=== PATIENT | male | born 1955 | race American Indian/Alaskan Native ===

== ENCOUNTER 2017-06-12 15:17 | Inpatient (IN) | payer MEDICAID ==
[2017-06-12 15:53] LABS: Basophils % (Auto) 0.3 % (0.0-1.8); Hematocrit 36.3 % (35.5-45.6); Hemoglobin 12.1 gm/dl (11.8-15.2); Lymphocytes # (Auto) 0.8 K/mm3 (1.2-5.4); Lymphocytes % (Auto) 6.1 % (13.4-35.0); Mean Corpuscular HGB Conc 33 % (32-34); Mean Corpuscular Hemoglobin 31 pg (28-32); Mean Corpuscular Volume 92 fl (84-94); Monocytes # (Auto) 0.6 K/mm3 (0.0-0.8); Monocytes % (Auto) 5.1 % (0.0-7.3); Platelet Count 311 K/mm3 (140-440); Red Blood Count 3.96 M/mm3 (3.65-5.03); Red Cell Distribution Width 13.1 % (13.2-15.2)
[2017-06-12 16:11] LABS: Calcium 8.8 mg/dL (8.4-10.2)
[2017-06-12 16:12] LABS: Bacteria,Urine 1+ /HPF (Negative); Bilirubin,Urine NEG (Negative); Blood,Urine SM (Negative); Color,Urine Yellow (Yellow); Protein,Urine >500 mg/dL (Negative); Urobilinogen,Urine < 2.0 mg/dL (<2.0)
[2017-06-12 16:20] LABS: Amphetamine Screen,Urine PRESUMPTIVE NEGATIVE; Benzodiazepines Screen,Urine PRESUMPTIVE NEGATIVE; Cannabinoid Screen,Urine PRESUMPTIVE NEGATIVE; Cocaine Screen,Urine PRESUMPTIVE NEGATIVE; Methadone Screen,Urine PRESUMPTIVE NEGATIVE; Opiate Screen,Urine PRESUMPTIVE NEGATIVE
[2017-06-12 16:26] LABS: INR 1.02 (0.87-1.13); Partial Thromboplastin Time 27.2 Sec. (24.2-36.6)
[2017-06-12 16:45] LABS: Alanine Aminotransferase 19 units/L (7-56); Albumin 3.1 g/dL (3.9-5)
[2017-06-12 16:48] LABS: Bilirubin,Direct < 0.2 mg/dL (0-0.2)
--- NOTE | 2017-06-12 17:20 | Cat Scan Report ---
FINAL REPORT EXAM: CT HEAD/BRAIN WO CON HISTORY: AMS TECHNIQUE: CT head without contrast PRIORS: Correlation with prior MRI June 02, [address] of March 15, 2016 FINDINGS: There is focal hypodensity within the right occipital lobe consistent with subacute evolving hemorrhage.. No acute components are observed There is patchy decreased density throughout the supratentorial white matter consistent with chronic small vessel ischemic change. No acute parenchymal abnormalities are identified. Ventricles and sulci are within normal limits. The remote lacunar infarcts noted within the basal ganglia. IMPRESSION: Subacute right occipital hematoma no acute components identified Chronic small vessel white matter ischemic changes Otherwise no acute findings
--- NOTE | 2017-06-12 17:26 | Emergency Department Report ---
ED General Adult HPI - General Chief complaint: Hypoglycemia Stated complaint: HYPOGLYCEMIA Time Seen by Provider: 06/12/17 15:31 Source: EMS Mode of arrival: Stretcher Limitations: Altered Mental Status - History of Present Illness Initial comments: This is a 61 yr old male with past medical history of Hypertension, Diabetes mellitus and chronic Kidney disease who was recently admitted and discharged with dizziness. 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 He was treated for accelerated hypertension with a blood pressure 192/[address] head without contrast here revealed right occipital intraparechymal hemorrhage, subacute. The patient was seen by neurology for the CVA and cardiology for elevated troponin. He was found to have a creatinine of 3.4. Today the patient was found poorly responsive by his family. I believe he had taken his insulin. His blood sugar was found to be 22 by paramedics. They gave the patient 1 amp of D50. He arrived with persistent altered mental status but his glucose was repeated and it was over 100. Further diagnostic evaluation proceeded. -: unknown - Related Data Home Medications Medication Instructions Recorded Confirmed Last Taken Glimepiride [Amaryl] 4 mg PO QAM 06/01/17 06/01/17 Unknown Losartan [Cozaar] 100 mg PO QDAY 06/01/17 06/01/17 Unknown NIFEdipine [Nifedipine ER] 90 mg PO DAILY 06/01/17 06/01/17 Unknown cloNIDine [Catapres] 0.2 mg PO QHS 06/01/17 06/01/17 Unknown metFORMIN [Glucophage] 500 mg PO BID 06/01/17 06/01/17 Unknown Previous Rx's Medication Instructions Recorded Last Taken Type AtorvaSTATin [Lipitor] 40 mg PO QHS #30 tablet 06/06/17 Unknown Rx Insulin NPH/Regular [NovoLIN 70/30] 25 unit SUB-Q BIDDIAB #30 units 06/06/17 Unknown Rx Losartan [Cozaar] 100 mg PO QDAY #30 tablet 06/06/17 Unknown Rx Metoprolol Tartrate 100 mg PO BID #60 tablet 06/06/17 Unknown Rx NIFEdipine XL [Procardia Xl] 90 mg PO QDAY #30 tablet 06/06/17 Unknown Rx Spironolactone [Aldactone] 25 mg PO BID #60 tablet 06/06/17 Unknown Rx amLODIPine [Norvasc] 10 mg PO QDAY #30 tablet 06/06/17 Unknown Rx hydrALAZINE [Apresoline TAB] 50 mg PO Q8HR #30 tablet 06/06/17 Unknown Rx Allergies Allergy/AdvReac Type Severity Reaction Status Date / Time No Known Allergies Allergy Verified 06/12/17 15:18 ED Review of Systems ROS: Stated complaint: HYPOGLYCEMIA Other details as noted in HPI Comment: Unobtainable due to pts medical conditions ED Past Medical Hx - Past Medical History Hx Hypertension: Yes Hx Congestive Heart Failure: No Hx Diabetes: Yes Hx Asthma: No Hx COPD: No Hx HIV: No Additional medical history: Stage IV chronic kidney disease. Recent hypertensive cerebral hemorrhage - Surgical History Past Surgical History?: Yes Additional Surgical History: hernia repair - Social History Smoking Status: Unknown if ever smoked - Medications Home Medications: Home Medications Medication Instructions Recorded Confirmed Last Taken Type Glimepiride [Amaryl] 4 mg PO QAM 06/01/17 06/01/17 Unknown History Losartan [Cozaar] 100 mg PO QDAY 06/01/17 06/01/17 Unknown History NIFEdipine [Nifedipine ER] 90 mg PO DAILY 06/01/17 06/01/17 Unknown History cloNIDine [Catapres] 0.2 mg PO QHS 06/01/17 06/01/17 Unknown History metFORMIN [Glucophage] 500 mg PO BID 06/01/17 06/01/17 Unknown History AtorvaSTATin [Lipitor] 40 mg PO QHS #30 tablet 06/06/17 Unknown Rx Insulin NPH/Regular [NovoLIN 70/30] 25 unit SUB-Q BIDDIAB #30 units 06/06/17 Unknown Rx Losartan [Cozaar] 100 mg PO QDAY #30 tablet 06/06/17 Unknown Rx Metoprolol Tartrate 100 mg PO BID #60 tablet 06/06/17 Unknown Rx NIFEdipine XL [Procardia Xl] 90 mg PO QDAY #30 tablet 06/06/17 Unknown Rx Spironolactone [Aldactone] 25 mg PO BID #60 tablet 06/06/17 Unknown Rx amLODIPine [Norvasc] 10 mg PO QDAY #30 tablet 06/06/17 Unknown Rx hydrALAZINE [Apresoline TAB] 50 mg PO Q8HR #30 tablet 06/06/17 Unknown Rx ED Physical Exam - General Limitations: Altered Mental Status General appearance: in no apparent distress, lethargic - Head Head exam: Present: atraumatic, normocephalic - Eye Eye exam: Present: normal appearance, PERRL, EOMI. Absent: scleral icterus - ENT ENT exam: Present: mucous membranes moist - Neck Neck exam: Present: normal inspection. Absent: tenderness, meningismus - Respiratory Respiratory exam: Present: normal lung sounds bilaterally. Absent: respiratory distress - Cardiovascular Cardiovascular Exam: Present: regular rate, normal rhythm. Absent: systolic murmur, diastolic murmur, rubs, gallop - GI/Abdominal GI/Abdominal exam: Present: soft, normal bowel sounds. Absent: distended, tenderness, guarding, rebound, rigid - Rectal Rectal exam: Present: deferred - Extremities Exam Extremities exam: Present: normal inspection - Back Exam Back exam: Present: other (could not visualize) - Neurological Exam Neurological exam: Present: altered, CN II-XII intact (past test by observation) . Absent: motor sensory deficit (patient unable to follow commands. No gross hemiparesis. No gross sensory deficit.) - Psychiatric Psychiatric exam: Present: normal mood, flat affect - Skin Skin exam: Present: warm, dry, intact, normal color. Absent: rash ED Course Vital Signs 06/12/17 06/12/17 15:20 18:01 Pulse Rate 74 Respiratory 16 Rate Blood Pressure 165/95 O2 Sat by Pulse 97 94 Oximetry - Reevaluation(s) Reevaluation #1: On reexamination the patient appears to perhaps have mild right facial paresis. He will not squeeze my fingers. He does not tell me his name or the date. He simply states, "yes sir". I don't see any gross motor deficit. He does appear to have a receptive aphasia. I do not know if this is secondary to his hypoglycemia or if he had a seizure. It is certainly possible that he has had another stroke. The patient is not a candidate for tPA for multiple reasons. He has had a recent cerebral hemorrhage and stroke. He is excluded on that basis. A baby aspirin I believe is appropriate and that has been ordered. I'm also going to empirically treat him with Keppra as I believe he is very high risk for seizures and indeed might have actually have one. 06/12/17 17:51 Reevaluation #2: Patient will be admitted to the hospitalist service for care and evaluation. 06/12/17 17:54 ED Medical Decision Making - Lab Data Result diagrams: 06/12/17 Unknown 06/12/17 Unknown Laboratory Results - last 24 hr 06/12/17 06/12/17 06/12/17 15:24 15:40 15:46 WBC RBC Hgb Hct MCV MCH MCHC RDW Plt Count Lymph % (Auto) [place] % (Auto) Eos % (Auto) Baso % (Auto) Lymph # [place] # Eos # Baso # Seg Neutrophils % Seg Neutrophils # PT 13.9 INR 1.02 APTT 27.2 POC ABG pH POC ABG pCO2 POC ABG pO2 POC ABG HCO3 POC ABG Total CO2 POC ABG O2 Sat POC ABG Base Excess FiO2 Sodium Potassium Chloride Carbon Dioxide Anion Gap BUN Creatinine Estimated GFR BUN/Creatinine Ratio Glucose POC Glucose 130 H Calcium Magnesium Total Bilirubin Direct Bilirubin Indirect Bilirubin AST ALT Alkaline Phosphatase Ammonia 39.0 Troponin T NT-Pro-B Natriuret Pep Total Protein Albumin Albumin/Globulin Ratio TSH Urine Color Urine Turbidity Urine pH Ur Specific [place] Urine Protein Urine Glucose (UA) Urine Ketones Urine Blood Urine Nitrite Urine Bilirubin Urine Urobilinogen Ur Leukocyte Esterase Urine WBC (Auto) Urine RBC (Auto) Urine Bacteria (Auto) Urine Yeast (Budding) Urine Opiates Screen Urine Methadone Screen Ur Barbiturates Screen Ur Phencyclidine Scrn Ur Amphetamines Screen U Benzodiazepines Scrn Urine Cocaine Screen U Marijuana (THC) Screen Drugs of Abuse Note Plasma/Serum Alcohol 06/12/17 06/12/17 06/12/17 15:50 15:50 16:23 WBC RBC Hgb Hct MCV MCH MCHC RDW Plt Count Lymph % (Auto) [place] % (Auto) Eos % (Auto) Baso % (Auto) Lymph # [place] # Eos # Baso # Seg Neutrophils % Seg Neutrophils # PT INR APTT POC ABG pH 7.424 POC ABG pCO2 27.7 L POC ABG pO2 54 L POC ABG HCO3 18.1 POC ABG Total CO2 19 POC ABG O2 Sat 89 POC ABG Base Excess -6 FiO2 21 Sodium Potassium Chloride Carbon Dioxide Anion Gap BUN Creatinine Estimated GFR BUN/Creatinine Ratio Glucose POC Glucose Calcium Magnesium Total Bilirubin Direct Bilirubin Indirect Bilirubin AST ALT Alkaline Phosphatase Ammonia Troponin T NT-Pro-B Natriuret Pep Total Protein Albumin Albumin/Globulin Ratio TSH Urine Color Yellow Urine Turbidity Clear Urine pH 5.0 Ur Specific [place] 1.013 Urine Protein >500 Urine Glucose (UA) Neg Urine Ketones Neg Urine Blood Sm Urine Nitrite Neg Urine Bilirubin Neg Urine Urobilinogen < 2.0 Ur Leukocyte Esterase Neg Urine WBC (Auto) 1.0 Urine RBC (Auto) 1.0 Urine Bacteria (Auto) 1+ Urine Yeast (Budding) Few Urine Opiates Screen Presumptive negative Urine Methadone Screen Presumptive negative Ur Barbiturates Screen Presumptive negative Ur Phencyclidine Scrn Presumptive negative Ur Amphetamines Screen Presumptive negative U Benzodiazepines Scrn Presumptive negative Urine Cocaine Screen Presumptive negative U Marijuana (THC) Screen Presumptive negative Drugs of Abuse Note Disclamer Plasma/Serum Alcohol 06/12/17 06/12/17 06/12/17 Unknown Unknown Unknown WBC 12.6 H RBC 3.96 Hgb 12.1 Hct 36.3 MCV 92 MCH 31 MCHC 33 RDW 13.1 L Plt Count 311 Lymph % (Auto) 6.1 L [place] % (Auto) 5.1 Eos % (Auto) 0.0 Baso % (Auto) 0.3 Lymph # 0.8 L [place] # 0.6 Eos # 0.0 Baso # 0.0 Seg Neutrophils % 88.5 H Seg Neutrophils # 11.2 H PT INR APTT POC ABG pH POC ABG pCO2 POC ABG pO2 POC ABG HCO3 POC ABG Total CO2 POC ABG O2 Sat POC ABG Base Excess FiO2 Sodium 141 Potassium 3.4 L Chloride 105.1 Carbon Dioxide 18 L Anion Gap 21 BUN 30 H Creatinine 2.7 H Estimated GFR 29 BUN/Creatinine Ratio 11 Glucose 115 H POC Glucose Calcium 8.8 Magnesium Total Bilirubin Direct Bilirubin Indirect Bilirubin AST ALT Alkaline Phosphatase Ammonia Troponin T NT-Pro-B Natriuret Pep Total Protein Albumin Albumin/Globulin Ratio TSH 1.120 Urine Color Urine Turbidity Urine pH Ur Specific [place] Urine Protein Urine Glucose (UA) Urine Ketones Urine Blood Urine Nitrite Urine Bilirubin Urine Urobilinogen Ur Leukocyte Esterase Urine WBC (Auto) Urine RBC (Auto) Urine Bacteria (Auto) Urine Yeast (Budding) Urine Opiates Screen Urine Methadone Screen Ur Barbiturates Screen Ur Phencyclidine Scrn Ur Amphetamines Screen U Benzodiazepines Scrn Urine Cocaine Screen U Marijuana (THC) Screen Drugs of Abuse Note Plasma/Serum Alcohol 06/12/17 06/12/17 Unknown Unknown WBC RBC Hgb Hct MCV MCH MCHC RDW Plt Count Lymph % (Auto) [place] % (Auto) Eos % (Auto) Baso % (Auto) Lymph # [place] # Eos # Baso # Seg Neutrophils % Seg Neutrophils # PT INR APTT POC ABG pH POC ABG pCO2 POC ABG pO2 POC ABG HCO3 POC ABG Total CO2 POC ABG O2 Sat POC ABG Base Excess FiO2 Sodium Potassium Chloride Carbon Dioxide Anion Gap BUN Creatinine Estimated GFR BUN/Creatinine Ratio Glucose POC Glucose Calcium Magnesium 1.60 L Total Bilirubin 0.70 Direct Bilirubin < 0.2 Indirect Bilirubin 0.5 AST 24 ALT 19 Alkaline Phosphatase 85 Ammonia Troponin T 0.013 NT-Pro-B Natriuret Pep 678.0 Total Protein 6.5 Albumin 3.1 L Albumin/Globulin Ratio 0.9 TSH Urine Color Urine Turbidity Urine pH Ur Specific [place] Urine Protein Urine Glucose (UA) Urine Ketones Urine Blood Urine Nitrite Urine Bilirubin Urine Urobilinogen Ur Leukocyte Esterase Urine WBC (Auto) Urine RBC (Auto) Urine Bacteria (Auto) Urine Yeast (Budding) Urine Opiates Screen Urine Methadone Screen Ur Barbiturates Screen Ur Phencyclidine Scrn Ur Amphetamines Screen U Benzodiazepines Scrn Urine Cocaine Screen U Marijuana (THC) Screen Drugs of Abuse Note Plasma/Serum Alcohol < 0.01 - EKG Data -: EKG Interpreted by Me EKG shows normal: sinus rhythm, axis (normal axis) Rate: normal - EKG Data Interpretation: LVH (repolarization consistent with inferolateral T-wave inversion is often related to LVH consider ischemia) - Radiology Data Radiology results: report reviewed interpreted by me: CT shows subacute acute right occipital hematoma with no acute components identified. No acute finding per radiologist. Chest x-ray to me suggests a right lower lobe infiltrate. I suspect the patient may have aspirated. Critical Care Time: Yes Critical care time in (mins) excluding proc time.: 60 Critical care attestation.: If time is entered above; I have spent that time in minutes in the direct care of this critically ill patient, excluding procedure time. ED Disposition Clinical Impression: CKD (chronic kidney disease) stage 4, GFR 15-29 ml/min, Hypoglycemia, Cerebral hemorrhage, Hypoxia, Essential hypertension, Pulmonary infiltrate in right lung on CXR Altered mental status Qualifiers: Altered mental status type: disorientation Qualified Code(s): R41.0 - Disorientation, unspecified Disposition: 09 OP ADMIT IP TO THIS HOSP Is pt being admited?: Yes Does the pt Need Aspirin: Yes Condition: Stable Instructions: Hypertension (ED) Referrals: PRIMARY CARE, [Primary Care Provider] - 3-5 Days Time of Disposition: 18:36
[2017-06-12] MEDS ORDERED: KEPPRA 1,000 MG/NS 0.75% 100ML 1,000 MG/100 ML BAG IV ONE (17:50)
[2017-06-12] MEDS ORDERED: BABY ASPIRIN PO ONE (17:51)
--- NOTE | 2017-06-12 18:14 | XRay Report ---
FINAL REPORT EXAM: XR CHEST 1V AP HISTORY: hypoxia TECHNIQUE: upright single view chest PRIORS: Comparison is March 15, 2016 FINDINGS: Cardiac and mediastinal contours are unremarkable. No focal pulmonary infiltrate is identified. No pleural fluid collection seen. Pulmonary vasculature is unremarkable. IMPRESSION: Negative single-view chest
[2017-06-12] MEDS ORDERED: ROCEPHIN/NS 1 GM/50 ML 1 GM/50 ML BAG IV ONE (18:35)
[2017-06-12] MEDS ORDERED: cefTRIAXone 1 GM in NACL 0.9% 20 ML IV ONE (19:30)
[2017-06-12] MEDS ORDERED: APRESOLINE IV ONE (20:36)
[2017-06-12] MEDS: D50W (25GM) Syringe IV PRN ×2 (20:40→22:30)
[2017-06-12] MEDS ORDERED: TYLENOL PO PRN (23:59)
[2017-06-12] MEDS ORDERED: ZOFRAN IV PRN (23:59)
[2017-06-12] MEDS ORDERED: SODIUM CHLORIDE FLUSH SYRINGE 10 ML IV PRN (23:59)
--- NOTE | 2017-06-12 23:59 | History and Physical Report ---
History of Present Illness Date of examination: 06/12/17 Date of admission: 06/12/2017 Chief complaint: Chief complaint: Altered sensorium History of present illness: History of Present Illness 61-year-old -[place] male with history of insulin-dependent diabetes was found with altered sensorium. 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 Patient has some left-sided residual weakness. His creatinine is about 3.4. Patient was found with low glucose of 22 by paramedics. They gave a 1 amp of D50. With which he improved. Patient continues to be confused in the emergency room has admission. Patient had right facial paralysis for a few minutes which is resolved spontaneously as per emergency room physician. Past Medical History Hx Hypertension: Yes Hx Diabetes: Yes Additional medical history: Stage IV chronic kidney disease. Recent hypertensive cerebral hemorrhage Surgical History Past Surgical History?: Yes Additional Surgical History: hernia repair Social History Smoking Status: Unknown if ever smoked Family history Hypertension -Medications Home Medications: Home Medications Medication Instructions Recorded Confirmed Last Taken Type Glimepiride [Amaryl] 4 mg PO QAM 06/01/17 06/01/17 Unknown History Losartan [Cozaar] 100 mg PO QDAY 06/01/17 06/01/17 Unknown History NIFEdipine [Nifedipine ER] 90 mg PO DAILY 06/01/17 06/01/17 Unknown History cloNIDine [Catapres] 0.2 mg PO QHS 06/01/17 06/01/17 Unknown History metFORMIN [Glucophage] 500 mg PO BID 06/01/17 06/01/17 Unknown History AtorvaSTATin [Lipitor] 40 mg PO QHS #30 tablet 06/06/17 Unknown Rx Insulin NPH/Regular [NovoLIN 70/30] 25 unit SUB-Q BIDDIAB #30 units 06/06/17 Unknown Rx Losartan [Cozaar] 100 mg PO QDAY #30 tablet 06/06/17 Unknown Rx Metoprolol Tartrate 100 mg PO BID #60 tablet 06/06/17 Unknown Rx NIFEdipine XL [Procardia Xl] 90 mg PO QDAY #30 tablet 06/06/17 Unknown Rx Spironolactone [Aldactone] 25 mg PO BID #60 tablet 06/06/17 Unknown Rx amLODIPine [Norvasc] 10 mg PO QDAY #30 tablet 06/06/17 Unknown Rx hydrALAZINE [Apresoline TAB] 50 mg PO Q8HR #30 tablet 06/06/17 Unknown Rx Medications and Allergies Allergies Allergy/AdvReac Type Severity Reaction Status Date / Time No Known Allergies Allergy Verified 06/12/17 15:18 Home Medications Medication Instructions Recorded Confirmed Last Taken Type Glimepiride [Amaryl] 4 mg PO QAM 06/01/17 06/12/17 Unknown History Losartan [Cozaar] 100 mg PO QDAY 06/01/17 06/01/17 Unknown History NIFEdipine [Nifedipine ER] 90 mg PO DAILY 06/01/17 06/12/17 Unknown History cloNIDine [Catapres] 0.2 mg PO QHS 06/01/17 06/01/17 Unknown History metFORMIN [Glucophage] 500 mg PO BID 06/01/17 06/12/17 Unknown History AtorvaSTATin [Lipitor] 40 mg PO QHS #30 tablet 06/06/17 Unknown Rx Insulin NPH/Regular [NovoLIN 70/30] 25 unit SUB-Q BIDDIAB #30 units 06/06/17 Unknown Rx Losartan [Cozaar] 100 mg PO QDAY #30 tablet 06/06/17 06/12/17 Unknown Rx Metoprolol Tartrate 100 mg PO BID #60 tablet 06/06/17 06/12/17 Unknown Rx NIFEdipine XL [Procardia Xl] 90 mg PO QDAY #30 tablet 06/06/17 Unknown Rx Spironolactone [Aldactone] 25 mg PO BID #60 tablet 06/06/17 Unknown Rx amLODIPine [Norvasc] 10 mg PO QDAY #30 tablet 06/06/17 06/12/17 Unknown Rx hydrALAZINE [Apresoline TAB] 50 mg PO Q8HR #30 tablet 06/06/17 06/12/17 Unknown Rx Active Meds: Active Medications Dextrose (D50w (25gm) Syringe) 50 ml IV PRN PRN PRN Reason: Hypoglycemia Last Admin: 06/12/17 20:40 Dose: 50 ml Review of Systems All systems: negative Constitutional: no weight loss, no weight gain, no fever, no chills, no sweats Ears, nose, mouth and throat: no sore throat, no swelling in mouth, no swelling in throat Cardiovascular: no chest pain, no orthopnea, no palpitations, no rapid/ irregular heart beat, no edema, no syncope, no lightheadedness, no shortness of breath Respiratory: no cough, no cough with sputum, no excessive sputum, no hemoptysis , no shortness of breath, no dyspnea on exertion Gastrointestinal: no abdominal pain, no nausea, no vomiting, no diarrhea, no constipation Genitourinary Male: no dysuria, no hematuria, no flank pain, no discharge, no urinary frequency, no urinary hesitancy, no nocturia, no incontinence, no erectile dysfunction, no genital pain Musculoskeletal: no neck stiffness, no neck pain, no shooting arm pain, no arm numbness/tingling, no low back pain, no shooting leg pain, no leg numbness/ tingling, no redness of joints Integumentary: no rash, no pruritis, no redness, no sores, no wounds Neurological: no head injury, no seizures, no syncope Psychiatric: no anxiety, no memory loss, no change in sleep habits, no sleep disturbances, no insomnia Endocrine: no cold intolerance, no heat intolerance, no polyphagia, no excessive thirst Hematologic/Lymphatic: no easy bruising, no easy bleeding Allergic/Immunologic: no urticaria, no allergic rhinitis, no wheezing Exam - Constitutional Vitals: Temp Pulse Resp BP Pulse Ox 82 20 168/89 98 06/12/17 23:24 06/12/17 23:24 06/12/17 23:24 06/12/17 23:24 General appearance: Present: no acute distress, well-nourished - EENT Eyes: Present: PERRL ENT: hearing intact, clear oral mucosa - Neck Neck: Present: supple, normal ROM - Respiratory Respiratory effort: normal Respiratory: bilateral: CTA - Cardiovascular Heart rate: 80 Rhythm: regular Heart Sounds: Present: S1 & S2. Absent: rub, click - Extremities Extremities: pulses symmetrical, No edema Peripheral Pulses: within normal limits - Abdominal General gastrointestinal: Present: soft, non-tender, non-distended, normal bowel sounds Male genitourinary: Present: normal - Integumentary Integumentary: Present: clear, warm, dry - Musculoskeletal Musculoskeletal: strength equal bilaterally, left sided weakness, generalized weakness - Psychiatric Psychiatric: depressed - Neurologic Neurologic: CNII-XII intact, other (left-sided weakness present) - Allied Health Allied health notes reviewed: nursing, case management Results - Labs CBC & Chem 7: 06/12/17 Unknown 06/12/17 Unknown Labs: Laboratory Last Values WBC 12.6 K/mm3 (4.5-11.0) H 06/12/17 Unknown RBC 3.96 M/mm3 (3.65-5.03) 06/12/17 Unknown Hgb 12.1 gm/dl (11.8-15.2) 06/12/17 Unknown Hct 36.3 % (35.5-45.6) 06/12/17 Unknown MCV 92 fl (84-94) 06/12/17 Unknown MCH 31 pg (28-32) 06/12/17 Unknown MCHC 33 % (32-34) 06/12/17 Unknown RDW 13.1 % (13.2-15.2) L 06/12/17 Unknown Plt Count 311 K/mm3 (140-440) 06/12/17 Unknown Lymph % (Auto) 6.1 % (13.4-35.0) L 06/12/17 Unknown [place] % (Auto) 5.1 % (0.0-7.3) 06/12/17 Unknown Eos % (Auto) 0.0 % (0.0-4.3) 06/12/17 Unknown Baso % (Auto) 0.3 % (0.0-1.8) 06/12/17 Unknown Lymph # 0.8 K/mm3 (1.2-5.4) L 06/12/17 Unknown Carolina # 0.6 K/mm3 (0.0-0.8) 06/12/17 Unknown Eos # 0.0 K/mm3 (0.0-0.4) 06/12/17 Unknown Baso # 0.0 K/mm3 (0.0-0.1) 06/12/17 Unknown Seg Neutrophils % 88.5 % (40.0-70.0) H 06/12/17 Unknown Seg Neutrophils # 11.2 K/mm3 (1.8-7.7) H 06/12/17 Unknown PT 13.9 Sec. (12.2-14.9) 06/12/17 15:40 INR 1.02 (0.87-1.13) 06/12/17 15:40 APTT 27.2 Sec. (24.2-36.6) 06/12/17 15:40 POC ABG pH 7.424 (7.35-7.45) 06/12/17 16:23 POC ABG pCO2 27.7 (35-45) L 06/12/17 16:23 POC ABG pO2 54 (80-105) L 06/12/17 16:23 POC ABG HCO3 18.1 06/12/17 16:23 POC ABG Total CO2 19 06/12/17 16:23 POC ABG O2 Sat 89 06/12/17 16:23 POC ABG Base Excess -6 06/12/17 16:23 FiO2 21 % 06/12/17 16:23 Sodium 141 mmol/L (137-145) 06/12/17 Unknown Potassium 3.4 mmol/L (3.6-5.0) L 06/12/17 Unknown Chloride 105.1 mmol/L (98-107) 06/12/17 Unknown Carbon Dioxide 18 mmol/L (22-30) L 06/12/17 Unknown Anion Gap 21 mmol/L 06/12/17 Unknown BUN 30 mg/dL (9-20) H 06/12/17 Unknown Creatinine 2.7 mg/dL (0.8-1.5) H 06/12/17 Unknown Estimated GFR 29 ml/min 06/12/17 Unknown BUN/Creatinine Ratio 11 % 06/12/17 Unknown Glucose 115 mg/dL (75-100) H 06/12/17 Unknown POC Glucose 151 (70-105) H 06/12/17 23:51 Lactic Acid 1.20 mmol/L (0.7-2.0) 06/12/17 18:39 Calcium 8.8 mg/dL (8.4-10.2) 06/12/17 Unknown Magnesium 1.60 mg/dL (1.7-2.3) L 06/12/17 Unknown Total Bilirubin 0.70 mg/dL (0.1-1.2) 06/12/17 Unknown Direct Bilirubin < 0.2 mg/dL (0-0.2) 06/12/17 Unknown Indirect Bilirubin 0.5 mg/dL 06/12/17 Unknown AST 24 units/L (5-40) 06/12/17 Unknown ALT 19 units/L (7-56) 06/12/17 Unknown Alkaline Phosphatase 85 units/L (35-129) 06/12/17 Unknown Ammonia 39.0 umol/L (25-60) 06/12/17 15:46 Troponin T 0.013 ng/mL (0.00-0.029) 06/12/17 Unknown NT-Pro-B Natriuret Pep 678.0 pg/mL (0-900) 06/12/17 Unknown Total Protein 6.5 g/dL (6.3-8.2) 06/12/17 Unknown Albumin 3.1 g/dL (3.9-5) L 06/12/17 Unknown Albumin/Globulin Ratio 0.9 % 06/12/17 Unknown TSH 1.120 mlU/mL (0.270-4.200) 06/12/17 Unknown Urine Color Yellow (Yellow) 06/12/17 15:50 Urine Turbidity Clear (Clear) 06/12/17 15:50 Urine pH 5.0 (5.0-7.0) 06/12/17 15:50 Ur Specific [place] 1.013 (1.003-1.030) 06/12/17 15:50 Urine Protein >500 mg/dL (Negative) 06/12/17 15:50 Urine Glucose (UA) Neg mg/dL (Negative) 06/12/17 15:50 Urine Ketones Neg mg/dL (Negative) 06/12/17 15:50 Urine Blood Sm (Negative) 06/12/17 15:50 Urine Nitrite Neg (Negative) 06/12/17 15:50 Urine Bilirubin Neg (Negative) 06/12/17 15:50 Urine Urobilinogen < 2.0 mg/dL (<2.0) 06/12/17 15:50 Ur Leukocyte Esterase Neg (Negative) 06/12/17 15:50 Urine WBC (Auto) 1.0 /HPF (0.0-6.0) 06/12/17 15:50 Urine RBC (Auto) 1.0 /HPF (0.0-6.0) 06/12/17 15:50 Urine Bacteria (Auto) 1+ /HPF (Negative) 06/12/17 15:50 Urine Yeast (Budding) Few /HPF 06/12/17 15:50 Urine Opiates Screen Presumptive negative 06/12/17 15:50 Urine Methadone Screen Presumptive negative 06/12/17 15:50 Ur Barbiturates Screen Presumptive negative 06/12/17 15:50 Ur Phencyclidine Scrn Presumptive negative 06/12/17 15:50 Ur Amphetamines Screen Presumptive negative 06/12/17 15:50 U Benzodiazepines Scrn Presumptive negative 06/12/17 15:50 Urine Cocaine Screen Presumptive negative 06/12/17 15:50 U Marijuana (THC) Screen Presumptive negative 06/12/17 15:50 Drugs of Abuse Note Disclamer 06/12/17 15:50 Plasma/Serum Alcohol < 0.01 % (0-0.07) 06/12/17 Unknown - Imaging and Cardiology EKG: report reviewed (sinus rhythm heart rate of 78/m abnormal T waves nonspecific ST-T wave changes and LVH by voltage criteria) Imaging and Cardiology: CT of the head : Subacute right occipital hematoma which is old Chronic small vessel white matter ischemic changes Otherwise no acute findings Assessment and Plan Advance Directives: Yes (full code) VTE prophylaxis?: Chemical Plan of care discussed with patient/family: Yes - Patient Problems (1) TIA (transient ischemic attack) Current Visit: Yes Status: Acute Qualifiers: Transient cerebral ischemia type: unspecified Qualified Code(s): G45.9 - Transient cerebral ischemic attack, unspecified Plan to address problem: Resolved in the ER. Not convinced that it is a TIA. Probably secondary to severe hypoglycemia. Patient is normal after the first blood glucose is corrected. Will get an MRI. No MRA carotid duplex scan or echocardiogram (2) Encephalopathy acute Current Visit: Yes Status: Acute Plan to address problem: Secondary to hypoglycemia--- now resolved (3) Hypoglycemia Current Visit: Yes Status: Acute Plan to address problem: Hypoglycemia resolved. Patient on insulin. We will discontinue the oral hypoglycemics. Chronic kidney disease may be precipitating the hypoglycemia. Insulin doses also to be decreased. Patient to be compliant and take medications and and meals on regular times. Check A1c (4) Insulin dependent diabetes mellitus Current Visit: Yes Status: Acute Plan to address problem: Continue insulin and coverage (5) Hypertension Current Visit: Yes Status: Chronic Qualifiers: Hypertension type: essential hypertension Qualified Code(s): I10 - Essential (primary) hypertension Plan to address problem: Continue antihypertensives (6) Hemorrhagic cerebrovascular accident (CVA) Current Visit: Yes Status: Acute Plan to address problem: About 10 days ago and recovering (7) DVT prophylaxis Current Visit: Yes Status: Acute Plan to address problem: Only SCDs
[2017-06-13] MEDS ORDERED: SODIUM CHLORIDE FLUSH SYRINGE 10 ML IV PRN ×2 (07:11→14:00)
[2017-06-13] MEDS ORDERED: MORPHINE IV PRN ×2 (07:11→07:34)
[2017-06-13] MEDS ORDERED: TYLENOL PO PRN (07:11)
[2017-06-13] MEDS ORDERED: ZOFRAN IV PRN (07:11)
[2017-06-13] MEDS ORDERED: PERCOCET 5/325 PO PRN (07:11)
[2017-06-13] MEDS: HumaLOG SUB-Q SCH ×4 (08:03→22:16)
[2017-06-13] MEDS: LOPRESSOR PO SCH ×2 (09:48→22:16)
[2017-06-13] MEDS: NORVASC PO SCH (09:48)
[2017-06-13] MEDS: COZAAR PO SCH (09:48)
[2017-06-13] MEDS: APRESOLINE PO SCH ×3 (09:48→22:15)
[2017-06-13] MEDS: SODIUM CHLORIDE FLUSH SYRINGE 10 ML IV SCH ×2 (09:49→22:20)
[2017-06-13] MEDS: NACL 0.9% 1000 ML 1,000 ML IV SCH ×2 (09:49→22:15)
[2017-06-13] MEDS ORDERED: NON-FORMULARY (Losartan [Cozaar] 100 MG) PO SCH (10:00)
[2017-06-13] MEDS ORDERED: SODIUM CHLORIDE FLUSH SYRINGE 10 ML IV SCH (10:00)
--- NOTE | 2017-06-13 13:55 | Consultation ---
History of Present Illness - Reason for Consult Consult date: 06/13/17 chronic renal failure Requesting physician: ESTEBAN LOPEZ - History of Present Illness Mr. Marlow is a 61-year-old -[place] male with past medical history significant for hypertension, diabetes chronic kidney disease and CVA is admitted with altered mental status. Patient noted to have elevated serum creatinine. He was recently seen by our group during his prior admission. Patient is a poor historian at this time. Difficult to get much information from him. Information obtained from patient's current chart Past History Past Medical History: diabetes, hypertension, renal failure, stroke Past Surgical History: Other (not known) Social history: other (unknown ) Medications and Allergies Allergies Allergy/AdvReac Type Severity Reaction Status Date / Time No Known Allergies Allergy Verified 06/12/17 15:18 Home Medications Medication Instructions Recorded Confirmed Last Taken Type Glimepiride [Amaryl] 4 mg PO QAM 06/01/17 06/12/17 Unknown History Losartan [Cozaar] 100 mg PO QDAY 06/01/17 06/01/17 Unknown History NIFEdipine [Nifedipine ER] 90 mg PO DAILY 06/01/17 06/12/17 Unknown History cloNIDine [Catapres] 0.2 mg PO QHS 06/01/17 06/01/17 Unknown History metFORMIN [Glucophage] 500 mg PO BID 06/01/17 06/12/17 Unknown History AtorvaSTATin [Lipitor] 40 mg PO QHS #30 tablet 06/06/17 Unknown Rx Insulin NPH/Regular [NovoLIN 70/30] 25 unit SUB-Q BIDDIAB #30 units 06/06/17 Unknown Rx Losartan [Cozaar] 100 mg PO QDAY #30 tablet 06/06/17 06/12/17 Unknown Rx Metoprolol Tartrate 100 mg PO BID #60 tablet 06/06/17 06/12/17 Unknown Rx NIFEdipine XL [Procardia Xl] 90 mg PO QDAY #30 tablet 06/06/17 Unknown Rx Spironolactone [Aldactone] 25 mg PO BID #60 tablet 06/06/17 Unknown Rx amLODIPine [Norvasc] 10 mg PO QDAY #30 tablet 06/06/17 06/12/17 Unknown Rx hydrALAZINE [Apresoline TAB] 50 mg PO Q8HR #30 tablet 06/06/17 06/12/17 Unknown Rx Active Meds: Active Medications Acetaminophen (Tylenol) 650 mg PO Q4H PRN PRN Reason: Pain MILD(1-3)/Fever >100.5/GOMEZ Amlodipine Besylate (Norvasc) 10 mg PO QDAY [facility] Last Admin: 06/13/17 09:48 Dose: 10 mg Atorvastatin Calcium (Lipitor) 40 mg PO QHS [facility] Clonidine HCl (Catapres) 0.2 mg PO QHS [facility] Dextrose (D50w (25gm) Syringe) 50 ml IV PRN PRN PRN Reason: Hypoglycemia Last Admin: 06/12/17 22:30 Dose: 50 ml Hydralazine HCl (Apresoline) 50 mg PO Q8HR [facility] Last Admin: 06/13/17 09:48 Dose: 50 mg Sodium Chloride (Nacl 0.9% 1000 Ml) 1,000 mls @ 75 mls/hr IV DIRECT [facility] Last Admin: 06/13/17 09:49 Dose: 75 mls/hr Insulin Human Isoph/Insulin Regular (Humulin 70/30) 20 unit SUB-Q BIDDIAB [facility] Last Admin: 06/13/17 08:03 Dose: Not Given Insulin Human Lispro (Humalog) 0 unit SUB-Q ACHS [facility]; Protocol Last Admin: 06/13/17 12:38 Dose: Not Given Losartan Potassium (Cozaar) 100 mg PO QDAY [facility] Last Admin: 06/13/17 09:48 Dose: 100 mg Metoprolol Tartrate (Lopressor) 100 mg PO BID [facility] Last Admin: 06/13/17 09:48 Dose: 100 mg Morphine Sulfate (Morphine) 2 mg IV Q4H PRN PRN Reason: Pain, Moderate (4-6) Ondansetron HCl (Zofran) 4 mg IV Q8H PRN PRN Reason: Nausea And Vomiting Oxycodone/Acetaminophen (Percocet 5/325) 1 tab PO Q6H PRN PRN Reason: Pain, Moderate (4-6) Sodium Chloride (Sodium Chloride Flush Syringe 10 Ml) 10 ml IV BID [facility] Last Admin: 06/13/17 09:49 Dose: 10 ml Sodium Chloride (Sodium Chloride Flush Syringe 10 Ml) 10 ml IV PRN PRN PRN Reason: LINE FLUSH Review of Systems ROS unobtainable: due to mental status Exam - Vital Signs Vital signs: Vital Signs Pulse Resp BP Pulse Ox 74 16 165/95 97 06/12/17 15:20 06/12/17 15:20 06/12/17 15:20 06/12/17 15:20 - General Appearance General appearance: well-developed, well-nourished, appears stated age EENT: PERRL, mucous membranes moist Neck: Present: neck supple, trachea midline. Absent: JVD/HJR, Masses Respiratory: Clear to Ascultation Heart: regular, normal heart rate Gastrointestinal: Present: normal, normoactive bowel sounds Integumentary: no rash, warm and dry Results - Lab Results 06/12/17 Unknown 06/12/17 Unknown Most recent lab results Calcium 8.8 mg/dL (8.4-10.2) 06/12/17 Unknown Magnesium 1.60 mg/dL (1.7-2.3) L 06/12/17 Unknown Assessment and Plan Impression: * CKD stage 4 * Altered mental status * HTN * CVA * Hypokalemia * DM type 2 * Metabolic acidosis Plan: * History of function seems to be stable. Probably at baseline. * Patient noted to be hypokalemic. He may have underlying hyperaldosteronism. Check renin aldosterone ratio * advise on HTN and DM control * daily lytes * strict i/os * avoid nephrotoxins * Mortality risk very high due to noncompliance patient counseled and educated at lengths * no indications for [employer] at this time * Discontinue metformin
--- NOTE | 2017-06-13 13:57 | Progress Note ---
Assessment and Plan Assessment and plan: 61-year-old -[place] male with history of insulin-dependent diabetes was found with altered sensorium. Patient recently had a hemorrhagic CVA involving the right parietal lobe and were discharged from [facility]. Patient has some left-sided residual weakness. His creatinine is about 3.4. Patient was found with low glucose of 22 by paramedics. They gave a 1 amp of D50. With which he improved. Patient continues to be confused in the emergency room has admission. Patient had right facial paralysis for a few minutes which is resolved spontaneously as per emergency room physician. (1) TIA (transient ischemic attack) Current Visit: Yes Status: Acute Qualifiers: Transient cerebral ischemia type: unspecified Qualified Code(s): G45.9 - Transient cerebral ischemic attack, unspecified Plan to address problem: Resolved in the ER. Not convinced that it is a TIA. Probably secondary to severe hypoglycemia. Patient is normal after the first blood glucose is corrected. Will get an MRI. No MRA carotid duplex scan or echocardiogram CKD stage 4 renal input appreciated, avoid nephrotoxins, bicarb pills added, control BP and glc (2) Encephalopathy acute Current Visit: Yes Status: Acute Plan to address problem: Secondary to hypoglycemia--- now resolved (3) Hypoglycemia Current Visit: Yes Status: Acute Plan to address problem: Hypoglycemia resolved. Patient on insulin. We will discontinue the oral hypoglycemics. Chronic kidney disease may be precipitating the hypoglycemia. Insulin doses also to be decreased. Patient to be compliant and take medications and and meals on regular times. Check A1c (4) Insulin dependent diabetes mellitus Current Visit: Yes Status: Acute Plan to address problem: Continue insulin and coverage (5) Hypertension Current Visit: Yes Status: Chronic Qualifiers: Hypertension type: essential hypertension Qualified Code(s): I10 - Essential (primary) hypertension Plan to address problem: Continue antihypertensives (6) Hemorrhagic cerebrovascular accident (CVA) Current Visit: Yes Status: Acute Plan to address problem: About 10 days ago and recovering (7) DVT prophylaxis Current Visit: Yes Status: Acute Plan to address problem: Only SCDs History Interval history: no complaints overnight no cp, no sob, no vomiting, denies focal weakness is appropriate but slow with his answers, and has poor memory Hospitalist Physical - Constitutional Vitals: Temp Pulse Resp BP Pulse Ox 98.9 F 87 18 138/73 97 06/13/17 11:30 06/13/17 11:30 06/13/17 11:30 06/13/17 11:30 06/13/17 11:30 General appearance: Present: no acute distress, well-nourished - EENT Eyes: Present: PERRL ENT: hearing intact - Neck Neck: Present: supple - Respiratory Respiratory effort: normal Respiratory: bilateral: CTA - Cardiovascular Rhythm: regular Heart Sounds: Present: S1 & S2 - Extremities Extremities: no ischemia Peripheral Pulses: within normal limits - Abdominal General gastrointestinal: soft, non-distended, distended, normal bowel sounds - Integumentary Integumentary: Present: clear, warm, dry - Psychiatric Psychiatric: appropriate mood/affect, intact judgment & insight, cooperative - Neurologic Neurologic: CNII-XII intact, no focal deficits, other (slow answers and poor memory) Results - Labs CBC & Chem 7: 06/12/17 Unknown 06/14/17 07:00 Labs: Laboratory Last Values WBC 12.6 K/mm3 (4.5-11.0) H 06/12/17 Unknown RBC 3.96 M/mm3 (3.65-5.03) 06/12/17 Unknown Hgb 12.1 gm/dl (11.8-15.2) 06/12/17 Unknown Hct 36.3 % (35.5-45.6) 06/12/17 Unknown MCV 92 fl (84-94) 06/12/17 Unknown MCH 31 pg (28-32) 06/12/17 Unknown MCHC 33 % (32-34) 06/12/17 Unknown RDW 13.1 % (13.2-15.2) L 06/12/17 Unknown Plt Count 311 K/mm3 (140-440) 06/12/17 Unknown Lymph % (Auto) 6.1 % (13.4-35.0) L 06/12/17 Unknown [place] % (Auto) 5.1 % (0.0-7.3) 06/12/17 Unknown Eos % (Auto) 0.0 % (0.0-4.3) 06/12/17 Unknown Baso % (Auto) 0.3 % (0.0-1.8) 06/12/17 Unknown Lymph # 0.8 K/mm3 (1.2-5.4) L 06/12/17 Unknown [place] # 0.6 K/mm3 (0.0-0.8) 06/12/17 Unknown Eos # 0.0 K/mm3 (0.0-0.4) 06/12/17 Unknown Baso # 0.0 K/mm3 (0.0-0.1) 06/12/17 Unknown Seg Neutrophils % 88.5 % (40.0-70.0) H 06/12/17 Unknown Seg Neutrophils # 11.2 K/mm3 (1.8-7.7) H 06/12/17 Unknown PT 13.9 Sec. (12.2-14.9) 06/12/17 15:40 INR 1.02 (0.87-1.13) 06/12/17 15:40 APTT 27.2 Sec. (24.2-36.6) 06/12/17 15:40 POC ABG pH 7.424 (7.35-7.45) 06/12/17 16:23 POC ABG pCO2 27.7 (35-45) L 06/12/17 16:23 POC ABG pO2 54 (80-105) L 06/12/17 16:23 POC ABG HCO3 18.1 06/12/17 16:23 POC ABG Total CO2 19 06/12/17 16:23 POC ABG O2 Sat 89 06/12/17 16:23 POC ABG Base Excess -6 06/12/17 16:23 FiO2 21 % 06/12/17 16:23 Sodium 141 mmol/L (137-145) 06/12/17 Unknown Potassium 3.4 mmol/L (3.6-5.0) L 06/12/17 Unknown Chloride 105.1 mmol/L (98-107) 06/12/17 Unknown Carbon Dioxide 18 mmol/L (22-30) L 06/12/17 Unknown Anion Gap 21 mmol/L 06/12/17 Unknown BUN 30 mg/dL (9-20) H 06/12/17 Unknown Creatinine 2.7 mg/dL (0.8-1.5) H 06/12/17 Unknown Estimated GFR 29 ml/min 06/12/17 Unknown BUN/Creatinine Ratio 11 % 06/12/17 Unknown Glucose 115 mg/dL (75-100) H 06/12/17 Unknown POC Glucose 100 (70-105) 06/13/17 05:30 Hemoglobin A1c 8.4 % (4-6) H 06/13/17 07:29 Lactic Acid 1.20 mmol/L (0.7-2.0) 06/12/17 18:39 Calcium 8.8 mg/dL (8.4-10.2) 06/12/17 Unknown Magnesium 1.60 mg/dL (1.7-2.3) L 06/12/17 Unknown Total Bilirubin 0.70 mg/dL (0.1-1.2) 06/12/17 Unknown Direct Bilirubin < 0.2 mg/dL (0-0.2) 06/12/17 Unknown Indirect Bilirubin 0.5 mg/dL 06/12/17 Unknown AST 24 units/L (5-40) 06/12/17 Unknown ALT 19 units/L (7-56) 06/12/17 Unknown Alkaline Phosphatase 85 units/L (35-129) 06/12/17 Unknown Ammonia 39.0 umol/L (25-60) 06/12/17 15:46 Troponin T 0.013 ng/mL (0.00-0.029) 06/12/17 Unknown NT-Pro-B Natriuret Pep 678.0 pg/mL (0-900) 06/12/17 Unknown Total Protein 6.5 g/dL (6.3-8.2) 06/12/17 Unknown Albumin 3.1 g/dL (3.9-5) L 06/12/17 Unknown Albumin/Globulin Ratio 0.9 % 06/12/17 Unknown TSH 1.120 mlU/mL (0.270-4.200) 06/12/17 Unknown Urine Color Yellow (Yellow) 06/12/17 15:50 Urine Turbidity Clear (Clear) 06/12/17 15:50 Urine pH 5.0 (5.0-7.0) 06/12/17 15:50 Ur Specific [place] 1.013 (1.003-1.030) 06/12/17 15:50 Urine Protein >500 mg/dL (Negative) 06/12/17 15:50 Urine Glucose (UA) Neg mg/dL (Negative) 06/12/17 15:50 Urine Ketones Neg mg/dL (Negative) 06/12/17 15:50 Urine Blood Sm (Negative) 06/12/17 15:50 Urine Nitrite Neg (Negative) 06/12/17 15:50 Urine Bilirubin Neg (Negative) 06/12/17 15:50 Urine Urobilinogen < 2.0 mg/dL (<2.0) 06/12/17 15:50 Ur Leukocyte Esterase Neg (Negative) 06/12/17 15:50 Urine WBC (Auto) 1.0 /HPF (0.0-6.0) 06/12/17 15:50 Urine RBC (Auto) 1.0 /HPF (0.0-6.0) 06/12/17 15:50 Urine Bacteria (Auto) 1+ /HPF (Negative) 06/12/17 15:50 Urine Yeast (Budding) Few /HPF 06/12/17 15:50 Urine Opiates Screen Presumptive negative 06/12/17 15:50 Urine Methadone Screen Presumptive negative 06/12/17 15:50 Ur Barbiturates Screen Presumptive negative 06/12/17 15:50 Ur Phencyclidine Scrn Presumptive negative 06/12/17 15:50 Ur Amphetamines Screen Presumptive negative 06/12/17 15:50 U Benzodiazepines Scrn Presumptive negative 06/12/17 15:50 Urine Cocaine Screen Presumptive negative 06/12/17 15:50 U Marijuana (THC) Screen Presumptive negative 06/12/17 15:50 Drugs of Abuse Note Disclamer 06/12/17 15:50 Plasma/Serum Alcohol < 0.01 % (0-0.07) 06/12/17 Unknown
[2017-06-13] MEDS: ASPIRIN PO SCH (14:31)
[2017-06-13] MEDS: SODIUM BICARBONATE PO SCH (22:16)
[2017-06-13] MEDS: CATAPRES PO SCH (22:16)
[2017-06-14] MEDS: APRESOLINE PO SCH ×3 (06:12→21:15)
[2017-06-14 07:46] LABS: Calcium 7.7 mg/dL (8.4-10.2)
[2017-06-14 09:24] LABS: Chol/HDL Ratio 3.15 %
[2017-06-14] MEDS: COZAAR PO SCH (10:52)
[2017-06-14] MEDS: LOPRESSOR PO SCH ×2 (10:52→21:15)
[2017-06-14] MEDS: ASPIRIN PO SCH (10:52)
[2017-06-14] MEDS: NORVASC PO SCH (10:52)
[2017-06-14] MEDS: SODIUM BICARBONATE PO SCH ×2 (10:52→21:14)
[2017-06-14] MEDS: HumaLOG SUB-Q SCH ×4 (10:53→21:34)
[2017-06-14] MEDS: SODIUM CHLORIDE FLUSH SYRINGE 10 ML IV SCH ×2 (11:19→21:18)
--- NOTE | 2017-06-14 14:02 | Progress Note ---
Assessment and Plan Impression: * CKD stage 4 * Altered mental status * HTN * CVA * Hypokalemia * DM type 2 * Metabolic acidosis Plan: * His renal function seems to be stable. Probably at baseline. * Patient noted to be hypokalemic. He may have underlying hyperaldosteronism. Check renin aldosterone ratio * Monitor renal function, fluid status and electrolytes closely * avoid nephrotoxins * Mortality risk very high due to noncompliance patient counseled and educated at lengths * no indications for DEFENSE ANALYST at this time * Avoid metformin Subjective Date of service: 06/14/17 Interval history: Patient is comfortable today. Denies any shortness of breath. No nausea or vomiting Objective - Vital Signs Vital signs: Vital Signs - 12hr 06/14/17 06/14/17 06/14/17 03:54 05:06 08:15 Temperature 98.2 F 98.8 F Pulse Rate 81 81 76 Respiratory 18 18 Rate Blood Pressure 156/92 149/80 Blood Pressure 156/92 [Right] O2 Sat by Pulse 97 97 99 Oximetry 06/14/17 06/14/17 06/14/17 08:16 10:00 11:40 Temperature Pulse Rate 75 75 75 Respiratory Rate Blood Pressure 150/76 Blood Pressure [Right] O2 Sat by Pulse 99 97 Oximetry - General Appearance General appearance: well-developed, well-nourished, appears stated age EENT: PERRL, mucous membranes moist Neck: no JVD, no thyromegaly, no carotid bruit, supple Respiratory: Present: Clear to Ascultation Cardiology: regular, normal heart rate, S1S2, no murmurs Gastrointestinal: normal, normoactive bowel sounds Integumentary: no rash, other (no edema ) - Lab 06/12/17 Unknown 06/14/17 07:00 Most recent lab results Calcium 7.7 mg/dL (8.4-10.2) L 06/14/17 07:00 Magnesium 1.60 mg/dL (1.7-2.3) L 06/12/17 Unknown
[2017-06-14] MEDS: NACL 0.9% 1000 ML 1,000 ML IV SCH (15:14)
[2017-06-14] MEDS: CATAPRES PO SCH (21:15)
--- NOTE | 2017-06-15 00:37 | Progress Note ---
Assessment and Plan Assessment and plan: 61-year-old -Citizen Of [place] male with history of insulin-dependent diabetes was found with altered sensorium. Patient recently had a hemorrhagic CVA involving the right parietal lobe and were discharged from [facility]. Patient has some left-sided residual weakness. His creatinine is about 3.4. Patient was found with low glucose of 22 by paramedics. They gave a 1 amp of D50. With which he improved. Patient continues to be confused in the emergency room has admission. Patient had right facial paralysis for a few minutes which is resolved spontaneously as per emergency room physician. (1) TIA (transient ischemic attack) Current Visit: Yes Status: Acute Qualifiers: Transient cerebral ischemia type: unspecified Qualified Code(s): G45.9 - Transient cerebral ischemic attack, unspecified Plan to address problem: Resolved in the ER. Not convinced that it is a TIA. Probably secondary to severe hypoglycemia. Patient is normal after the first blood glucose is corrected. Will get an MRI. MRA carotid duplex scan and echocardiogram CKD stage 4 renal input appreciated, avoid nephrotoxins, bicarb pills added, control BP and glc (2) Encephalopathy acute Current Visit: Yes Status: Acute Plan to address problem: Secondary to hypoglycemia--- now resolved (3) Hypoglycemia Current Visit: Yes Status: Acute Plan to address problem: Hypoglycemia resolved. Patient on insulin. We will discontinue the oral hypoglycemics. Chronic kidney disease may be precipitating the hypoglycemia. Insulin doses also to be decreased. Patient to be compliant and take medications and and meals on regular times. a1c 8.3 (4) Insulin dependent diabetes mellitus Current Visit: Yes Status: Acute Plan to address problem: Continue insulin and coverage (5) Hypertension Current Visit: Yes Status: Chronic Qualifiers: Hypertension type: essential hypertension Qualified Code(s): I10 - Essential (primary) hypertension Plan to address problem: Continue antihypertensives (6) Hemorrhagic cerebrovascular accident (CVA) Current Visit: Yes Status: Acute Plan to address problem: About 10 days prior to this hospital visit and recovering (7) DVT prophylaxis Current Visit: Yes Status: Acute Plan to address problem: Only SCDs History Interval history: no complaints overnight no cp, no sob, no vomiting, denies focal weakness is appropriate but slow with his answers, and has poor memory Hospitalist Physical - Physical exam Narrative exam: General appearance: Present: no acute distress, well-nourished - EENT Eyes: Present: PERRL ENT: hearing intact - Neck Neck: Present: supple - Respiratory Respiratory effort: normal Respiratory: bilateral: CTA - Cardiovascular Rhythm: regular Heart Sounds: Present: S1 & S2 - Extremities Extremities: no ischemia Peripheral Pulses: within normal limits - Abdominal General gastrointestinal: soft, non-distended, distended, normal bowel sounds - Integumentary Integumentary: Present: clear, warm, dry - Psychiatric Psychiatric: appropriate mood/affect, intact judgment & insight, cooperative - Neurologic Neurologic: CNII-XII intact, no focal deficits, other (slow answers and poor memory) - Constitutional Vitals: Temp Pulse Resp BP Pulse Ox 98.5 F 73 18 192/101 99 06/14/17 20:11 06/14/17 16:49 06/14/17 20:11 06/14/17 20:12 06/14/17 18:58 General appearance: Present: no acute distress, well-nourished Results - Labs CBC & Chem 7: 06/12/17 Unknown 06/14/17 07:00 Labs: Laboratory Last Values WBC 12.6 K/mm3 (4.5-11.0) H 06/12/17 Unknown RBC 3.96 M/mm3 (3.65-5.03) 06/12/17 Unknown Hgb 12.1 gm/dl (11.8-15.2) 06/12/17 Unknown Hct 36.3 % (35.5-45.6) 06/12/17 Unknown MCV 92 fl (84-94) 06/12/17 Unknown MCH 31 pg (28-32) 06/12/17 Unknown MCHC 33 % (32-34) 06/12/17 Unknown RDW 13.1 % (13.2-15.2) L 06/12/17 Unknown Plt Count 311 K/mm3 (140-440) 06/12/17 Unknown Lymph % (Auto) 6.1 % (13.4-35.0) L 06/12/17 Unknown [place] % (Auto) 5.1 % (0.0-7.3) 06/12/17 Unknown Eos % (Auto) 0.0 % (0.0-4.3) 06/12/17 Unknown Baso % (Auto) 0.3 % (0.0-1.8) 06/12/17 Unknown Lymph # 0.8 K/mm3 (1.2-5.4) L 06/12/17 Unknown [place] # 0.6 K/mm3 (0.0-0.8) 06/12/17 Unknown Eos # 0.0 K/mm3 (0.0-0.4) 06/12/17 Unknown Baso # 0.0 K/mm3 (0.0-0.1) 06/12/17 Unknown Seg Neutrophils % 88.5 % (40.0-70.0) H 06/12/17 Unknown Seg Neutrophils # 11.2 K/mm3 (1.8-7.7) H 06/12/17 Unknown PT 13.9 Sec. (12.2-14.9) 06/12/17 15:40 INR 1.02 (0.87-1.13) 06/12/17 15:40 APTT 27.2 Sec. (24.2-36.6) 06/12/17 15:40 POC ABG pH 7.424 (7.35-7.45) 06/12/17 16:23 POC ABG pCO2 27.7 (35-45) L 06/12/17 16:23 POC ABG pO2 54 (80-105) L 06/12/17 16:23 POC ABG HCO3 18.1 06/12/17 16:23 POC ABG Total CO2 19 06/12/17 16:23 POC ABG O2 Sat 89 06/12/17 16:23 POC ABG Base Excess -6 06/12/17 16:23 FiO2 21 % 06/12/17 16:23 Sodium 139 mmol/L (137-145) 06/14/17 07:00 Potassium 3.5 mmol/L (3.6-5.0) L 06/14/17 07:00 Chloride 106.8 mmol/L (98-107) 06/14/17 07:00 Carbon Dioxide 22 mmol/L (22-30) 06/14/17 07:00 Anion Gap 14 mmol/L 06/14/17 07:00 BUN 32 mg/dL (9-20) H 06/14/17 07:00 Creatinine 3.1 mg/dL (0.8-1.5) H 06/14/17 07:00 Estimated GFR 25 ml/min 06/14/17 07:00 BUN/Creatinine Ratio 10 % 06/14/17 07:00 Glucose 153 mg/dL (75-100) H 06/14/17 07:00 POC Glucose 136 (70-105) H 06/14/17 21:36 Hemoglobin A1c 8.4 % (4-6) H 06/13/17 07:29 Lactic Acid 1.20 mmol/L (0.7-2.0) 06/12/17 18:39 Calcium 7.7 mg/dL (8.4-10.2) L 06/14/17 07:00 Magnesium 1.60 mg/dL (1.7-2.3) L 06/12/17 Unknown Total Bilirubin 0.70 mg/dL (0.1-1.2) 06/12/17 Unknown Direct Bilirubin < 0.2 mg/dL (0-0.2) 06/12/17 Unknown Indirect Bilirubin 0.5 mg/dL 06/12/17 Unknown AST 24 units/L (5-40) 06/12/17 Unknown ALT 19 units/L (7-56) 06/12/17 Unknown Alkaline Phosphatase 85 units/L (35-129) 06/12/17 Unknown Ammonia 39.0 umol/L (25-60) 06/12/17 15:46 Troponin T 0.013 ng/mL (0.00-0.029) 06/12/17 Unknown NT-Pro-B Natriuret Pep 678.0 pg/mL (0-900) 06/12/17 Unknown Total Protein 6.5 g/dL (6.3-8.2) 06/12/17 Unknown Albumin 3.1 g/dL (3.9-5) L 06/12/17 Unknown Albumin/Globulin Ratio 0.9 % 06/12/17 Unknown Triglycerides 120 mg/dL (2-149) 06/14/17 07:00 Cholesterol 142 mg/dL (50-199) 06/14/17 07:00 LDL Cholesterol Direct 82 mg/dL (50-130) 06/14/17 07:00 HDL Cholesterol 45 mg/dL (40-59) 06/14/17 07:00 Cholesterol/HDL Ratio 3.15 % 06/14/17 07:00 TSH 1.120 mlU/mL (0.270-4.200) 06/12/17 Unknown Urine Color Yellow (Yellow) 06/12/17 15:50 Urine Turbidity Clear (Clear) 06/12/17 15:50 Urine pH 5.0 (5.0-7.0) 06/12/17 15:50 Ur Specific [place] 1.013 (1.003-1.030) 06/12/17 15:50 Urine Protein >500 mg/dL (Negative) 06/12/17 15:50 Urine Glucose (UA) Neg mg/dL (Negative) 06/12/17 15:50 Urine Ketones Neg mg/dL (Negative) 06/12/17 15:50 Urine Blood Sm (Negative) 06/12/17 15:50 Urine Nitrite Neg (Negative) 06/12/17 15:50 Urine Bilirubin Neg (Negative) 06/12/17 15:50 Urine Urobilinogen < 2.0 mg/dL (<2.0) 06/12/17 15:50 Ur Leukocyte Esterase Neg (Negative) 06/12/17 15:50 Urine WBC (Auto) 1.0 /HPF (0.0-6.0) 06/12/17 15:50 Urine RBC (Auto) 1.0 /HPF (0.0-6.0) 06/12/17 15:50 Urine Bacteria (Auto) 1+ /HPF (Negative) 06/12/17 15:50 Urine Yeast (Budding) Few /HPF 06/12/17 15:50 Urine Opiates Screen Presumptive negative 06/12/17 15:50 Urine Methadone Screen Presumptive negative 06/12/17 15:50 Ur Barbiturates Screen Presumptive negative 06/12/17 15:50 Ur Phencyclidine Scrn Presumptive negative 06/12/17 15:50 Ur Amphetamines Screen Presumptive negative 06/12/17 15:50 U Benzodiazepines Scrn Presumptive negative 06/12/17 15:50 Urine Cocaine Screen Presumptive negative 06/12/17 15:50 U Marijuana (THC) Screen Presumptive negative 06/12/17 15:50 Drugs of Abuse Note Disclamer 06/12/17 15:50 Plasma/Serum Alcohol < 0.01 % (0-0.07) 06/12/17 Unknown
[2017-06-15] MEDS: APRESOLINE PO SCH ×3 (05:05→22:39)
[2017-06-15] MEDS: HumaLOG SUB-Q SCH ×4 (07:54→22:43)
[2017-06-15] MEDS: COZAAR PO SCH (10:34)
[2017-06-15] MEDS: NORVASC PO SCH (10:34)
[2017-06-15] MEDS: SODIUM BICARBONATE PO SCH ×2 (10:35→22:39)
[2017-06-15] MEDS: LOPRESSOR PO SCH ×2 (10:35→22:40)
[2017-06-15] MEDS: ASPIRIN PO SCH (10:35)
--- NOTE | 2017-06-15 11:39 | Progress Note ---
Assessment and Plan Impression: * CKD stage 4 * Altered mental status * HTN * CVA * Hypokalemia * DM type 2 * Metabolic acidosis Plan: * His renal function seems to be stable. Probably at baseline. * Patient noted to be hypokalemic. He may have underlying hyperaldosteronism. Check renin aldosterone ratio * Monitor renal function, fluid status and electrolytes closely * avoid nephrotoxins * hold arb today * Mortality risk very high due to noncompliance patient counseled and educated at lengths * no indications for CUSTOMER ADVISOR SPECIALIST at this time * Avoid metformin Subjective Date of service: 06/15/17 Principal diagnosis: ckd 4 Interval history: resting in bed today Objective - Exam Narrative Exam: General appearance: well-developed, well-nourished, appears stated age EENT: PERRL, mucous membranes moist Neck: no JVD, no thyromegaly, no carotid bruit, supple Respiratory: Present: Clear to Ascultation Cardiology: regular, normal heart rate, S1S2, no murmurs Gastrointestinal: normal, normoactive bowel sounds Integumentary: no rash, other (no edema ) - Vital Signs Vital signs: Vital Signs - 12hr 06/15/17 06/15/17 06/15/17 00:25 00:26 03:58 Temperature 98.6 F 98.1 F Pulse Rate 72 75 Pulse Rate [ Right Radial] Respiratory 18 18 Rate Blood Pressure 153/84 175/91 O2 Sat by Pulse 96 97 Oximetry 06/15/17 06/15/17 04:00 10:00 Temperature 98.1 F Pulse Rate 77 78 Pulse Rate [ 78 Right Radial] Respiratory 18 18 Rate Blood Pressure 152/88 O2 Sat by Pulse 97 99 Oximetry - Lab 06/12/17 Unknown 06/14/17 07:00 Most recent lab results Calcium 7.7 mg/dL (8.4-10.2) L 06/14/17 07:00 Magnesium 1.60 mg/dL (1.7-2.3) L 06/12/17 Unknown
--- NOTE | 2017-06-15 12:53 | History and Physical Report ---
History of Present Illness Date of examination: 06/15/17 Date of admission: 06/12/17 23:59 Chief complaint: FOCUSED NEUROLOGY CONSULT NOTE cc: I am asked to see this 61 AA M for AMS HPI: Hx reviewed in chart in detail. Pt has an has an hxj of IDDM 2, CKD stage IV current Creat 3.4 and had a recent admission to [facility] for a right parietal hemorrhage with intraventircular extension. His BP on admission there was 192/118. He experienced some left sided weakness. In this setting, on 05/15 his family found him to be less responsive than usual, EMS was summoned, his blood glucose was 22, he was given amp of D50W with amish of much function but his MS was still not normal on arrival to our ED here. A head CT (images reviewed) showed a moderate sized right parietal hematoma, one to two weeks old (conent with similar intensity to carmona matter at this time), some volume loss, and SVID. An echocardiogram result is pending as is an MRI head. He has improved significantly since admission. ROS: an 11 point ROS is negative. no headache, double vision, vertigo or dizziness, difficulty with speech or swallowing, or new focal neuro sx. FM/SH not re-reviewed MEDS/ALLERGIES: see chart PE: HEEBNT: nl NECK supple no bruits COR: no m rubs LUNGS: clear to A EXTREM: no edema, no evidence of trauma NEURO: MS: alert, coop, speech fluent and clear without errors, oriented x 3, follows commands fairly well except for some R L confusion on crossed body commands and finger agnosia. Much repetition is needed in giving commands. CN II - 12 nl MOT: nl strength 5/5 in all extremities. SENS: feels touch all four extrem DTRs: uniformly absent, great toes unresponsive to plantar stim GAIT not tested due to fall risk DX IMP: 1. Very mild residual encephalopathy likely secondary to his episode of hypoglycemia, not new stroke. 2. Remote (but fairly recent 2- 3 weeks ago) right parietal lobe primiary intracerebral hemorrhage with intraventricular extension, with hematoma undergoing expected involutionary changes as seen on head CT, and secondary to uncontrolled HTN at that time. 3. CKD stage IV, likely with its impact on mental status as well. 4. HTN RECC: 1. Pursue your mgt as planned, control BP and blood glucose 2. Will get EEG 3. Call as needed. Georges Quiles MD Past History Past Medical History: diabetes, hypertension, renal failure, stroke Past Surgical History: Other (not known) Social history: other (unknown ) Medications and Allergies Allergies Allergy/AdvReac Type Severity Reaction Status Date / Time No Known Allergies Allergy Verified 06/12/17 15:18 Home Medications Medication Instructions Recorded Confirmed Last Taken Type Glimepiride [Amaryl] 4 mg PO QAM 06/01/17 06/12/17 Unknown History Losartan [Cozaar] 100 mg PO QDAY 06/01/17 06/15/17 3 Days Ago History ~06/12/17 NIFEdipine [Nifedipine ER] 90 mg PO DAILY 06/01/17 06/12/17 Unknown History cloNIDine [Catapres] 0.2 mg PO QHS 06/01/17 06/15/17 Unknown History metFORMIN [Glucophage] 500 mg PO BID 06/01/17 06/12/17 Unknown History AtorvaSTATin [Lipitor] 40 mg PO QHS #30 tablet 06/06/17 06/15/17 3 Days Ago Rx ~06/12/17 Insulin NPH/Regular [NovoLIN 70/30] 25 unit SUB-Q BIDDIAB #30 units 06/06/17 3 Days Ago Rx ~06/12/17 Losartan [Cozaar] 100 mg PO QDAY #30 tablet 06/06/17 06/12/17 Unknown Rx Metoprolol Tartrate 100 mg PO BID #60 tablet 06/06/17 06/12/17 Unknown Rx NIFEdipine XL [Procardia Xl] 90 mg PO QDAY #30 tablet 06/06/17 06/15/17 3 Days Ago Rx ~06/12/17 Spironolactone [Aldactone] 25 mg PO BID #60 tablet 06/06/17 06/15/17 3 Days Ago Rx ~06/12/17 amLODIPine [Norvasc] 10 mg PO QDAY #30 tablet 06/06/17 06/12/17 Unknown Rx hydrALAZINE [Apresoline TAB] 50 mg PO Q8HR #30 tablet 06/06/17 06/12/17 Unknown Rx Active Meds: Active Medications Acetaminophen (Tylenol) 650 mg PO Q4H PRN PRN Reason: Pain MILD(1-3)/Fever >100.5/GOMEZ Last Admin: 06/15/17 05:05 Dose: 650 mg Amlodipine Besylate (Norvasc) 10 mg PO QDAY [facility] Last Admin: 06/15/17 10:34 Dose: 10 mg Aspirin (Aspirin) 325 mg PO QDAY [facility] Last Admin: 06/15/17 10:35 Dose: 325 mg Atorvastatin Calcium (Lipitor) 40 mg PO QHS [facility] Last Admin: 06/14/17 21:15 Dose: 40 mg Clonidine HCl (Catapres) 0.2 mg PO QHS [facility] Last Admin: 06/14/17 21:15 Dose: 0.2 mg Dextrose (D50w (25gm) Syringe) 50 ml IV PRN PRN PRN Reason: Hypoglycemia Last Admin: 06/12/17 22:30 Dose: 50 ml Hydralazine HCl (Apresoline) 50 mg PO Q8HR [facility] Last Admin: 06/15/17 05:05 Dose: 50 mg Sodium Chloride (Nacl 0.9% 1000 Ml) 1,000 mls @ 75 mls/hr IV DIRECT [facility] Last Admin: 06/14/17 15:14 Dose: 75 mls/hr Insulin Human Isoph/Insulin Regular (Humulin 70/30) 15 unit SUB-Q BIDDIAB [facility] Last Admin: 06/15/17 10:42 Dose: 15 unit Insulin Human Lispro (Humalog) 0 unit SUB-Q ACHS [facility]; Protocol Last Admin: 06/15/17 11:41 Dose: 4 unit Metoprolol Tartrate (Lopressor) 100 mg PO BID [facility] Last Admin: 06/15/17 10:35 Dose: 100 mg Ondansetron HCl (Zofran) 4 mg IV Q8H PRN PRN Reason: Nausea And Vomiting Sodium Bicarbonate (Sodium Bicarbonate) 650 mg PO BID [facility] Last Admin: 06/15/17 10:35 Dose: 650 mg Sodium Chloride (Sodium Chloride Flush Syringe 10 Ml) 10 ml IV BID [facility] Last Admin: 06/14/17 21:18 Dose: 10 ml Sodium Chloride (Sodium Chloride Flush Syringe 10 Ml) 10 ml IV PRN PRN PRN Reason: LINE FLUSH Sodium Chloride (Sodium Chloride Flush Syringe 10 Ml) 10 ml IV PRN PRN PRN Reason: LINE FLUSH Physical Examination - Vital Signs Vital Signs: Vital Signs Pulse Resp BP Pulse Ox 74 16 165/95 97 06/12/17 15:20 06/12/17 15:20 06/12/17 15:20 06/12/17 15:20 Results - Laboratory Findings CBC and BMP: 06/12/17 Unknown 06/14/17 07:00 Abnormal Lab Findings: Abnormal Labs 06/12/17 06/12/17 06/12/17 15:24 16:23 20:38 WBC RDW Lymph % (Auto) Lymph # Seg Neutrophils % Seg Neutrophils # POC ABG pCO2 27.7 L POC ABG pO2 54 L Potassium Carbon Dioxide BUN Creatinine Glucose POC Glucose 130 H < 40 L Hemoglobin A1c Calcium Magnesium Albumin 06/12/17 06/12/17 06/12/17 23:51 Unknown Unknown WBC 12.6 H RDW 13.1 L Lymph % (Auto) 6.1 L Lymph # 0.8 L Seg Neutrophils % 88.5 H Seg Neutrophils # 11.2 H POC ABG pCO2 POC ABG pO2 Potassium 3.4 L Carbon Dioxide 18 L BUN 30 H Creatinine 2.7 H Glucose 115 H POC Glucose 151 H Hemoglobin A1c Calcium Magnesium Albumin 06/12/17 06/13/17 06/13/17 Unknown 03:41 07:29 WBC RDW Lymph % (Auto) Lymph # Seg Neutrophils % Seg Neutrophils # POC ABG pCO2 POC ABG pO2 Potassium Carbon Dioxide BUN Creatinine Glucose POC Glucose 106 H Hemoglobin A1c 8.4 H Calcium Magnesium 1.60 L Albumin 3.1 L 06/13/17 06/14/17 06/14/17 21:03 04:01 07:00 WBC RDW Lymph % (Auto) Lymph # Seg Neutrophils % Seg Neutrophils # POC ABG pCO2 POC ABG pO2 Potassium 3.5 L Carbon Dioxide BUN 32 H Creatinine 3.1 H Glucose 153 H POC Glucose 65 L 178 H Hemoglobin A1c Calcium 7.7 L Magnesium Albumin 06/14/17 06/14/17 06/14/17 12:01 16:58 21:36 WBC RDW Lymph % (Auto) Lymph # Seg Neutrophils % Seg Neutrophils # POC ABG pCO2 POC ABG pO2 Potassium Carbon Dioxide BUN Creatinine Glucose POC Glucose 185 H 187 H 136 H Hemoglobin A1c Calcium Magnesium Albumin 06/15/17 06:27 WBC RDW Lymph % (Auto) Lymph # Seg Neutrophils % Seg Neutrophils # POC ABG pCO2 POC ABG pO2 Potassium Carbon Dioxide BUN Creatinine Glucose POC Glucose 180 H Hemoglobin A1c Calcium Magnesium Albumin
[2017-06-15] MEDS: SODIUM CHLORIDE FLUSH SYRINGE 10 ML IV SCH ×2 (15:17→22:43)
[2017-06-15] MEDS: NACL 0.9% 1000 ML 1,000 ML IV SCH (15:55)
--- NOTE | 2017-06-15 17:40 | Progress Note ---
Assessment and Plan Assessment and plan: 61-year-old -[place] male with history of insulin-dependent diabetes was found with altered sensorium. Patient recently had a hemorrhagic CVA involving the right parietal lobe and were discharged from [facility]. Patient has some left-sided residual weakness. His creatinine is about 3.4. Patient was found with low glucose of 22 by paramedics. They gave a 1 amp of D50. With which he improved. Patient continues to be confused in the emergency room has admission. Patient had right facial paralysis for a few minutes which is resolved spontaneously as per emergency room physician. (1) TIA (transient ischemic attack) Current Visit: Yes Status: Acute Qualifiers: Transient cerebral ischemia type: unspecified Qualified Code(s): G45.9 - Transient cerebral ischemic attack, unspecified Plan to address problem: Resolved in the ER. Not convinced that it is a TIA. Probably secondary to severe hypoglycemia. Patient is normal after the first blood glucose is corrected. Will get an MRI. MRA carotid duplex scan and echocardiogram EEG per neurology CKD stage 4 renal input appreciated, avoid nephrotoxins, bicarb pills added, control BP and glc (2) Encephalopathy acute Current Visit: Yes Status: Acute Plan to address problem: Secondary to hypoglycemia--- now resolved (3) Hypoglycemia Current Visit: Yes Status: Acute Plan to address problem: Hypoglycemia resolved. Patient on insulin. We will discontinue the oral hypoglycemics. Chronic kidney disease may be precipitating the hypoglycemia. Insulin doses also to be decreased. Patient to be compliant and take medications and and meals on regular times. Check A1c (4) Insulin dependent diabetes mellitus Current Visit: Yes Status: Acute Plan to address problem: Continue insulin and coverage (5) Hypertension Current Visit: Yes Status: Chronic Qualifiers: Hypertension type: essential hypertension Qualified Code(s): I10 - Essential (primary) hypertension Plan to address problem: Continue antihypertensives (6) Hemorrhagic cerebrovascular accident (CVA) Current Visit: Yes Status: Acute Plan to address problem: About 10 days ago and recovering (7) DVT prophylaxis Current Visit: Yes Status: Acute Plan to address problem: Only SCDs History Interval history: no complaints overnight no cp, no sob, no vomiting, denies focal weakness is appropriate but slow with his answers, and has poor memory Hospitalist Physical - Physical exam Narrative exam: General appearance: Present: no acute distress, well-nourished - EENT Eyes: Present: PERRL ENT: hearing intact - Neck Neck: Present: supple - Respiratory Respiratory effort: normal Respiratory: bilateral: CTA - Cardiovascular Rhythm: regular Heart Sounds: Present: S1 & S2 - Extremities Extremities: no ischemia Peripheral Pulses: within normal limits - Abdominal General gastrointestinal: soft, non-distended, distended, normal bowel sounds - Integumentary Integumentary: Present: clear, warm, dry - Psychiatric Psychiatric: appropriate mood/affect, intact judgment & insight, cooperative - Neurologic Neurologic: CNII-XII intact, no focal deficits, other (slow answers and poor memory) - Constitutional Vitals: Temp Pulse Resp BP Pulse Ox 97.9 F 77 16 159/89 96 06/15/17 11:31 06/15/17 11:31 06/15/17 11:31 06/15/17 11:31 06/15/17 11:31 General appearance: Present: no acute distress, well-nourished Results - Labs CBC & Chem 7: 06/12/17 Unknown 06/14/17 07:00 Labs: Laboratory Last Values WBC 12.6 K/mm3 (4.5-11.0) H 06/12/17 Unknown RBC 3.96 M/mm3 (3.65-5.03) 06/12/17 Unknown Hgb 12.1 gm/dl (11.8-15.2) 06/12/17 Unknown Hct 36.3 % (35.5-45.6) 06/12/17 Unknown MCV 92 fl (84-94) 06/12/17 Unknown MCH 31 pg (28-32) 06/12/17 Unknown MCHC 33 % (32-34) 06/12/17 Unknown RDW 13.1 % (13.2-15.2) L 06/12/17 Unknown Plt Count 311 K/mm3 (140-440) 06/12/17 Unknown Lymph % (Auto) 6.1 % (13.4-35.0) L 06/12/17 Unknown [place] % (Auto) 5.1 % (0.0-7.3) 06/12/17 Unknown Eos % (Auto) 0.0 % (0.0-4.3) 06/12/17 Unknown Baso % (Auto) 0.3 % (0.0-1.8) 06/12/17 Unknown Lymph # 0.8 K/mm3 (1.2-5.4) L 06/12/17 Unknown [place] # 0.6 K/mm3 (0.0-0.8) 06/12/17 Unknown Eos # 0.0 K/mm3 (0.0-0.4) 06/12/17 Unknown Baso # 0.0 K/mm3 (0.0-0.1) 06/12/17 Unknown Seg Neutrophils % 88.5 % (40.0-70.0) H 06/12/17 Unknown Seg Neutrophils # 11.2 K/mm3 (1.8-7.7) H 06/12/17 Unknown PT 13.9 Sec. (12.2-14.9) 06/12/17 15:40 INR 1.02 (0.87-1.13) 06/12/17 15:40 APTT 27.2 Sec. (24.2-36.6) 06/12/17 15:40 POC ABG pH 7.424 (7.35-7.45) 06/12/17 16:23 POC ABG pCO2 27.7 (35-45) L 06/12/17 16:23 POC ABG pO2 54 (80-105) L 06/12/17 16:23 POC ABG HCO3 18.1 06/12/17 16:23 POC ABG Total CO2 19 06/12/17 16:23 POC ABG O2 Sat 89 06/12/17 16:23 POC ABG Base Excess -6 06/12/17 16:23 FiO2 21 % 06/12/17 16:23 Sodium 139 mmol/L (137-145) 06/14/17 07:00 Potassium 3.5 mmol/L (3.6-5.0) L 06/14/17 07:00 Chloride 106.8 mmol/L (98-107) 06/14/17 07:00 Carbon Dioxide 22 mmol/L (22-30) 06/14/17 07:00 Anion Gap 14 mmol/L 06/14/17 07:00 BUN 32 mg/dL (9-20) H 06/14/17 07:00 Creatinine 3.1 mg/dL (0.8-1.5) H 06/14/17 07:00 Estimated GFR 25 ml/min 06/14/17 07:00 BUN/Creatinine Ratio 10 % 06/14/17 07:00 Glucose 153 mg/dL (75-100) H 06/14/17 07:00 POC Glucose 224 (70-105) H 06/15/17 16:01 Hemoglobin A1c 8.4 % (4-6) H 06/13/17 07:29 Lactic Acid 1.20 mmol/L (0.7-2.0) 06/12/17 18:39 Calcium 7.7 mg/dL (8.4-10.2) L 06/14/17 07:00 Magnesium 1.60 mg/dL (1.7-2.3) L 06/12/17 Unknown Total Bilirubin 0.70 mg/dL (0.1-1.2) 06/12/17 Unknown Direct Bilirubin < 0.2 mg/dL (0-0.2) 06/12/17 Unknown Indirect Bilirubin 0.5 mg/dL 06/12/17 Unknown AST 24 units/L (5-40) 06/12/17 Unknown ALT 19 units/L (7-56) 06/12/17 Unknown Alkaline Phosphatase 85 units/L (35-129) 06/12/17 Unknown Ammonia 39.0 umol/L (25-60) 06/12/17 15:46 Troponin T 0.013 ng/mL (0.00-0.029) 06/12/17 Unknown NT-Pro-B Natriuret Pep 678.0 pg/mL (0-900) 06/12/17 Unknown Total Protein 6.5 g/dL (6.3-8.2) 06/12/17 Unknown Albumin 3.1 g/dL (3.9-5) L 06/12/17 Unknown Albumin/Globulin Ratio 0.9 % 06/12/17 Unknown Triglycerides 120 mg/dL (2-149) 06/14/17 07:00 Cholesterol 142 mg/dL (50-199) 06/14/17 07:00 LDL Cholesterol Direct 82 mg/dL (50-130) 06/14/17 07:00 HDL Cholesterol 45 mg/dL (40-59) 06/14/17 07:00 Cholesterol/HDL Ratio 3.15 % 06/14/17 07:00 TSH 1.120 mlU/mL (0.270-4.200) 06/12/17 Unknown Urine Color Yellow (Yellow) 06/12/17 15:50 Urine Turbidity Clear (Clear) 06/12/17 15:50 Urine pH 5.0 (5.0-7.0) 06/12/17 15:50 Ur Specific [place] 1.013 (1.003-1.030) 06/12/17 15:50 Urine Protein >500 mg/dL (Negative) 06/12/17 15:50 Urine Glucose (UA) Neg mg/dL (Negative) 06/12/17 15:50 Urine Ketones Neg mg/dL (Negative) 06/12/17 15:50 Urine Blood Sm (Negative) 06/12/17 15:50 Urine Nitrite Neg (Negative) 06/12/17 15:50 Urine Bilirubin Neg (Negative) 06/12/17 15:50 Urine Urobilinogen < 2.0 mg/dL (<2.0) 06/12/17 15:50 Ur Leukocyte Esterase Neg (Negative) 06/12/17 15:50 Urine WBC (Auto) 1.0 /HPF (0.0-6.0) 06/12/17 15:50 Urine RBC (Auto) 1.0 /HPF (0.0-6.0) 06/12/17 15:50 Urine Bacteria (Auto) 1+ /HPF (Negative) 06/12/17 15:50 Urine Yeast (Budding) Few /HPF 06/12/17 15:50 Urine Opiates Screen Presumptive negative 06/12/17 15:50 Urine Methadone Screen Presumptive negative 06/12/17 15:50 Ur Barbiturates Screen Presumptive negative 06/12/17 15:50 Ur Phencyclidine Scrn Presumptive negative 06/12/17 15:50 Ur Amphetamines Screen Presumptive negative 06/12/17 15:50 U Benzodiazepines Scrn Presumptive negative 06/12/17 15:50 Urine Cocaine Screen Presumptive negative 06/12/17 15:50 U Marijuana (THC) Screen Presumptive negative 06/12/17 15:50 Drugs of Abuse Note Disclamer 06/12/17 15:50 Plasma/Serum Alcohol < 0.01 % (0-0.07) 06/12/17 Unknown
[2017-06-15] MEDS ORDERED: APRESOLINE IV PRN (17:42)
--- NOTE | 2017-06-15 17:46 | Magnetic Resonance Report ---
FINAL REPORT EXAM: MR MRA/MRV HEAD WO CON HISTORY: stroke TECHNIQUE: MRA of the Head without IV contrast. PRIORS: None currently available. FINDINGS: HEAD: Series 3:27 demonstrates a focal loss of signal noted within the right internal carotid artery which may represent a hemodynamically significant stenosis or related to imaging artifact. The rest of the vessel demonstrates flow signal. 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 Series 3:61 demonstrates a small filling defect noted within the left proximal M1 segment which may be causing moderate narrowing. The remainder of the left M1 segment demonstrates flow signal. Left M2 segment demonstrates flow signal. Both vertebral arteries appear dominant. Otherwise anterior and posterior circulations are intact. No aneurysm. No dissection. IMPRESSION: Suspect moderate to severe stenosis at the genu of the right ICA. Moderate narrowing also suspected at the left M1 segment. Correlation with CTA of the head may be helpful if clinically indicated.
--- NOTE | 2017-06-15 17:57 | Magnetic Resonance Report ---
FINAL REPORT EXAM: MR BRAIN WO CON HISTORY: stroke TECHNIQUE: MRI of the brain without IV contrast. PRIORS: CT head June 12, 2017 and MRI brain June 02, 2017. FINDINGS: 3.4 x 2.2 cm intermediate to high T1 and high T2 hematoma in the medial right occipital/parietal lobe which demonstrates is decreased in size and signal characteristics compared to prior suggesting evolving and resolving subacute right occipital hematoma. New focal areas of restricted diffusion in the left periventricular white matter on series 4:21 and series 4:26 may represent a tiny focal lacunar type infarct and were not present on the prior. T2/FLAIR hyperintensities in the periventricular and subcortical white matter are nonspecific. Differential diagnosis includes migraines, microvascular ischemic disease, demyelinating process, encephalitis/encephalopathy, and trauma. Chronic lacunar type infarcts in the left basal ganglia with calcification or hemosiderin deposits. Focal T2 hyperintensity in the left cerebellar hemisphere is probably related to gliosis and prior ischemia and is relatively unchanged compared to the prior. Midline structures are unremarkable. There is no tonsillar ectopy. Age appropriate stallings-white matter differentiation is noted. There is no hydrocephalus. There is no mass. There is no midline shift. The CP angles are grossly noted. Major flow voids are present. Paranasal sinuses are unremarkable. Globes are intact. Calvarial signal characteristics are grossly unremarkable. Extracranial soft tissues are intact. IMPRESSION: Suspect two tiny acute lacunar infarcts in the left frontal lobe and left periventricular white matter. Smaller evolving and resolving right occipital/parietal intraparenchymal hematoma. June 15, 2017 at 1451 PDT: I discussed the findings over phone with Jamie Mayen RN.
[2017-06-15] MEDS: CATAPRES PO SCH (22:40)
[2017-06-16] MEDS: APRESOLINE PO SCH ×3 (05:38→21:33)
[2017-06-16] MEDS: HumaLOG SUB-Q SCH ×4 (07:30→22:09)
[2017-06-16] MEDS ORDERED: NON-FORMULARY (Nifedipine [Nifedipine Er] 90 MG) PO SCH (10:00)
--- NOTE | 2017-06-16 10:21 | Progress Note ---
Assessment and Plan Impression: * CKD stage 4 * Altered mental status * HTN * CVA * Hypokalemia * DM type 2 * Metabolic acidosis Plan: * His renal function seems to be stable. Probably at baseline. * Patient noted to be hypokalemic. He may have underlying hyperaldosteronism. Check renin aldosterone ratio * Monitor renal function, fluid status and electrolytes closely * avoid nephrotoxins * hold arb today and follow up daily lytes * Mortality risk very high due to noncompliance patient counseled and educated at lengths * no indications for CERTIFIED MEDICINE AIDE at this time * Avoid metformin Subjective Date of service: 06/16/17 Principal diagnosis: ckd 4 Interval history: resting in bed today Objective - Exam Narrative Exam: General appearance: well-developed, well-nourished, appears stated age EENT: PERRL, mucous membranes moist Neck: no JVD, no thyromegaly, no carotid bruit, supple Respiratory: Present: Clear to Ascultation Cardiology: regular, normal heart rate, S1S2, no murmurs Gastrointestinal: normal, normoactive bowel sounds Integumentary: no rash, other (no edema ) - Vital Signs Vital signs: Vital Signs - 12hr 06/16/17 06/16/17 06/16/17 00:15 00:16 00:36 Temperature 98.8 F Pulse Rate 71 75 Respiratory 18 Rate Blood Pressure 130/110 O2 Sat by Pulse 97 99 99 Oximetry 06/16/17 04:04 Temperature 98.5 F Pulse Rate 69 Respiratory 18 Rate Blood Pressure 135/80 O2 Sat by Pulse 97 Oximetry - Lab 06/12/17 Unknown 06/14/17 07:00 Most recent lab results Calcium 7.7 mg/dL (8.4-10.2) L 06/14/17 07:00 Magnesium 1.60 mg/dL (1.7-2.3) L 06/12/17 Unknown
[2017-06-16] MEDS: LOPRESSOR PO SCH ×2 (11:38→21:33)
[2017-06-16] MEDS: ASPIRIN PO SCH (11:39)
[2017-06-16] MEDS: PROCARDIA XL PO SCH (11:39)
[2017-06-16] MEDS: DIOVAN PO SCH (11:40)
[2017-06-16] MEDS: SODIUM BICARBONATE PO SCH ×2 (11:41→21:33)
--- NOTE | 2017-06-16 20:58 | Progress Note ---
Assessment and Plan Assessment and plan: 61-year-old -[place] male with history of insulin-dependent diabetes was found with altered sensorium. Patient recently had a hemorrhagic CVA involving the right parietal lobe and were discharged from [facility]. Patient has some left-sided residual weakness. His creatinine is about 3.4. Patient was found with low glucose of 22 by paramedics. They gave a 1 amp of D50. With which he improved. Patient continues to be confused in the emergency room has admission. Patient had right facial paralysis for a few minutes which is resolved spontaneously as per emergency room physician. MR brain: lacunar infarcts and resolving hematomas (1) CVA acute Resolved in the ER. Not convinced that it is a TIA. Probably worsened due to severe hypoglycemia. Patient is normal after the first blood glucose is corrected. Will get an MRI. MRA carotid duplex scan and echocardiogram EEG per neurology CKD stage 4 renal input appreciated, avoid nephrotoxins, bicarb pills added, control BP and glc (2) Encephalopathy acute, metabolic Current Visit: Yes Status: Acute Plan to address problem: Secondary to hypoglycemia--- now resolved (3) Hypoglycemia Current Visit: Yes Status: Acute Plan to address problem: Hypoglycemia resolved. Patient on insulin. We will discontinue the oral hypoglycemics. Chronic kidney disease may be precipitating the hypoglycemia. Insulin doses also to be decreased. Patient to be compliant and take medications and and meals on regular times. a1c is 8 (4) Insulin dependent diabetes mellitus Current Visit: Yes Status: Acute Plan to address problem: Continue insulin and coverage (5) Hypertension Current Visit: Yes Status: Chronic Qualifiers: Hypertension type: essential hypertension Qualified Code(s): I10 - Essential (primary) hypertension Plan to address problem: Continue antihypertensives (6) Hemorrhagic cerebrovascular accident (CVA) Current Visit: Yes Status: Acute Plan to address problem: About 10 days ago prior to this hospital stay and improving (7) DVT prophylaxis Current Visit: Yes Status: Acute Plan to address problem: Only SCDs Of note patient has two young children at home, he is the only parent available and he can barely care for himself at this point. CM has contacted CPS. will need to contact family about his dc plans and he now needs assistance with his ADLs and appears to be having problems with memory and cognitition History Interval history: no complaints overnight no cp, no sob, no vomiting, denies focal weakness is appropriate but slow with his answers, and has poor memory Hospitalist Physical - Physical exam Narrative exam: General appearance: Present: no acute distress, well-nourished - EENT Eyes: Present: PERRL ENT: hearing intact - Neck Neck: Present: supple - Respiratory Respiratory effort: normal Respiratory: bilateral: CTA - Cardiovascular Rhythm: regular Heart Sounds: Present: S1 & S2 - Extremities Extremities: no ischemia Peripheral Pulses: within normal limits - Abdominal General gastrointestinal: soft, non-distended, distended, normal bowel sounds - Integumentary Integumentary: Present: clear, warm, dry - Psychiatric Psychiatric: appropriate mood/affect, intact judgment & insight, cooperative - Neurologic Neurologic: CNII-XII intact, no focal deficits, other (slow answers and poor memory) - Constitutional Vitals: Temp Pulse Resp BP Pulse Ox 98.2 F 79 20 174/87 96 06/16/17 19:53 06/16/17 19:53 06/16/17 19:53 06/16/17 19:53 06/16/17 19:53 General appearance: Present: no acute distress, well-nourished Results - Labs CBC & Chem 7: 06/12/17 Unknown 06/14/17 07:00 Labs: Laboratory Last Values WBC 12.6 K/mm3 (4.5-11.0) H 06/12/17 Unknown RBC 3.96 M/mm3 (3.65-5.03) 06/12/17 Unknown Hgb 12.1 gm/dl (11.8-15.2) 06/12/17 Unknown Hct 36.3 % (35.5-45.6) 06/12/17 Unknown MCV 92 fl (84-94) 06/12/17 Unknown MCH 31 pg (28-32) 06/12/17 Unknown MCHC 33 % (32-34) 06/12/17 Unknown RDW 13.1 % (13.2-15.2) L 06/12/17 Unknown Plt Count 311 K/mm3 (140-440) 06/12/17 Unknown Lymph % (Auto) 6.1 % (13.4-35.0) L 06/12/17 Unknown [place] % (Auto) 5.1 % (0.0-7.3) 06/12/17 Unknown Eos % (Auto) 0.0 % (0.0-4.3) 06/12/17 Unknown Baso % (Auto) 0.3 % (0.0-1.8) 06/12/17 Unknown Lymph # 0.8 K/mm3 (1.2-5.4) L 06/12/17 Unknown [place] # 0.6 K/mm3 (0.0-0.8) 06/12/17 Unknown Eos # 0.0 K/mm3 (0.0-0.4) 06/12/17 Unknown Baso # 0.0 K/mm3 (0.0-0.1) 06/12/17 Unknown Seg Neutrophils % 88.5 % (40.0-70.0) H 06/12/17 Unknown Seg Neutrophils # 11.2 K/mm3 (1.8-7.7) H 06/12/17 Unknown PT 13.9 Sec. (12.2-14.9) 06/12/17 15:40 INR 1.02 (0.87-1.13) 06/12/17 15:40 APTT 27.2 Sec. (24.2-36.6) 06/12/17 15:40 POC ABG pH 7.424 (7.35-7.45) 06/12/17 16:23 POC ABG pCO2 27.7 (35-45) L 06/12/17 16:23 POC ABG pO2 54 (80-105) L 06/12/17 16:23 POC ABG HCO3 18.1 06/12/17 16:23 POC ABG Total CO2 19 06/12/17 16:23 POC ABG O2 Sat 89 06/12/17 16:23 POC ABG Base Excess -6 06/12/17 16:23 FiO2 21 % 06/12/17 16:23 Sodium 139 mmol/L (137-145) 06/14/17 07:00 Potassium 3.5 mmol/L (3.6-5.0) L 06/14/17 07:00 Chloride 106.8 mmol/L (98-107) 06/14/17 07:00 Carbon Dioxide 22 mmol/L (22-30) 06/14/17 07:00 Anion Gap 14 mmol/L 06/14/17 07:00 BUN 32 mg/dL (9-20) H 06/14/17 07:00 Creatinine 3.1 mg/dL (0.8-1.5) H 06/14/17 07:00 Estimated GFR 25 ml/min 06/14/17 07:00 BUN/Creatinine Ratio 10 % 06/14/17 07:00 Glucose 153 mg/dL (75-100) H 06/14/17 07:00 POC Glucose 365 (70-105) H 06/16/17 18:34 Hemoglobin A1c 8.4 % (4-6) H 06/13/17 07:29 Lactic Acid 1.20 mmol/L (0.7-2.0) 06/12/17 18:39 Calcium 7.7 mg/dL (8.4-10.2) L 06/14/17 07:00 Magnesium 1.60 mg/dL (1.7-2.3) L 06/12/17 Unknown Total Bilirubin 0.70 mg/dL (0.1-1.2) 06/12/17 Unknown Direct Bilirubin < 0.2 mg/dL (0-0.2) 06/12/17 Unknown Indirect Bilirubin 0.5 mg/dL 06/12/17 Unknown AST 24 units/L (5-40) 06/12/17 Unknown ALT 19 units/L (7-56) 06/12/17 Unknown Alkaline Phosphatase 85 units/L (35-129) 06/12/17 Unknown Ammonia 39.0 umol/L (25-60) 06/12/17 15:46 Troponin T 0.013 ng/mL (0.00-0.029) 06/12/17 Unknown NT-Pro-B Natriuret Pep 678.0 pg/mL (0-900) 06/12/17 Unknown Total Protein 6.5 g/dL (6.3-8.2) 06/12/17 Unknown Albumin 3.1 g/dL (3.9-5) L 06/12/17 Unknown Albumin/Globulin Ratio 0.9 % 06/12/17 Unknown Triglycerides 120 mg/dL (2-149) 06/14/17 07:00 Cholesterol 142 mg/dL (50-199) 06/14/17 07:00 LDL Cholesterol Direct 82 mg/dL (50-130) 06/14/17 07:00 HDL Cholesterol 45 mg/dL (40-59) 06/14/17 07:00 Cholesterol/HDL Ratio 3.15 % 06/14/17 07:00 Renin See scanned report 06/13/17 15:17 Aldosterone See scanned report 06/13/17 15:17 Aldosterone/Renin Dir See scanned report 06/13/17 15:17 TSH 1.120 mlU/mL (0.270-4.200) 06/12/17 Unknown Urine Color Yellow (Yellow) 06/12/17 15:50 Urine Turbidity Clear (Clear) 06/12/17 15:50 Urine pH 5.0 (5.0-7.0) 06/12/17 15:50 Ur Specific [place] 1.013 (1.003-1.030) 06/12/17 15:50 Urine Protein >500 mg/dL (Negative) 06/12/17 15:50 Urine Glucose (UA) Neg mg/dL (Negative) 06/12/17 15:50 Urine Ketones Neg mg/dL (Negative) 06/12/17 15:50 Urine Blood Sm (Negative) 06/12/17 15:50 Urine Nitrite Neg (Negative) 06/12/17 15:50 Urine Bilirubin Neg (Negative) 06/12/17 15:50 Urine Urobilinogen < 2.0 mg/dL (<2.0) 06/12/17 15:50 Ur Leukocyte Esterase Neg (Negative) 06/12/17 15:50 Urine WBC (Auto) 1.0 /HPF (0.0-6.0) 06/12/17 15:50 Urine RBC (Auto) 1.0 /HPF (0.0-6.0) 06/12/17 15:50 Urine Bacteria (Auto) 1+ /HPF (Negative) 06/12/17 15:50 Urine Yeast (Budding) Few /HPF 06/12/17 15:50 Urine Opiates Screen Presumptive negative 06/12/17 15:50 Urine Methadone Screen Presumptive negative 06/12/17 15:50 Ur Barbiturates Screen Presumptive negative 06/12/17 15:50 Ur Phencyclidine Scrn Presumptive negative 06/12/17 15:50 Ur Amphetamines Screen Presumptive negative 06/12/17 15:50 U Benzodiazepines Scrn Presumptive negative 06/12/17 15:50 Urine Cocaine Screen Presumptive negative 06/12/17 15:50 U Marijuana (THC) Screen Presumptive negative 06/12/17 15:50 Drugs of Abuse Note Disclamer 06/12/17 15:50 Plasma/Serum Alcohol < 0.01 % (0-0.07) 06/12/17 Unknown
[2017-06-16] MEDS: SODIUM CHLORIDE FLUSH SYRINGE 10 ML IV SCH (21:32)
[2017-06-16] MEDS: CATAPRES PO SCH (21:33)
[2017-06-17 04:55] VITALS: BP 155/73
[2017-06-17] MEDS: APRESOLINE PO SCH (05:09)
[2017-06-17] MEDS: HumaLOG SUB-Q SCH ×3 (08:01→16:30)
--- NOTE | 2017-06-17 09:56 | Progress Note ---
Subjective Date of service: 06/17/17 Principal diagnosis: ckd 4 Interval history: NEUROLOGY PROGRESS NOTE: INterim notes reviewed. MRI (images reviewed) head show resolving hematoma in right parieto-occipital region. On DWI images, I do not believe he has had new infarcts. MRA (images reviewed) head shows stenosis at right ICA genu, not rxable surgically. EEG - shows mixed frequencies predominantly 8 Hz but with 4-6 Hz theat intermixed and some delta slowing bifrontally. During drowsiness voltages attenuate adn frequencies slow. Stage II sleep is not attained. IMP: Abn EEG c/w a mild-mod encephalopathy. There is no focal, lateralized, or epileptiform abnormality. Will sign off. Call as needed. Georges Quiles MD Objective - Vital Sign Vital Signs - 12hr 06/16/17 06/17/17 23:39 04:32 Temperature 98.8 F 99.2 F Pulse Rate 73 76 Respiratory 20 20 Rate Blood Pressure 143/64 155/73 [Right] O2 Sat by Pulse 96 98 Oximetry - Laboratory Findings CBC and BMP: 06/12/17 Unknown 06/17/17 05:47 Abnormal Lab Findings: Abnormal Labs 06/12/17 06/12/17 06/12/17 15:24 16:23 20:38 WBC RDW Lymph % (Auto) Lymph # Seg Neutrophils % Seg Neutrophils # POC ABG pCO2 27.7 L POC ABG pO2 54 L Potassium Carbon Dioxide BUN Creatinine Glucose POC Glucose 130 H < 40 L Hemoglobin A1c Calcium Magnesium Albumin 06/12/17 06/12/17 06/12/17 23:51 Unknown Unknown WBC 12.6 H RDW 13.1 L Lymph % (Auto) 6.1 L Lymph # 0.8 L Seg Neutrophils % 88.5 H Seg Neutrophils # 11.2 H POC ABG pCO2 POC ABG pO2 Potassium 3.4 L Carbon Dioxide 18 L BUN 30 H Creatinine 2.7 H Glucose 115 H POC Glucose 151 H Hemoglobin A1c Calcium Magnesium Albumin 06/12/17 06/13/17 06/13/17 Unknown 03:41 07:29 WBC RDW Lymph % (Auto) Lymph # Seg Neutrophils % Seg Neutrophils # POC ABG pCO2 POC ABG pO2 Potassium Carbon Dioxide BUN Creatinine Glucose POC Glucose 106 H Hemoglobin A1c 8.4 H Calcium Magnesium 1.60 L Albumin 3.1 L 06/13/17 06/14/17 06/14/17 21:03 04:01 07:00 WBC RDW Lymph % (Auto) Lymph # Seg Neutrophils % Seg Neutrophils # POC ABG pCO2 POC ABG pO2 Potassium 3.5 L Carbon Dioxide BUN 32 H Creatinine 3.1 H Glucose 153 H POC Glucose 65 L 178 H Hemoglobin A1c Calcium 7.7 L Magnesium Albumin 06/14/17 06/14/17 06/14/17 12:01 16:58 21:36 WBC RDW Lymph % (Auto) Lymph # Seg Neutrophils % Seg Neutrophils # POC ABG pCO2 POC ABG pO2 Potassium Carbon Dioxide BUN Creatinine Glucose POC Glucose 185 H 187 H 136 H Hemoglobin A1c Calcium Magnesium Albumin 06/15/17 06/15/17 06/15/17 06:27 11:41 16:01 WBC RDW Lymph % (Auto) Lymph # Seg Neutrophils % Seg Neutrophils # POC ABG pCO2 POC ABG pO2 Potassium Carbon Dioxide BUN Creatinine Glucose POC Glucose 180 H 410 H 224 H Hemoglobin A1c Calcium Magnesium Albumin 06/15/17 06/16/17 06/16/17 21:33 06:08 12:46 WBC RDW Lymph % (Auto) Lymph # Seg Neutrophils % Seg Neutrophils # POC ABG pCO2 POC ABG pO2 Potassium Carbon Dioxide BUN Creatinine Glucose POC Glucose 150 H 130 H 258 H Hemoglobin A1c Calcium Magnesium Albumin 06/16/17 06/16/17 06/17/17 18:34 21:54 05:47 WBC RDW Lymph % (Auto) Lymph # Seg Neutrophils % Seg Neutrophils # POC ABG pCO2 POC ABG pO2 Potassium Carbon Dioxide 21 L BUN 25 H Creatinine 2.9 H Glucose 208 H POC Glucose 365 H 164 H Hemoglobin A1c Calcium 8.0 L Magnesium Albumin 06/17/17 06:15 WBC RDW Lymph % (Auto) Lymph # Seg Neutrophils % Seg Neutrophils # POC ABG pCO2 POC ABG pO2 Potassium Carbon Dioxide BUN Creatinine Glucose POC Glucose 216 H Hemoglobin A1c Calcium Magnesium Albumin
[2017-06-17] MEDS: SODIUM BICARBONATE PO SCH (10:00)
[2017-06-17] MEDS: LOPRESSOR PO SCH (10:00)
[2017-06-17] MEDS: SODIUM CHLORIDE FLUSH SYRINGE 10 ML IV SCH (10:02)
--- NOTE | 2017-06-17 10:32 | Progress Note ---
Assessment and Plan - Patient Problems (1) CKD (chronic kidney disease) stage 4, GFR 15-29 ml/min Current Visit: Yes Status: Acute Plan to address problem: Scr 2.9 today. BP under control, continue present meds. Needs outpt follow up on CKD. Check renal ultrasound if not done (2) Essential hypertension Current Visit: Yes Status: Chronic (3) Insulin dependent diabetes mellitus Current Visit: Yes Status: Chronic (4) CVA (cerebral vascular accident) Current Visit: Yes Status: Acute Subjective Date of service: 06/17/17 Principal diagnosis: ckd 4 Interval history: alert, oriented, denies CP or SOB. Objective - Vital Signs Vital signs: Vital Signs - 12hr 06/16/17 06/17/17 23:39 04:32 Temperature 98.8 F 99.2 F Pulse Rate 73 76 Respiratory 20 20 Rate Blood Pressure 143/64 155/73 [Right] O2 Sat by Pulse 96 98 Oximetry - General Appearance General appearance: well-developed EENT: mucous membranes moist Neck: no JVD Respiratory: Present: Clear to Ascultation Cardiology: regular Gastrointestinal: normoactive bowel sounds Neurologic: alert and oriented x3 Psychiatric: mood/affect appropriate, cooperative - Lab 06/12/17 Unknown 06/17/17 05:47 Most recent lab results Calcium 8.0 mg/dL (8.4-10.2) L 06/17/17 05:47 Magnesium 1.60 mg/dL (1.7-2.3) L 06/12/17 Unknown
[2017-06-17] MEDS: DIOVAN PO SCH (10:59)
[2017-06-17] MEDS: ASPIRIN PO SCH (10:59)
[2017-06-17] MEDS: PROCARDIA XL PO SCH (10:59)
--- NOTE | 2017-06-17 13:01 | Discharge Summary ---
Providers - Providers Date of Admission: 06/12/17 23:59 Date of discharge: 06/17/17 Attending physician: JONO BUTLER MD 06/13/17 Consult to Physician [CONS] Routine Comment: Consulting Provider: KOFI FREITAS Physician Instructions: Reason For Exam: cva 06/13/17 07:11 Consult to Physician [CONS] Routine Comment: Consulting Provider: MINDY ORTEZ Physician Instructions: Reason For Exam: Ge/ckd 06/13/17 14:00 Occupational Therapy Evaluate and Treat [CONS] Routine Comment: Reason For Exam: Neuro deficits Physical Therapy Evaluation and Treat [CONS] Routine Comment: Reason For Exam: Neuro deficits Speech Therapy Evaluation and Treat [CONS] Routine Reason For Exam: swallow eval Primary care physician: SHEYLA FREEMAN Hospitalization Reason for admission: Hypoglycemia, history of hemorrhagic CVA, acute on chronic kidney disease Condition: Stable Pertinent studies: MRI -Small resolving rightoccipital/parietal intraparenchymal hematoma. Echo -EF 55-60% Hospital course: History of Present Illness 61-year-old -[place] male with history of insulin-dependent diabetes was found with altered sensorium. 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 Patient has some left-sided residual weakness. His creatinine is about 3.4. Patient was found with low glucose of 22 by paramedics. They gave a 1 amp of D50. With which he improved. Patient continues to be confused in the emergency room has admission. Patient had right facial paralysis for a few minutes which is resolved spontaneously as per emergency room physician. Patient was admitted to the floor and was treated for hypoglycemia. Patient was taking metformin, sulfonylurea and insulin which cause hypoglycemia in combination with CKD. CT/MRI head was done and no acute findings identified. Patient was evaluated by neurology and belives that the altered sensorium is due to hypoglycemia. By the time I evaluated him patient is alert and oriented , no neurologic deficit, and patient discharged home and is advised to stop sulfonylurea and frequent monitoring of blood glucose. Nephrology consult appreciated. Patient is hemodynamically stable at the time of discharge. Patient's questions and concerns were addressed at the bedside. Disposition: [id number] HOME [facility] Time spent for discharge: 31 minutes - Discharge Diagnoses (1) Altered mental status Status: Acute Qualifiers: Altered mental status type: disorientation Qualified Code(s): R41.0 - Disorientation, unspecified (2) CKD (chronic kidney disease) stage 4, GFR 15-29 ml/min Status: Acute (3) Cerebral hemorrhage Status: Acute (4) Encephalopathy acute Status: Acute (5) Hypoglycemia Status: Acute Core Measure Documentation - Palliative Care Palliative Care/ Comfort Measures: Not Applicable - Core Measures Any of the following diagnoses?: history only (hemorrhagic stroke) Exam - Physical Exam Narrative exam: Not in cardiopulmonary distress. The patient appeared well nourished and normally developed. Vital signs as documented. Head exam is unremarkable. No scleral icterus . Neck is without jugular venous distension, thyromegaly, or carotid bruits. Lungs are clear to auscultation. Cardiac exam reveals regular rate and Rhythm. First and second heart sounds normal. No murmurs, rubs or gallops. Abdominal exam reveals normal bowel sounds, no masses, no organomegaly and no aortic enlargement. Extremities are nonedematous and both femoral and pedal pulses are normal. ENGAGEMENT ENGINEER: Alert and oriented 3. No focal weakness. - Constitutional Vitals: Temp Pulse Resp BP Pulse Ox 99.2 F 76 20 155/73 98 06/17/17 04:32 06/17/17 04:32 06/17/17 04:32 06/17/17 04:32 06/17/17 04:32 Plan Activity: advance as tolerated Weight Bearing Status: Full Weight Bearing Diet: low salt, diabetic Follow up with: PRIMARY CAREMD [Referring] - 7 Days Prescriptions: Sodium Bicarbonate 650 mg PO BID #60 tablet
== END 2017-06-17 18:18 | disposition home health service (06) | DRG 682 ==
LOC: ED 15:17 → 4A 23:59
PROVIDERS: ADMIT Internal Medicine; ATTEND Internal Medicine
PROC: 4A033R1 Measurement of Arterial Saturation, Peripheral, Percutaneous Approach (ICD-10-PCS; principal; 2017-06-12)
DX: N17.9 Acute kidney failure, unspecified (principal); G93.40 Encephalopathy, unspecified; N18.4 Chronic kidney disease, stage 4 (severe); E87.2 Acidosis; I69.254 Hemiplegia and hemiparesis following other nontraumatic intracranial hemorrhage affecting left non-dominant side; E11.649 Type 2 diabetes mellitus with hypoglycemia without coma; I12.9 Hypertensive chronic kidney disease with stage 1 through stage 4 chronic kidney disease, or unspecified chronic kidney disease; Z79.899 Other long term (current) drug therapy; E87.6 Hypokalemia; E11.22 Type 2 diabetes mellitus with diabetic chronic kidney disease
CPT/HCPCS: 36415; 70450; 70544; 70551; 71045; 80048; 80061; 80074; 80307; 80320; 81001; 82088; 82140; 82803; 82962; 83036; 83735; 83880; 84443; 84484; 85025; 85610; 85730; 87040; 93005; 93010; 93306; 93880; 94760; 95819; 96365; 96375; 99291; A9270-GY; G0480; J0360; J0696; J1815; J1953; J7030

== ENCOUNTER 2017-09-07 22:11 | Inpatient (IN) | payer MEDICAID ==
--- NOTE | 2017-09-08 00:09 | Cat Scan Report ---
FINAL REPORT PROCEDURE: CT HEAD/BRAIN WO CON TECHNIQUE: Computerized tomography of the head was performed without contrast material. HISTORY: AMS, hx recent parietal hemorrhage COMPARISON: 06/12/2017 FINDINGS: Skull and scalp: Normal. Paranasal sinuses: Normal. Ventricles and subarachnoid spaces: Normal. Cerebrum: There is moderate atrophy and periventricular deep white matter change. No evidence of acute intracranial hemorrhage, hematoma, infarction, midline displacement or mass. Cerebellum and brainstem: No evidence of hemorrhage, acute infarction or mass. Vasculature: Normal. Comments: None. IMPRESSION: There is no evidence of an acute intracranial process. Moderate atrophy and periventricular deep white matter change
[2017-09-08 00:12] LABS: Basophils % (Auto) 0.3 % (0.0-1.8); Hematocrit 36.6 % (35.5-45.6); Hemoglobin 12.9 gm/dl (11.8-15.2); Lymphocytes # (Auto) 0.8 K/mm3 (1.2-5.4); Lymphocytes % (Auto) 8.2 % (13.4-35.0); Mean Corpuscular HGB Conc 35 % (32-34); Mean Corpuscular Hemoglobin 31 pg (28-32); Mean Corpuscular Volume 88 fl (84-94); Monocytes # (Auto) 0.4 K/mm3 (0.0-0.8); Monocytes % (Auto) 4.3 % (0.0-7.3); Platelet Count 234 K/mm3 (140-440); Red Blood Count 4.15 M/mm3 (3.65-5.03); Red Cell Distribution Width 11.9 % (13.2-15.2)
[2017-09-08 00:45] LABS: Albumin 3.5 g/dL (3.9-5); Calcium 9.1 mg/dL (8.4-10.2)
[2017-09-08 01:00] LABS: Partial Thromboplastin Time 25.8 Sec. (24.2-36.6)
[2017-09-08] MEDS ORDERED: TYLENOL PR ONE (01:03)
[2017-09-08] MEDS ORDERED: NORMODYNE IV ONE ×3 (01:05→08:46)
--- NOTE | 2017-09-08 01:05 | Emergency Department Report ---
HPI - General Chief Complaint: Altered Mental Status Time Seen by Provider: 09/07/17 23:32 - HPI HPI: The patient is a 62-year-old male with a sig history of CVA and diabetes, who presents for evaluation of altered mental status. Per EMS, the patient's family members reported that the patient has exhibited change from normal baseline activity, lethargy, and decreased appetite. The patient admis to a nonproductive cough and mild achy bilateral chest pain for the past one to 2 days, exacerbated with cough. The patient denies fever, head injury, headache, neck pain, neck stiffness, dyspnea, back pain, vomiting, diarrhea. ED Past Medical Hx - Past Medical History Previous Medical History?: Yes Hx Hypertension: Yes Hx Congestive Heart Failure: No Hx Diabetes: Yes Hx Asthma: No Hx COPD: No Hx HIV: No Additional medical history: Stage IV chronic kidney disease. Recent hypertensive cerebral hemorrhage - Surgical History Additional Surgical History: hernia repair - Social History Smoking Status: Never Smoker - Medications Home Medications: Home Medications Medication Instructions Recorded Confirmed Last Taken Type Losartan [Cozaar] 100 mg PO QDAY 06/01/17 06/15/17 3 Days Ago History ~06/12/17 NIFEdipine [Nifedipine ER] 90 mg PO DAILY 06/01/17 06/12/17 Unknown History cloNIDine [Catapres] 0.2 mg PO QHS 06/01/17 06/15/17 Unknown History metFORMIN [Glucophage] 500 mg PO BID 06/01/17 06/12/17 Unknown History AtorvaSTATin [Lipitor] 40 mg PO QHS #30 tablet 06/06/17 06/15/17 3 Days Ago Rx ~06/12/17 Losartan [Cozaar] 100 mg PO QDAY #30 tablet 06/06/17 06/12/17 Unknown Rx Metoprolol Tartrate 100 mg PO BID #60 tablet 06/06/17 06/12/17 Unknown Rx NIFEdipine XL [Procardia Xl] 90 mg PO QDAY #30 tablet 06/06/17 06/15/17 3 Days Ago Rx ~06/12/17 Spironolactone [Aldactone] 25 mg PO BID #60 tablet 06/06/17 06/15/17 3 Days Ago Rx ~06/12/17 amLODIPine [Norvasc] 10 mg PO QDAY #30 tablet 06/06/17 06/12/17 Unknown Rx hydrALAZINE [Apresoline TAB] 50 mg PO Q8HR #30 tablet 06/06/17 06/12/17 Unknown Rx Sodium Bicarbonate 650 mg PO BID #60 tablet 06/17/17 Unknown Rx ED Review of Systems ROS: Stated complaint: VOMITING, LETHARGIC Other details as noted in HPI Constitutional: denies: fever ENT: denies: throat or neck pain Respiratory: reports: cough, shortness of breath Cardiovascular: reports: chest pain Endocrine: denies unexplained weight loss or gain Gastrointestinal: denies: abdominal pain, nausea Genitourinary: denies: dysuria Musculoskeletal: denies: leg swelling Skin: denies: rash Neurological: denies: headache Hematological/Lymphatic: denies: easy bleeding or easy bruising Psych: denies sadness or hopelessness Physical Exam - Physical Exam Vital Signs: Vital Signs 09/07/17 09/07/17 22:28 23:30 Temperature 101.2 F H 101.2 F H Pulse Rate 82 82 Respiratory 22 20 Rate Blood Pressure 213/103 Blood Pressure 213/103 [Right] O2 Sat by Pulse 96 96 Oximetry Physical Exam: General: well-nourished, well-developed, no acute distress Head: Normocephalic, atraumatic Eyes: normal sclera ENT: Mucous membranes are pale and dry Neck: No neck stiffness, no cervical adenopathy Respiratory: Breath sounds equal bilaterally, no wheezing, rales, or rhonchi Cardio: S1 and S2 present, no murmurs, rubs, gallops, capillary refill is delayed Abdomen: Normoactive bowel sounds, soft abdomen, suprapubic tenderness to palpation present, no rigidity, no guarding or rebound tenderness Chest WALL/Back: No tenderness to palpation of the chest wall, no CVA tenderness with percussion Musc: No pitting edema Skin: No rash Neuro: Patient alert and oriented to self, disoriented to situation, time, and location, unable to follow instructions, mildly combative, no facial drooping, weak speech, no obvious gross sensation and motor deficit in the arms or legs, reflexes 2+ symmetric on DTR testing, Babinski downgoing Psych: Normal affect ED Course Vital Signs 09/07/17 09/07/17 22:28 23:30 Temperature 101.2 F H 101.2 F H Pulse Rate 82 82 Respiratory 22 20 Rate Blood Pressure 213/103 Blood Pressure 213/103 [Right] O2 Sat by Pulse 96 96 Oximetry ED Medical Decision Making - Lab Data Result diagrams: 09/07/17 23:26 09/08/17 03:12 - Medical Decision Making The patient was seen and examined by myself. The patient is placed on a cardiac surgeon and continuous pulse ox. On initial evaluation, the patient was found to be in no distress, although with altered mental status and combative, not competent to refuse care, and febrile, temperature 101 Fahrenheit. Evaluation orders are placed and the patient is placed in restraints due to combativeness and he is given Tylenol for his elevated temperature. As sepsis is suspected, IV access is established and the patient is given IV Zosyn, and IV analgesic for pain. Multiple bedside assessments were performed to assess patient responsiveness to antihypertensives. Lab results revealed elevated BNP of 3000, elevated creatinine of 3.1, and otherwise labs were unrevealing including WBC, hemoglobin, hematocrit, LFTs, lipase. CT scan the head is negative for acute intracranial disease process. The on-call hospitalist Dr. Mittal was contacted and she agreed to authorize admission of the patient on behalf of the hospitalist service. She agreed to allow bridging orders to be placed, and the patient is bridged to the ICU. Critical Care Time: Yes Critical care time in (mins) excluding proc time.: 35 Critical care attestation.: Due to the critical nature of this patients presentation, which necessitated multiple bedside assessments, manipulation and supportive measures to prevent further life threatening deterioration, I would like to bill for a total of 35 minutes of critical care time. This was exclusive of any separately billable procedures. Critical Care Time: 35 minutes ED Disposition Clinical Impression: Acute lower UTI (urinary tract infection), Hypokalemia, Hypertensive emergency Altered mental status Qualifiers: Altered mental status type: disorientation Qualified Code(s): R41.0 - Disorientation, unspecified CKD (chronic kidney disease) Qualifiers: Chronic kidney disease stage: unspecified stage Qualified Code(s): N18.9 - Chronic kidney disease, unspecified DKA (diabetic ketoacidoses) Qualifiers: Diabetes mellitus type: other specified (including MARIANELA) Diabetes mellitus complication detail: without coma Qualified Code(s): E13.10 - Other specified diabetes mellitus with ketoacidosis without coma Disposition: 09 OP ADMIT IP TO THIS HOSP Is pt being admited?: Yes Does the pt Need Aspirin: Yes Condition: Critical Time of Disposition: 01:02
[2017-09-08] MEDS ORDERED: ATIVAN ONE (01:13)
[2017-09-08] MEDS ORDERED: ATIVAN IV ONE ×2 (01:14→15:51)
[2017-09-08] MEDS ORDERED: ZOSYN/NS 3.375GM/50ML 3.375 GM/50 ML BAG IV SCH (02:00)
[2017-09-08] MEDS ORDERED: NS/KCL 40MEQ 40 MEQ/1,000 ML BAG IV SCH (02:00)
[2017-09-08] MEDS: ZOSYN/NS 2.25 GM/50ML 2.25 GM/50 ML BAG IV SCH ×4 (02:27→20:14)
--- NOTE | 2017-09-08 02:36 | XRay Report ---
FINAL REPORT PROCEDURE: XR CHEST 1V AP TECHNIQUE: Chest radiograph anteroposterior view. CPT 69792 HISTORY: chest pain COMPARISON: 06/12/2017 FINDINGS: Heart: Normal. Mediastinum/Vessels: Normal. Lungs/Pleural space: Normal. Bony thorax: No acute osseous abnormality. Life support devices: None. IMPRESSION: No acute cardiopulmonary abnormality.
[2017-09-08] MEDS ORDERED: ASPIRIN PR ONE ×2 (02:53→05:00)
[2017-09-08 03:14] LABS: Amorphous Crystals,Urine 2+; Bilirubin,Urine NEG (Negative); Blood,Urine MOD (Negative); Color,Urine Yellow (Yellow); Hyaline Casts,Urine 5 /LPF; Mucus,Urine FEW /HPF; Urobilinogen,Urine < 2.0 mg/dL (<2.0)
[2017-09-08 03:15] LABS: Protein,Urine >500 mg/dL (Negative)
[2017-09-08] MEDS: KCL 20MEQ/100ML 20 MEQ/100 ML BAG IV SCH ×2 (03:30→04:35)
[2017-09-08 03:54] LABS: Amphetamine Screen,Urine PRESUMPTIVE NEGATIVE; Benzodiazepines Screen,Urine PRESUMPTIVE NEGATIVE; Cannabinoid Screen,Urine PRESUMPTIVE NEGATIVE; Cocaine Screen,Urine PRESUMPTIVE NEGATIVE; Methadone Screen,Urine PRESUMPTIVE NEGATIVE; Opiate Screen,Urine PRESUMPTIVE NEGATIVE
[2017-09-08 04:11] LABS: Calcium 8.6 mg/dL (8.4-10.2)
[2017-09-08] MEDS ORDERED: VANCOMYCIN 1,500 MG in NACL 0.9% 500 ML 500 ML IV ONE (04:34)
[2017-09-08] MEDS ORDERED: NACL 0.9% 1000 ML IV ONE (04:34)
[2017-09-08] MEDS ORDERED: SODIUM CHLORIDE FLUSH SYRINGE 10 ML IV PRN (04:34)
--- NOTE | 2017-09-08 04:39 | History and Physical Report ---
History of Present Illness Date of examination: 09/08/17 Date of admission: 09/08/17 02:57 Chief complaint: AMS History of present illness: Patient is a 62 year old male with hx of CVA, HTN, CKD, SAH and DM who presents to the ED with AMS, and noted to have DKA with acute cystitis. Information obtained my me is via the ED note who notes references EMS family conversation documentation as noted below. "Per EMS, the patient's family members reported that the patient has exhibited change from normal baseline activity, lethargy, and decreased appetite. The patient admis to a nonproductive cough and mild achy bilateral chest pain for the past one to 2 days, exacerbated with cough. The patient denies fever, head injury, headache, neck pain, neck stiffness, dyspnea, back pain, vomiting, diarrhea." Past History Past Medical History: diabetes, hypertension, other (CKD STAGE 4) Past Surgical History: hernia repair Social history: lives with family, full code Family history: no significant family history Medications and Allergies Allergies Allergy/AdvReac Type Severity Reaction Status Date / Time No Known Allergies Allergy Verified 06/12/17 15:18 Home Medications Medication Instructions Recorded Confirmed Last Taken Type Losartan [Cozaar] 100 mg PO QDAY 06/01/17 06/15/17 3 Days Ago History ~06/12/17 NIFEdipine [Nifedipine ER] 90 mg PO DAILY 06/01/17 06/12/17 Unknown History cloNIDine [Catapres] 0.2 mg PO QHS 06/01/17 06/15/17 Unknown History metFORMIN [Glucophage] 500 mg PO BID 06/01/17 06/12/17 Unknown History AtorvaSTATin [Lipitor] 40 mg PO QHS #30 tablet 06/06/17 06/15/17 3 Days Ago Rx ~06/12/17 Losartan [Cozaar] 100 mg PO QDAY #30 tablet 06/06/17 06/12/17 Unknown Rx Metoprolol Tartrate 100 mg PO BID #60 tablet 06/06/17 06/12/17 Unknown Rx NIFEdipine XL [Procardia Xl] 90 mg PO QDAY #30 tablet 06/06/17 06/15/17 3 Days Ago Rx ~06/12/17 Spironolactone [Aldactone] 25 mg PO BID #60 tablet 06/06/17 06/15/17 3 Days Ago Rx ~06/12/17 amLODIPine [Norvasc] 10 mg PO QDAY #30 tablet 06/06/17 06/12/17 Unknown Rx hydrALAZINE [Apresoline TAB] 50 mg PO Q8HR #30 tablet 06/06/17 06/12/17 Unknown Rx Sodium Bicarbonate 650 mg PO BID #60 tablet 06/17/17 Unknown Rx Active Meds: Active Medications Dextrose (D50w (25gm) Syringe) 0 ml IV PRN PRN PRN Reason: Hypoglycemia Potassium Chloride/Sodium Chloride (Ns/Kcl 40meq) 40 meq in 1,000 mls @ 125 mls /hr IV DIRECT NARINDER Last Admin: 09/08/17 02:27 Dose: 125 mls/hr Piperacillin Sod/Tazobactam Sod (Zosyn/Ns 2.25 Gm/50ml) 2.25 gm in 50 mls @ 100 mls/hr IV Q6H NARINDER Last Admin: 09/08/17 02:27 Dose: 100 mls/hr Potassium Chloride (Kcl 20meq/100ml) 20 meq in 100 mls @ 100 mls/hr IV Q1H NARINDER Stop: 09/08/17 04:59 Insulin Human Regular 100 (units/ Sodium Chloride) 100 mls @ 1 mls/hr IV TITR NARINDER; Protocol Review of Systems ROS unobtainable: due to mental status Exam - Physical Exam Narrative exam: VITAL SIGNS: Reviewed. GENERAL: The patient appeared well nourished and normally developed. Vital signs as documented. HEAD: No signs of head trauma. EYES: Pupils are equal. Extraocular motions intact. EARS: unable to examine MOUTH: Oropharynx is normal. NECK: No adenopathy, no JVD. CHEST: Chest with clear breath sounds bilaterally. No wheezes, rales, or rhonchi. CARDIAC: Regular rate and rhythm. S1 and S2, without murmurs, gallops, or rubs. VASCULAR: No Edema. Peripheral pulses normal and equal in all extremities. ABDOMEN: Soft, without detectable tenderness. No sign of distention. No rebound or guarding, and no masses palpated. Bowel Sounds normal. MUSCULOSKELETAL: Good range of motion of all major joints. Extremities without clubbing, cyanosis or edema. NEUROLOGIC EXAM: confused. No focal sensory or strength deficits. PSYCHIATRIC: unable to examine SKIN: No rash or lesions. - Constitutional Vitals: Temp Pulse Resp BP Pulse Ox 101.2 F H 82 20 150/88 97 09/07/17 23:30 09/08/17 02:10 09/08/17 02:11 09/08/17 02:10 09/08/17 02:10 Results - Labs CBC & Chem 7: 09/07/17 23:26 09/08/17 15:43 Labs: Laboratory Last Values WBC 9.7 K/mm3 (4.5-11.0) 09/07/17 23: RBC 4.15 M/mm3 (3.65-5.03) 09/07/17 23:26 Hgb 12.9 gm/dl (11.8-15.2) 09/07/17 23: Hct 36.6 % (35.5-45.6) 09/07/17 23: MCV 88 fl (84-94) 09/07/17 23: MCH 31 pg (28-32) 09/07/17 23: MCHC 35 % (32-34) H 09/07/17 23:26 RDW 11.9 % (13.2-15.2) L 09/07/17 23:26 Plt Count 234 K/mm3 (140-440) 09/07/17 23:26 Lymph % (Auto) 8.2 % (13.4-35.0) L 09/07/17 23: [place] % (Auto) 4.3 % (0.0-7.3) 09/07/17 23: Eos % (Auto) 0.0 % (0.0-4.3) 09/07/17 23: Baso % (Auto) 0.3 % (0.0-1.8) 09/07/17 23: Lymph # 0.8 K/mm3 (1.2-5.4) L 09/07/17 23: Garvin # 0.4 K/mm3 (0.0-0.8) 09/07/17 23: Eos # 0.0 K/mm3 (0.0-0.4) 09/07/17 23: Baso # 0.0 K/mm3 (0.0-0.1) 09/07/17 23: Seg Neutrophils % 87.2 % (40.0-70.0) H 09/07/17 23:26 Seg Neutrophils # 8.5 K/mm3 (1.8-7.7) H 09/07/17 23:26 PT 13.7 Sec. (12.2-14.9) 09/07/17 23:26 INR 1.00 (0.87-1.13) 09/07/17 23:26 APTT 25.8 Sec. (24.2-36.6) 09/07/17 23:26 Sodium 135 mmol/L (137-145) L 09/08/17 03:12 Potassium 4.2 mmol/L (3.6-5.0) D 09/08/17 03:12 Chloride 95.1 mmol/L (98-107) L 09/08/17 03:12 Carbon Dioxide 19 mmol/L (22-30) L 09/08/17 03:12 Anion Gap 25 mmol/L 09/08/17 03:12 BUN 26 mg/dL (9-20) H 09/08/17 03:12 Creatinine 3.2 mg/dL (0.8-1.5) H 09/08/17 03:12 Estimated GFR 24 ml/min 09/08/17 03:12 BUN/Creatinine Ratio 8 % 09/08/17 03:12 Glucose 402 mg/dL (75-100) H 09/08/17 03:12 Calcium 8.6 mg/dL (8.4-10.2) 09/08/17 03:12 Total Bilirubin 0.60 mg/dL (0.1-1.2) 09/07/17 23:26 AST 29 units/L (5-40) 09/07/17 23:26 ALT 18 units/L (7-56) 09/07/17 23:26 Alkaline Phosphatase 100 units/L (35-129) 09/07/17 23:26 NT-Pro-B Natriuret Pep 3163 pg/mL (0-900) H 09/08/17 00:17 Total Protein 6.7 g/dL (6.3-8.2) 09/07/17 23:26 Albumin 3.5 g/dL (3.9-5) L 09/07/17 23:26 Albumin/Globulin Ratio 1.1 % 09/07/17 23:26 Lipase 21 units/L (13-60) 09/08/17 00:17 TSH 0.633 mlU/mL (0.270-4.200) 09/07/17 23:26 Free T4 1.19 ng/dL (0.76-1.46) 09/08/17 00:17 Urine Color Yellow (Yellow) 09/08/17 02:09 Urine Turbidity Hazy (Clear) 09/08/17 02:09 Urine pH 5.0 (5.0-7.0) 09/08/17 02:09 Ur Specific [place] 1.021 (1.003-1.030) 09/08/17 02:09 Urine Protein >500 mg/dL (Negative) 09/08/17 02:09 Urine Glucose (UA) >=500 mg/dL (Negative) 09/08/17 02:09 Urine Ketones 20 mg/dL (Negative) 09/08/17 02:09 Urine Blood Mod (Negative) 09/08/17 02:09 Urine Nitrite Neg (Negative) 09/08/17 02:09 Urine Bilirubin Neg (Negative) 09/08/17 02:09 Urine Urobilinogen < 2.0 mg/dL (<2.0) 09/08/17 02:09 Ur Leukocyte Esterase Neg (Negative) 09/08/17 02:09 Urine WBC (Auto) 7.0 /HPF (0.0-6.0) H 09/08/17 02:09 Urine RBC (Auto) 3.0 /HPF (0.0-6.0) 09/08/17 02:09 Amorphous Crystals 2+ 09/08/17 02:09 Hyaline Casts 5 /LPF 09/08/17 02:09 Urine Mucus Few /HPF 09/08/17 02:09 Urine Opiates Screen Presumptive negative 09/08/17 02:09 Urine Methadone Screen Presumptive negative 09/08/17 02:09 Ur Barbiturates Screen Presumptive negative 09/08/17 02:09 Ur Phencyclidine Scrn Presumptive negative 09/08/17 02:09 Ur Amphetamines Screen Presumptive negative 09/08/17 02:09 U Benzodiazepines Scrn Presumptive negative 09/08/17 02:09 Urine Cocaine Screen Presumptive negative 09/08/17 02:09 U Marijuana (THC) Screen Presumptive negative 09/08/17 02:09 Drugs of Abuse Note Disclamer 09/08/17 02:09 Plasma/Serum Alcohol < 0.01 % (0-0.07) 09/07/17 23:26 - Imaging and Cardiology Chest x-ray: image reviewed CT Scan - head: image reviewed (no acute pathology) Assessment and Plan Assessment and plan: Patient is a 62 year old male with hx of CVA, HTN, CKD, SAH and DM who presents to the ED with AMS, and noted to have DKA with acute cystitis. Information obtained my me is via the ED note who notes references EMS family conversation documentation as noted below. "Per EMS, the patient's family members reported that the patient has exhibited change from normal baseline activity, lethargy, and decreased appetite. The patient admis to a nonproductive cough and mild achy bilateral chest pain for the past one to 2 days, exacerbated with cough. The patient denies fever, head injury, headache, neck pain, neck stiffness, dyspnea, back pain, vomiting, diarrhea." DKA Sepsis Acute Cystitis Metabolic Acidosis secondary to DKA Diabetes mellitus Type 2- Poorly controlled Hypokalemia Hypertensive urgency CKD IV Acute Metabolic Encephalopathy Plan * Admit to ICU * Sepsis Protocol * Vanc and zosyn till aspiration pneumonitis ruled out then de-escalate * Culture * Insulin drip and transition once gap is closed * Keep NPO at this time * IV fluids bolus. monitor Pulmonary function * IV BB with careful monitoring of BP * Intial CT scan javier is negative, if no improvement in mental status will need Neurology consult * Nephrology AND Production Crew Supervisor consult * DVT/GI prophy * No family at bedside The high probability of a clinically significant, sudden or life threatening deterioration of the [neuro, endocrine] system(s) required my full and direct attention, intervention and personal management. The aggregate critical care time was [75] minutes. This time is in addition to time spent performing reported procedures but includes the following: [x] Data Review and interpretation [x] Patient assessment and monitoring of vital signs [x] Documentation [x] Medication orders and management Advance Directives: Yes Plan of care discussed with patient/family: Yes
[2017-09-08] MEDS ORDERED: VANCOMYCIN 1,750 MG in NACL 0.9% 500 ML 500 ML IV ONE (05:00)
[2017-09-08] MEDS: HumuLIN R 100 UNITS in NACL 0.9% 99 ML IV SCH (05:50)
[2017-09-08] MEDS ORDERED: ZOSYN/NS 4.5GM/100ML 4.5 GM/100 ML VIAL IV SCH (06:00)
[2017-09-08] MEDS: LOPRESSOR IV SCH ×3 (06:18→18:08)
[2017-09-08] MEDS: APRESOLINE PO SCH ×2 (06:19→15:46)
[2017-09-08] MEDS: ALDACTONE PO SCH (09:40)
[2017-09-08] MEDS: NORVASC PO SCH (09:40)
[2017-09-08] MEDS: COZAAR PO SCH (09:40)
[2017-09-08] MEDS ORDERED: PROCARDIA XL PO SCH (10:00)
[2017-09-08] MEDS ORDERED: COZAAR PO SCH (10:00)
[2017-09-08] MEDS ORDERED: LOPRESSOR PO SCH (10:00)
[2017-09-08 10:20] LABS: Calcium 8.8 mg/dL (8.4-10.2)
[2017-09-08] MEDS: D5W/0.45% NACL/KCL 20 MEQ 20 MEQ/1,000 ML BAG IV SCH ×2 (11:52→19:45)
--- NOTE | 2017-09-08 13:44 | Consultation ---
History of Present Illness - Reason for Consult Consult date: 09/08/17 DKA. metabolic acidosis Requesting physician: YUSEF EARL - History of Present Illness 62 y/o male admitted with altered mental state. Unable to obtain any history from patient, all from chart review. Initially billed as DKA, now found to have worsening lactic acidosis. Exact etiology unknown. Per nursing, extremely combative and aggressive with attempting to place dobb-miguel ángel for nutritional purposes. Currently calm, in restraints. No family at bedside. Remainder is negative. Past History Past Medical History: other (unable to obtain) Past Surgical History: Other (unable to obtain) Social history: other (unable to obtain) Family history: other (unable to obtain) Medications and Allergies Allergies Allergy/AdvReac Type Severity Reaction Status Date / Time No Known Allergies Allergy Verified 06/12/17 15:18 Home Medications Medication Instructions Recorded Confirmed Last Taken Type Losartan [Cozaar] 100 mg PO QDAY 06/01/17 06/15/17 3 Days Ago History ~06/12/17 NIFEdipine [Nifedipine ER] 90 mg PO DAILY 06/01/17 06/12/17 Unknown History cloNIDine [Catapres] 0.2 mg PO QHS 06/01/17 06/15/17 Unknown History metFORMIN [Glucophage] 500 mg PO BID 06/01/17 06/12/17 Unknown History AtorvaSTATin [Lipitor] 40 mg PO QHS #30 tablet 06/06/17 06/15/17 3 Days Ago Rx ~06/12/17 Losartan [Cozaar] 100 mg PO QDAY #30 tablet 06/06/17 06/12/17 Unknown Rx Metoprolol Tartrate 100 mg PO BID #60 tablet 06/06/17 06/12/17 Unknown Rx NIFEdipine XL [Procardia Xl] 90 mg PO QDAY #30 tablet 06/06/17 06/15/17 3 Days Ago Rx ~06/12/17 Spironolactone [Aldactone] 25 mg PO BID #60 tablet 06/06/17 06/15/17 3 Days Ago Rx ~06/12/17 amLODIPine [Norvasc] 10 mg PO QDAY #30 tablet 06/06/17 06/12/17 Unknown Rx hydrALAZINE [Apresoline TAB] 50 mg PO Q8HR #30 tablet 06/06/17 06/12/17 Unknown Rx Sodium Bicarbonate 650 mg PO BID #60 tablet 06/17/17 Unknown Rx Active Meds: Active Medications Amlodipine Besylate (Norvasc) 10 mg PO QDAY [facility] Last Admin: 09/08/17 09:40 Dose: Not Given Atorvastatin Calcium (Lipitor) 40 mg PO QHS NARINDER Clonidine HCl (Catapres) 0.2 mg PO QHS [facility] Dextrose (D50w (25gm) Syringe) 0 ml IV PRN PRN PRN Reason: Hypoglycemia Hydralazine HCl (Apresoline) 50 mg PO Q8HR [facility] Last Admin: 09/08/17 06:19 Dose: Not Given Piperacillin Sod/Tazobactam Sod (Zosyn/Ns 2.25 Gm/50ml) 2.25 gm in 50 mls @ 100 mls/hr IV Q6H [facility] Last Admin: 09/08/17 09:40 Dose: Not Given Insulin Human Regular 100 (units/ Sodium Chloride) 100 mls @ 1 mls/hr IV TITR [facility]; Protocol Last Titration: 09/08/17 10:49 Dose: 0 units/hr, 0 mls/hr Potassium Chloride/Dextrose/Sod Cl (D5w/0.45% Nacl/Kcl 20 Meq) 20 meq in 1,000 mls @ 125 mls/hr IV DIRECT [facility] Last Admin: 09/08/17 11:52 Dose: 125 mls/hr Losartan Potassium (Cozaar) 100 mg PO QDAY [facility] Last Admin: 09/08/17 09:40 Dose: Not Given Metoprolol Tartrate (Lopressor) 5 mg IV Q6HR [facility] Last Admin: 09/08/17 11:39 Dose: 5 mg Nifedipine (Procardia Xl) 90 mg PO QDAY [facility] Last Admin: 09/08/17 09:40 Dose: Not Given Sodium Chloride (Sodium Chloride Flush Syringe 10 Ml) 10 ml IV PRN PRN PRN Reason: LINE FLUSH Spironolactone (Aldactone) 25 mg PO BID [facility] Last Admin: 09/08/17 09:40 Dose: Not Given Review of Systems ROS unobtainable: due to mental status Exam - Constitutional Vitals: Temp Pulse Resp BP Pulse Ox 98.2 F 79 13 181/91 97 09/08/17 12:00 09/08/17 13:01 09/08/17 13:01 09/08/17 13:01 09/08/17 13:01 General appearance: Present: no acute distress, well-nourished, disheveled - EENT ENT: hearing intact - Neck Neck: Present: supple - Respiratory Respiratory effort: normal Respiratory: bilateral: CTA - Cardiovascular Heart Sounds: Present: S1 & S2 - Extremities Extremities: no ischemia - Abdominal General gastrointestinal: Present: soft, non-tender, normal bowel sounds Male genitourinary: Present: deferred - Rectal Rectal Exam: deferred Results - Labs CBC & Chem 7: 09/07/17 23:26 09/08/17 09:18 Labs: Abnormal lab results 09/07/17 09/07/17 09/08/17 Range/Units 23:26 23:26 00:17 MCHC 35 H (32-34) % RDW 11.9 L (13.2-15.2) % Lymph % (Auto) 8.2 L (13.4-35.0) % Lymph # 0.8 L (1.2-5.4) K/mm3 Seg Neutrophils % 87.2 H (40.0-70.0) % Seg Neutrophils # 8.5 H (1.8-7.7) K/mm3 Sodium 135 L (137-145) mmol/L Potassium 3.1 L (3.6-5.0) mmol/L Chloride 94.3 L (98-107) mmol/L Carbon Dioxide 19 L (22-30) mmol/L BUN 25 H (9-20) mg/dL Creatinine 3.1 H (0.8-1.5) mg/dL Glucose 371 H (75-100) mg/dL POC Glucose (70-105) Lactic Acid 3.30 H* (0.7-2.0) mmol/L Phosphorus (2.5-4.5) mg/dL NT-Pro-B Natriuret Pep (0-900) pg/mL Albumin 3.5 L (3.9-5) g/dL Urine WBC (Auto) (0.0-6.0) /HPF 09/08/17 09/08/17 09/08/17 Range/Units 00:17 02:09 03:12 MCHC (32-34) % RDW (13.2-15.2) % Lymph % (Auto) (13.4-35.0) % Lymph # (1.2-5.4) K/mm3 Seg Neutrophils % (40.0-70.0) % Seg Neutrophils # (1.8-7.7) K/mm3 Sodium 135 L (137-145) mmol/L Potassium (3.6-5.0) mmol/L Chloride 95.1 L (98-107) mmol/L Carbon Dioxide 19 L (22-30) mmol/L BUN 26 H (9-20) mg/dL Creatinine 3.2 H (0.8-1.5) mg/dL Glucose 402 H (75-100) mg/dL POC Glucose (70-105) Lactic Acid (0.7-2.0) mmol/L Phosphorus (2.5-4.5) mg/dL NT-Pro-B Natriuret Pep 3163 H (0-900) pg/mL Albumin (3.9-5) g/dL Urine WBC (Auto) 7.0 H (0.0-6.0) /HPF 09/08/17 09/08/17 09/08/17 Range/Units 05:48 07:49 08:44 MCHC (32-34) % RDW (13.2-15.2) % Lymph % (Auto) (13.4-35.0) % Lymph # (1.2-5.4) K/mm3 Seg Neutrophils % (40.0-70.0) % Seg Neutrophils # (1.8-7.7) K/mm3 Sodium (137-145) mmol/L Potassium (3.6-5.0) mmol/L Chloride (98-107) mmol/L Carbon Dioxide (22-30) mmol/L BUN (9-20) mg/dL Creatinine (0.8-1.5) mg/dL Glucose (75-100) mg/dL POC Glucose 419 H 251 H 165 H (70-105) Lactic Acid (0.7-2.0) mmol/L Phosphorus (2.5-4.5) mg/dL NT-Pro-B Natriuret Pep (0-900) pg/mL Albumin (3.9-5) g/dL Urine WBC (Auto) (0.0-6.0) /HPF 09/08/17 09/08/17 09/08/17 Range/Units 09:18 09:18 09:18 MCHC (32-34) % RDW (13.2-15.2) % Lymph % (Auto) (13.4-35.0) % Lymph # (1.2-5.4) K/mm3 Seg Neutrophils % (40.0-70.0) % Seg Neutrophils # (1.8-7.7) K/mm3 Sodium (137-145) mmol/L Potassium 3.4 L (3.6-5.0) mmol/L Chloride (98-107) mmol/L Carbon Dioxide 20 L (22-30) mmol/L BUN 26 H (9-20) mg/dL Creatinine 3.2 H (0.8-1.5) mg/dL Glucose 170 H (75-100) mg/dL POC Glucose (70-105) Lactic Acid 5.70 H* (0.7-2.0) mmol/L Phosphorus 2.20 L D (2.5-4.5) mg/dL NT-Pro-B Natriuret Pep (0-900) pg/mL Albumin (3.9-5) g/dL Urine WBC (Auto) (0.0-6.0) /HPF 09/08/17 Range/Units 09:42 MCHC (32-34) % RDW (13.2-15.2) % Lymph % (Auto) (13.4-35.0) % Lymph # (1.2-5.4) K/mm3 Seg Neutrophils % (40.0-70.0) % Seg Neutrophils # (1.8-7.7) K/mm3 Sodium (137-145) mmol/L Potassium (3.6-5.0) mmol/L Chloride (98-107) mmol/L Carbon Dioxide (22-30) mmol/L BUN (9-20) mg/dL Creatinine (0.8-1.5) mg/dL Glucose (75-100) mg/dL POC Glucose 137 H (70-105) Lactic Acid (0.7-2.0) mmol/L Phosphorus (2.5-4.5) mg/dL NT-Pro-B Natriuret Pep (0-900) pg/mL Albumin (3.9-5) g/dL Urine WBC (Auto) (0.0-6.0) /HPF - Imaging and Cardiology Chest x-ray: image reviewed (clear, no acute evidence of lung disease) Assessment and Plan 62 y/o male with altered mental state, metabolic acidosis, renal failure ( unsure if acute or chronic or acute on chronic), lactic acidosis and Hypertension. 1. Recommend continuing of insulin drip as patient does have diabetes based on home meds but unable to feed so unable to give long acting insulin at this time. 2. Will add PRN IV blood pressure control medication. Added Nicardipine drip 3. Need to check urine studies and obtain renal ultrasound. Patient has had hydration with no real improvement in Cr, likely a chronic state. Could consider renal consult tomorrow if Cr does not improve. Also could be the reason for worsening lactic acid. 4. Will check serial lactic acids given increase from 3-6. No evidence of acute abdominal pain or ischemia. Will check LFT's as well. 5. Unsure of exact cause of altered mental state at this time. UDS negative. Head CT negative. Does not appear to be in withdrawal from any medications. Did have fever on admit but has resolved. Ok with current abx therapy but will likely taper in the next 24-48 hours. 6. Replace electrolytes 7. need to find family to see if any further history can be obtained. Overall prognosis is guarded. CCT 31 minutes.
[2017-09-08 14:09] LABS: Calcium 8.6 mg/dL (8.4-10.2)
[2017-09-08] MEDS: CARDENE 50 MG in NACL 0.9% 250ML 230 ML IV SCH (14:47)
[2017-09-08] MEDS ORDERED: SUBLIMAZE IV ONE (15:51)
[2017-09-08] MEDS ORDERED: HALDOL IM ONE (15:51)
[2017-09-08] MEDS: SUBLIMAZE ONE ×2 (16:31→16:33)
--- NOTE | 2017-09-08 16:33 | Procedure Note ---
Date of procedure: 09/08/17 Pre-op diagnosis: Emergency Venous Access Post-op diagnosis: same Procedure: left IJ placement Unable to obtain informed consent given patient's altered mental state and no family present. Patient prepped and given Ativan, Fentanyl and Haldol for sedation. Once adequate sedation achieved, using ultrasound guidance and seldinger technique, patient had left IJ visualized and triple lumen catheter placed. catheter visualized in vein using ultrasound guidance. Sutured in and biopatch placed. Stat CXR ordered to confirm placement and rule out PTX. Patient tolerated procedure with no problems. No immediate complications seen. Await CXR Anesthesia: local Surgeon: MIRA STAPLES Estimated blood loss: none Pathology: none Condition: critical Disposition: ICU
--- NOTE | 2017-09-08 16:41 | Event Note ---
Date: 09/08/17 Reviewed CXR at bedside. It appears that the line is a vein but it has made a curve and now gone into the subclavian. I know that the line is in a vein as I visualized under ultrasound guidance. Given that this line is not being placed for pressors but secondary to incompatability of insulin, antihypertensives and abx therapy, we will continue it its use for now and will ask for a PICC in the am.
--- NOTE | 2017-09-08 17:55 | XRay Report ---
FINAL REPORT EXAM: XR CHEST 1V AP HISTORY: Central line placement TECHNIQUE: Single, portable chest x-ray. PRIORS: One day previous. FINDINGS: Left IJ central venous catheter crosses midline, with tip projected over right proximal clavicle and should be repositioned. Cardiac silhouette stable. Lungs show no focal consolidation or apparent pneumothorax. IMPRESSION: 1. Left IJ central venous catheter position as reported.
[2017-09-08 19:55] LABS: Calcium 8.7 mg/dL (8.4-10.2)
[2017-09-08 19:59] LABS: Alanine Aminotransferase 17 units/L (7-56)
[2017-09-08 20:01] LABS: Bilirubin,Direct < 0.2 mg/dL (0-0.2)
[2017-09-09 00:30] LABS: Calcium 8.8 mg/dL (8.4-10.2)
[2017-09-09] MEDS: CARDENE 50 MG in NACL 0.9% 250ML 230 ML IV SCH (00:37)
[2017-09-09] MEDS: ZOSYN/NS 2.25 GM/50ML 2.25 GM/50 ML BAG IV SCH ×2 (01:13→16:11)
[2017-09-09] MEDS: KCL 10MEQ/100ML 10 MEQ/100 ML BAG IV SCH ×7 (01:13→23:16)
[2017-09-09] MEDS: D5W/0.45% NACL/KCL 20 MEQ 20 MEQ/1,000 ML BAG IV SCH ×2 (03:34→21:14)
[2017-09-09] MEDS: LOPRESSOR IV SCH ×4 (06:56→19:09)
[2017-09-09] MEDS: ALDACTONE PO SCH ×3 (06:58→22:23)
[2017-09-09] MEDS: APRESOLINE PO SCH ×4 (06:59→22:24)
[2017-09-09] MEDS: CATAPRES PO SCH ×2 (06:59→22:24)
[2017-09-09] MEDS: HumuLIN R 100 UNITS in NACL 0.9% 99 ML IV SCH ×2 (07:03→22:16)
[2017-09-09 07:29] LABS: Calcium 8.9 mg/dL (8.4-10.2)
--- NOTE | 2017-09-09 11:13 | Progress Note ---
Assessment and Plan 62 y/o male with altered mental state, metabolic acidosis, renal failure ( unsure if acute or chronic or acute on chronic), lactic acidosis and Hypertension. 1. q1 hour fingersticks. Agree with holding insulin drip. Follow up repeat stick after D50 administration. 2. Continue IV cardene until patient ready to take PO 3. Patient has chronic renal disease and Cr is close to baseline based on last admit. 4. Lactic acid has normalized 5. Stopping abx therapy at this time. Spoke with [facility] who knew him from last admit. Mental status has not changed much based on their description. However they ([facility]) will order CT of head. 6. Replace electrolytes 7. need to find family to see if any further history can be obtained. Overall prognosis is guarded. CCT 31 minutes. Subjective Date of service: 09/09/17 Interval history: Picc line successfully placed this am by Picc team. I have reviewed the film and placed a communication order stating safe to use. Also ask that IJ be removed. Patient's blood sugar was low, insulin drip stopped and treated with 1 amp of D50. Awaiting repeat blood sugar now. Objective - Constitutional Vitals: Vital Signs - 12hr 09/08/17 09/08/17 09/08/17 23:07 23:15 23:30 Temperature Pulse Rate 82 99 H 85 Pulse Rate [ From Monitor] Respiratory 12 18 11 L Rate Blood Pressure 145/77 145/77 166/83 O2 Sat by Pulse 98 97 95 Oximetry 09/08/17 09/09/17 09/09/17 23:45 00:00 00:01 Temperature 98.9 F Pulse Rate 88 83 Pulse Rate [ 92 H From Monitor] Respiratory 13 13 14 Rate Blood Pressure 166/83 148/78 O2 Sat by Pulse 97 98 96 Oximetry 09/09/17 09/09/17 09/09/17 00:15 00:31 00:45 Temperature Pulse Rate 90 93 H 88 Pulse Rate [ From Monitor] Respiratory 13 13 12 Rate Blood Pressure 157/81 151/79 162/72 O2 Sat by Pulse 96 96 96 Oximetry 09/09/17 09/09/17 09/09/17 01:01 01:15 01:30 Temperature Pulse Rate 90 93 H 95 H Pulse Rate [ From Monitor] Respiratory 13 13 13 Rate Blood Pressure 153/72 161/74 152/82 O2 Sat by Pulse 96 96 96 Oximetry 09/09/18 20/18 18 01:45 02:00 02:01 Temperature Pulse Rate 99 H 92 H Pulse Rate [ 98 H From Monitor] Respiratory 12 11 L 16 Rate Blood Pressure 146/76 145/78 O2 Sat by Pulse 98 98 95 Oximetry 09/09/18 /20/18 09/09/17 02:15 02:31 02:45 Temperature Pulse Rate 94 H 100 H 105 H Pulse Rate [ From Monitor] Respiratory 11 L 12 16 Rate Blood Pressure 152/77 150/84 150/84 O2 Sat by Pulse 96 93 96 Oximetry 09/09/18 20/18 /18 03:01 03:15 03:30 Temperature Pulse Rate 120 H 106 H 102 H Pulse Rate [ From Monitor] Respiratory 17 14 15 Rate Blood Pressure 124/79 124/79 136/85 O2 Sat by Pulse 98 97 97 Oximetry 09/09/18 //18 09/09/17 03:45 04:00 04:01 Temperature 98.8 F Pulse Rate 93 H 86 Pulse Rate [ 93 H From Monitor] Respiratory 10 L 13 12 Rate Blood Pressure 141/81 124/76 O2 Sat by Pulse 96 98 96 Oximetry 09/09/18 /20/18 18 04:15 04:31 04:45 Temperature Pulse Rate 89 92 H 95 H Pulse Rate [ From Monitor] Respiratory 14 11 L 12 Rate Blood Pressure 124/76 121/76 113/77 O2 Sat by Pulse 97 95 94 Oximetry 18 //18 18 05:01 05:15 05:31 Temperature Pulse Rate 89 88 85 Pulse Rate [ From Monitor] Respiratory 11 L 12 12 Rate Blood Pressure 155/82 155/85 162/79 O2 Sat by Pulse 97 97 97 Oximetry 20/18 /20/18 /20/18 05:45 06:00 06:01 Temperature Pulse Rate 88 80 Pulse Rate [ 79 From Monitor] Respiratory 10 L 12 13 Rate Blood Pressure 162/79 135/74 O2 Sat by Pulse 98 97 Oximetry 20/18 /20/18 /20/18 06:15 06:31 06:45 Temperature Pulse Rate 86 92 H 109 H Pulse Rate [ From Monitor] Respiratory 12 13 16 Rate Blood Pressure 135/74 162/89 153/79 O2 Sat by Pulse 97 98 Oximetry 09/09/17 09/09/17 06:56 07:00 Temperature Pulse Rate 80 85 Pulse Rate [ From Monitor] Respiratory 13 Rate Blood Pressure 149/88 159/78 O2 Sat by Pulse 96 Oximetry General appearance: Present: no acute distress, well-nourished, disheveled - EENT Eyes: PERRL, EOM intact ENT: hearing intact, poor dentition - Neck Neck: supple, normal ROM - Respiratory Respiratory effort: normal Respiratory: bilateral: CTA - Cardiovascular Rhythm: regular Heart Sounds: Present: S1 & S2 Extremities: no ischemia, pulses intact - Gastrointestinal General gastrointestinal: Present: soft, non-tender, normal bowel sounds Rectal Exam: deferred - Genitourinary Male genitourinary: deferred - Labs CBC & Chem 7: 09/07/17 23:26 09/09/17 06:45 Labs: Abnormal lab results 09/08/17 09/08/17 09/08/17 Range/Units 09:42 12:57 12:57 Potassium (3.6-5.0) mmol/L Chloride 108.0 H (98-107) mmol/L Carbon Dioxide 19 L (22-30) mmol/L BUN 27 H (9-20) mg/dL Creatinine 3.2 H (0.8-1.5) mg/dL Glucose 162 H (75-100) mg/dL POC Glucose 137 H (70-105) Lactic Acid (0.7-2.0) mmol/L Phosphorus 2.10 L (2.5-4.5) mg/dL Total Protein (6.3-8.2) g/dL Albumin (3.9-5) g/dL 09/08/17 09/08/17 09/08/17 Range/Units 12:58 13:47 13:59 Potassium 3.3 L (3.6-5.0) mmol/L Chloride (98-107) mmol/L Carbon Dioxide 20 L (22-30) mmol/L BUN 26 H (9-20) mg/dL Creatinine 3.4 H (0.8-1.5) mg/dL Glucose 169 H (75-100) mg/dL POC Glucose 154 H 175 H (70-105) Lactic Acid (0.7-2.0) mmol/L Phosphorus (2.5-4.5) mg/dL Total Protein (6.3-8.2) g/dL Albumin (3.9-5) g/dL 09/08/17 09/08/17 09/08/17 Range/Units 13:59 15:06 15:43 Potassium (3.6-5.0) mmol/L Chloride 107.3 H (98-107) mmol/L Carbon Dioxide (22-30) mmol/L BUN 27 H (9-20) mg/dL Creatinine 3.2 H (0.8-1.5) mg/dL Glucose 183 H (75-100) mg/dL POC Glucose 212 H (70-105) Lactic Acid 3.10 H* (0.7-2.0) mmol/L Phosphorus (2.5-4.5) mg/dL Total Protein (6.3-8.2) g/dL Albumin (3.9-5) g/dL 09/08/17 09/08/17 09/08/17 Range/Units 15:43 17:09 19:06 Potassium 3.1 L (3.6-5.0) mmol/L Chloride 108.2 H (98-107) mmol/L Carbon Dioxide 20 L (22-30) mmol/L BUN 26 H (9-20) mg/dL Creatinine 3.1 H (0.8-1.5) mg/dL Glucose 109 H (75-100) mg/dL POC Glucose 144 H (70-105) Lactic Acid 3.10 H* (0.7-2.0) mmol/L Phosphorus (2.5-4.5) mg/dL Total Protein (6.3-8.2) g/dL Albumin (3.9-5) g/dL 09/08/17 09/08/17 09/08/17 Range/Units 19:06 19:52 20:28 Potassium (3.6-5.0) mmol/L Chloride (98-107) mmol/L Carbon Dioxide (22-30) mmol/L BUN (9-20) mg/dL Creatinine (0.8-1.5) mg/dL Glucose (75-100) mg/dL POC Glucose 121 H 131 H (70-105) Lactic Acid (0.7-2.0) mmol/L Phosphorus (2.5-4.5) mg/dL Total Protein 5.8 L (6.3-8.2) g/dL Albumin 3.0 L (3.9-5) g/dL 09/08/17 09/08/17 09/09/17 Range/Units 21:40 23:43 00:44 Potassium 2.8 L* (3.6-5.0) mmol/L Chloride 108.6 H (98-107) mmol/L Carbon Dioxide 21 L (22-30) mmol/L BUN 25 H (9-20) mg/dL Creatinine 3.0 H (0.8-1.5) mg/dL Glucose (75-100) mg/dL POC Glucose 124 H 138 H (70-105) Lactic Acid (0.7-2.0) mmol/L Phosphorus (2.5-4.5) mg/dL Total Protein (6.3-8.2) g/dL Albumin (3.9-5) g/dL 09/09/17 09/09/17 09/09/17 Range/Units 01:38 02:33 05:48 Potassium (3.6-5.0) mmol/L Chloride (98-107) mmol/L Carbon Dioxide (22-30) mmol/L BUN (9-20) mg/dL Creatinine (0.8-1.5) mg/dL Glucose (75-100) mg/dL POC Glucose 146 H 136 H 131 H (70-105) Lactic Acid (0.7-2.0) mmol/L Phosphorus (2.5-4.5) mg/dL Total Protein (6.3-8.2) g/dL Albumin (3.9-5) g/dL 09/09/17 09/09/17 Range/Units 06:37 06:45 Potassium 3.2 L (3.6-5.0) mmol/L Chloride 107.9 H (98-107) mmol/L Carbon Dioxide 20 L (22-30) mmol/L BUN 26 H (9-20) mg/dL Creatinine 3.4 H (0.8-1.5) mg/dL Glucose 120 H (75-100) mg/dL POC Glucose 138 H (70-105) Lactic Acid (0.7-2.0) mmol/L Phosphorus (2.5-4.5) mg/dL Total Protein (6.3-8.2) g/dL Albumin (3.9-5) g/dL
--- NOTE | 2017-09-09 11:24 | XRay Report ---
Single view chest: Compared to 09/08/17. History: Right arm PICC line placement. Findings: Cardiomegaly. Trachea is midline. Tip of right PICC line in the right atrium. No consolidation, pneumothorax or pleural effusion. Impression: Tip of right PICC line in right atrium. No acute changes.
--- NOTE | 2017-09-09 13:00 | XRay Report ---
Single view chest: Compared to 09/09/17. History: PICC line placement. Findings: Tip of right PICC line is in upper superior vena cava. Impression: Tip of right PICC line is in upper superior vena cava. No interval lung changes.
[2017-09-09 13:59] LABS: Calcium 8.2 mg/dL (8.4-10.2)
[2017-09-09] MEDS: NORVASC PO SCH (16:12)
[2017-09-09] MEDS: COZAAR PO SCH (16:12)
--- NOTE | 2017-09-09 18:46 | Progress Note ---
Assessment and Plan Assessment and plan: Patient is a 62 year old male with hx of CVA, HTN, CKD, SAH and DM who presents to the ED with AMS, and noted to have DKA with acute cystitis. Information obtained my me is via the ED note who notes references EMS family conversation documentation as noted below. "Per EMS, the patient's family members reported that the patient has exhibited change from normal baseline activity, lethargy, and decreased appetite. The patient admis to a nonproductive cough and mild achy bilateral chest pain for the past one to 2 days, exacerbated with cough. The patient denies fever, head injury, headache, neck pain, neck stiffness, dyspnea, back pain, vomiting, diarrhea." DKA SIRS Acute systitis Metabolic Acidosis secondary to DKA Diabetes mellitus Type 2- Poorly controlled Hypokalemia HX OF CVA-chronic lacunar infarts most recent as of May 2017 Hypertensive urgency CKD IV Acute Metabolic Encephalopathy Plan * Admit to ICU * ABX Stopped * Culture-No growth * Currently on cardene drip, will switch when able to take PO * Hold insulin drip, continue d5. Monitor for gap closure * Recheck CT. I believe his fluctuating mental health is a factor of multiple strokes. will obtain neurology consult * Keep NPO at this time * IV fluids bolus. monitor Pulmonary function * IV BB with careful monitoring of BP * Intial CT scan javier is negative, if no improvement in mental status will need Neurology consult * Nephrology AND [employer] consult * DVT/GI prophy * No family at bedside The high probability of a clinically significant, sudden or life threatening deterioration of the [neuro, endocrine] system(s) required my full and direct attention, intervention and personal management. The aggregate critical care time was [75] minutes. This time is in addition to time spent performing reported procedures but includes the following: [x] Data Review and interpretation [x] Patient assessment and monitoring of vital signs [x] Documentation [x] Medication orders and management History Interval history: Patient seen and examined, continued with some altered sensorium although some improvement noted, selectively speaking at times Hospitalist Physical - Physical exam Narrative exam: VITAL SIGNS: Reviewed. GENERAL: The patient appeared well nourished and normally developed. Vital signs as documented. HEAD: No signs of head trauma. EYES: Pupils are equal. Extraocular motions intact. EARS: unable to examine MOUTH: Oropharynx is normal. NECK: No adenopathy, no JVD. CHEST: Chest with clear breath sounds bilaterally. No wheezes, rales, or rhonchi. CARDIAC: Regular rate and rhythm. S1 and S2, without murmurs, gallops, or rubs. VASCULAR: No Edema. Peripheral pulses normal and equal in all extremities. ABDOMEN: Soft, without detectable tenderness. No sign of distention. No rebound or guarding, and no masses palpated. Bowel Sounds normal. MUSCULOSKELETAL: Good range of motion of all major joints. Extremities without clubbing, cyanosis or edema. NEUROLOGIC EXAM: awake, oriented to person and place. some intermittent agitation No focal sensory or strength deficits. PSYCHIATRIC: unable to examine SKIN: No rash or lesions. - Constitutional Vitals: Temp Pulse Resp BP Pulse Ox 98.6 F 114 H 21 153/79 98 09/09/17 12:00 09/09/17 16:45 09/09/17 16:45 09/09/17 16:45 09/09/17 16:45 General appearance: Present: no acute distress, well-nourished, disheveled Results - Labs CBC & Chem 7: 09/07/17 23:26 09/09/17 13:10 Labs: Laboratory Last Values WBC 9.7 K/mm3 (4.5-11.0) 09/07/17 23:26 RBC 4.15 M/mm3 (3.65-5.03) 09/07/17 23:26 Hgb 12.9 gm/dl (11.8-15.2) 09/07/17 23:26 Hct 36.6 % (35.5-45.6) 09/07/17 23:26 MCV 88 fl (84-94) 09/07/17 23:26 MCH 31 pg (28-32) 09/07/17 23:26 MCHC 35 % (32-34) H 09/07/17 23:26 RDW 11.9 % (13.2-15.2) L 09/07/17 23:26 Plt Count 234 K/mm3 (140-440) 09/07/17 23:26 Lymph % (Auto) 8.2 % (13.4-35.0) L 09/07/17 23:26 [place] % (Auto) 4.3 % (0.0-7.3) 09/07/17 23:26 Eos % (Auto) 0.0 % (0.0-4.3) 09/07/17 23: Baso % (Auto) 0.3 % (0.0-1.8) 09/07/17 23: Lymph # 0.8 K/mm3 (1.2-5.4) L 09/07/17 23:26 Mccone # 0.4 K/mm3 (0.0-0.8) 09/07/17 23: Eos # 0.0 K/mm3 (0.0-0.4) 09/07/17 23: Baso # 0.0 K/mm3 (0.0-0.1) 09/07/17 23: Seg Neutrophils % 87.2 % (40.0-70.0) H 09/07/17 23: Seg Neutrophils # 8.5 K/mm3 (1.8-7.7) H 09/07/17 23:26 PT 13.7 Sec. (12.2-14.9) 09/07/17 23: INR 1.00 (0.87-1.13) 09/07/17 23: APTT 25.8 Sec. (24.2-36.6) 09/07/17 23:26 Sodium 142 mmol/L (137-145) 09/09/17 13:10 Potassium 3.2 mmol/L (3.6-5.0) L 09/09/17 13:10 Chloride 109.5 mmol/L (98-107) H 09/09/17 13:10 Carbon Dioxide 18 mmol/L (22-30) L 09/09/17 13:10 Anion Gap 18 mmol/L 09/09/17 13:10 BUN 23 mg/dL (9-20) H 09/09/17 13:10 Creatinine 3.1 mg/dL (0.8-1.5) H 09/09/17 13:10 Estimated GFR 25 ml/min 09/09/17 13:10 BUN/Creatinine Ratio 7 % 09/09/17 13:10 Glucose 140 mg/dL (75-100) H 09/09/17 13:10 POC Glucose 118 (70-105) H 09/09/17 12:17 Lactic Acid 1.10 mmol/L (0.7-2.0) 09/08/17 23:43 Calcium 8.2 mg/dL (8.4-10.2) L 09/09/17 13:10 Phosphorus 2.10 mg/dL (2.5-4.5) L 09/08/17 12:57 Magnesium 1.90 mg/dL (1.7-2.3) 09/08/17 12:57 Total Bilirubin 1.00 mg/dL (0.1-1.2) 09/08/17 19:06 Direct Bilirubin < 0.2 mg/dL (0-0.2) 09/08/17 19:06 Indirect Bilirubin 0.8 mg/dL 09/08/17 19:06 AST 30 units/L (5-40) 09/08/17 19:06 ALT 17 units/L (7-56) 09/08/17 19:06 Alkaline Phosphatase 81 units/L (35-129) 09/08/17 19:06 Troponin T 0.025 ng/mL (0.00-0.029) 09/08/17 03:24 NT-Pro-B Natriuret Pep 3163 pg/mL (0-900) H 09/08/17 00:17 Total Protein 5.8 g/dL (6.3-8.2) L 09/08/17 19:06 Albumin 3.0 g/dL (3.9-5) L 09/08/17 19:06 Albumin/Globulin Ratio 1.1 % 09/08/17 19:06 Lipase 21 units/L (13-60) 09/08/17 00:17 TSH 0.633 mlU/mL (0.270-4.200) 09/07/17 23:26 Free T4 1.19 ng/dL (0.76-1.46) 09/08/17 00:17 Urine Color Yellow (Yellow) 09/08/17 02:09 Urine Turbidity Hazy (Clear) 09/08/17 02:09 Urine pH 5.0 (5.0-7.0) 09/08/17 02:09 Ur Specific [place] 1.021 (1.003-1.030) 09/08/17 02:09 Urine Protein >500 mg/dL (Negative) 09/08/17 02:09 Urine Glucose (UA) >=500 mg/dL (Negative) 09/08/17 02:09 Urine Ketones 20 mg/dL (Negative) 09/08/17 02:09 Urine Blood Mod (Negative) 09/08/17 02:09 Urine Nitrite Neg (Negative) 09/08/17 02:09 Urine Bilirubin Neg (Negative) 09/08/17 02:09 Urine Urobilinogen < 2.0 mg/dL (<2.0) 09/08/17 02:09 Ur Leukocyte Esterase Neg (Negative) 09/08/17 02:09 Urine WBC (Auto) 7.0 /HPF (0.0-6.0) H 09/08/17 02:09 Urine RBC (Auto) 3.0 /HPF (0.0-6.0) 09/08/17 02:09 Amorphous Crystals 2+ 09/08/17 02:09 Hyaline Casts 5 /LPF 09/08/17 02:09 Urine Mucus Few /HPF 09/08/17 02:09 Urine Opiates Screen Presumptive negative 09/08/17 02:09 Urine Methadone Screen Presumptive negative 09/08/17 02:09 Ur Barbiturates Screen Presumptive negative 09/08/17 02:09 Ur Phencyclidine Scrn Presumptive negative 09/08/17 02:09 Ur Amphetamines Screen Presumptive negative 09/08/17 02:09 U Benzodiazepines Scrn Presumptive negative 09/08/17 02:09 Urine Cocaine Screen Presumptive negative 09/08/17 02:09 U Marijuana (THC) Screen Presumptive negative 09/08/17 02:09 Drugs of Abuse Note Disclamer 09/08/17 02:09 Plasma/Serum Alcohol < 0.01 % (0-0.07) 09/07/17 23:26 Blood Type O POSITIVE 09/08/17 09:18 Antibody Screen Negative 09/08/17 09:18
--- NOTE | 2017-09-09 22:10 | Cat Scan Report ---
FINAL REPORT PROCEDURE: CT HEAD/BRAIN WO CON TECHNIQUE: Computerized tomography of the head was performed without contrast material. HISTORY: AMS COMPARISON: No prior studies are available for comparison. FINDINGS: Skull and scalp: Normal. Paranasal sinuses: Normal. Ventricles and subarachnoid spaces: Ventricles and sulci are prominent. Ventricular prominence is out of proportion to the sulcal prominence. . Cerebrum: Mild to moderate degree bilateral nonspecific cerebral white matter hypodensity is noted most likely representing chronic microangiopathy. Old lacunar infarcts are noted involving bilateral basal ganglia and bilateral periventricular white matter. An acute intra-axial or extra-axial hemorrhage is not identified. There is no mass effect.. Cerebellum and brainstem: Old lacunar infarcts are noted involving chyna and left cerebellar hemisphere.. Vasculature: Atherosclerotic calcification is noted involving bilateral internal carotid and vertebral arteries. IMPRESSION: Ventricular prominence is out of proportion to the sulcal prominence. Normal pressure hydrocephalus cannot be excluded. Multiple old lacunar infarcts involving bilateral basal ganglia, cerebellum and brainstem. No acute intracranial hemorrhage.
[2017-09-10] MEDS: D50W (25GM) Syringe IV PRN ×2 (01:20→09:28)
[2017-09-10] MEDS: CARDENE 50 MG in NACL 0.9% 250ML 230 ML IV SCH (04:18)
[2017-09-10] MEDS: D5W/0.45% NACL/KCL 20 MEQ 20 MEQ/1,000 ML BAG IV SCH ×3 (05:19→22:42)
[2017-09-10] MEDS: APRESOLINE PO SCH ×3 (05:42→22:39)
[2017-09-10] MEDS: LOPRESSOR IV SCH ×4 (05:43→18:58)
[2017-09-10] MEDS: HumuLIN R 100 UNITS in NACL 0.9% 99 ML IV SCH (07:37)
[2017-09-10 07:49] LABS: Calcium 8.6 mg/dL (8.4-10.2)
--- NOTE | 2017-09-10 08:49 | Progress Note ---
Assessment and Plan 62 y/o male with altered mental state, metabolic acidosis, renal failure ( unsure if acute or chronic or acute on chronic), lactic acidosis and Hypertension. 1. Attempt to feed patient 2. Stop insulin drip and start long acting meds but only if patient will tolerate/eat 3. Neurology consult to evaluate CT and physical to see if consistent with NPH 4. Stop Cardene drip 5. Will continue to follow. CCT 31 minutes. Subjective Date of service: 09/10/17 Interval history: Patient had head CT yesterday that was concerning for NPH. Patient is more calm this am, took some oral BP meds but still on cardene drip. Also still on insulin drip. No family at bedside. IJ removed and now with right arm PICC. Stopped abx on yesterday. Objective - Constitutional Vitals: Vital Signs - 12hr 09/09/17 09/09/17 09/09/17 20:46 21:00 21:15 Temperature Pulse Rate 100 H 105 H 113 H Pulse Rate [ From Monitor] Respiratory 14 18 16 Rate Blood Pressure 166/97 145/92 168/99 O2 Sat by Pulse 96 Oximetry 09/09/17 09/09/17 09/09/17 21:42 21:46 22:00 Temperature Pulse Rate 105 H 104 H 100 H Pulse Rate [ 92 H From Monitor] Respiratory 17 12 16 Rate Blood Pressure 168/99 149/67 149/67 O2 Sat by Pulse 96 96 96 Oximetry 09/09/17 09/09/17 09/09/17 22:16 22:23 22:24 Temperature Pulse Rate 101 H 102 H 102 H Pulse Rate [ From Monitor] Respiratory 12 Rate Blood Pressure 155/72 152/78 152/78 O2 Sat by Pulse 95 Oximetry 09/09/17 09/09/17 09/09/17 22:30 22:46 23:00 Temperature Pulse Rate 91 H 91 H 89 Pulse Rate [ From Monitor] Respiratory 16 17 15 Rate Blood Pressure 168/99 153/75 153/75 O2 Sat by Pulse 96 95 Oximetry 09/09/17 09/09/17 09/09/17 23:16 23:30 23:32 Temperature Pulse Rate 86 99 H 101 H Pulse Rate [ From Monitor] Respiratory 15 14 16 Rate Blood Pressure 131/66 131/66 155/84 O2 Sat by Pulse Oximetry 09/09/17 09/09/17 09/10/17 23:45 23:55 00:00 Temperature 98.3 F Pulse Rate 86 90 Pulse Rate [ 78 From Monitor] Respiratory 14 12 Rate Blood Pressure 132/76 132/76 O2 Sat by Pulse 62 L Oximetry 09/10/17 09/10/17 09/10/17 00:16 00:30 00:45 Temperature Pulse Rate 83 85 86 Pulse Rate [ From Monitor] Respiratory 13 14 13 Rate Blood Pressure 122/63 122/63 120/63 O2 Sat by Pulse Oximetry 09/10/17 09/10/17 09/10/17 01:00 01:16 01:30 Temperature Pulse Rate 86 88 86 Pulse Rate [ From Monitor] Respiratory 15 15 14 Rate Blood Pressure 120/63 129/72 129/72 O2 Sat by Pulse Oximetry 09/10/17 09/10/17 09/10/17 01:46 02:00 02:16 Temperature Pulse Rate 81 82 87 Pulse Rate [ 82 From Monitor] Respiratory 13 14 14 Rate Blood Pressure 131/69 131/69 127/69 O2 Sat by Pulse 98 Oximetry 09/10/17 09/10/17 09/10/17 02:30 02:46 03:00 Temperature Pulse Rate 84 93 H 85 Pulse Rate [ From Monitor] Respiratory 14 17 13 Rate Blood Pressure 127/69 124/68 124/60 O2 Sat by Pulse Oximetry 09/10/17 09/10/17 09/10/17 03:16 03:30 03:46 Temperature Pulse Rate 89 87 106 H Pulse Rate [ From Monitor] Respiratory 13 16 22 Rate Blood Pressure 135/71 135/71 139/72 O2 Sat by Pulse Oximetry 09/10/17 09/10/17 09/10/17 04:00 04:16 04:30 Temperature 98.8 F Pulse Rate 87 86 102 H Pulse Rate [ From Monitor] Respiratory 14 13 17 Rate Blood Pressure 139/72 139/72 155/45 O2 Sat by Pulse Oximetry 09/10/17 09/10/17 09/10/17 04:46 05:00 05:16 Temperature Pulse Rate 98 H 93 H 105 H Pulse Rate [ From Monitor] Respiratory 14 18 19 Rate Blood Pressure 150/78 150/78 144/91 O2 Sat by Pulse Oximetry 09/10/17 09/10/17 09/10/17 05:30 05:42 05:43 Temperature Pulse Rate 102 H 84 78 Pulse Rate [ From Monitor] Respiratory 10 L Rate Blood Pressure 144/91 164/124 134/76 O2 Sat by Pulse 72 L Oximetry 09/10/17 09/10/17 09/10/17 05:44 05:46 06:00 Temperature Pulse Rate 83 94 H 93 H Pulse Rate [ From Monitor] Respiratory 15 19 Rate Blood Pressure 164/124 144/91 144/91 O2 Sat by Pulse Oximetry 09/10/17 09/10/17 09/10/17 06:16 06:30 06:46 Temperature Pulse Rate 100 H 82 80 Pulse Rate [ From Monitor] Respiratory 19 13 25 H Rate Blood Pressure 144/91 150/84 145/77 O2 Sat by Pulse 99 Oximetry 09/10/17 09/10/17 09/10/17 07:00 07:16 07:30 Temperature Pulse Rate 87 81 82 Pulse Rate [ From Monitor] Respiratory 17 13 13 Rate Blood Pressure 145/77 139/72 139/72 O2 Sat by Pulse 97 98 98 Oximetry 09/10/17 09/10/17 09/10/17 07:46 08:00 08:07 Temperature 97.8 F Pulse Rate 80 81 Pulse Rate [ From Monitor] Respiratory 12 13 Rate Blood Pressure 155/39 124/67 O2 Sat by Pulse 98 98 98 Oximetry General appearance: Present: no acute distress, well-nourished, disheveled - EENT ENT: hearing intact - Neck Neck: supple, normal ROM - Respiratory Respiratory effort: normal Respiratory: bilateral: CTA - Breasts Breasts: deferred - Cardiovascular Rhythm: regular Heart Sounds: Present: S1 & S2 Extremities: no ischemia - Gastrointestinal General gastrointestinal: Present: soft, non-tender, normal bowel sounds Rectal Exam: deferred - Genitourinary Male genitourinary: deferred - Labs CBC & Chem 7: 09/07/17 23:26 09/10/17 Unknown Labs: Abnormal lab results 09/09/17 09/09/17 09/09/17 Range/Units 01:03 08:49 10:18 Potassium (3.6-5.0) mmol/L Chloride (98-107) mmol/L Carbon Dioxide (22-30) mmol/L BUN (9-20) mg/dL Creatinine (0.8-1.5) mg/dL Glucose (75-100) mg/dL POC Glucose 48 L < 40 L (70-105) Lactic Acid 2.40 H* (0.7-2.0) mmol/L Calcium (8.4-10.2) mg/dL 09/09/17 09/09/17 09/09/17 Range/Units 12:17 13:09 13:10 Potassium 3.2 L (3.6-5.0) mmol/L Chloride 109.5 H (98-107) mmol/L Carbon Dioxide 18 L (22-30) mmol/L BUN 23 H (9-20) mg/dL Creatinine 3.1 H (0.8-1.5) mg/dL Glucose 140 H (75-100) mg/dL POC Glucose 118 H 145 H (70-105) Lactic Acid (0.7-2.0) mmol/L Calcium 8.2 L (8.4-10.2) mg/dL 09/09/17 09/09/17 09/09/17 Range/Units 14:38 14:42 16:16 Potassium (3.6-5.0) mmol/L Chloride (98-107) mmol/L Carbon Dioxide (22-30) mmol/L BUN (9-20) mg/dL Creatinine (0.8-1.5) mg/dL Glucose (75-100) mg/dL POC Glucose 193 H 196 H 238 H (70-105) Lactic Acid (0.7-2.0) mmol/L Calcium (8.4-10.2) mg/dL 09/09/17 09/09/17 09/09/17 Range/Units 18:33 20:06 21:09 Potassium (3.6-5.0) mmol/L Chloride (98-107) mmol/L Carbon Dioxide (22-30) mmol/L BUN (9-20) mg/dL Creatinine (0.8-1.5) mg/dL Glucose (75-100) mg/dL POC Glucose 252 H 286 H 273 H (70-105) Lactic Acid (0.7-2.0) mmol/L Calcium (8.4-10.2) mg/dL 09/09/17 09/09/17 09/10/17 Range/Units 22:19 23:15 00:05 Potassium (3.6-5.0) mmol/L Chloride (98-107) mmol/L Carbon Dioxide (22-30) mmol/L BUN (9-20) mg/dL Creatinine (0.8-1.5) mg/dL Glucose (75-100) mg/dL POC Glucose 274 H 200 H 108 H (70-105) Lactic Acid (0.7-2.0) mmol/L Calcium (8.4-10.2) mg/dL 09/10/17 09/10/17 09/10/17 Range/Units 01:03 01:13 01:29 Potassium (3.6-5.0) mmol/L Chloride (98-107) mmol/L Carbon Dioxide (22-30) mmol/L BUN (9-20) mg/dL Creatinine (0.8-1.5) mg/dL Glucose 38 L* (75-100) mg/dL POC Glucose < 40 L 122 H (70-105) Lactic Acid (0.7-2.0) mmol/L Calcium (8.4-10.2) mg/dL 09/10/17 09/10/17 09/10/17 Range/Units 02:18 03:10 04:19 Potassium (3.6-5.0) mmol/L Chloride (98-107) mmol/L Carbon Dioxide (22-30) mmol/L BUN (9-20) mg/dL Creatinine (0.8-1.5) mg/dL Glucose (75-100) mg/dL POC Glucose 65 L 129 H 177 H (70-105) Lactic Acid (0.7-2.0) mmol/L Calcium (8.4-10.2) mg/dL 09/10/17 09/10/17 09/10/17 Range/Units 05:27 06:06 07:09 Potassium (3.6-5.0) mmol/L Chloride (98-107) mmol/L Carbon Dioxide (22-30) mmol/L BUN (9-20) mg/dL Creatinine (0.8-1.5) mg/dL Glucose (75-100) mg/dL POC Glucose 170 H 123 H 111 H (70-105) Lactic Acid (0.7-2.0) mmol/L Calcium (8.4-10.2) mg/dL 09/10/17 Range/Units Unknown Potassium 3.3 L (3.6-5.0) mmol/L Chloride 109.2 H (98-107) mmol/L Carbon Dioxide 19 L (22-30) mmol/L BUN 23 H (9-20) mg/dL Creatinine 3.3 H (0.8-1.5) mg/dL Glucose 112 H (75-100) mg/dL POC Glucose (70-105) Lactic Acid (0.7-2.0) mmol/L Calcium (8.4-10.2) mg/dL
[2017-09-10] MEDS: ALDACTONE PO SCH ×2 (09:20→22:39)
[2017-09-10] MEDS: COZAAR PO SCH (09:32)
[2017-09-10] MEDS: NORVASC PO SCH (09:32)
--- NOTE | 2017-09-10 10:41 | Consultation ---
History of Present Illness Consult date: 09/10/17 Requesting physician: MIRA STAPLES Reason for Consult: NPH. Chief complaint: DKA. History of present illness: 62 year old right handed male with a past medical history of CVA, HTN, CKD, SAH and DM who presents to the ED with AMS, and noted to have DKA with acute cystitis. He has a repeat head CT, which reported as possible NPH. He is not fully oriented. His baseline is unclear. He stated that he has bladder symptoms. However, he has cystitis. Past History Past Medical History: diabetes, hypertension, other (CKD STAGE 4) Past Surgical History: hernia repair Social history: no significant social history, lives with family, full code Family history: CAD, diabetes, hypertension Medications and Allergies Allergies Allergy/AdvReac Type Severity Reaction Status Date / Time No Known Allergies Allergy Verified 06/12/17 15:18 Home Medications Medication Instructions Recorded Confirmed Last Taken Type Losartan [Cozaar] 100 mg PO QDAY 06/01/17 09/08/17 3 Days Ago History ~06/12/17 NIFEdipine [Nifedipine ER] 90 mg PO DAILY 06/01/17 09/08/17 Unknown History cloNIDine [Catapres] 0.2 mg PO QHS 06/01/17 09/08/17 Unknown History metFORMIN [Glucophage] 500 mg PO BID 06/01/17 09/08/17 Unknown History AtorvaSTATin [Lipitor] 40 mg PO QHS #30 tablet 06/06/17 09/08/17 3 Days Ago Rx ~06/12/17 Losartan [Cozaar] 100 mg PO QDAY #30 tablet 06/06/17 09/08/17 Unknown Rx Metoprolol Tartrate 100 mg PO BID #60 tablet 06/06/17 09/08/17 Unknown Rx NIFEdipine XL [Procardia Xl] 90 mg PO QDAY #30 tablet 06/06/17 09/08/17 3 Days Ago Rx ~06/12/17 Spironolactone [Aldactone] 25 mg PO BID #60 tablet 06/06/17 09/08/17 3 Days Ago Rx ~06/12/17 amLODIPine [Norvasc] 10 mg PO QDAY #30 tablet 06/06/17 09/08/17 Unknown Rx hydrALAZINE [Apresoline TAB] 50 mg PO Q8HR #30 tablet 06/06/17 09/08/17 Unknown Rx Sodium Bicarbonate 650 mg PO BID #60 tablet 06/17/17 09/08/17 Unknown Rx Active Meds: Active Medications Amlodipine Besylate (Norvasc) 10 mg PO QDAY [facility] Last Admin: 09/10/17 09:32 Dose: 10 mg Atorvastatin Calcium (Lipitor) 40 mg PO QHS NARINDER Last Admin: 09/09/17 22:24 Dose: 40 mg Clonidine HCl (Catapres) 0.2 mg PO QHS NARINDER Last Admin: 09/09/17 22:24 Dose: 0.2 mg Dextrose (D50w (25gm) Syringe) 0 ml IV PRN PRN PRN Reason: Hypoglycemia Last Admin: 09/10/17 09:28 Dose: 15 ml Hydralazine HCl (Apresoline) 50 mg PO Q8HR [facility] Last Admin: 09/10/17 05:42 Dose: 50 mg Insulin Human Regular 100 (units/ Sodium Chloride) 100 mls @ 1 mls/hr IV TITR NARINDER; Protocol Last Titration: 09/10/17 10:07 Dose: 0 units/hr, 0 mls/hr Potassium Chloride/Dextrose/Sod Cl (D5w/0.45% Nacl/Kcl 20 Meq) 20 meq in 1,000 mls @ 125 mls/hr IV DIRECT NARINDER Last Admin: 09/10/17 05:19 Dose: 125 mls/hr Nicardipine HCl 50 mg/ Sodium (Chloride) 250 mls @ 25 mls/hr IV TITR NARINDER; Protocol Last Titration: 09/10/17 08:30 Dose: 0 mg/hr, 0 mls/hr Losartan Potassium (Cozaar) 100 mg PO QDAY [facility] Last Admin: 09/10/17 09:32 Dose: 100 mg Metoprolol Tartrate (Lopressor) 5 mg IV Q6HR [facility] Last Admin: 09/10/17 05:44 Dose: 5 mg Sodium Chloride (Sodium Chloride Flush Syringe 10 Ml) 10 ml IV PRN PRN PRN Reason: LINE FLUSH Spironolactone (Aldactone) 25 mg PO BID [facility] Last Admin: 09/10/17 09:20 Dose: 25 mg Review of Systems Constitutional: other (Cognitive function deficits, shuffling gait, not fully oriented. All other 10 points of systems are reviewed and negative.) Physical Examination - Vital Signs Vital Signs: Vital Signs Temp Pulse Resp BP Pulse Ox 101.2 F H 82 22 213/103 96 09/07/17 22:28 09/07/17 22:28 09/07/17 22:28 09/07/17 22:28 09/07/17 22:28 - Constitutional General appearance: comfortable - EENT EENT: Present: PERRL, mucous membranes moist - Respiratory Respiratory: Present: lungs clear, normal breath sounds - Cardiovascular Cardiovascular: Present: regular rate, no murmurs Extremities: Present: no peripheral edema bilatateraly, no clubbing, cyanosis - Integumentary Integumentary: Present: normal - Neurologic Cranial nerve examination: PERRL, EOMI, V1/V2/V3 grossly intact, intact Speech examination: intact Sensorimotor examination: intact Detailed sensory examination: intact Reflex and gait examination: intact Reflexes: 0: ankle, bicep, knee, tricep Cerebellar examination: other (shuffling gait.) Results - Laboratory Findings CBC and BMP: 09/07/17 23:26 09/10/17 Unknown Abnormal Lab Findings: Abnormal Labs 09/07/17 09/07/17 09/08/17 23:26 23:26 00:17 MCHC 35 H RDW 11.9 L Lymph % (Auto) 8.2 L Lymph # 0.8 L Seg Neutrophils % 87.2 H Seg Neutrophils # 8.5 H Sodium 135 L Potassium 3.1 L Chloride 94.3 L Carbon Dioxide 19 L BUN 25 H Creatinine 3.1 H Glucose 371 H POC Glucose Lactic Acid 3.30 H* Calcium Phosphorus NT-Pro-B Natriuret Pep Total Protein Albumin 3.5 L Urine WBC (Auto) 09/08/17 09/08/17 09/08/17 00:17 02:09 03:12 MCHC RDW Lymph % (Auto) Lymph # Seg Neutrophils % Seg Neutrophils # Sodium 135 L Potassium Chloride 95.1 L Carbon Dioxide 19 L BUN 26 H Creatinine 3.2 H Glucose 402 H POC Glucose Lactic Acid Calcium Phosphorus NT-Pro-B Natriuret Pep 3163 H Total Protein Albumin Urine WBC (Auto) 7.0 H 09/08/17 09/08/17 09/08/17 05:48 07:49 08:44 MCHC RDW Lymph % (Auto) Lymph # Seg Neutrophils % Seg Neutrophils # Sodium Potassium Chloride Carbon Dioxide BUN Creatinine Glucose POC Glucose 419 H 251 H 165 H Lactic Acid Calcium Phosphorus NT-Pro-B Natriuret Pep Total Protein Albumin Urine WBC (Auto) 09/08/17 09/08/17 09/08/17 09:18 09:18 09:18 MCHC RDW Lymph % (Auto) Lymph # Seg Neutrophils % Seg Neutrophils # Sodium Potassium 3.4 L Chloride Carbon Dioxide 20 L BUN 26 H Creatinine 3.2 H Glucose 170 H POC Glucose Lactic Acid 5.70 H* Calcium Phosphorus 2.20 L D NT-Pro-B Natriuret Pep Total Protein Albumin Urine WBC (Auto) 09/08/17 09/08/17 09/08/17 09:42 12:57 12:57 MCHC RDW Lymph % (Auto) Lymph # Seg Neutrophils % Seg Neutrophils # Sodium Potassium Chloride 108.0 H Carbon Dioxide 19 L BUN 27 H Creatinine 3.2 H Glucose 162 H POC Glucose 137 H Lactic Acid Calcium Phosphorus 2.10 L NT-Pro-B Natriuret Pep Total Protein Albumin Urine WBC (Auto) 09/08/17 09/08/17 09/08/17 12:58 13:47 13:59 MCHC RDW Lymph % (Auto) Lymph # Seg Neutrophils % Seg Neutrophils # Sodium Potassium 3.3 L Chloride Carbon Dioxide 20 L BUN 26 H Creatinine 3.4 H Glucose 169 H POC Glucose 154 H 175 H Lactic Acid Calcium Phosphorus NT-Pro-B Natriuret Pep Total Protein Albumin Urine WBC (Auto) 09/08/17 09/08/17 09/08/17 13:59 15:06 15:43 MCHC RDW Lymph % (Auto) Lymph # Seg Neutrophils % Seg Neutrophils # Sodium Potassium Chloride 107.3 H Carbon Dioxide BUN 27 H Creatinine 3.2 H Glucose 183 H POC Glucose 212 H Lactic Acid 3.10 H* Calcium Phosphorus NT-Pro-B Natriuret Pep Total Protein Albumin Urine WBC (Auto) 09/08/17 09/08/17 09/08/17 15:43 17:09 19:06 MCHC RDW Lymph % (Auto) Lymph # Seg Neutrophils % Seg Neutrophils # Sodium Potassium 3.1 L Chloride 108.2 H Carbon Dioxide 20 L BUN 26 H Creatinine 3.1 H Glucose 109 H POC Glucose 144 H Lactic Acid 3.10 H* Calcium Phosphorus NT-Pro-B Natriuret Pep Total Protein Albumin Urine WBC (Auto) 09/08/17 09/08/17 09/08/17 19:06 19:52 20:28 MCHC RDW Lymph % (Auto) Lymph # Seg Neutrophils % Seg Neutrophils # Sodium Potassium Chloride Carbon Dioxide BUN Creatinine Glucose POC Glucose 121 H 131 H Lactic Acid Calcium Phosphorus NT-Pro-B Natriuret Pep Total Protein 5.8 L Albumin 3.0 L Urine WBC (Auto) 09/08/17 09/08/17 09/09/17 21:40 23:43 00:44 MCHC RDW Lymph % (Auto) Lymph # Seg Neutrophils % Seg Neutrophils # Sodium Potassium 2.8 L* Chloride 108.6 H Carbon Dioxide 21 L BUN 25 H Creatinine 3.0 H Glucose POC Glucose 124 H 138 H Lactic Acid Calcium Phosphorus NT-Pro-B Natriuret Pep Total Protein Albumin Urine WBC (Auto) 09/09/17 09/09/17 09/09/17 01:03 01:38 02:33 MCHC RDW Lymph % (Auto) Lymph # Seg Neutrophils % Seg Neutrophils # Sodium Potassium Chloride Carbon Dioxide BUN Creatinine Glucose POC Glucose 146 H 136 H Lactic Acid 2.40 H* Calcium Phosphorus NT-Pro-B Natriuret Pep Total Protein Albumin Urine WBC (Auto) 09/09/17 09/09/17 09/09/17 05:48 06:37 06:45 MCHC RDW Lymph % (Auto) Lymph # Seg Neutrophils % Seg Neutrophils # Sodium Potassium 3.2 L Chloride 107.9 H Carbon Dioxide 20 L BUN 26 H Creatinine 3.4 H Glucose 120 H POC Glucose 131 H 138 H Lactic Acid Calcium Phosphorus NT-Pro-B Natriuret Pep Total Protein Albumin Urine WBC (Auto) 09/09/17 09/09/17 09/09/17 08:49 10:18 12:17 MCHC RDW Lymph % (Auto) Lymph # Seg Neutrophils % Seg Neutrophils # Sodium Potassium Chloride Carbon Dioxide BUN Creatinine Glucose POC Glucose 48 L < 40 L 118 H Lactic Acid Calcium Phosphorus NT-Pro-B Natriuret Pep Total Protein Albumin Urine WBC (Auto) 09/09/17 09/09/17 09/09/17 13:09 13:10 14:38 MCHC RDW Lymph % (Auto) Lymph # Seg Neutrophils % Seg Neutrophils # Sodium Potassium 3.2 L Chloride 109.5 H Carbon Dioxide 18 L BUN 23 H Creatinine 3.1 H Glucose 140 H POC Glucose 145 H 193 H Lactic Acid Calcium 8.2 L Phosphorus NT-Pro-B Natriuret Pep Total Protein Albumin Urine WBC (Auto) 09/09/17 09/09/17 09/09/17 14:42 16:16 18:33 MCHC RDW Lymph % (Auto) Lymph # Seg Neutrophils % Seg Neutrophils # Sodium Potassium Chloride Carbon Dioxide BUN Creatinine Glucose POC Glucose 196 H 238 H 252 H Lactic Acid Calcium Phosphorus NT-Pro-B Natriuret Pep Total Protein Albumin Urine WBC (Auto) 09/09/17 09/09/17 09/09/17 20:06 21:09 22:19 MCHC RDW Lymph % (Auto) Lymph # Seg Neutrophils % Seg Neutrophils # Sodium Potassium Chloride Carbon Dioxide BUN Creatinine Glucose POC Glucose 286 H 273 H 274 H Lactic Acid Calcium Phosphorus NT-Pro-B Natriuret Pep Total Protein Albumin Urine WBC (Auto) 09/09/17 09/10/17 09/10/17 23:15 00:05 01:03 MCHC RDW Lymph % (Auto) Lymph # Seg Neutrophils % Seg Neutrophils # Sodium Potassium Chloride Carbon Dioxide BUN Creatinine Glucose 38 L* POC Glucose 200 H 108 H Lactic Acid Calcium Phosphorus NT-Pro-B Natriuret Pep Total Protein Albumin Urine WBC (Auto) 09/10/17 09/10/17 09/10/17 01:13 01:29 02:18 MCHC RDW Lymph % (Auto) Lymph # Seg Neutrophils % Seg Neutrophils # Sodium Potassium Chloride Carbon Dioxide BUN Creatinine Glucose POC Glucose < 40 L 122 H 65 L Lactic Acid Calcium Phosphorus NT-Pro-B Natriuret Pep Total Protein Albumin Urine WBC (Auto) 09/10/17 09/10/17 09/10/17 03:10 04:19 05:27 MCHC RDW Lymph % (Auto) Lymph # Seg Neutrophils % Seg Neutrophils # Sodium Potassium Chloride Carbon Dioxide BUN Creatinine Glucose POC Glucose 129 H 177 H 170 H Lactic Acid Calcium Phosphorus NT-Pro-B Natriuret Pep Total Protein Albumin Urine WBC (Auto) 09/10/17 09/10/17 09/10/17 06:06 07:09 09:15 MCHC RDW Lymph % (Auto) Lymph # Seg Neutrophils % Seg Neutrophils # Sodium Potassium Chloride Carbon Dioxide BUN Creatinine Glucose POC Glucose 123 H 111 H 64 L Lactic Acid Calcium Phosphorus NT-Pro-B Natriuret Pep Total Protein Albumin Urine WBC (Auto) 09/10/17 Unknown MCHC RDW Lymph % (Auto) Lymph # Seg Neutrophils % Seg Neutrophils # Sodium Potassium 3.3 L Chloride 109.2 H Carbon Dioxide 19 L BUN 23 H Creatinine 3.3 H Glucose 112 H POC Glucose Lactic Acid Calcium Phosphorus NT-Pro-B Natriuret Pep Total Protein Albumin Urine WBC (Auto) Assessment and Plan 1. Shuffling gait, incontinency, probably cognitive deficits. CT head without contrast, possible NPH. Need to talk with family to find out his baseline. 2. Suggest LP, open and close pressure. CSF cells, protein and glucose, keep extra CSF for possible further labs studies. Suggest neurosurgery consult. 3. DKA. Internal medicine. 4. HTN. Controlled. Medicine. 5. DM. Medicine. 6. Dyslipidemia. Statin. 7. CKD/ASIA. Nephrology. 8. Treat risk factors of CVA. If no contraindications, baby Aspirin daily. 9. Plan discussed with him and Dr. Staples. 10. Will follow up with you. 11. If D/C, F/U with neurology in 4-6 weeks.
--- NOTE | 2017-09-10 13:20 | Progress Note ---
Assessment and Plan Total Time Spent with Patient (Minutes): 43 - Patient Problems (1) Sepsis Current Visit: Yes Status: Acute Plan to address problem: We'll continue Zosyn and vancomycin for aspiration precautions. Now. Patient' s afebrile no leukocytosis. Chest x-ray negative. We'll wean antibiotics after lumbar puncture complete. (2) DKA (diabetic ketoacidoses) Current Visit: Yes Status: Acute Qualifiers: Diabetes mellitus type: other specified (including MARIANELA) Diabetes mellitus complication detail: without coma Qualified Code(s): E13.10 - Other specified diabetes mellitus with ketoacidosis without coma Plan to address problem: Patient DKA has resolved. After lumbar puncture will discontinue insulin drip and place patient on long-acting insulin. Had episode of hypoglycemia 2. We' ll continue to avoid metformin for on chronic kidney injury. Place on long- acting insulin Lantus and sliding scale limits lumbar puncture complete. (3) Encephalopathy acute Current Visit: No Status: Acute Plan to address problem: Encephalopathy at present it appears to be most likely secondary to white matter disease and vascular dementia. Patient has had strokes and subarachnoid hemorrhage as well. He is alert able to voice commands and continual conversation. The majority his problems seem to be cognitive. I suspect underlying vascular dementia. Versus minimal cognitive deficiency. Agree with lumbar puncture. Patient appeared to have gait disturbance. Agree with ruling out normal pressure hydrocephalus. Cognition can also be exacerbated by DKA. Most likely with DKA resolving cognition is improving. (4) Hypertensive emergency Current Visit: Yes Status: Acute Plan to address problem: We'll wean Cardene drip and placed on oral antihypertensives. (5) Acute renal failure Current Visit: Yes Status: Acute Plan to address problem: At this time unable to appreciate whether this is chronic or acute. Most likely acute on chronic renal disease. We'll continue to follow after volume replacement. History Interval history: Patient at present seems much more alert today. Original response was slow however improved throughout the history. Patient was able to tell me that he felt okay. Patient able to tell me the country he is from and the soccer team that plays in his country. He is able to describe his family members and his home in detail. Patient also answer several about current events Hospitalist Physical - Constitutional Vitals: Temp Pulse Resp BP Pulse Ox 97.8 F 82 12 121/72 98 09/10/17 08:00 09/10/17 09:32 09/10/17 10:00 09/10/17 09:32 09/10/17 10:00 General appearance: Present: no acute distress, well-nourished, disheveled - EENT Eyes: Present: PERRL, EOM intact ENT: hearing intact, clear oral mucosa, dentition normal - Neck Neck: Present: supple, normal ROM - Respiratory Respiratory effort: normal Respiratory: bilateral: CTA - Cardiovascular Rhythm: regular Heart Sounds: Present: S1 & S2 - Extremities Extremities: no ischemia, pulses intact, pulses symmetrical, No edema, normal temperature Peripheral Pulses: within normal limits - Abdominal General gastrointestinal: soft, non-tender, non-distended - Integumentary Integumentary: Present: clear, warm, dry - Psychiatric Psychiatric: appropriate mood/affect, intact judgment & insight, cooperative, no agitated, other (slow response) - Neurologic Neurologic: CNII-XII intact, focal deficits, moves all extremities Results - Labs CBC & Chem 7: 09/07/17 23:26 09/10/17 Unknown Labs: Laboratory Last Values WBC 9.7 K/mm3 (4.5-11.0) 09/07/17 23:26 RBC 4.15 M/mm3 (3.65-5.03) 09/07/17 23:26 Hgb 12.9 gm/dl (11.8-15.2) 09/07/17 23:26 Hct 36.6 % (35.5-45.6) 09/07/17 23:26 MCV 88 fl (84-94) 09/07/17 23:26 MCH 31 pg (28-32) 09/07/17 23:26 MCHC 35 % (32-34) H 09/07/17 23:26 RDW 11.9 % (13.2-15.2) L 09/07/17 23:26 Plt Count 234 K/mm3 (140-440) 09/07/17 23:26 Lymph % (Auto) 8.2 % (13.4-35.0) L 09/07/17 23:26 [place] % (Auto) 4.3 % (0.0-7.3) 09/07/17 23:26 Eos % (Auto) 0.0 % (0.0-4.3) 09/07/17 23:26 Baso % (Auto) 0.3 % (0.0-1.8) 09/07/17 23:26 Lymph # 0.8 K/mm3 (1.2-5.4) L 09/07/17 23:26 [place] # 0.4 K/mm3 (0.0-0.8) 09/07/17 23:26 Eos # 0.0 K/mm3 (0.0-0.4) 09/07/17 23: Baso # 0.0 K/mm3 (0.0-0.1) 09/07/17 23:26 Seg Neutrophils % 87.2 % (40.0-70.0) H 09/07/17 23: Seg Neutrophils # 8.5 K/mm3 (1.8-7.7) H 09/07/17 23:26 PT 13.7 Sec. (12.2-14.9) 09/07/17 23: INR 1.00 (0.87-1.13) 09/07/17 23: APTT 25.8 Sec. (24.2-36.6) 09/07/17 23:26 Sodium 141 mmol/L (137-145) 09/10/17 Unknown Potassium 3.3 mmol/L (3.6-5.0) L 09/10/17 Unknown Chloride 109.2 mmol/L (98-107) H 09/10/17 Unknown Carbon Dioxide 19 mmol/L (22-30) L 09/10/17 Unknown Anion Gap 16 mmol/L 09/10/17 Unknown BUN 23 mg/dL (9-20) H 09/10/17 Unknown Creatinine 3.3 mg/dL (0.8-1.5) H 09/10/17 Unknown Estimated GFR 23 ml/min 09/10/17 Unknown BUN/Creatinine Ratio 7 % 09/10/17 Unknown Glucose 112 mg/dL (75-100) H 09/10/17 Unknown POC Glucose 128 (70-105) H 09/10/17 12:16 Lactic Acid 1.70 mmol/L (0.7-2.0) 09/10/17 05:25 Calcium 8.6 mg/dL (8.4-10.2) 09/10/17 Unknown Phosphorus 2.10 mg/dL (2.5-4.5) L 09/08/17 12:57 Magnesium 1.90 mg/dL (1.7-2.3) 09/08/17 12:57 Total Bilirubin 1.00 mg/dL (0.1-1.2) 09/08/17 19:06 Direct Bilirubin < 0.2 mg/dL (0-0.2) 09/08/17 19:06 Indirect Bilirubin 0.8 mg/dL 09/08/17 19:06 AST 30 units/L (5-40) 09/08/17 19:06 ALT 17 units/L (7-56) 09/08/17 19:06 Alkaline Phosphatase 81 units/L (35-129) 09/08/17 19:06 Troponin T 0.025 ng/mL (0.00-0.029) 09/08/17 03:24 NT-Pro-B Natriuret Pep 3163 pg/mL (0-900) H 09/08/17 00:17 Total Protein 5.8 g/dL (6.3-8.2) L 09/08/17 19:06 Albumin 3.0 g/dL (3.9-5) L 09/08/17 19:06 Albumin/Globulin Ratio 1.1 % 09/08/17 19:06 Lipase 21 units/L (13-60) 09/08/17 00:17 TSH 0.633 mlU/mL (0.270-4.200) 09/07/17 23:26 Free T4 1.19 ng/dL (0.76-1.46) 09/08/17 00:17 Urine Color Yellow (Yellow) 09/08/17 02:09 Urine Turbidity Hazy (Clear) 09/08/17 02:09 Urine pH 5.0 (5.0-7.0) 09/08/17 02:09 Ur Specific [place] 1.021 (1.003-1.030) 09/08/17 02:09 Urine Protein >500 mg/dL (Negative) 09/08/17 02:09 Urine Glucose (UA) >=500 mg/dL (Negative) 09/08/17 02:09 Urine Ketones 20 mg/dL (Negative) 09/08/17 02:09 Urine Blood Mod (Negative) 09/08/17 02:09 Urine Nitrite Neg (Negative) 09/08/17 02:09 Urine Bilirubin Neg (Negative) 09/08/17 02:09 Urine Urobilinogen < 2.0 mg/dL (<2.0) 09/08/17 02:09 Ur Leukocyte Esterase Neg (Negative) 09/08/17 02:09 Urine WBC (Auto) 7.0 /HPF (0.0-6.0) H 09/08/17 02:09 Urine RBC (Auto) 3.0 /HPF (0.0-6.0) 09/08/17 02:09 Amorphous Crystals 2+ 09/08/17 02:09 Hyaline Casts 5 /LPF 09/08/17 02:09 Urine Mucus Few /HPF 09/08/17 02:09 Urine Opiates Screen Presumptive negative 09/08/17 02:09 Urine Methadone Screen Presumptive negative 09/08/17 02:09 Ur Barbiturates Screen Presumptive negative 09/08/17 02:09 Ur Phencyclidine Scrn Presumptive negative 09/08/17 02:09 Ur Amphetamines Screen Presumptive negative 09/08/17 02:09 U Benzodiazepines Scrn Presumptive negative 09/08/17 02:09 Urine Cocaine Screen Presumptive negative 09/08/17 02:09 U Marijuana (THC) Screen Presumptive negative 09/08/17 02:09 Drugs of Abuse Note Disclamer 09/08/17 02:09 Plasma/Serum Alcohol < 0.01 % (0-0.07) 09/07/17 23:26 Blood Type O POSITIVE 09/08/17 09:18 Antibody Screen Negative 09/08/17 09:18 - Imaging and Cardiology Chest x-ray: report reviewed, image reviewed CT Scan - head: report reviewed, image reviewed
[2017-09-10] MEDS ORDERED: K-DUR PO ONE (13:32)
[2017-09-10 14:39] LABS: INR 1.06 (0.87-1.13)
[2017-09-10 14:40] LABS: Partial Thromboplastin Time 25.8 Sec. (24.2-36.6)
[2017-09-10] MEDS: CATAPRES PO SCH (22:38)
[2017-09-11] MEDS: LOPRESSOR IV SCH ×3 (00:08→17:59)
[2017-09-11] MEDS ORDERED: K-DUR PO ONE (03:28)
[2017-09-11] MEDS: D5W/0.45% NACL/KCL 20 MEQ 20 MEQ/1,000 ML BAG IV SCH ×2 (05:35→18:18)
[2017-09-11] MEDS: APRESOLINE PO SCH ×3 (05:37→22:25)
[2017-09-11] MEDS ORDERED: XYLOCAINE 1% 20 mL ONE (09:16)
[2017-09-11] MEDS: ALDACTONE PO SCH ×2 (10:38→22:25)
--- NOTE | 2017-09-11 10:39 | Progress Note ---
Assessment and Plan 1. Shuffling gait, incontinency, probably cognitive deficits. CT head without contrast, possible NPH. Need to talk with family to find out his baseline. Suggest LP, open and close pressure. CSF cells, protein and glucose, keep extra CSF for possible further labs studies. Suggest neurosurgery consult. 2. Encephalopathy. Multiple factors, supportive. 3. DKA. Internal medicine. 4. HTN. Controlled. Medicine. 5. DM. Medicine. 6. Dyslipidemia. Statin. 7. CKD/ASIA. Nephrology. 8. Treat risk factors of CVA. If no contraindications, baby Aspirin daily. 9. Possible infections. Antibiotics. 10. Plan discussed with him. OT/PT, rehab. 11. If D/C, F/U with neurology in 4-6 weeks. 12. Please call [facility] to follow up or further suggestions. Subjective Date of service: 09/11/17 Principal diagnosis: Encephalopathy, DKA, NPH. Interval history: Stable and improved. Objective - Vital Sign Vital Signs - 12hr 09/10/17 09/10/17 09/10/17 22:38 22:39 22:40 Temperature Pulse Rate 94 H 95 H Respiratory Rate Blood Pressure 171/11 171/111 O2 Sat by Pulse 98 Oximetry 09/10/17 09/10/17 09/10/17 22:46 23:00 23:16 Temperature Pulse Rate 91 H 85 Respiratory 19 13 Rate Blood Pressure 171/111 171/101 171/111 O2 Sat by Pulse 97 98 100 Oximetry 09/10/17 09/10/17 09/11/17 23:30 23:46 00:00 Temperature 98.1 F Pulse Rate 86 87 88 Respiratory 18 14 15 Rate Blood Pressure 171/111 109/65 109/65 O2 Sat by Pulse 99 99 98 Oximetry 09/11/17 09/11/17 09/11/17 00:08 00:16 00:30 Temperature Pulse Rate 85 76 77 Respiratory 13 13 Rate Blood Pressure 128/82 128/82 128/72 O2 Sat by Pulse 97 97 Oximetry 09/11/17 09/11/17 09/11/17 00:46 01:00 01:16 Temperature Pulse Rate 73 76 76 Respiratory 13 17 16 Rate Blood Pressure 128/82 128/72 128/72 O2 Sat by Pulse 98 99 99 Oximetry 09/11/17 09/11/17 09/11/17 01:30 01:46 02:00 Temperature Pulse Rate 72 79 88 Respiratory 20 17 17 Rate Blood Pressure 128/72 130/75 130/75 O2 Sat by Pulse 98 98 99 Oximetry 09/11/17 09/11/17 09/11/17 02:16 02:30 02:46 Temperature Pulse Rate 77 78 76 Respiratory 14 14 13 Rate Blood Pressure 153/88 149/81 149/81 O2 Sat by Pulse 99 99 99 Oximetry 09/11/17 09/11/17 09/11/17 02:53 03:00 03:16 Temperature 98.4 F Pulse Rate 77 80 Respiratory 13 13 Rate Blood Pressure 149/81 145/79 O2 Sat by Pulse 98 98 Oximetry 09/11/17 09/11/17 09/11/17 03:30 03:46 04:00 Temperature Pulse Rate 78 89 99 H Respiratory 15 15 20 Rate Blood Pressure 145/79 129/88 129/88 O2 Sat by Pulse 96 98 97 Oximetry 09/11/17 09/11/17 09/11/17 04:16 04:30 04:50 Temperature Pulse Rate 99 H 87 Respiratory 22 20 Rate Blood Pressure 129/88 132/93 132/93 O2 Sat by Pulse 94 96 93 Oximetry 09/11/17 09/11/17 09/11/17 05:00 05:16 05:30 Temperature Pulse Rate 86 96 H 85 Respiratory 17 20 15 Rate Blood Pressure 132/93 132/93 150/79 O2 Sat by Pulse 97 99 99 Oximetry 09/11/17 09/11/17 09/11/17 05:37 05:46 06:00 Temperature Pulse Rate 89 81 87 Respiratory 13 11 L Rate Blood Pressure 150/79 150/79 145/80 O2 Sat by Pulse 98 98 Oximetry 09/11/17 09/11/17 09/11/17 06:16 06:30 07:00 Temperature Pulse Rate 89 91 H 98 H Respiratory 15 14 14 Rate Blood Pressure 145/80 145/80 155/75 O2 Sat by Pulse 99 99 98 Oximetry 09/11/17 09/11/17 09/11/17 07:30 08:00 08:01 Temperature 98.2 F Pulse Rate 104 H 89 Respiratory 16 14 Rate Blood Pressure 160/93 149/86 O2 Sat by Pulse 98 98 Oximetry 09/11/17 09/11/17 09/11/17 08:15 08:31 08:42 Temperature Pulse Rate 94 H 98 H Respiratory 15 18 Rate Blood Pressure 149/86 149/86 O2 Sat by Pulse 98 98 100 Oximetry - General Apperance Constitutional: comfortable - EENT EENT: PERRL, mucous membranes moist - Respiratory Respiratory: chest non-tender, lungs clear - Cardiovascular Cardiovascular: regular rate, no murmurs Extremities: no peripheral edema bilat, no clubbing, cyanosis - Gastrointestinal Gastrointestinal: soft, non-tender - Integumentary Integumentary: normal - Neurologic Cranial nerve examination: PERRL, EOMI, V1/V2/V3 grossly intact, intact Speech examination: intact Detailed motor examination: grossly full strength in Detailed sensory examination: other (decreased in legs.) Reflexes: 0: ankle, bicep, knee, tricep Cerebellar examination: other (shuffling gaits.) - Laboratory Findings CBC and BMP: 09/07/17 23:26 09/10/17 Unknown Abnormal Lab Findings: Abnormal Labs 09/07/17 09/07/17 09/08/17 23:26 23:26 00:17 MCHC 35 H RDW 11.9 L Lymph % (Auto) 8.2 L Lymph # 0.8 L Seg Neutrophils % 87.2 H Seg Neutrophils # 8.5 H Sodium 135 L Potassium 3.1 L Chloride 94.3 L Carbon Dioxide 19 L BUN 25 H Creatinine 3.1 H Glucose 371 H POC Glucose Lactic Acid 3.30 H* Calcium Phosphorus NT-Pro-B Natriuret Pep Total Protein Albumin 3.5 L Urine WBC (Auto) 09/08/17 09/08/17 09/08/17 00:17 02:09 03:12 MCHC RDW Lymph % (Auto) Lymph # Seg Neutrophils % Seg Neutrophils # Sodium 135 L Potassium Chloride 95.1 L Carbon Dioxide 19 L BUN 26 H Creatinine 3.2 H Glucose 402 H POC Glucose Lactic Acid Calcium Phosphorus NT-Pro-B Natriuret Pep 3163 H Total Protein Albumin Urine WBC (Auto) 7.0 H 09/08/17 09/08/17 09/08/17 05:48 07:49 08:44 MCHC RDW Lymph % (Auto) Lymph # Seg Neutrophils % Seg Neutrophils # Sodium Potassium Chloride Carbon Dioxide BUN Creatinine Glucose POC Glucose 419 H 251 H 165 H Lactic Acid Calcium Phosphorus NT-Pro-B Natriuret Pep Total Protein Albumin Urine WBC (Auto) 09/08/17 09/08/17 09/08/17 09:18 09:18 09:18 MCHC RDW Lymph % (Auto) Lymph # Seg Neutrophils % Seg Neutrophils # Sodium Potassium 3.4 L Chloride Carbon Dioxide 20 L BUN 26 H Creatinine 3.2 H Glucose 170 H POC Glucose Lactic Acid 5.70 H* Calcium Phosphorus 2.20 L D NT-Pro-B Natriuret Pep Total Protein Albumin Urine WBC (Auto) 09/08/17 09/08/17 09/08/17 09:42 12:57 12:57 MCHC RDW Lymph % (Auto) Lymph # Seg Neutrophils % Seg Neutrophils # Sodium Potassium Chloride 108.0 H Carbon Dioxide 19 L BUN 27 H Creatinine 3.2 H Glucose 162 H POC Glucose 137 H Lactic Acid Calcium Phosphorus 2.10 L NT-Pro-B Natriuret Pep Total Protein Albumin Urine WBC (Auto) 09/08/17 09/08/17 09/08/17 12:58 13:47 13:59 MCHC RDW Lymph % (Auto) Lymph # Seg Neutrophils % Seg Neutrophils # Sodium Potassium 3.3 L Chloride Carbon Dioxide 20 L BUN 26 H Creatinine 3.4 H Glucose 169 H POC Glucose 154 H 175 H Lactic Acid Calcium Phosphorus NT-Pro-B Natriuret Pep Total Protein Albumin Urine WBC (Auto) 09/08/17 09/08/17 09/08/17 13:59 15:06 15:43 MCHC RDW Lymph % (Auto) Lymph # Seg Neutrophils % Seg Neutrophils # Sodium Potassium Chloride 107.3 H Carbon Dioxide BUN 27 H Creatinine 3.2 H Glucose 183 H POC Glucose 212 H Lactic Acid 3.10 H* Calcium Phosphorus NT-Pro-B Natriuret Pep Total Protein Albumin Urine WBC (Auto) 09/08/17 09/08/17 09/08/17 15:43 17:09 19:06 MCHC RDW Lymph % (Auto) Lymph # Seg Neutrophils % Seg Neutrophils # Sodium Potassium 3.1 L Chloride 108.2 H Carbon Dioxide 20 L BUN 26 H Creatinine 3.1 H Glucose 109 H POC Glucose 144 H Lactic Acid 3.10 H* Calcium Phosphorus NT-Pro-B Natriuret Pep Total Protein Albumin Urine WBC (Auto) 09/08/17 09/08/17 09/08/17 19:06 19:52 20:28 MCHC RDW Lymph % (Auto) Lymph # Seg Neutrophils % Seg Neutrophils # Sodium Potassium Chloride Carbon Dioxide BUN Creatinine Glucose POC Glucose 121 H 131 H Lactic Acid Calcium Phosphorus NT-Pro-B Natriuret Pep Total Protein 5.8 L Albumin 3.0 L Urine WBC (Auto) 09/08/17 09/08/17 09/09/17 21:40 23:43 00:44 MCHC RDW Lymph % (Auto) Lymph # Seg Neutrophils % Seg Neutrophils # Sodium Potassium 2.8 L* Chloride 108.6 H Carbon Dioxide 21 L BUN 25 H Creatinine 3.0 H Glucose POC Glucose 124 H 138 H Lactic Acid Calcium Phosphorus NT-Pro-B Natriuret Pep Total Protein Albumin Urine WBC (Auto) 09/09/17 09/09/17 09/09/17 01:03 01:38 02:33 MCHC RDW Lymph % (Auto) Lymph # Seg Neutrophils % Seg Neutrophils # Sodium Potassium Chloride Carbon Dioxide BUN Creatinine Glucose POC Glucose 146 H 136 H Lactic Acid 2.40 H* Calcium Phosphorus NT-Pro-B Natriuret Pep Total Protein Albumin Urine WBC (Auto) 09/09/17 09/09/17 09/09/17 05:48 06:37 06:45 MCHC RDW Lymph % (Auto) Lymph # Seg Neutrophils % Seg Neutrophils # Sodium Potassium 3.2 L Chloride 107.9 H Carbon Dioxide 20 L BUN 26 H Creatinine 3.4 H Glucose 120 H POC Glucose 131 H 138 H Lactic Acid Calcium Phosphorus NT-Pro-B Natriuret Pep Total Protein Albumin Urine WBC (Auto) 09/09/17 09/09/17 09/09/17 08:49 10:18 12:17 MCHC RDW Lymph % (Auto) Lymph # Seg Neutrophils % Seg Neutrophils # Sodium Potassium Chloride Carbon Dioxide BUN Creatinine Glucose POC Glucose 48 L < 40 L 118 H Lactic Acid Calcium Phosphorus NT-Pro-B Natriuret Pep Total Protein Albumin Urine WBC (Auto) 09/09/17 09/09/17 09/09/17 13:09 13:10 14:38 MCHC RDW Lymph % (Auto) Lymph # Seg Neutrophils % Seg Neutrophils # Sodium Potassium 3.2 L Chloride 109.5 H Carbon Dioxide 18 L BUN 23 H Creatinine 3.1 H Glucose 140 H POC Glucose 145 H 193 H Lactic Acid Calcium 8.2 L Phosphorus NT-Pro-B Natriuret Pep Total Protein Albumin Urine WBC (Auto) 09/09/17 09/09/1709/09/18 14:42 16:16 18:33 MCHC RDW Lymph % (Auto) Lymph # Seg Neutrophils % Seg Neutrophils # Sodium Potassium Chloride Carbon Dioxide BUN Creatinine Glucose POC Glucose 196 H 238 H 252 H Lactic Acid Calcium Phosphorus NT-Pro-B Natriuret Pep Total Protein Albumin Urine WBC (Auto) 09/09/17 09/09/17 09/09/17 20:06 21:09 22:19 MCHC RDW Lymph % (Auto) Lymph # Seg Neutrophils % Seg Neutrophils # Sodium Potassium Chloride Carbon Dioxide BUN Creatinine Glucose POC Glucose 286 H 273 H 274 H Lactic Acid Calcium Phosphorus NT-Pro-B Natriuret Pep Total Protein Albumin Urine WBC (Auto) 09/09/17 09/10/17 09/10/17 23:15 00:05 01:03 MCHC RDW Lymph % (Auto) Lymph # Seg Neutrophils % Seg Neutrophils # Sodium Potassium Chloride Carbon Dioxide BUN Creatinine Glucose 38 L* POC Glucose 200 H 108 H Lactic Acid Calcium Phosphorus NT-Pro-B Natriuret Pep Total Protein Albumin Urine WBC (Auto) 09/10/17 09/10/17 09/10/17 01:13 01:29 02:18 MCHC RDW Lymph % (Auto) Lymph # Seg Neutrophils % Seg Neutrophils # Sodium Potassium Chloride Carbon Dioxide BUN Creatinine Glucose POC Glucose < 40 L 122 H 65 L Lactic Acid Calcium Phosphorus NT-Pro-B Natriuret Pep Total Protein Albumin Urine WBC (Auto) 09/10/17 09/10/17 09/10/17 03:10 04:19 05:27 MCHC RDW Lymph % (Auto) Lymph # Seg Neutrophils % Seg Neutrophils # Sodium Potassium Chloride Carbon Dioxide BUN Creatinine Glucose POC Glucose 129 H 177 H 170 H Lactic Acid Calcium Phosphorus NT-Pro-B Natriuret Pep Total Protein Albumin Urine WBC (Auto) 09/10/17 09/10/17 09/10/17 06:06 07:09 09:15 MCHC RDW Lymph % (Auto) Lymph # Seg Neutrophils % Seg Neutrophils # Sodium Potassium Chloride Carbon Dioxide BUN Creatinine Glucose POC Glucose 123 H 111 H 64 L Lactic Acid Calcium Phosphorus NT-Pro-B Natriuret Pep Total Protein Albumin Urine WBC (Auto) 09/10/17 09/10/17 09/10/17 12:16 13:28 14:36 MCHC RDW Lymph % (Auto) Lymph # Seg Neutrophils % Seg Neutrophils # Sodium Potassium Chloride Carbon Dioxide BUN Creatinine Glucose POC Glucose 128 H 149 H 164 H Lactic Acid Calcium Phosphorus NT-Pro-B Natriuret Pep Total Protein Albumin Urine WBC (Auto) 09/10/17 09/10/17 09/10/17 15:35 16:39 17:32 MCHC RDW Lymph % (Auto) Lymph # Seg Neutrophils % Seg Neutrophils # Sodium Potassium Chloride Carbon Dioxide BUN Creatinine Glucose POC Glucose 155 H 165 H 176 H Lactic Acid Calcium Phosphorus NT-Pro-B Natriuret Pep Total Protein Albumin Urine WBC (Auto) 09/10/17 09/10/17 09/10/17 18:36 20:32 21:23 MCHC RDW Lymph % (Auto) Lymph # Seg Neutrophils % Seg Neutrophils # Sodium Potassium Chloride Carbon Dioxide BUN Creatinine Glucose POC Glucose 166 H 152 H 158 H Lactic Acid Calcium Phosphorus NT-Pro-B Natriuret Pep Total Protein Albumin Urine WBC (Auto) 09/10/17 09/10/17 09/11/17 22:18 Unknown 00:08 MCHC RDW Lymph % (Auto) Lymph # Seg Neutrophils % Seg Neutrophils # Sodium Potassium 3.3 L Chloride 109.2 H Carbon Dioxide 19 L BUN 23 H Creatinine 3.3 H Glucose 112 H POC Glucose 161 H 149 H Lactic Acid Calcium Phosphorus NT-Pro-B Natriuret Pep Total Protein Albumin Urine WBC (Auto) 09/11/17 09/11/17 09/11/17 01:07 03:06 04:03 MCHC RDW Lymph % (Auto) Lymph # Seg Neutrophils % Seg Neutrophils # Sodium Potassium Chloride Carbon Dioxide BUN Creatinine Glucose POC Glucose 127 H 136 H 165 H Lactic Acid Calcium Phosphorus NT-Pro-B Natriuret Pep Total Protein Albumin Urine WBC (Auto) 09/11/17 09/11/17 09/11/17 05:21 06:15 06:44 MCHC RDW Lymph % (Auto) Lymph # Seg Neutrophils % Seg Neutrophils # Sodium Potassium Chloride Carbon Dioxide BUN Creatinine Glucose POC Glucose 259 H 227 H 231 H Lactic Acid Calcium Phosphorus NT-Pro-B Natriuret Pep Total Protein Albumin Urine WBC (Auto) 09/11/17 08:14 MCHC RDW Lymph % (Auto) Lymph # Seg Neutrophils % Seg Neutrophils # Sodium Potassium Chloride Carbon Dioxide BUN Creatinine Glucose POC Glucose 266 H Lactic Acid Calcium Phosphorus NT-Pro-B Natriuret Pep Total Protein Albumin Urine WBC (Auto)
[2017-09-11] MEDS: NORVASC PO SCH (10:40)
[2017-09-11] MEDS: COZAAR PO SCH (10:42)
--- NOTE | 2017-09-11 11:35 | Progress Note ---
Assessment and Plan 62 y/o male with altered mental state, metabolic acidosis, renal failure ( unsure if acute or chronic or acute on chronic), lactic acidosis and Hypertension. 1. Attempt to feed patient 2. Stop insulin drip and start long acting meds but only if patient will tolerate/eat 3. LP today 4. Transfer out of unit. CCT 31 minutes. Subjective Date of service: 09/11/17 Principal diagnosis: Encephalopathy, DKA, NPH. Interval history: No acute events. Has not had LP yet. Neuro feels that his exam is consistent with NPH. LP ordered and studies ordered. Need to obtain opening and closing pressures. Objective - Constitutional Vitals: Vital Signs - 12hr 09/10/17 09/11/17 09/11/17 23:46 00:00 00:08 Temperature 98.1 F Pulse Rate 87 88 85 Respiratory 14 15 Rate Blood Pressure 109/65 109/65 128/82 O2 Sat by Pulse 99 98 Oximetry 09/11/17 09/11/17 09/11/17 00:16 00:30 00:46 Temperature Pulse Rate 76 77 73 Respiratory 13 13 13 Rate Blood Pressure 128/82 128/72 128/82 O2 Sat by Pulse 97 97 98 Oximetry 09/11/17 09/11/17 09/11/17 01:00 01:16 01:30 Temperature Pulse Rate 76 76 72 Respiratory 17 16 20 Rate Blood Pressure 128/72 128/72 128/72 O2 Sat by Pulse 99 99 98 Oximetry 09/11/17 09/11/17 09/11/17 01:46 02:00 02:16 Temperature Pulse Rate 79 88 77 Respiratory 17 17 14 Rate Blood Pressure 130/75 130/75 153/88 O2 Sat by Pulse 98 99 99 Oximetry 09/11/17 09/11/17 09/11/17 02:30 02:46 02:53 Temperature 98.4 F Pulse Rate 78 76 Respiratory 14 13 Rate Blood Pressure 149/81 149/81 O2 Sat by Pulse 99 99 Oximetry 09/11/17 09/11/17 09/11/17 03:00 03:16 03:30 Temperature Pulse Rate 77 80 78 Respiratory 13 13 15 Rate Blood Pressure 149/81 145/79 145/79 O2 Sat by Pulse 98 98 96 Oximetry 09/11/17 09/11/17 09/11/17 03:46 04:00 04:16 Temperature Pulse Rate 89 99 H 99 H Respiratory 15 20 22 Rate Blood Pressure 129/88 129/88 129/88 O2 Sat by Pulse 98 97 94 Oximetry 09/11/17 09/11/17 09/11/17 04:30 04:50 05:00 Temperature Pulse Rate 87 86 Respiratory 20 17 Rate Blood Pressure 132/93 132/93 132/93 O2 Sat by Pulse 96 93 97 Oximetry 09/11/17 09/11/17 09/11/17 05:16 05:30 05:37 Temperature Pulse Rate 96 H 85 89 Respiratory 20 15 Rate Blood Pressure 132/93 150/79 150/79 O2 Sat by Pulse 99 99 Oximetry 09/11/17 09/11/17 09/11/17 05:46 06:00 06:16 Temperature Pulse Rate 81 87 89 Respiratory 13 11 L 15 Rate Blood Pressure 150/79 145/80 145/80 O2 Sat by Pulse 98 98 99 Oximetry 09/11/17 09/11/17 09/11/17 06:30 07:00 07:30 Temperature Pulse Rate 91 H 98 H 104 H Respiratory 14 14 16 Rate Blood Pressure 145/80 155/75 160/93 O2 Sat by Pulse 99 98 98 Oximetry 09/11/17 09/11/17 09/11/17 08:00 08:01 08:15 Temperature 98.2 F Pulse Rate 89 94 H Respiratory 14 15 Rate Blood Pressure 149/86 149/86 O2 Sat by Pulse 98 98 Oximetry 09/11/17 09/11/17 09/11/17 08:31 08:42 10:38 Temperature Pulse Rate 98 H 104 H Respiratory 18 Rate Blood Pressure 149/86 O2 Sat by Pulse 98 100 Oximetry 09/11/17 10:40 Temperature Pulse Rate Respiratory Rate Blood Pressure 173/91 O2 Sat by Pulse Oximetry General appearance: Present: no acute distress, well-nourished - EENT Eyes: EOM intact - Neck Neck: supple - Respiratory Respiratory effort: normal Respiratory: bilateral: CTA - Breasts Breasts: deferred - Cardiovascular Rhythm: regular Heart Sounds: Present: S1 & S2 Extremities: no ischemia, pulses intact - Gastrointestinal General gastrointestinal: Present: soft, non-tender, normal bowel sounds Rectal Exam: deferred - Genitourinary Male genitourinary: deferred - Integumentary Integumentary: clear, warm, dry - Musculoskeletal Musculoskeletal: strength equal bilaterally - Labs CBC & Chem 7: 09/07/17 23:26 09/10/17 Unknown Labs: Abnormal lab results 09/10/17 09/10/17 09/10/17 Range/Units 12:16 13:28 14:36 POC Glucose 128 H 149 H 164 H (70-105) 09/10/17 09/10/17 09/10/17 Range/Units 15:35 16:39 17:32 POC Glucose 155 H 165 H 176 H (70-105) 09/10/17 09/10/17 09/10/17 Range/Units 18:36 20:32 21:23 POC Glucose 166 H 152 H 158 H (70-105) 09/10/17 09/11/17 09/11/17 Range/Units 22:18 00:08 01:07 POC Glucose 161 H 149 H 127 H (70-105) 09/11/17 09/11/17 09/11/17 Range/Units 03:06 04:03 05:21 POC Glucose 136 H 165 H 259 H (70-105) 09/11/17 09/11/17 09/11/17 Range/Units 06:15 06:44 08:14 POC Glucose 227 H 231 H 266 H (70-105)
[2017-09-11] MEDS ORDERED: PNEUMOVAX 23 IM ONE (12:00)
[2017-09-11] MEDS: HumaLOG SUB-Q SCH ×2 (14:08→17:54)
--- NOTE | 2017-09-11 21:44 | Progress Note ---
Assessment and Plan Patient is a 62 year old male with hx of CVA, HTN, CKD, SAH and DM who presents to the ED with AMS, and noted to have DKA with acute cystitis. Information Per EMS, the patient's family members reported that the patient has exhibited change from normal baseline activity, lethargy, and decreased appetite. The patient admis to a nonproductive cough and mild achy bilateral chest pain for the past one to 2 days, exacerbated with cough. The patient denies fever, head injury, headache, neck pain, neck stiffness, dyspnea, back pain, vomiting, diarrhea. DKA SIRS Acute systitis Metabolic Acidosis secondary to DKA Diabetes mellitus Type 2- Poorly controlled Hypokalemia HX OF CVA-chronic lacunar infarts most recent as of May 2017 Hypertensive urgency CKD IV Acute Metabolic Encephalopathy Plan [id number]. Held today because patient is on nothing by mouth for LP Off drip, and antibiotics. on PO Hold insulin drip, continue d5. Monitor for gap closure Recheck CT showed multiple lacunar infarction. The mom pressure hydrocephalus suspected. Neurology input appreciated Keep NPO at this time IV fluids bolus. monitor Pulmonary function IV BB with careful monitoring of BP Nephrology AND Spine Nurse following DVT/GI prophy No family at bedside The high probability of a clinically significant, sudden or life threatening deterioration of the [neuro, endocrine] system(s) required my full and direct attention, intervention and personal management. The aggregate critical care time was [75] minutes. This time is in addition to time spent performing reported procedures but includes the following: [x] Data Review and interpretation [x] Patient assessment and monitoring of vital signs [x] Documentation [x] Medication orders and management Subjective Date of service: 09/11/17 Principal diagnosis: Encephalopathy, DKA, NPH. Interval history: Patient seen and examined. Discussed with nursing staff. No overnight events reported. Objective - Exam Narrative Exam: Constitutional: Well-nourished, lethargic. In no distress Head: Normocephalic atraumatic Eyes: Pupils are equal round and reactive to light Nose: No enlarged turbinates, no septal deviation. Mouth: Moist mucous membranes. Neck: Supple no thyromegaly. No bruit. No JVD Heart: Regular rate and rhythm, S1-S2 abnormal. No rubs murmurs or gallop Lungs: Clear to auscultation bilaterally no rales or rhonchi Abdomen: Soft, nontender. Bowel sound are present. Extremities: No edema no cyanosis and no clubbing. Neuro: Alert oriented Oriented x3. No focal sensory or motor deficit. Skin: No rashes no hyperemic spots Psychiatry: Euthymic. Calm. - Constitutional Vitals: Vital Signs - 12hr 09/11/17 09/11/17 09/11/17 09:45 10:01 10:15 Temperature Pulse Rate 101 H 92 H 94 H Respiratory 19 16 19 Rate Blood Pressure 166/86 163/86 163/86 O2 Sat by Pulse 98 98 98 Oximetry 09/11/17 09/11/17 09/11/17 10:31 10:38 10:40 Temperature Pulse Rate 97 H 104 H Respiratory 15 Rate Blood Pressure 163/86 173/91 O2 Sat by Pulse 99 Oximetry 09/11/17 09/11/17 09/11/17 10:45 11:01 11:15 Temperature Pulse Rate 93 H 89 83 Respiratory 19 13 10 L Rate Blood Pressure 173/91 182/92 182/92 O2 Sat by Pulse 98 98 98 Oximetry 09/11/17 09/11/17 09/11/17 11:30 11:45 12:00 Temperature 97.8 F Pulse Rate 102 H 88 Respiratory 22 17 Rate Blood Pressure 189/119 189/119 O2 Sat by Pulse 98 98 Oximetry 09/11/17 09/11/17 09/11/17 12:01 12:15 12:31 Temperature Pulse Rate 85 93 H 97 H Respiratory 18 15 21 Rate Blood Pressure 189/119 189/119 169/100 O2 Sat by Pulse 98 98 99 Oximetry 09/11/17 09/11/17 09/11/17 12:45 13:01 13:05 Temperature Pulse Rate 85 84 108 H Respiratory 14 14 Rate Blood Pressure 169/100 159/90 165/95 O2 Sat by Pulse 98 98 Oximetry 09/11/17 09/11/17 09/11/17 13:15 13:31 13:45 Temperature Pulse Rate 81 95 H 82 Respiratory 14 15 15 Rate Blood Pressure 159/90 165/99 165/99 O2 Sat by Pulse 97 98 99 Oximetry 09/11/17 09/11/17 09/11/17 14:01 14:15 14:31 Temperature Pulse Rate 83 82 100 H Respiratory 13 13 18 Rate Blood Pressure 165/99 165/99 165/99 O2 Sat by Pulse 97 97 100 Oximetry 09/11/17 09/11/17 09/11/17 14:45 15:01 15:15 Temperature Pulse Rate 95 H 92 H 94 H Respiratory 16 17 17 Rate Blood Pressure 165/99 165/99 182/102 O2 Sat by Pulse 98 100 98 Oximetry 09/11/17 09/11/17 09/11/17 15:31 15:45 16:00 Temperature 97.9 F Pulse Rate 101 H 91 H Respiratory 20 17 Rate Blood Pressure 182/102 166/92 O2 Sat by Pulse 98 98 Oximetry 09/11/17 09/11/17 09/11/17 16:01 16:15 16:31 Temperature Pulse Rate 100 H 103 H 110 H Respiratory 20 18 17 Rate Blood Pressure 166/92 166/92 173/89 O2 Sat by Pulse 99 99 98 Oximetry 09/11/17 09/11/17 09/11/17 16:45 17:01 17:15 Temperature Pulse Rate 105 H 113 H 123 H Respiratory 13 16 18 Rate Blood Pressure 173/89 173/89 173/89 O2 Sat by Pulse 98 98 Oximetry 09/11/17 09/11/17 09/11/17 17:31 17:45 17:59 Temperature Pulse Rate 117 H 114 H Respiratory 15 13 Rate Blood Pressure 173/89 173/89 91/58 O2 Sat by Pulse Oximetry 09/11/17 09/11/17 09/11/17 18:01 18:15 18:31 Temperature Pulse Rate 106 H 104 H 101 H Respiratory 17 16 16 Rate Blood Pressure 161/81 161/81 161/81 O2 Sat by Pulse Oximetry 09/11/17 09/11/17 09/11/17 18:45 19:01 19:15 Temperature Pulse Rate 108 H 105 H 103 H Respiratory 23 24 17 Rate Blood Pressure 161/81 161/81 161/81 O2 Sat by Pulse Oximetry 09/11/17 09/11/17 09/11/17 19:31 20:00 20:01 Temperature 99.1 F Pulse Rate 102 H 100 H Respiratory 17 15 Rate Blood Pressure 162/89 169/93 O2 Sat by Pulse Oximetry 09/11/17 09/11/17 09/11/17 20:31 20:41 21:01 Temperature Pulse Rate 109 H 104 H Respiratory 19 16 Rate Blood Pressure 162/89 177/96 O2 Sat by Pulse 99 Oximetry - Labs CBC & Chem 7: 09/07/17 23:26 09/10/17 Unknown Labs: Abnormal lab results 09/10/17 09/10/17 09/10/17 Range/Units 20:32 21:23 22:18 POC Glucose 152 H 158 H 161 H (70-105) 09/11/17 09/11/17 09/11/17 Range/Units 00:08 01:07 03:06 POC Glucose 149 H 127 H 136 H (70-105) 09/11/17 09/11/17 09/11/17 Range/Units 04:03 05:21 06:15 POC Glucose 165 H 259 H 227 H (70-105) 09/11/17 09/11/17 09/11/17 Range/Units 06:44 08:14 12:16 POC Glucose 231 H 266 H 261 H (70-105) 09/11/17 Range/Units 16:12 POC Glucose 241 H (70-105)
[2017-09-11] MEDS ORDERED: LANTUS SUB-Q SCH (22:00)
[2017-09-11] MEDS: CATAPRES PO SCH (22:24)
[2017-09-12] MEDS: LOPRESSOR IV SCH ×4 (01:05→18:36)
[2017-09-12] MEDS: HumaLOG SUB-Q SCH ×5 (01:06→22:11)
[2017-09-12] MEDS: APRESOLINE PO SCH ×3 (06:56→22:13)
[2017-09-12] MEDS ORDERED: LANTUS SUB-Q ONE (08:47)
--- NOTE | 2017-09-12 09:11 | Progress Note ---
Assessment and Plan 62 y/o male with altered mental state, metabolic acidosis, renal failure ( unsure if acute or chronic or acute on chronic), lactic acidosis and Hypertension. 1. Feed patient after LP today 2. BP control 3. LP today 4. Transfer out of unit. Subjective Date of service: 09/12/17 Principal diagnosis: Encephalopathy, DKA, NPH. Interval history: No acute events. did not get LP, not sure why. Also not sure why he was not transferred for to the floor. Objective - Constitutional Vitals: Vital Signs - 12hr 09/11/17 09/11/17 09/11/17 21:30 22:00 22:01 Temperature Pulse Rate 108 H 106 H Pulse Rate [ 102 H From Monitor] Respiratory 15 16 19 Rate Blood Pressure 177/96 155/82 O2 Sat by Pulse 74 L 95 Oximetry 09/11/17 09/11/17 09/11/17 22:24 22:25 22:31 Temperature Pulse Rate 106 H 104 H 106 H Pulse Rate [ From Monitor] Respiratory 11 L Rate Blood Pressure 155/82 177/96 155/82 O2 Sat by Pulse 100 Oximetry 09/11/17 09/11/17 09/11/17 23:01 23:07 23:12 Temperature Pulse Rate 98 H 99 H 98 H Pulse Rate [ From Monitor] Respiratory 16 15 Rate Blood Pressure 154/81 154/81 O2 Sat by Pulse 96 98 Oximetry 09/11/17 09/12/17 09/12/17 23:31 00:00 00:01 Temperature 98.9 F Pulse Rate 106 H 101 H Pulse Rate [ From Monitor] Respiratory 15 17 Rate Blood Pressure 147/82 156/92 O2 Sat by Pulse 94 95 Oximetry 09/12/17 09/12/17 09/12/17 00:20 00:31 01:00 Temperature Pulse Rate 95 H 91 H Pulse Rate [ 92 H From Monitor] Respiratory 15 16 15 Rate Blood Pressure 161/94 161/94 O2 Sat by Pulse 95 99 Oximetry 09/12/17 09/12/17 09/12/17 01:05 01:31 02:00 Temperature Pulse Rate 90 78 Pulse Rate [ 97 H From Monitor] Respiratory 14 14 Rate Blood Pressure 161/94 144/87 O2 Sat by Pulse 97 Oximetry 09/12/17 09/12/17 09/12/17 02:01 02:31 03:01 Temperature Pulse Rate 76 80 87 Pulse Rate [ From Monitor] Respiratory 15 15 14 Rate Blood Pressure 152/90 155/91 152/90 O2 Sat by Pulse 96 95 100 Oximetry 09/12/17 09/12/17 09/12/17 03:02 03:31 04:00 Temperature 98.6 F Pulse Rate 93 H Pulse Rate [ 97 H From Monitor] Respiratory 16 14 Rate Blood Pressure 152/90 O2 Sat by Pulse 99 Oximetry 09/12/17 09/12/17 09/12/17 04:01 04:31 05:01 Temperature Pulse Rate 91 H 95 H 85 Pulse Rate [ From Monitor] Respiratory 15 17 15 Rate Blood Pressure 155/80 155/80 153/84 O2 Sat by Pulse 97 98 99 Oximetry 09/12/17 09/12/17 09/12/17 05:31 06:00 06:31 Temperature Pulse Rate 83 78 81 Pulse Rate [ 97 H From Monitor] Respiratory 12 14 12 Rate Blood Pressure 153/84 148/88 148/88 O2 Sat by Pulse 98 98 99 Oximetry 09/12/17 09/12/17 09/12/17 07:01 07:31 08:01 Temperature Pulse Rate 74 85 82 Pulse Rate [ From Monitor] Respiratory 25 H 14 14 Rate Blood Pressure 137/92 137/92 137/92 O2 Sat by Pulse 98 98 98 Oximetry 09/12/17 08:31 Temperature Pulse Rate 96 H Pulse Rate [ From Monitor] Respiratory 16 Rate Blood Pressure 137/92 O2 Sat by Pulse 98 Oximetry General appearance: Present: no acute distress, well-nourished, disheveled - EENT Eyes: PERRL, EOM intact ENT: hearing intact, poor dentition - Respiratory Respiratory effort: normal Respiratory: bilateral: CTA - Cardiovascular Rhythm: regular Heart Sounds: Present: S1 & S2 Extremities: no ischemia, pulses intact - Gastrointestinal General gastrointestinal: Present: soft, non-tender, normal bowel sounds Rectal Exam: deferred - Genitourinary Male genitourinary: deferred - Musculoskeletal Musculoskeletal: strength equal bilaterally - Labs CBC & Chem 7: 09/07/17 23:26 09/10/17 Unknown Labs: Abnormal lab results 09/11/17 09/11/17 09/11/17 Range/Units 08:14 12:16 16:12 POC Glucose 266 H 261 H 241 H (70-105) 09/11/17 09/12/17 Range/Units 21:55 01:00 POC Glucose 348 H 451 H (70-105)
[2017-09-12] MEDS ORDERED: D5/0.45NS 1,000 ML IV SCH (10:00)
[2017-09-12] MEDS: ALDACTONE PO SCH ×2 (10:25→22:12)
[2017-09-12] MEDS: COZAAR PO SCH (10:26)
[2017-09-12] MEDS: NORVASC PO SCH (10:27)
--- NOTE | 2017-09-12 12:03 | Progress Note ---
Assessment and Plan Assessment and Plan Assessment and plan: Patient is a 62 year old male with hx of CVA, HTN, CKD, SAH and DM who presents to the ED with AMS, and noted to have DKA with acute cystitis. Information obtained my me is via the ED note who notes references EMS family conversation documentation as noted below. "Per EMS, the patient's family members reported that the patient has exhibited change from normal baseline activity, lethargy, and decreased appetite. The patient admis to a nonproductive cough and mild achy bilateral chest pain for the past one to 2 days, exacerbated with cough. The patient denies fever, head injury, headache, neck pain, neck stiffness, dyspnea, back pain, vomiting, diarrhea." DKA--Resolved Sepsis--IV abx Acute Cystitis Metabolic Acidosis secondary to DKA Diabetes mellitus Type 2- Poorly controlled Hypokalemia Hypertensive urgency CKD IV--Nephrology consulted Acute Metabolic Encephalopathy Plan * Sepsis Protocol * Vanc and zosyn till aspiration pneumonitis ruled out then de-escalate * Culture * Insulin drip and transition once gap is closed * Keep NPO at this time * IV fluids bolus. monitor Pulmonary function * IV BB with careful monitoring of BP * Intial CT scan javier is negative, if no improvement in mental status will need Neurology consult * Nephrology AND Style Advisor consult * DVT/GI prophy * No family at bedside Subjective Date of service: 09/12/17 Principal diagnosis: Encephalopathy, DKA, NPH. Interval history: Interval improvement Glucose levels better Objective - Constitutional Vitals: Vital Signs - 12hr 09/12/17 09/12/17 09/12/17 00:20 00:31 01:00 Temperature Pulse Rate 95 H 91 H Pulse Rate [ 92 H From Monitor] Respiratory 15 16 15 Rate Blood Pressure 161/94 161/94 O2 Sat by Pulse 95 99 Oximetry 09/12/17 09/12/17 09/12/17 01:05 01:31 02:00 Temperature Pulse Rate 90 78 Pulse Rate [ 97 H From Monitor] Respiratory 14 14 Rate Blood Pressure 161/94 144/87 O2 Sat by Pulse 97 Oximetry 09/12/17 09/12/17 09/12/17 02:01 02:31 03:01 Temperature Pulse Rate 76 80 87 Pulse Rate [ From Monitor] Respiratory 15 15 14 Rate Blood Pressure 152/90 155/91 152/90 O2 Sat by Pulse 96 95 100 Oximetry 09/12/17 09/12/17 09/12/17 03:02 03:31 04:00 Temperature 98.6 F Pulse Rate 93 H Pulse Rate [ 97 H From Monitor] Respiratory 16 14 Rate Blood Pressure 152/90 O2 Sat by Pulse 99 Oximetry 09/12/17 09/12/17 09/12/17 04:01 04:31 05:01 Temperature Pulse Rate 91 H 95 H 85 Pulse Rate [ From Monitor] Respiratory 15 17 15 Rate Blood Pressure 155/80 155/80 153/84 O2 Sat by Pulse 97 98 99 Oximetry 09/12/17 09/12/17 09/12/17 05:31 06:00 06:31 Temperature Pulse Rate 83 78 81 Pulse Rate [ 97 H From Monitor] Respiratory 12 14 12 Rate Blood Pressure 153/84 148/88 148/88 O2 Sat by Pulse 98 98 99 Oximetry 09/12/17 09/12/17 09/12/17 07:00 07:01 07:31 Temperature 98.5 F Pulse Rate 74 85 Pulse Rate [ From Monitor] Respiratory 25 H 14 Rate Blood Pressure 137/92 137/92 O2 Sat by Pulse 98 98 Oximetry 09/12/17 09/12/17 09/12/17 08:00 08:01 08:31 Temperature Pulse Rate 82 96 H Pulse Rate [ 82 From Monitor] Respiratory 16 14 16 Rate Blood Pressure 137/92 137/92 O2 Sat by Pulse 98 98 98 Oximetry 09/12/17 09/12/17 09/12/17 09:01 09:31 10:01 Temperature Pulse Rate 87 85 109 H Pulse Rate [ From Monitor] Respiratory 14 12 12 Rate Blood Pressure 151/81 155/84 155/84 O2 Sat by Pulse 98 98 98 Oximetry 09/12/17 09/12/17 09/12/17 10:25 10:26 10:27 Temperature Pulse Rate 96 H 96 H 96 H Pulse Rate [ From Monitor] Respiratory Rate Blood Pressure 155/84 155/84 155/84 O2 Sat by Pulse Oximetry 09/12/17 10:31 Temperature Pulse Rate 93 H Pulse Rate [ From Monitor] Respiratory 14 Rate Blood Pressure 165/97 O2 Sat by Pulse 98 Oximetry General appearance: Present: no acute distress, well-nourished - EENT Eyes: PERRL, EOM intact ENT: hearing intact, clear oral mucosa Ears: bilateral: normal - Neck Neck: supple, normal ROM - Respiratory Respiratory effort: normal Respiratory: bilateral: CTA - Breasts Breasts: normal - Cardiovascular Rhythm: regular Heart Sounds: Present: S1 & S2. Absent: gallop, rub Extremities: pulses intact, No edema, normal color, Full ROM - Gastrointestinal General gastrointestinal: Present: soft, non-tender, non-distended, normal bowel sounds - Genitourinary Male genitourinary: normal - Integumentary Integumentary: clear, warm, dry - Musculoskeletal Musculoskeletal: 1, strength equal bilaterally - Neurologic Neurologic: moves all extremities - Psychiatric Psychiatric: memory intact, appropriate mood/affect, intact judgment & insight - Labs CBC & Chem 7: 09/12/17 13:07 09/12/17 13:07 Labs: Abnormal lab results 09/11/17 09/11/17 09/11/17 Range/Units 12:16 16:12 21:55 POC Glucose 261 H 241 H 348 H (70-105) 09/12/17 Range/Units 01:00 POC Glucose 451 H (70-105)
[2017-09-12 13:40] LABS: Basophils # (Auto) 0.1 K/mm3 (0.0-0.1); Basophils % (Auto) 0.8 % (0.0-1.8); Eosinophils # (Auto) 0.2 K/mm3 (0.0-0.4); Eosinophils % (Auto) 3.7 % (0.0-4.3); Hematocrit 32.6 % (35.5-45.6); Lymphocytes # (Auto) 1.4 K/mm3 (1.2-5.4); Lymphocytes % (Auto) 20.9 % (13.4-35.0); Mean Corpuscular HGB Conc 34 % (32-34); Mean Corpuscular Hemoglobin 30 pg (28-32); Mean Corpuscular Volume 90 fl (84-94); Monocytes # (Auto) 0.5 K/mm3 (0.0-0.8); Monocytes % (Auto) 7.9 % (0.0-7.3); Platelet Count 224 K/mm3 (140-440); Red Blood Count 3.61 M/mm3 (3.65-5.03); Red Cell Distribution Width 12.7 % (13.2-15.2)
[2017-09-12 13:47] LABS: Calcium 8.7 mg/dL (8.4-10.2)
[2017-09-12] MEDS ORDERED: XANAX PO ONE (21:30)
[2017-09-12] MEDS: COREG PO SCH (22:13)
[2017-09-12] MEDS: LANTUS SUB-Q SCH (22:48)
[2017-09-13] MEDS: APRESOLINE IV PRN ×3 (03:25→17:26)
[2017-09-13] MEDS: APRESOLINE PO SCH ×3 (05:54→21:41)
[2017-09-13 08:07] LABS: Basophils # (Auto) 0.1 K/mm3 (0.0-0.1); Basophils % (Auto) 0.8 % (0.0-1.8); Eosinophils # (Auto) 0.3 K/mm3 (0.0-0.4); Eosinophils % (Auto) 3.3 % (0.0-4.3); Hematocrit 29.4 % (35.5-45.6); Hemoglobin 10.4 gm/dl (11.8-15.2); Lymphocytes # (Auto) 1.5 K/mm3 (1.2-5.4); Lymphocytes % (Auto) 17.8 % (13.4-35.0); Mean Corpuscular HGB Conc 35 % (32-34); Mean Corpuscular Hemoglobin 32 pg (28-32); Mean Corpuscular Volume 90 fl (84-94); Monocytes # (Auto) 0.7 K/mm3 (0.0-0.8); Monocytes % (Auto) 8.3 % (0.0-7.3); Platelet Count 223 K/mm3 (140-440); Red Blood Count 3.29 M/mm3 (3.65-5.03); Red Cell Distribution Width 12.8 % (13.2-15.2)
[2017-09-13 08:33] LABS: Calcium 8.7 mg/dL (8.4-10.2)
[2017-09-13] MEDS: HumaLOG SUB-Q SCH ×4 (08:49→21:56)
[2017-09-13] MEDS: ALDACTONE PO SCH (10:35)
[2017-09-13] MEDS: COREG PO SCH ×2 (10:36→21:40)
[2017-09-13] MEDS: COZAAR PO SCH (10:37)
[2017-09-13] MEDS: NORVASC PO SCH (10:38)
--- NOTE | 2017-09-13 10:55 | Consultation ---
History of Present Illness - Reason for Consult Consult date: 09/13/17 acute renal failure, chronic renal failure Requesting physician: ESTEBAN LOPEZ - History of Present Illness 62 yo male with hx of CVA, HTN, CKD, SAH and DM who presents to the ED with AMS , and noted to have DKA with acute cystitis Past History Past Medical History: diabetes, hypertension, other (CKD STAGE 4) Past Surgical History: hernia repair Social history: no significant social history, lives with family, full code Family history: CAD, diabetes, hypertension Medications and Allergies Allergies Allergy/AdvReac Type Severity Reaction Status Date / Time No Known Allergies Allergy Verified 06/12/17 15:18 Home Medications Medication Instructions Recorded Confirmed Last Taken Type Losartan [Cozaar] 100 mg PO QDAY 06/01/17 09/08/17 3 Days Ago History ~06/12/17 NIFEdipine [Nifedipine ER] 90 mg PO DAILY 06/01/17 09/08/17 Unknown History cloNIDine [Catapres] 0.2 mg PO QHS 06/01/17 09/08/17 Unknown History metFORMIN [Glucophage] 500 mg PO BID 06/01/17 09/08/17 Unknown History AtorvaSTATin [Lipitor] 40 mg PO QHS #30 tablet 06/06/17 09/08/17 3 Days Ago Rx ~06/12/17 Losartan [Cozaar] 100 mg PO QDAY #30 tablet 06/06/17 09/08/17 Unknown Rx Metoprolol Tartrate 100 mg PO BID #60 tablet 06/06/17 09/08/17 Unknown Rx NIFEdipine XL [Procardia Xl] 90 mg PO QDAY #30 tablet 06/06/17 09/08/17 3 Days Ago Rx ~06/12/17 Spironolactone [Aldactone] 25 mg PO BID #60 tablet 06/06/17 09/08/17 3 Days Ago Rx ~06/12/17 amLODIPine [Norvasc] 10 mg PO QDAY #30 tablet 06/06/17 09/08/17 Unknown Rx hydrALAZINE [Apresoline TAB] 50 mg PO Q8HR #30 tablet 06/06/17 09/08/17 Unknown Rx Sodium Bicarbonate 650 mg PO BID #60 tablet 06/17/17 09/08/17 Unknown Rx Active Meds: Active Medications Amlodipine Besylate (Norvasc) 10 mg PO QDAY NARINDER Last Admin: 09/13/17 10:38 Dose: 10 mg Atorvastatin Calcium (Lipitor) 40 mg PO QHS [facility] Last Admin: 09/12/17 22:13 Dose: 40 mg Carvedilol (Coreg) 12.5 mg PO BID [facility] Last Admin: 09/13/17 10:36 Dose: 12.5 mg Dextrose (D50w (25gm) Syringe) 0 ml IV PRN PRN PRN Reason: Hypoglycemia Last Admin: 09/10/17 09:28 Dose: 15 ml Hydralazine HCl (Apresoline) 50 mg PO Q8HR [facility] Last Admin: 09/13/17 05:54 Dose: 50 mg Hydralazine HCl (Apresoline) 10 mg IV Q3H PRN PRN Reason: Hypertension Last Admin: 09/13/17 08:49 Dose: 10 mg Insulin Glargine (Lantus) 20 units SUB-Q QHS [facility] Last Admin: 09/12/17 22:48 Dose: 20 units Insulin Human Lispro (Humalog) 0 unit SUB-Q [facility]; Protocol Last Admin: 09/13/17 08:49 Dose: Not Given Losartan Potassium (Cozaar) 100 mg PO QDAY [facility] Last Admin: 09/13/17 10:37 Dose: 100 mg Sodium Chloride (Sodium Chloride Flush Syringe 10 Ml) 10 ml IV PRN PRN PRN Reason: LINE FLUSH Spironolactone (Aldactone) 25 mg PO BID [facility] Last Admin: 09/13/17 10:35 Dose: 25 mg Review of Systems ROS unobtainable: due to mental status Exam - Vital Signs Vital signs: Vital Signs Temp Pulse Resp BP Pulse Ox 101.2 F H 82 22 213/103 96 09/07/17 22:28 09/07/17 22:28 09/07/17 22:28 09/07/17 22:28 09/07/17 22:28 - Physical Exam Narrative exam: GENERAL: The patient appeared well nourished and normally developed. Vital signs as documented. HEAD: No signs of head trauma. EYES: Pupils are equal. Extraocular motions intact. EARS: unable to examine MOUTH: Oropharynx is normal. NECK: No adenopathy, no JVD. CHEST: Chest with clear breath sounds bilaterally. No wheezes, rales, or rhonchi. CARDIAC: Regular rate and rhythm. S1 and S2, without murmurs, gallops, or rubs. VASCULAR: No Edema. Peripheral pulses normal and equal in all extremities. ABDOMEN: Soft, without detectable tenderness. No sign of distention. No rebound or guarding, and no masses palpated. Bowel Sounds normal. MUSCULOSKELETAL: Good range of motion of all major joints. Extremities without clubbing, cyanosis or edema. NEUROLOGIC EXAM: confused. No focal sensory or strength deficits. PSYCHIATRIC: unable to examine SKIN: No rash or lesions. Results - Lab Results 09/13/17 06:12 09/13/17 06:12 Most recent lab results Calcium 8.7 mg/dL (8.4-10.2) 09/13/17 06:12 Phosphorus 2.10 mg/dL (2.5-4.5) L 09/08/17 12:57 Magnesium 1.90 mg/dL (1.7-2.3) 09/08/17 12:57 Assessment and Plan Impression: * CKD stage 4 * Altered mental status * HTN * CVA * Hypokalemia * DM type 2 * Metabolic acidosis Plan: * His renal function seems to be stable. Probably at baseline. will hold aldactone and arb for now * hs has underlying hyperaldosteronism. will restart aldactone when cr stable * Monitor renal function, fluid status and electrolytes closely * avoid nephrotoxins * Mortality risk very high due to noncompliance patient counseled and educated at lengths * no indications for TRUCK HOP at this time * Avoid metformin
--- NOTE | 2017-09-13 12:18 | Progress Note ---
Assessment and Plan Patient is a 62 year old male with hx of CVA, HTN, CKD, SAH and DM who presents to the ED with AMS, and noted to have DKA with acute cystitis. Information Per EMS, the patient's family members reported that the patient has exhibited change from normal baseline activity, lethargy, and decreased appetite. The patient admis to a nonproductive cough and mild achy bilateral chest pain for the past one to 2 days, exacerbated with cough. The patient denies fever, head injury, headache, neck pain, neck stiffness, dyspnea, back pain, vomiting, diarrhea. DKA - SIRS Acute Cystitis Metabolic Acidosis secondary to DKA Diabetes mellitus Type 2- Poorly controlled Hypokalemia HX OF CVA-chronic lacunar infarts most recent as of May 2017 Hypertensive urgency CKD IV Acute Metabolic Encephalopathy Normal Pressure hydrocepalus for possible LP of pt's baseline neuro status is same Plan [id number]. Held today because patient is on nothing by mouth for LP Off drip, and antibiotics. on PO Hold insulin drip, continue d5. Monitor for gap closure Recheck CT showed multiple lacunar infarction. The mom pressure hydrocephalus suspected. Neurology input appreciated Keep NPO at this time IV fluids bolus. monitor Pulmonary function IV BB with careful monitoring of BP Nephrology AND Reporting Coordinator following DVT/GI prophy No family at bedside Subjective Date of service: 09/13/17 Principal diagnosis: Encephalopathy, DKA, NPH. Interval history: Patient seen and examined. Discussed with nursing staff. No overnight events reported. Objective - Exam Narrative Exam: Constitutional: Well-nourished, lethargic.Afebrile. In no distress Head: Normocephalic atraumatic Eyes: Pupils are equal round and reactive to light Nose: No enlarged turbinates, no septal deviation. Mouth: Moist mucous membranes. Neck: Supple no thyromegaly. No bruit. No JVD Heart: Regular rate and rhythm, S1-S2 abnormal. No rubs murmurs or gallop Lungs: Clear to auscultation bilaterally no rales or rhonchi Abdomen: Soft, nontender. Bowel sound are present. Extremities: No edema no cyanosis and no clubbing. Neuro: Alert oriented Oriented x3. No focal sensory or motor deficit. Skin: No rashes no hyperemic spots Psychiatry: Euthymic. Calm. - Constitutional Vitals: Vital Signs - 12hr 09/13/17 09/13/17 09/13/17 03:25 04:57 05:54 Temperature Pulse Rate 99 H 107 H Respiratory Rate Respiratory Rate [Head] Blood Pressure 187/100 176/97 176/97 O2 Sat by Pulse Oximetry 09/13/17 09/13/17 09/13/17 07:48 08:49 10:00 Temperature 99.0 F Pulse Rate 107 H 107 H Respiratory 20 Rate Respiratory 18 Rate [Head] Blood Pressure 183/101 183/101 O2 Sat by Pulse 95 Oximetry 09/13/17 09/13/17 09/13/17 10:35 10:36 10:37 Temperature Pulse Rate Respiratory Rate Respiratory Rate [Head] Blood Pressure 176/91 176/91 176/91 O2 Sat by Pulse Oximetry 09/13/17 10:38 Temperature Pulse Rate Respiratory Rate Respiratory Rate [Head] Blood Pressure 176/91 O2 Sat by Pulse Oximetry - Labs CBC & Chem 7: 09/13/17 06:12 09/13/17 06:12 Labs: Abnormal lab results 09/12/17 09/12/17 09/12/17 Range/Units 13:07 13:07 17:27 RBC 3.61 L (3.65-5.03) M/mm3 Hgb 11.0 L (11.8-15.2) gm/dl Hct 32.6 L (35.5-45.6) % MCHC (32-34) % RDW 12.7 L (13.2-15.2) % [place] % (Auto) 7.9 H (0.0-7.3) % Sodium 133 L D (137-145) mmol/L Potassium (3.6-5.0) mmol/L Carbon Dioxide 18 L (22-30) mmol/L BUN 21 H (9-20) mg/dL Creatinine 2.9 H (0.8-1.5) mg/dL Glucose 217 H (75-100) mg/dL POC Glucose 431 H (70-105) 09/12/17 09/13/17 09/13/17 Range/Units 22:01 06:12 06:12 RBC 3.29 L (3.65-5.03) M/mm3 Hgb 10.4 L (11.8-15.2) gm/dl Hct 29.4 L (35.5-45.6) % MCHC 35 H (32-34) % RDW 12.8 L (13.2-15.2) % [place] % (Auto) 8.3 H (0.0-7.3) % Sodium 135 L (137-145) mmol/L Potassium 3.5 L (3.6-5.0) mmol/L Carbon Dioxide 20 L (22-30) mmol/L BUN 24 H (9-20) mg/dL Creatinine 3.2 H (0.8-1.5) mg/dL Glucose (75-100) mg/dL POC Glucose 327 H (70-105)
--- NOTE | 2017-09-13 12:43 | Progress Note ---
Assessment and Plan 62 y/o male with altered mental state, metabolic acidosis, renal failure ( unsure if acute or chronic or acute on chronic), lactic acidosis and Hypertension. 1. from a critical care standpoint, stable 2. Neurology can follow up on LP and lack of ordering or sending of studies. I ordered them and the orders are timed and dated 3. Will sign off. Subjective Date of service: 09/13/17 Principal diagnosis: Encephalopathy, DKA, NPH. Interval history: Successful transfer out of ICU. Per nursing, had LP done yesterday. No note and no studies pending. Stable on room air with good sats. Objective - Constitutional Vitals: Vital Signs - 12hr 09/13/17 09/13/17 09/13/17 03:25 04:57 05:54 Temperature Pulse Rate 99 H 107 H Respiratory Rate Respiratory Rate [Head] Blood Pressure 187/100 176/97 176/97 O2 Sat by Pulse Oximetry 09/13/17 09/13/17 09/13/17 07:48 08:49 10:00 Temperature 99.0 F Pulse Rate 107 H 107 H Respiratory 20 Rate Respiratory 18 Rate [Head] Blood Pressure 183/101 183/101 O2 Sat by Pulse 95 Oximetry 09/13/17 09/13/17 09/13/17 10:35 10:36 10:37 Temperature Pulse Rate Respiratory Rate Respiratory Rate [Head] Blood Pressure 176/91 176/91 176/91 O2 Sat by Pulse Oximetry 09/13/17 10:38 Temperature Pulse Rate Respiratory Rate Respiratory Rate [Head] Blood Pressure 176/91 O2 Sat by Pulse Oximetry - Labs CBC & Chem 7: 09/13/17 06:12 09/13/17 06:12 Labs: Abnormal lab results 09/12/17 09/12/17 09/12/17 Range/Units 13:07 13:07 17:27 RBC 3.61 L (3.65-5.03) M/mm3 Hgb 11.0 L (11.8-15.2) gm/dl Hct 32.6 L (35.5-45.6) % MCHC (32-34) % RDW 12.7 L (13.2-15.2) % [place] % (Auto) 7.9 H (0.0-7.3) % Sodium 133 L D (137-145) mmol/L Potassium (3.6-5.0) mmol/L Carbon Dioxide 18 L (22-30) mmol/L BUN 21 H (9-20) mg/dL Creatinine 2.9 H (0.8-1.5) mg/dL Glucose 217 H (75-100) mg/dL POC Glucose 431 H (70-105) 09/12/17 09/13/17 09/13/17 Range/Units 22:01 06:12 06:12 RBC 3.29 L (3.65-5.03) M/mm3 Hgb 10.4 L (11.8-15.2) gm/dl Hct 29.4 L (35.5-45.6) % MCHC 35 H (32-34) % RDW 12.8 L (13.2-15.2) % [place] % (Auto) 8.3 H (0.0-7.3) % Sodium 135 L (137-145) mmol/L Potassium 3.5 L (3.6-5.0) mmol/L Carbon Dioxide 20 L (22-30) mmol/L BUN 24 H (9-20) mg/dL Creatinine 3.2 H (0.8-1.5) mg/dL Glucose (75-100) mg/dL POC Glucose 327 H (70-105)
[2017-09-13] MEDS: LANTUS SUB-Q SCH (21:55)
[2017-09-14] MEDS: APRESOLINE PO SCH ×3 (06:06→22:30)
[2017-09-14] MEDS: HumaLOG SUB-Q SCH ×4 (07:30→22:28)
[2017-09-14] MEDS: COREG PO SCH ×3 (08:43→22:30)
[2017-09-14] MEDS: NORVASC PO SCH ×2 (08:43→18:40)
--- NOTE | 2017-09-14 10:03 | Progress Note ---
Assessment and Plan Impression: * CKD stage 4 * Altered mental status * HTN * CVA * Hypokalemia * DM type 2 * Metabolic acidosis Plan: * His renal function seems to be stable. Probably at baseline. will hold aldactone and arb for now * hs has underlying hyperaldosteronism. will restart aldactone when cr stable * Monitor renal function, fluid status and electrolytes closely * follow up daily lytes * avoid nephrotoxins * Mortality risk very high due to noncompliance patient counseled and educated at lengths * no indications for COMPRESSOR STATION OPERATOR at this time * Avoid metformin Subjective Date of service: 09/14/17 Principal diagnosis: Encephalopathy, DKA, NPH. Interval history: resting well in bed today Objective - Exam Narrative Exam: GENERAL: The patient appeared well nourished and normally developed. Vital signs as documented. HEAD: No signs of head trauma. EYES: Pupils are equal. Extraocular motions intact. EARS: unable to examine MOUTH: Oropharynx is normal. NECK: No adenopathy, no JVD. CHEST: Chest with clear breath sounds bilaterally. No wheezes, rales, or rhonchi. CARDIAC: Regular rate and rhythm. S1 and S2, without murmurs, gallops, or rubs. VASCULAR: No Edema. Peripheral pulses normal and equal in all extremities. ABDOMEN: Soft, without detectable tenderness. No sign of distention. No rebound or guarding, and no masses palpated. Bowel Sounds normal. MUSCULOSKELETAL: Good range of motion of all major joints. Extremities without clubbing, cyanosis or edema. NEUROLOGIC EXAM: confused. No focal sensory or strength deficits. PSYCHIATRIC: unable to examine SKIN: No rash or lesions. - Vital Signs Vital signs: Vital Signs - 12hr 09/13/17 09/14/17 09/14/17 22:28 05:58 07:38 Temperature 99.5 F 99.1 F Pulse Rate 105 H 103 H 106 H Respiratory 18 20 Rate Blood Pressure 156/84 191/105 173/100 O2 Sat by Pulse 97 98 94 Oximetry 09/14/17 08:43 Temperature Pulse Rate 106 H Respiratory Rate Blood Pressure 173/100 O2 Sat by Pulse Oximetry - Lab 09/13/17 06:12 09/13/17 06:12 Most recent lab results Calcium 8.7 mg/dL (8.4-10.2) 09/13/17 06:12 Phosphorus 2.10 mg/dL (2.5-4.5) L 09/08/17 12:57 Magnesium 1.90 mg/dL (1.7-2.3) 09/08/17 12:57
[2017-09-14 10:11] LABS: Basophils # (Auto) 0.1 K/mm3 (0.0-0.1); Basophils % (Auto) 1.1 % (0.0-1.8); Eosinophils # (Auto) 0.2 K/mm3 (0.0-0.4); Eosinophils % (Auto) 2.7 % (0.0-4.3); Hemoglobin 10.1 gm/dl (11.8-15.2); Lymphocytes # (Auto) 1.2 K/mm3 (1.2-5.4); Lymphocytes % (Auto) 15.3 % (13.4-35.0); Mean Corpuscular HGB Conc 35 % (32-34); Mean Corpuscular Hemoglobin 31 pg (28-32); Mean Corpuscular Volume 90 fl (84-94); Monocytes # (Auto) 0.6 K/mm3 (0.0-0.8); Monocytes % (Auto) 7.3 % (0.0-7.3); Platelet Count 268 K/mm3 (140-440); Red Blood Count 3.21 M/mm3 (3.65-5.03); Red Cell Distribution Width 12.5 % (13.2-15.2)
[2017-09-14 10:25] LABS: Calcium 8.2 mg/dL (8.4-10.2)
[2017-09-14] MEDS ORDERED: APRESOLINE PO SCH (11:02)
--- NOTE | 2017-09-14 16:24 | Progress Note ---
Assessment and Plan Assessment and plan: Patient is a 62 year old male with hx of CVA, HTN, CKD, SAH and DM who presents to the ED with AMS, and noted to have DKA with acute cystitis. Information obtained my me is via the ED note who notes references EMS family conversation documentation as noted below. "Per EMS, the patient's family members reported that the patient has exhibited change from normal baseline activity, lethargy, and decreased appetite. The patient admis to a nonproductive cough and mild achy bilateral chest pain for the past one to 2 days, exacerbated with cough. The patient denies fever, head injury, headache, neck pain, neck stiffness, dyspnea, back pain, vomiting, diarrhea." DKA * Resolved SIRS Acute systitis Metabolic Acidosis secondary to DKA Diabetes mellitus Type 2- Poorly controlled Hypokalemia HX OF CVA-chronic lacunar infarts most recent as of May 2017 Hypertensive urgency CKD IV Acute Metabolic Encephalopathy Plan * Continue current mangement. Mental health eval, patient with poor insight into medical condition. DFCS involved due to unkept home. * ABX Stopped * Culture-No growth * ADJUST BP Meds * Recheck CT. I believe his fluctuating mental health is a factor of multiple strokes. will obtain neurology consult * Keep NPO at this time * Patient refused lumbar Puncture. OUTPATIENT NEUROLOGY EVAL. * Intial CT scan javier is negative, if no improvement in mental status will need Neurology consult * Nephrology AND Endband Cutter Hand consult * DVT/GI prophy * No family at bedside History Interval history: Patient seen and examined, remains very weak although wanting to be discharged. Still intermittently confused. Per family friend [facility] is now involved in care of children due to unkept home. Hospitalist Physical - Physical exam Narrative exam: VITAL SIGNS: Reviewed. GENERAL: The patient appeared well nourished and normally developed. Vital signs as documented. HEAD: No signs of head trauma. EYES: Pupils are equal. Extraocular motions intact. EARS: unable to examine MOUTH: Oropharynx is normal. NECK: No adenopathy, no JVD. CHEST: Chest with clear breath sounds bilaterally. No wheezes, rales, or rhonchi. CARDIAC: Regular rate and rhythm. S1 and S2, without murmurs, gallops, or rubs. VASCULAR: No Edema. Peripheral pulses normal and equal in all extremities. ABDOMEN: Soft, without detectable tenderness. No sign of distention. No rebound or guarding, and no masses palpated. Bowel Sounds normal. MUSCULOSKELETAL: Good range of motion of all major joints. Extremities without clubbing, cyanosis or edema. NEUROLOGIC EXAM: awake, oriented to person and place. some intermittent agitation No focal sensory or strength deficits. PSYCHIATRIC: unable to examine SKIN: No rash or lesions. - Constitutional Vitals: Temp Pulse Resp BP Pulse Ox 98.9 F 95 H 20 175/96 97 09/14/17 15:41 09/14/17 15:41 09/14/17 15:41 09/14/17 15:41 09/14/17 15:41 General appearance: Present: no acute distress, well-nourished Results - Labs CBC & Chem 7: 09/14/17 09:08 09/14/17 09:08 Labs: Laboratory Last Values WBC 7.9 K/mm3 (4.5-11.0) 09/14/17 09:08 RBC 3.21 M/mm3 (3.65-5.03) L 09/14/17 09:08 Hgb 10.1 gm/dl (11.8-15.2) L 09/14/17 09:08 Hct 29.0 % (35.5-45.6) L 09/14/17 09:08 MCV 90 fl (84-94) 09/14/17 09:08 MCH 31 pg (28-32) 09/14/17 09:08 MCHC 35 % (32-34) H 09/14/17 09:08 RDW 12.5 % (13.2-15.2) L 09/14/17 09:08 Plt Count 268 K/mm3 (140-440) 09/14/17 09:08 Lymph % (Auto) 15.3 % (13.4-35.0) 09/14/17 09:08 [place] % (Auto) 7.3 % (0.0-7.3) 09/14/17 09:08 Eos % (Auto) 2.7 % (0.0-4.3) 09/14/17 09:08 Baso % (Auto) 1.1 % (0.0-1.8) 09/14/17 09:08 Lymph # 1.2 K/mm3 (1.2-5.4) 09/14/17 09:08 [place] # 0.6 K/mm3 (0.0-0.8) 09/14/17 09:08 Eos # 0.2 K/mm3 (0.0-0.4) 09/14/17 09:08 Baso # 0.1 K/mm3 (0.0-0.1) 09/14/17 09:08 Seg Neutrophils % 73.6 % (40.0-70.0) H 09/14/17 09:08 Seg Neutrophils # 5.8 K/mm3 (1.8-7.7) 09/14/17 09:08 PT 14.4 Sec. (12.2-14.9) 09/10/17 14:17 INR 1.06 (0.87-1.13) 09/10/17 14:17 APTT 25.8 Sec. (24.2-36.6) 09/10/17 14:17 Sodium 129 mmol/L (137-145) L 09/14/17 09:08 Potassium 3.7 mmol/L (3.6-5.0) 09/14/17 09:08 Chloride 95.0 mmol/L (98-107) L 09/14/17 09:08 Carbon Dioxide 20 mmol/L (22-30) L 09/14/17 09:08 Anion Gap 18 mmol/L 09/14/17 09:08 BUN 23 mg/dL (9-20) H 09/14/17 09:08 Creatinine 3.3 mg/dL (0.8-1.5) H 09/14/17 09:08 Estimated GFR 23 ml/min 09/14/17 09:08 BUN/Creatinine Ratio 7 % 09/14/17 09:08 Glucose 287 mg/dL (75-100) H 09/14/17 09:08 POC Glucose 197 (70-105) H 09/14/17 11:41 Lactic Acid 1.70 mmol/L (0.7-2.0) 09/10/17 05:25 Calcium 8.2 mg/dL (8.4-10.2) L 09/14/17 09:08 Phosphorus 2.10 mg/dL (2.5-4.5) L 09/08/17 12:57 Magnesium 1.90 mg/dL (1.7-2.3) 09/08/17 12:57 Total Bilirubin 1.00 mg/dL (0.1-1.2) 09/08/17 19:06 Direct Bilirubin < 0.2 mg/dL (0-0.2) 09/08/17 19:06 Indirect Bilirubin 0.8 mg/dL 09/08/17 19:06 AST 30 units/L (5-40) 09/08/17 19:06 ALT 17 units/L (7-56) 09/08/17 19:06 Alkaline Phosphatase 81 units/L (35-129) 09/08/17 19:06 Troponin T 0.025 ng/mL (0.00-0.029) 09/08/17 03:24 NT-Pro-B Natriuret Pep 3163 pg/mL (0-900) H 09/08/17 00:17 Total Protein 5.8 g/dL (6.3-8.2) L 09/08/17 19:06 Albumin 3.0 g/dL (3.9-5) L 09/08/17 19:06 Albumin/Globulin Ratio 1.1 % 09/08/17 19:06 Lipase 21 units/L (13-60) 09/08/17 00:17 TSH 0.633 mlU/mL (0.270-4.200) 09/07/17 23:26 Free T4 1.19 ng/dL (0.76-1.46) 09/08/17 00:17 Urine Color Yellow (Yellow) 09/08/17 02:09 Urine Turbidity Hazy (Clear) 09/08/17 02:09 Urine pH 5.0 (5.0-7.0) 09/08/17 02:09 Ur Specific [place] 1.021 (1.003-1.030) 09/08/17 02:09 Urine Protein >500 mg/dL (Negative) 09/08/17 02:09 Urine Glucose (UA) >=500 mg/dL (Negative) 09/08/17 02:09 Urine Ketones 20 mg/dL (Negative) 09/08/17 02:09 Urine Blood Mod (Negative) 09/08/17 02:09 Urine Nitrite Neg (Negative) 09/08/17 02:09 Urine Bilirubin Neg (Negative) 09/08/17 02:09 Urine Urobilinogen < 2.0 mg/dL (<2.0) 09/08/17 02:09 Ur Leukocyte Esterase Neg (Negative) 09/08/17 02:09 Urine WBC (Auto) 7.0 /HPF (0.0-6.0) H 09/08/17 02:09 Urine RBC (Auto) 3.0 /HPF (0.0-6.0) 09/08/17 02:09 Amorphous Crystals 2+ 09/08/17 02:09 Hyaline Casts 5 /LPF 09/08/17 02:09 Urine Mucus Few /HPF 09/08/17 02:09 Urine Opiates Screen Presumptive negative 09/08/17 02:09 Urine Methadone Screen Presumptive negative 09/08/17 02:09 Ur Barbiturates Screen Presumptive negative 09/08/17 02:09 Ur Phencyclidine Scrn Presumptive negative 09/08/17 02:09 Ur Amphetamines Screen Presumptive negative 09/08/17 02:09 U Benzodiazepines Scrn Presumptive negative 09/08/17 02:09 Urine Cocaine Screen Presumptive negative 09/08/17 02:09 U Marijuana (THC) Screen Presumptive negative 09/08/17 02:09 Drugs of Abuse Note Disclamer 09/08/17 02:09 Plasma/Serum Alcohol < 0.01 % (0-0.07) 09/07/17 23:26 Blood Type O POSITIVE 09/08/17 09:18 Antibody Screen Negative 09/08/17 09:18
[2017-09-14] MEDS: APRESOLINE IV PRN (18:40)
[2017-09-14] MEDS: LANTUS SUB-Q SCH (22:29)
[2017-09-15] MEDS: APRESOLINE PO SCH ×3 (06:03→22:45)
[2017-09-15 07:53] LABS: Basophils # (Auto) 0.1 K/mm3 (0.0-0.1); Basophils % (Auto) 0.9 % (0.0-1.8); Eosinophils # (Auto) 0.3 K/mm3 (0.0-0.4); Eosinophils % (Auto) 4.6 % (0.0-4.3); Hematocrit 28.8 % (35.5-45.6); Lymphocytes # (Auto) 2.2 K/mm3 (1.2-5.4); Lymphocytes % (Auto) 33.5 % (13.4-35.0); Mean Corpuscular HGB Conc 35 % (32-34); Mean Corpuscular Hemoglobin 31 pg (28-32); Mean Corpuscular Volume 89 fl (84-94); Monocytes # (Auto) 0.8 K/mm3 (0.0-0.8); Monocytes % (Auto) 12.5 % (0.0-7.3); Platelet Count 315 K/mm3 (140-440); Red Blood Count 3.22 M/mm3 (3.65-5.03); Red Cell Distribution Width 12.9 % (13.2-15.2)
--- NOTE | 2017-09-15 08:53 | Discharge Summary ---
Providers - Providers Date of Admission: 09/08/17 02:57 Attending physician: YUSEF EARL MD 09/08/17 04:34 Consult to Dietitian/Nutrition [CONS] Routine Physician Instructions: Reason For Exam: Reason for Consult: Diet education 09/09/17 09:31 PICC Line Insertion [Consult to PICC Line RN] [CONS] Stat Reason For Exam: iv access Type Line:: PICC 09/09/17 18:55 Consult to Physician [CONS] Routine Comment: Consulting Provider: YAKOV TAM Physician Instructions: Reason For Exam: ams 09/12/17 18:30 Consult to Physician [CONS] Routine Comment: Consulting Provider: ALBINO REIS Physician Instructions: Reason For Exam: CKD 09/14/17 14:56 Consult to Physician [CONS] Routine Comment: Consulting Provider: JEREMY LEIVA Physician Instructions: MED MANAGEMENT, CHILDREN PROTECTIVE SERVICES Reason For Exam: BIPOLAR AND MED MANAGEMENT 09/14/17 14:57 Consult to Mental Health [CONS] Routine Reason For Exam: PERSONALITY DISORDER, CHILDREN PROTECTIVE SERVICES Place consult to:: MENTAL HEATLH (MARKELL) Notified:: MARKELL Phone number called:: [phone] Was contact made?: Yes If yes, spoke with:: MARKELL Time called:: 16:30 09/14/17 15:44 Physical Therapy Evaluation and Treat [CONS] Routine Comment: Reason For Exam: deconditioning/placement Primary care physician: SUSTAINABILITY PURCHASING AGENT Hospitalization Reason for admission: DKA Condition: Stable Hospital course: Patient is a 62 year old male with hx of CVA, HTN, CKD, SAH and DM who presents to the ED with AMS, and noted to have DKA with acute cystitis. Information obtained my me is via the ED note who notes references EMS family conversation documentation as noted below. "Per EMS, the patient's family members reported that the patient has exhibited change from normal baseline activity, lethargy, and decreased appetite. The patient admis to a nonproductive cough and mild achy bilateral chest pain for the past one to 2 days, exacerbated with cough. The patient denies fever, head injury, headache, neck pain, neck stiffness, dyspnea, back pain, vomiting, diarrhea." DKA * Resolved SIRS Acute systitis Metabolic Acidosis secondary to DKA Diabetes mellitus Type 2- Poorly controlled Hypokalemia HX OF CVA-chronic lacunar infarts most recent as May 2017 Hypertensive urgency CKD IV Acute Metabolic Encephalopathy Plan * Continue current mangement. Mental health eval, patient with poor insight into medical condition. DFCS involved due to unkept home. * ABX Stopped * Culture-No growth * ADJUST BP Meds * Recheck CT. I believe his fluctuating mental health is a factor of multiple strokes. will obtain neurology consult * Keep NPO at this time * Patient refused lumbar Puncture. OUTPATIENT NEUROLOGY EVAL. * Intial CT scan javier is negative, if no improvement in mental status will need Neurology consult * Nephrology AND Racecourse Barrier Attendant consult * DVT/GI prophy * No family at bedside Disposition: [id number]/TX-[id number] PSY HOSP/PSY UNIT Time spent for discharge: 35 mins Core Measure Documentation - Palliative Care Palliative Care/ Comfort Measures: Not Applicable - Core Measures Any of the following diagnoses?: none - VTE Discharge Requirements Deep Vein Thrombosis/Pulmonary Embolism Present on Admission: No Exam - Physical Exam Narrative exam: VITAL SIGNS: Reviewed. GENERAL: The patient appeared well nourished and normally developed. Vital signs as documented. HEAD: No signs of head trauma. EYES: Pupils are equal. Extraocular motions intact. EARS: unable to examine MOUTH: Oropharynx is normal. NECK: No adenopathy, no JVD. CHEST: Chest with clear breath sounds bilaterally. No wheezes, rales, or rhonchi. CARDIAC: Regular rate and rhythm. S1 and S2, without murmurs, gallops, or rubs. VASCULAR: No Edema. Peripheral pulses normal and equal in all extremities. ABDOMEN: Soft, without detectable tenderness. No sign of distention. No rebound or guarding, and no masses palpated. Bowel Sounds normal. MUSCULOSKELETAL: Good range of motion of all major joints. Extremities without clubbing, cyanosis or edema. NEUROLOGIC EXAM: awake, oriented to person and place. No focal sensory or strength deficits. PSYCHIATRIC: normal, poor judgement SKIN: No rash or lesions. - Constitutional Vitals: Temp Pulse Resp BP Pulse Ox 98.4 F 98 H 22 174/91 97 09/15/17 07:15 09/15/17 07:15 09/15/17 07:15 09/15/17 07:15 09/15/17 07:15 Plan Activity: advance as tolerated, fall precautions Diet: diabetic Special Instructions: record daily BP diary, record blood sugar diary Follow up with: JEREMY LEIVA MD [Staff Physician] - 7 Days PRIMARY CARE, [Primary Care Provider] - 3-5 Days ISABEL DE LA TORRE MD [Staff Physician] - 7 Days Prescriptions: cloNIDine [Catapres] 0.2 mg PO QHS #30 tablet Insulin Glargine [Lantus VIAL] 20 units SUB-Q QHS #30 units glipiZIDE [Glipizide] 5 mg PO DAILY #30 tablet hydrALAZINE [Apresoline TAB] 100 mg PO Q8HR #90 tab Losartan [Cozaar] 100 mg PO QDAY #30 tablet Metoprolol Tartrate 100 mg PO BID #60 tablet Spironolactone [Aldactone] 25 mg PO BID #60 tablet Other Discharge Orders: Glucometer supplies[Amb] Location: None Selected Glucometer (Amb) Location: None Selected
[2017-09-15 08:57] LABS: Calcium 8.7 mg/dL (8.4-10.2)
[2017-09-15] MEDS: HumaLOG SUB-Q SCH ×4 (09:45→22:44)
--- NOTE | 2017-09-15 09:46 | Progress Note ---
Assessment and Plan Impression: * CKD stage 4 * Altered mental status * HTN * CVA * Hypokalemia * DM type 2 * Metabolic acidosis Plan: * His renal function seems to be stable. Probably at baseline. will hold aldactone and arb for now * hs has underlying hyperaldosteronism. will restart aldactone when cr stable * Monitor renal function, fluid status and electrolytes closely * follow up daily lytes * avoid nephrotoxins * Mortality risk very high due to noncompliance patient counseled and educated at lengths * no indications for SINGER SONGWRITER at this time * Avoid metformin * replete k * follow up in office one week Subjective Date of service: 09/15/17 Principal diagnosis: Encephalopathy, DKA, NPH. Interval history: resting well in bed today Objective - Exam Narrative Exam: GENERAL: The patient appeared well nourished and normally developed. Vital signs as documented. HEAD: No signs of head trauma. EYES: Pupils are equal. Extraocular motions intact. EARS: unable to examine MOUTH: Oropharynx is normal. NECK: No adenopathy, no JVD. CHEST: Chest with clear breath sounds bilaterally. No wheezes, rales, or rhonchi. CARDIAC: Regular rate and rhythm. S1 and S2, without murmurs, gallops, or rubs. VASCULAR: No Edema. Peripheral pulses normal and equal in all extremities. ABDOMEN: Soft, without detectable tenderness. No sign of distention. No rebound or guarding, and no masses palpated. Bowel Sounds normal. MUSCULOSKELETAL: Good range of motion of all major joints. Extremities without clubbing, cyanosis or edema. NEUROLOGIC EXAM: confused. No focal sensory or strength deficits. PSYCHIATRIC: unable to examine SKIN: No rash or lesions. - Vital Signs Vital signs: Vital Signs - 12hr 09/14/17 09/15/17 09/15/17 22:30 00:12 07:15 Temperature 98.3 F 98.4 F Pulse Rate 97 H 96 H 98 H Respiratory 20 22 Rate Blood Pressure 181/99 147/87 174/91 O2 Sat by Pulse 94 97 Oximetry - Lab 09/15/17 06:02 09/15/17 06:02 Most recent lab results Calcium 8.7 mg/dL (8.4-10.2) 09/15/17 06:02 Phosphorus 2.10 mg/dL (2.5-4.5) L 09/08/17 12:57 Magnesium 1.90 mg/dL (1.7-2.3) 09/08/17 12:57
[2017-09-15] MEDS: LOPRESSOR PO SCH ×2 (09:57→22:45)
[2017-09-15] MEDS: CATAPRES PO SCH ×2 (09:57→22:46)
[2017-09-15] MEDS: NORVASC PO SCH (09:58)
[2017-09-15] MEDS: KCL 10MEQ/100ML 10 MEQ/100 ML BAG IV SCH ×5 (09:58→20:06)
[2017-09-15] MEDS ORDERED: NON-FORMULARY (Nifedipine [Nifedipine Er] 90 MG) PO SCH (10:00)
[2017-09-15] MEDS ORDERED: D5W/0.45% NACL/KCL 20 MEQ 20 MEQ/1,000 ML BAG IV SCH (10:00)
--- NOTE | 2017-09-15 12:20 | Consultation ---
History of Present Illness - Reason for Consult Consult date: 09/15/17 Reason for consult: Mental Health Evaluation Requesting physician: YUSEF EARL - Chief Complaint Chief complaint: "How are you" - History of Present Psychiatric Illness 62-year-old male with a significant history of CVA and diabetes, who presents to the ER fo AMS. Psychiatry was consulted to see the patient. Today the patient is calm and cooperative during the assessment. He was lucid and organized during the interview. He was able to recall 3/3 numbers within 5 mins , ID his current location, and state who is the current and past President. He stated that he resides with his 2 children. He stated that the mother of the children reside in [place]. He admitted that his home need to be "cleaned up." He denies a mental health dx. Also, he denies taking a medication for a mood/ psychotic do. He denies SI/HI's and AVH's. He denies erratic sleep, poor appetite, and depression. He denies recreational drug use and alcohol consumption (etoh). Medications and Allergies Allergies Allergy/AdvReac Type Severity Reaction Status Date / Time No Known Allergies Allergy Verified 06/12/17 15:18 Home Medications Medication Instructions Recorded Confirmed Last Taken Type NIFEdipine [Nifedipine ER] 90 mg PO DAILY 06/01/17 09/08/17 Unknown History AtorvaSTATin [Lipitor] 40 mg PO QHS #30 tablet 06/06/17 09/08/17 3 Days Ago Rx ~06/12/17 amLODIPine [Norvasc] 10 mg PO QDAY #30 tablet 06/06/17 09/08/17 Unknown Rx Sodium Bicarbonate 650 mg PO BID #60 tablet 06/17/17 09/08/17 Unknown Rx Insulin Glargine [Lantus VIAL] 20 units SUB-Q QHS #30 units 09/15/17 Unknown Rx Losartan [Cozaar] 100 mg PO QDAY #30 tablet 09/15/17 Unknown Rx Metoprolol Tartrate 100 mg PO BID #60 tablet 09/15/17 Unknown Rx Spironolactone [Aldactone] 25 mg PO BID #60 tablet 09/15/17 Unknown Rx cloNIDine [Catapres] 0.2 mg PO QHS #30 tablet 09/15/17 Unknown Rx glipiZIDE [Glipizide] 5 mg PO DAILY #30 tablet 09/15/17 Unknown Rx hydrALAZINE [Apresoline TAB] 100 mg PO Q8HR #90 tab 09/15/17 Unknown Rx Active Meds: Active Medications Amlodipine Besylate (Norvasc) 10 mg PO QDAY [facility] Last Admin: 09/15/17 09:58 Dose: 10 mg Atorvastatin Calcium (Lipitor) 40 mg PO QHS [facility] Last Admin: 09/14/17 22:30 Dose: 40 mg Clonidine HCl (Catapres) 0.2 mg PO Q12HR [facility] Last Admin: 09/15/17 09:57 Dose: 0.2 mg Dextrose (D50w (25gm) Syringe) 0 ml IV PRN PRN PRN Reason: Hypoglycemia Last Admin: 09/10/17 09:28 Dose: 15 ml Hydralazine HCl (Apresoline) 10 mg IV Q3H PRN PRN Reason: Hypertension Last Admin: 09/14/17 18:40 Dose: 10 mg Hydralazine HCl (Apresoline) 100 mg PO Q8HR [facility] Last Admin: 09/15/17 06:03 Dose: 100 mg Potassium Chloride (Kcl 10meq/100ml) 10 meq in 100 mls @ 100 mls/hr IV Q1H [facility] Stop: 09/15/17 14:59 Last Admin: 09/15/17 11:57 Dose: 100 mls/hr Insulin Glargine (Lantus) 20 units SUB-Q QHS [facility] Last Admin: 09/14/17 22:29 Dose: 20 units Insulin Human Lispro (Humalog) 0 unit SUB-Q [facility]; Protocol Last Admin: 09/15/17 09:45 Dose: Not Given Metoprolol Tartrate (Lopressor) 100 mg PO BID [facility] Last Admin: 09/15/17 09:57 Dose: 100 mg Sodium Chloride (Sodium Chloride Flush Syringe 10 Ml) 10 ml IV PRN PRN PRN Reason: LINE FLUSH Last Admin: 09/13/17 21:42 Dose: 10 ml Past psychiatric history - Past Medical History Past Medical History: diabetes, hypertension, other (Renal adnormalities ) Past Surgical History: No surgical history - past Psychiatric treatment and history psychiatric treatment history: Denies a psy hx and a fam psy hx. - Social History Social history: other (Resides with his children) Mental Status Exam - Vital signs Last Vital Signs Temp 98.4 F 09/15/17 07:15 Pulse 98 H 09/15/17 09:58 Resp 22 09/15/17 07:15 BP 171/91 09/15/17 09:58 Pulse Ox 97 09/15/17 07:15 - Exam Narrative exam: MSE: Appearance: calm, cooperative Behavior: regular eye contact Speech: regular rate and tone, hyper verbal Mood: "okay" Affect: congruent to mood Thought Process: linear Thought Content: denies SI/HI's and AVH's Motor Activity: lying in bed Cognition: A/O x 3 Insight: fair Judgment: fair Results Result Diagrams: 09/15/17 06:02 09/15/17 06:02 Abnormal lab results 09/14/17 09/14/17 09/15/17 Range/Units 15:53 21:58 06:02 RBC 3.22 L (3.65-5.03) M/mm3 Hgb 10.0 L (11.8-15.2) gm/dl Hct 28.8 L (35.5-45.6) % MCHC 35 H (32-34) % RDW 12.9 L (13.2-15.2) % [place] % (Auto) 12.5 H (0.0-7.3) % Eos % (Auto) 4.6 H (0.0-4.3) % Potassium (3.6-5.0) mmol/L BUN (9-20) mg/dL Creatinine (0.8-1.5) mg/dL Glucose (75-100) mg/dL POC Glucose 250 H 247 H (70-105) 09/15/17 09/15/17 Range/Units 06:02 06:20 RBC (3.65-5.03) M/mm3 Hgb (11.8-15.2) gm/dl Hct (35.5-45.6) % MCHC (32-34) % RDW (13.2-15.2) % [place] % (Auto) (0.0-7.3) % Eos % (Auto) (0.0-4.3) % Potassium 3.1 L (3.6-5.0) mmol/L BUN 22 H (9-20) mg/dL Creatinine 3.4 H (0.8-1.5) mg/dL Glucose 49 L (75-100) mg/dL POC Glucose 52 L (70-105) All other labs normal. Assessment and Plan Assessment and plan: Impression: No overt mood or psychotic symptoms by this patient. Today the patient is calm and cooperative during the assessment. Recommendation/Plan: The patient is pending SNF placement possibly. Psychiatry sign off.
--- NOTE | 2017-09-15 16:37 | Progress Note ---
Assessment and Plan Assessment and plan: Patient is a 62 year old male with hx of CVA, HTN, CKD, SAH and DM who presents to the ED with AMS, and noted to have DKA with acute cystitis. Information obtained my me is via the ED note who notes references EMS family conversation documentation as noted below. "Per EMS, the patient's family members reported that the patient has exhibited change from normal baseline activity, lethargy, and decreased appetite. The patient admis to a nonproductive cough and mild achy bilateral chest pain for the past one to 2 days, exacerbated with cough. The patient denies fever, head injury, headache, neck pain, neck stiffness, dyspnea, back pain, vomiting, diarrhea." DKA * Resolved SIRS Acute systitis Metabolic Acidosis secondary to DKA Diabetes mellitus Type 2- Poorly controlled Hypokalemia * Replace HX OF CVA-chronic lacunar infarts most recent as of May 2017 Hypertensive urgency CKD IV Acute Metabolic Encephalopathy Plan * Continue current mangement. Mental health eval noted, DFCS involved due to unkept home. * ABX Stopped * Culture-No growth * ADJUST BP Meds * Awaiting patient to arrange discharge plan. SNF remains best option but patient with full faculty is refusing. * Patient refused lumbar Puncture. OUTPATIENT NEUROLOGY EVAL. * Intial CT scan javier is negative, if no improvement in mental status will need Neurology consult * Nephrology AND Vessel Scrapper consult * DVT/GI prophy * No family at bedside History Interval history: Patient seen and examined, improving, not aware of home situation, but verbalized wants to go home to handle it. refused snf offer Hospitalist Physical - Physical exam Narrative exam: VITAL SIGNS: Reviewed. GENERAL: The patient appeared well nourished and normally developed. Vital signs as documented. HEAD: No signs of head trauma. EYES: Pupils are equal. Extraocular motions intact. EARS: unable to examine MOUTH: Oropharynx is normal. NECK: No adenopathy, no JVD. CHEST: Chest with clear breath sounds bilaterally. No wheezes, rales, or rhonchi. CARDIAC: Regular rate and rhythm. S1 and S2, without murmurs, gallops, or rubs. VASCULAR: No Edema. Peripheral pulses normal and equal in all extremities. ABDOMEN: Soft, without detectable tenderness. No sign of distention. No rebound or guarding, and no masses palpated. Bowel Sounds normal. MUSCULOSKELETAL: Good range of motion of all major joints. Extremities without clubbing, cyanosis or edema. NEUROLOGIC EXAM: awake, oriented to person and place. No focal sensory or strength deficits. PSYCHIATRIC: normal, poor judgement SKIN: No rash or lesions. - Constitutional Vitals: Temp Pulse Resp BP Pulse Ox 98.4 F 75 16 140/86 99 09/15/17 15:06 09/15/17 15:06 09/15/17 15:06 09/15/17 15:06 09/15/17 15:06 General appearance: Present: no acute distress, well-nourished Results - Labs CBC & Chem 7: 09/15/17 06:02 09/15/17 06:02 Labs: Laboratory Last Values WBC 6.4 K/mm3 (4.5-11.0) 09/15/17 06:02 RBC 3.22 M/mm3 (3.65-5.03) L 09/15/17 06:02 Hgb 10.0 gm/dl (11.8-15.2) L 09/15/17 06:02 Hct 28.8 % (35.5-45.6) L 09/15/17 06:02 MCV 89 fl (84-94) 09/15/17 06:02 MCH 31 pg (28-32) 09/15/17 06:02 MCHC 35 % (32-34) H 09/15/17 06:02 RDW 12.9 % (13.2-15.2) L 09/15/17 06:02 Plt Count 315 K/mm3 (140-440) 09/15/17 06:02 Lymph % (Auto) 33.5 % (13.4-35.0) 09/15/17 06:02 [place] % (Auto) 12.5 % (0.0-7.3) H 09/15/17 06:02 Eos % (Auto) 4.6 % (0.0-4.3) H 09/15/17 06:02 Baso % (Auto) 0.9 % (0.0-1.8) 09/15/17 06:02 Lymph # 2.2 K/mm3 (1.2-5.4) 09/15/17 06:02 [place] # 0.8 K/mm3 (0.0-0.8) 09/15/17 06:02 Eos # 0.3 K/mm3 (0.0-0.4) 09/15/17 06:02 Baso # 0.1 K/mm3 (0.0-0.1) 09/15/17 06:02 Seg Neutrophils % 48.5 % (40.0-70.0) 09/15/17 06:02 Seg Neutrophils # 3.1 K/mm3 (1.8-7.7) 09/15/17 06:02 PT 14.4 Sec. (12.2-14.9) 09/10/17 14:17 INR 1.06 (0.87-1.13) 09/10/17 14:17 APTT 25.8 Sec. (24.2-36.6) 09/10/17 14:17 Sodium 138 mmol/L (137-145) D 09/15/17 06:02 Potassium 3.1 mmol/L (3.6-5.0) L 09/15/17 06:02 Chloride 100.1 mmol/L (98-107) 09/15/17 06:02 Carbon Dioxide 22 mmol/L (22-30) 09/15/17 06:02 Anion Gap 19 mmol/L 09/15/17 06:02 BUN 22 mg/dL (9-20) H 09/15/17 06:02 Creatinine 3.4 mg/dL (0.8-1.5) H 09/15/17 06:02 Estimated GFR 22 ml/min 09/15/17 06:02 BUN/Creatinine Ratio 6 % 09/15/17 06:02 Glucose 49 mg/dL (75-100) L 09/15/17 06:02 POC Glucose 228 (70-105) H 09/15/17 12:02 Lactic Acid 1.70 mmol/L (0.7-2.0) 09/10/17 05:25 Calcium 8.7 mg/dL (8.4-10.2) 09/15/17 06:02 Phosphorus 2.10 mg/dL (2.5-4.5) L 09/08/17 12:57 Magnesium 1.90 mg/dL (1.7-2.3) 09/08/17 12:57 Total Bilirubin 1.00 mg/dL (0.1-1.2) 09/08/17 19:06 Direct Bilirubin < 0.2 mg/dL (0-0.2) 09/08/17 19:06 Indirect Bilirubin 0.8 mg/dL 09/08/17 19:06 AST 30 units/L (5-40) 09/08/17 19:06 ALT 17 units/L (7-56) 09/08/17 19:06 Alkaline Phosphatase 81 units/L (35-129) 09/08/17 19:06 Troponin T 0.025 ng/mL (0.00-0.029) 09/08/17 03:24 NT-Pro-B Natriuret Pep 3163 pg/mL (0-900) H 09/08/17 00:17 Total Protein 5.8 g/dL (6.3-8.2) L 09/08/17 19:06 Albumin 3.0 g/dL (3.9-5) L 09/08/17 19:06 Albumin/Globulin Ratio 1.1 % 09/08/17 19:06 Lipase 21 units/L (13-60) 09/08/17 00:17 TSH 0.633 mlU/mL (0.270-4.200) 09/07/17 23:26 Free T4 1.19 ng/dL (0.76-1.46) 09/08/17 00:17 Urine Color Yellow (Yellow) 09/08/17 02:09 Urine Turbidity Hazy (Clear) 09/08/17 02:09 Urine pH 5.0 (5.0-7.0) 09/08/17 02:09 Ur Specific [place] 1.021 (1.003-1.030) 09/08/17 02:09 Urine Protein >500 mg/dL (Negative) 09/08/17 02:09 Urine Glucose (UA) >=500 mg/dL (Negative) 09/08/17 02:09 Urine Ketones 20 mg/dL (Negative) 09/08/17 02:09 Urine Blood Mod (Negative) 09/08/17 02:09 Urine Nitrite Neg (Negative) 09/08/17 02:09 Urine Bilirubin Neg (Negative) 09/08/17 02:09 Urine Urobilinogen < 2.0 mg/dL (<2.0) 09/08/17 02:09 Ur Leukocyte Esterase Neg (Negative) 09/08/17 02:09 Urine WBC (Auto) 7.0 /HPF (0.0-6.0) H 09/08/17 02:09 Urine RBC (Auto) 3.0 /HPF (0.0-6.0) 09/08/17 02:09 Amorphous Crystals 2+ 09/08/17 02:09 Hyaline Casts 5 /LPF 09/08/17 02:09 Urine Mucus Few /HPF 09/08/17 02:09 Urine Opiates Screen Presumptive negative 09/08/17 02:09 Urine Methadone Screen Presumptive negative 09/08/17 02:09 Ur Barbiturates Screen Presumptive negative 09/08/17 02:09 Ur Phencyclidine Scrn Presumptive negative 09/08/17 02:09 Ur Amphetamines Screen Presumptive negative 09/08/17 02:09 U Benzodiazepines Scrn Presumptive negative 09/08/17 02:09 Urine Cocaine Screen Presumptive negative 09/08/17 02:09 U Marijuana (THC) Screen Presumptive negative 09/08/17 02:09 Drugs of Abuse Note Disclamer 09/08/17 02:09 Plasma/Serum Alcohol < 0.01 % (0-0.07) 09/07/17 23:26 Blood Type O POSITIVE 09/08/17 09:18 Antibody Screen Negative 09/08/17 09:18
[2017-09-15] MEDS: LANTUS SUB-Q SCH (22:45)
[2017-09-16] MEDS: APRESOLINE PO SCH (05:56)
[2017-09-16 05:57] LABS: Eosinophils # (Auto) 0.3 K/mm3 (0.0-0.4); Eosinophils % (Auto) 5.4 % (0.0-4.3); Hematocrit 26.9 % (35.5-45.6); Hemoglobin 9.3 gm/dl (11.8-15.2); Lymphocytes # (Auto) 1.8 K/mm3 (1.2-5.4); Lymphocytes % (Auto) 35.1 % (13.4-35.0); Mean Corpuscular HGB Conc 35 % (32-34); Mean Corpuscular Hemoglobin 31 pg (28-32); Mean Corpuscular Volume 90 fl (84-94); Monocytes # (Auto) 0.7 K/mm3 (0.0-0.8); Monocytes % (Auto) 13.5 % (0.0-7.3); Platelet Count 296 K/mm3 (140-440); Red Blood Count 2.98 M/mm3 (3.65-5.03); Red Cell Distribution Width 12.8 % (13.2-15.2)
[2017-09-16 06:16] LABS: Calcium 8.3 mg/dL (8.4-10.2)
[2017-09-16 08:37] VITALS: BP 141/80
[2017-09-16] MEDS: HumaLOG SUB-Q SCH ×2 (09:30→13:21)
[2017-09-16] MEDS: CATAPRES PO SCH (13:19)
[2017-09-16] MEDS: NORVASC PO SCH (13:20)
[2017-09-16] MEDS: LOPRESSOR PO SCH (13:20)
== END 2017-09-16 13:35 | disposition home or self-care (01) | DRG 871 ==
LOC: ED 22:11 → CC1 09-08 02:57 → 3A 09-12 12:43
PROVIDERS: ADMIT Internal Medicine; ATTEND Internal Medicine
PROC: 02HV33Z Insertion of Infusion Device into Superior Vena Cava, Percutaneous Approach (ICD-10-PCS; 2017-09-08)
PROC: B548ZZA Ultrasonography of Superior Vena Cava, Guidance (ICD-10-PCS; 2017-09-08)
PROC: 3E0234Z Introduction of Serum, Toxoid and Vaccine into Muscle, Percutaneous Approach (ICD-10-PCS; principal; 2017-09-11)
DX: A41.9 Sepsis, unspecified organism (principal); E11.10 Type 2 diabetes mellitus with ketoacidosis without coma; G93.41 Metabolic encephalopathy; N18.4 Chronic kidney disease, stage 4 (severe); I12.9 Hypertensive chronic kidney disease with stage 1 through stage 4 chronic kidney disease, or unspecified chronic kidney disease; E11.22 Type 2 diabetes mellitus with diabetic chronic kidney disease; N30.00 Acute cystitis without hematuria; E87.6 Hypokalemia; E78.5 Hyperlipidemia, unspecified; N17.9 Acute kidney failure, unspecified; I16.1 Hypertensive emergency; Z23 Encounter for immunization; Z86.73 Personal history of transient ischemic attack (TIA), and cerebral infarction without residual deficits; Z79.4 Long term (current) use of insulin; Z79.899 Other long term (current) drug therapy; Z82.49 Family history of ischemic heart disease and other diseases of the circulatory system; Z83.3 Family history of diabetes mellitus
CPT/HCPCS: 36415; 70450; 71045; 80048; 80053; 80074; 80307; 80320; 81001; 82140; 82947; 82962; 83690; 83735; 83880; 84100; 84439; 84443; 84484; 85025; 85610; 85730; 86850; 86900; 86901; 87040; 87086; 90732; 93005; 93010; A9270-GY; G0480; G8978-GP; G8979-GP; J0360; J1630; J1815; J2060; J2543; J3010; J3370; J3480; J7030; J7040; J7050

== ENCOUNTER 2017-09-17 12:56 | Emergency (ER) | payer MEDICAID ==
[2017-09-17 14:27] LABS: Basophils # (Auto) 0.1 K/mm3 (0.0-0.1); Eosinophils # (Auto) 0.1 K/mm3 (0.0-0.4); Eosinophils % (Auto) 1.4 % (0.0-4.3); Hemoglobin 10.9 gm/dl (11.8-15.2); Lymphocytes # (Auto) 1.7 K/mm3 (1.2-5.4); Lymphocytes % (Auto) 24.5 % (13.4-35.0); Mean Corpuscular HGB Conc 34 % (32-34); Mean Corpuscular Hemoglobin 31 pg (28-32); Mean Corpuscular Volume 91 fl (84-94); Monocytes # (Auto) 0.7 K/mm3 (0.0-0.8); Platelet Count 381 K/mm3 (140-440); Red Blood Count 3.51 M/mm3 (3.65-5.03); Red Cell Distribution Width 13.2 % (13.2-15.2)
[2017-09-17 14:39] LABS: Albumin 3.2 g/dL (3.9-5); Calcium 9.3 mg/dL (8.4-10.2)
--- NOTE | 2017-09-17 14:42 | XRay Report ---
ROUTINE CHEST, TWO VIEWS: HISTORY: Dyspnea. The trachea, heart, mediastinal contour, lung garg and bony thorax are unremarkable. IMPRESSION: No acute cardiopulmonary process identified.
[2017-09-17 15:11] LABS: Chol/HDL Ratio 6.04 %
[2017-09-17] MEDS ORDERED: LOPRESSOR PO ONE (15:23)
[2017-09-17] MEDS ORDERED: APRESOLINE PO ONE (15:23)
--- NOTE | 2017-09-17 15:29 | Emergency Department Report ---
ED General Adult HPI - General Chief complaint: Weakness Stated complaint: GENERAL SICKNESS Time Seen by Provider: 09/17/17 13:42 Source: patient, EMS Mode of arrival: Stretcher Limitations: Physical Limitation - History of Present Illness Initial comments: Mr Marlow is a 62 year-old man with hx of IDDM, HTN who presents from home with report of shortness of breath. Occurred this morning, now has resolved. Not associated with chest pain. Was just discharged from the hospital yesterday with DKA and UTI. Lives alone with an 11 year-old and 13 year-old. He says he has none of his medications at home. he went home and thinks it is too dirty to live in. No longer having any dyspnea. No other complaints. Does not want to go home, has nowhere else to go. Did not take any of his medications this morning Severity scale (0 -10): 0 - Related Data Home Medications Medication Instructions Recorded Confirmed Last Taken NIFEdipine [Nifedipine ER] 90 mg PO DAILY 06/01/17 09/08/17 Unknown Previous Rx's Medication Instructions Recorded Last Taken Type AtorvaSTATin [Lipitor] 40 mg PO QHS #30 tablet 06/06/17 3 Days Ago Rx ~06/12/17 amLODIPine [Norvasc] 10 mg PO QDAY #30 tablet 06/06/17 Unknown Rx Sodium Bicarbonate 650 mg PO BID #60 tablet 06/17/17 Unknown Rx Insulin Glargine [Lantus VIAL] 20 units SUB-Q QHS #30 units 09/15/17 Unknown Rx Losartan [Cozaar] 100 mg PO QDAY #30 tablet 09/15/17 Unknown Rx Metoprolol Tartrate 100 mg PO BID #60 tablet 09/15/17 Unknown Rx Spironolactone [Aldactone] 25 mg PO BID #60 tablet 09/15/17 Unknown Rx cloNIDine [Catapres] 0.2 mg PO QHS #30 tablet 09/15/17 Unknown Rx glipiZIDE [Glipizide] 5 mg PO DAILY #30 tablet 09/15/17 Unknown Rx hydrALAZINE [Apresoline TAB] 100 mg PO Q8HR #90 tab 09/15/17 Unknown Rx Allergies Allergy/AdvReac Type Severity Reaction Status Date / Time No Known Allergies Allergy Verified 06/12/17 15:18 ED Review of Systems ROS: Stated complaint: GENERAL SICKNESS Other details as noted in HPI Comment: Unobtainable due to pts medical conditions ED Past Medical Hx - Past Medical History Hx Hypertension: Yes Hx Congestive Heart Failure: No Hx Diabetes: Yes Hx Deep Vein Thrombosis: No Hx Asthma: No Hx COPD: No Hx HIV: No Additional medical history: Stage IV chronic kidney disease. Recent hypertensive cerebral hemorrhage - Surgical History Hx Pacemaker: No Hx Internal Defibrillator: No Additional Surgical History: hernia repair - Social History Smoking Status: Never Smoker Substance Use Type: None - Medications Home Medications: Home Medications Medication Instructions Recorded Confirmed Last Taken Type NIFEdipine [Nifedipine ER] 90 mg PO DAILY 06/01/17 09/08/17 Unknown History AtorvaSTATin [Lipitor] 40 mg PO QHS #30 tablet 06/06/17 09/08/17 3 Days Ago Rx ~06/12/17 amLODIPine [Norvasc] 10 mg PO QDAY #30 tablet 06/06/17 09/08/17 Unknown Rx Sodium Bicarbonate 650 mg PO BID #60 tablet 06/17/17 09/08/17 Unknown Rx Insulin Glargine [Lantus VIAL] 20 units SUB-Q QHS #30 units 09/15/17 Unknown Rx Losartan [Cozaar] 100 mg PO QDAY #30 tablet 09/15/17 Unknown Rx Metoprolol Tartrate 100 mg PO BID #60 tablet 09/15/17 Unknown Rx Spironolactone [Aldactone] 25 mg PO BID #60 tablet 09/15/17 Unknown Rx cloNIDine [Catapres] 0.2 mg PO QHS #30 tablet 09/15/17 Unknown Rx glipiZIDE [Glipizide] 5 mg PO DAILY #30 tablet 09/15/17 Unknown Rx hydrALAZINE [Apresoline TAB] 100 mg PO Q8HR #90 tab 09/15/17 Unknown Rx ED Physical Exam - General Limitations: Physical Limitation General appearance: alert, in no apparent distress - Head Head exam: Present: atraumatic, normocephalic - Eye Eye exam: Present: normal appearance - ENT ENT exam: Present: mucous membranes moist - Neck Neck exam: Present: normal inspection - Respiratory Respiratory exam: Present: normal lung sounds bilaterally. Absent: respiratory distress - Cardiovascular Cardiovascular Exam: Present: regular rate, normal rhythm. Absent: systolic murmur, diastolic murmur, rubs, gallop - GI/Abdominal GI/Abdominal exam: Present: soft. Absent: distended, tenderness, guarding - Rectal Rectal exam: Present: deferred - Extremities Exam Extremities exam: Present: normal inspection - Back Exam Back exam: Present: normal inspection - Neurological Exam Neurological exam: Present: alert, oriented X3 - Psychiatric Psychiatric exam: Present: normal affect, normal mood - Skin Skin exam: Present: warm, dry, intact, normal color. Absent: rash ED Course Vital Signs 09/17/17 09/17/17 09/17/17 14:27 14:45 17:47 Temperature 98.3 F 98.3 F Pulse Rate 86 86 88 Respiratory 14 20 Rate Blood Pressure 200/105 199/124 Blood Pressure 200/105 [Left] O2 Sat by Pulse 98 98 Oximetry ED Medical Decision Making - Lab Data Result diagrams: 09/17/17 13:55 09/17/17 13:55 - EKG Data 1453: HR 81, sinus, normal axis, itnervals wnl, lateral TWI unchanged from previous 1708: HR 86, sinus, normal axis, itnervals wnl, lateral TWI unchanged from previous - Medical Decision Making Mr Marlow is a 62 year-old man with hx of HTN, DM who presents from home after what sounds like brief period of dyspnea. As well, was just admitted to the hospital and is very unhappy with the state of his home when he arrived back. Denies any chest pain. no shortness of breath here. Did not take any of his medications today. Exam unremarkable. Suspect this is ACS vs COPD vs PNA vs CHF vs subjective dyspnea. Lungs remain clear and normal HR/RR/SpO2 during visit. Presented hypertensive. CXr clear. Trop 0.04, repeat 0.03. EKG non-ischemic and unchanged from previous x 2. Labs with mildly elevated glucose. normal CBC. Patient given some of his antihypertensives after presenting hypertensive. Reposrt feeling well and that he has all of hsi meds waiting at [facility] to be picked up. He will contact his brother in law to help him get get a new place or clean his current place. Given care instructions and return precautions. safe for dc to home Critical care attestation.: If time is entered above; I have spent that time in minutes in the direct care of this critically ill patient, excluding procedure time. ED Disposition Clinical Impression: Essential hypertension Dyspnea Qualifiers: Dyspnea type: unspecified Qualified Code(s): R06.00 - Dyspnea, unspecified Disposition: DC-01 TO HOME OR SELFCARE Is pt being admited?: No Condition: Stable Instructions: Hypertension (ED), Dyspnea (ED) Referrals: PRIMARY CARE,MD [Primary Care Provider] - 3-5 Days
[2017-09-17] MEDS ORDERED: LOPRESSOR ONE (17:40)
[2017-09-17] MEDS ORDERED: APRESOLINE ONE (17:41)
[2017-09-17 20:23] VITALS: BP 172/98
[2017-09-17 21:15] LABS: Bilirubin,Urine NEG (Negative); Blood,Urine NEG (Negative); Color,Urine Yellow (Yellow); Urobilinogen,Urine < 2.0 mg/dL (<2.0); WBC,Urine < 1.0 /HPF (0.0-6.0)
[2017-09-17 21:19] LABS: Protein,Urine >500 mg/dL (Negative)
== END 2017-09-18 | disposition home or self-care (01) ==
LOC: ED 12:56
DX: I12.9 Hypertensive chronic kidney disease with stage 1 through stage 4 chronic kidney disease, or unspecified chronic kidney disease (principal); E11.22 Type 2 diabetes mellitus with diabetic chronic kidney disease; N18.4 Chronic kidney disease, stage 4 (severe); R06.00 Dyspnea, unspecified; Z79.4 Long term (current) use of insulin
CPT/HCPCS: 36415; 71046; 80053; 80061; 81001; 84484; 85025; 93005; 93010

== ENCOUNTER 2017-09-18 19:34 | Emergency (ER) | payer MEDICAID ==
[2017-09-18 20:13] LABS: Basophils # (Auto) 0.1 K/mm3 (0.0-0.1); Basophils % (Auto) 1.2 % (0.0-1.8); Eosinophils # (Auto) 0.1 K/mm3 (0.0-0.4); Eosinophils % (Auto) 1.5 % (0.0-4.3); Lymphocytes # (Auto) 1.4 K/mm3 (1.2-5.4); Lymphocytes % (Auto) 21.2 % (13.4-35.0); Monocytes # (Auto) 0.8 K/mm3 (0.0-0.8); Monocytes % (Auto) 12.2 % (0.0-7.3)
[2017-09-18 20:27] LABS: Hematocrit 28.8 % (35.5-45.6); Mean Corpuscular HGB Conc 34 % (32-34); Mean Corpuscular Hemoglobin 31 pg (28-32); Mean Corpuscular Volume 91 fl (84-94); Platelet Count 363 K/mm3 (140-440); Red Blood Count 3.17 M/mm3 (3.65-5.03); Red Cell Distribution Width 13.3 % (13.2-15.2)
[2017-09-18 20:31] LABS: Calcium 8.7 mg/dL (8.4-10.2)
--- NOTE | 2017-09-18 20:43 | Emergency Department Report ---
ED General Adult HPI - General Chief complaint: Dyspnea/Respdistress Stated complaint: BEHAVORIAL Time Seen by Provider: 09/18/17 20:08 Source: patient, EMS Mode of arrival: Stretcher Limitations: No Limitations - History of Present Illness Initial comments: Mr. Marlow is a 62 yo male with hx of CVA, HTN, CKD, SAH and DM need "a place to stay". He explains that his [facility] He does have a [id number] and sister who live in the area. However he says that "I am too much for them" . He has 2 young children who are 11 and 13 years old respectively. The mother of thechildren lives in [place]. He is . He explains that he is unable to care for himself. He denies any acute illness. He wanted to be checked for possible stroke. However he does not have any neurological symptoms. He was recently discharged 2 days ago after a prolonged hospital admission for encephalopathy, DKA and UTI. Patient was also evaluated in the ED yesterday. - Related Data Home Medications Medication Instructions Recorded Confirmed Last Taken NIFEdipine [Nifedipine ER] 90 mg PO DAILY 06/01/17 09/08/17 Unknown Previous Rx's Medication Instructions Recorded Last Taken Type AtorvaSTATin [Lipitor] 40 mg PO QHS #30 tablet 06/06/17 3 Days Ago Rx ~06/12/17 amLODIPine [Norvasc] 10 mg PO QDAY #30 tablet 06/06/17 Unknown Rx Sodium Bicarbonate 650 mg PO BID #60 tablet 06/17/17 Unknown Rx Insulin Glargine [Lantus VIAL] 20 units SUB-Q QHS #30 units 09/15/17 Unknown Rx Losartan [Cozaar] 100 mg PO QDAY #30 tablet 09/15/17 Unknown Rx Metoprolol Tartrate 100 mg PO BID #60 tablet 09/15/17 Unknown Rx Spironolactone [Aldactone] 25 mg PO BID #60 tablet 09/15/17 Unknown Rx cloNIDine [Catapres] 0.2 mg PO QHS #30 tablet 09/15/17 Unknown Rx glipiZIDE [Glipizide] 5 mg PO DAILY #30 tablet 09/15/17 Unknown Rx hydrALAZINE [Apresoline TAB] 100 mg PO Q8HR #90 tab 09/15/17 Unknown Rx Allergies Allergy/AdvReac Type Severity Reaction Status Date / Time No Known Allergies Allergy Verified 06/12/17 15:18 ED Review of Systems ROS: Stated complaint: BEHAVORIAL Other details as noted in HPI Comment: All other systems reviewed and negative Constitutional: denies: fever, malaise Respiratory: cough Cardiovascular: chest pain ED Past Medical Hx - Past Medical History Previous Medical History?: Yes Hx Hypertension: Yes Hx CVA: Yes (May 2017) Hx Congestive Heart Failure: No Hx Diabetes: Yes Hx Deep Vein Thrombosis: No Hx Asthma: No Hx COPD: No Hx HIV: No Additional medical history: Stage IV chronic kidney disease. Recent hypertensive cerebral hemorrhage - Surgical History Past Surgical History?: Yes Hx Pacemaker: No Hx Internal Defibrillator: No Additional Surgical History: hernia repair - Social History Smoking Status: Never Smoker Substance Use Type: None - Medications Home Medications: Home Medications Medication Instructions Recorded Confirmed Last Taken Type NIFEdipine [Nifedipine ER] 90 mg PO DAILY 06/01/17 09/08/17 Unknown History AtorvaSTATin [Lipitor] 40 mg PO QHS #30 tablet 06/06/17 09/08/17 3 Days Ago Rx ~06/12/17 amLODIPine [Norvasc] 10 mg PO QDAY #30 tablet 06/06/17 09/08/17 Unknown Rx Sodium Bicarbonate 650 mg PO BID #60 tablet 06/17/17 09/08/17 Unknown Rx Insulin Glargine [Lantus VIAL] 20 units SUB-Q QHS #30 units 09/15/17 Unknown Rx Losartan [Cozaar] 100 mg PO QDAY #30 tablet 09/15/17 Unknown Rx Metoprolol Tartrate 100 mg PO BID #60 tablet 09/15/17 Unknown Rx Spironolactone [Aldactone] 25 mg PO BID #60 tablet 09/15/17 Unknown Rx cloNIDine [Catapres] 0.2 mg PO QHS #30 tablet 09/15/17 Unknown Rx glipiZIDE [Glipizide] 5 mg PO DAILY #30 tablet 09/15/17 Unknown Rx hydrALAZINE [Apresoline TAB] 100 mg PO Q8HR #90 tab 09/15/17 Unknown Rx ED Physical Exam - General Limitations: No Limitations General appearance: alert, in no apparent distress - Head Head exam: Present: atraumatic, normocephalic - Eye Eye exam: Present: normal appearance - ENT ENT exam: Present: mucous membranes moist - Neck Neck exam: Present: normal inspection - Respiratory Respiratory exam: Present: normal lung sounds bilaterally. Absent: respiratory distress, wheezes, rales, rhonchi, stridor - Cardiovascular Cardiovascular Exam: Present: regular rate, normal rhythm, normal heart sounds. Absent: systolic murmur, diastolic murmur, rubs, gallop - GI/Abdominal GI/Abdominal exam: Present: soft, normal bowel sounds. Absent: distended, tenderness - Rectal Rectal exam: Present: deferred - Extremities Exam Extremities exam: Present: normal inspection - Back Exam Back exam: Present: normal inspection - Neurological Exam Neurological exam: Present: alert, oriented X3, CN II-XII intact, normal gait. Absent: motor sensory deficit - Psychiatric Psychiatric exam: Present: normal affect, normal mood - Skin Skin exam: Present: warm, dry, intact, normal color. Absent: rash ED Course Vital Signs 09/18/17 09/18/17 09/18/17 19:45 21:12 21:21 Temperature 99 F Pulse Rate 94 H 88 82 Respiratory 17 18 Rate Blood Pressure 206/108 190/106 205/109 Blood Pressure 206/108 [Left] O2 Sat by Pulse 99 99 Oximetry 09/18/17 09/18/17 09/19/17 22:01 23:00 00:00 Temperature Pulse Rate 92 H 97 H 89 Respiratory 15 14 14 Rate Blood Pressure 199/118 130/66 151/83 Blood Pressure [Left] O2 Sat by Pulse 98 98 98 Oximetry 09/19/17 01:00 Temperature Pulse Rate 80 Respiratory 16 Rate Blood Pressure 149/81 Blood Pressure [Left] O2 Sat by Pulse 99 Oximetry ED Medical Decision Making - Lab Data Result diagrams: 09/18/17 19:57 09/18/17 19:57 Laboratory Results - last 24 hr 09/18/17 09/18/17 09/18/17 19:49 19:57 19:57 WBC 6.5 RBC 3.17 L Hgb 10.0 L Hct 28.8 L MCV 91 MCH 31 MCHC 34 RDW 13.3 Plt Count 363 Lymph % (Auto) 21.2 [place] % (Auto) 12.2 H Eos % (Auto) 1.5 Baso % (Auto) 1.2 Lymph # 1.4 [place] # 0.8 Eos # 0.1 Baso # 0.1 Seg Neutrophils % 63.9 Seg Neutrophils # 4.1 Sodium 130 L Potassium 3.5 L Chloride 95.3 L Carbon Dioxide 21 L Anion Gap 17 BUN 24 H Creatinine 3.1 H Estimated GFR 25 BUN/Creatinine Ratio 8 Glucose 404 H POC Glucose 370 H Calcium 8.7 Vital Signs - 24 hr 09/18/17 19:45 Temperature 99 F Pulse Rate 94 H Respiratory 17 Rate Blood Pressure 206/108 Blood Pressure 206/108 [Left] O2 Sat by Pulse 99 Oximetry - EKG Data 09/18/17 20:48 Time obtained 2040 Normal sinus rhythm rate 85 bpm normal axis intervals diffuse T wave inversions elevation positive lvh - Medical Decision Making Mr. Marlow has a poor social situation with limited support. He does have multiple comorbidities. He is unable to care for himself. He does not appear to be managing HTN and DM. It appears that he is not able to care for his young children. He would not provide contact information for his brother-in- law or sister. I did not see this demographic information in the EMR. I discussed treatment plan with our charge nurse here in the ED. She recommended keeping the patient and the ER overnight for case management consultation. I reviewed labs and diagnostics which were performed on yesterday's ED visit. Urinalysis was negative for UTI. Patient does not have acute illness which needs resuscitation. His blood pressure will be managed with his home medications. Critical care attestation.: If time is entered above; I have spent that time in minutes in the direct care of this critically ill patient, excluding procedure time. ED Disposition Clinical Impression: Hypertensive urgency, Inadequate social support, Diabetes mellitus Disposition: DC/TX-06 HOME UNDER HOME HLTH Is pt being admited?: No Does the pt Need Aspirin: No Condition: Stable Instructions: Diabetes Mellitus Type 2 in Adults (ED) Referrals: PRIMARY CARE, [Primary Care Provider] - 3-5 Days
[2017-09-18] MEDS ORDERED: CATAPRES PO ONE (20:54)
[2017-09-18] MEDS ORDERED: APRESOLINE PO ONE (20:55)
[2017-09-18] MEDS ORDERED: LANTUS SUB-Q ONE (20:57)
--- NOTE | 2017-09-18 21:07 | XRay Report ---
FINAL REPORT EXAM: XR CHEST 1V AP HISTORY: Shortness of breath TECHNIQUE: Single, portable chest x-ray. PRIORS: 08 September 2017. FINDINGS: Cardiac and mediastinal silhouette within normal limits. Lungs are normally expanded, without significant vascular congestion. No focal consolidation or apparent pneumothorax. Mild degenerative change in the thoracic spine. Mild dextroconvex curvature of lumbar spine. IMPRESSION: 1. No acute findings.
[2017-09-19] MEDS: LANTUS SUB-Q SCH ×2 (01:26→22:58)
[2017-09-19] MEDS ORDERED: CATAPRES PO ONE (09:00)
--- NOTE | 2017-09-19 15:05 | Consultation ---
History of Present Illness - Reason for Consult Consult date: 09/19/17 Reason for consult: Initial Psychiatric Evaluation Medications and Allergies Allergies Allergy/AdvReac Type Severity Reaction Status Date / Time No Known Allergies Allergy Verified 06/12/17 15:18 Home Medications Medication Instructions Recorded Confirmed Last Taken Type NIFEdipine [Nifedipine ER] 90 mg PO DAILY 06/01/17 09/08/17 Unknown History AtorvaSTATin [Lipitor] 40 mg PO QHS #30 tablet 06/06/17 09/08/17 3 Days Ago Rx ~06/12/17 amLODIPine [Norvasc] 10 mg PO QDAY #30 tablet 06/06/17 09/08/17 Unknown Rx Sodium Bicarbonate 650 mg PO BID #60 tablet 06/17/17 09/08/17 Unknown Rx Insulin Glargine [Lantus VIAL] 20 units SUB-Q QHS #30 units 09/15/17 Unknown Rx Losartan [Cozaar] 100 mg PO QDAY #30 tablet 09/15/17 Unknown Rx Metoprolol Tartrate 100 mg PO BID #60 tablet 09/15/17 Unknown Rx Spironolactone [Aldactone] 25 mg PO BID #60 tablet 09/15/17 Unknown Rx cloNIDine [Catapres] 0.2 mg PO QHS #30 tablet 09/15/17 Unknown Rx glipiZIDE [Glipizide] 5 mg PO DAILY #30 tablet 09/15/17 Unknown Rx hydrALAZINE [Apresoline TAB] 100 mg PO Q8HR #90 tab 09/15/17 Unknown Rx Active Meds: Active Medications Insulin Glargine (Lantus) 10 units SUB-Q QHS [facility] Last Admin: 09/19/17 01:26 Dose: 10 units Mental Status Exam - Vital signs Last Vital Signs Temp 99 F 09/18/17 19:45 Pulse 89 09/19/17 11:04 Resp 16 09/19/17 01:00 BP 149/93 09/19/17 11:04 Pulse Ox 99 09/19/17 01:00 Results Result Diagrams: 09/18/17 19:57 09/18/17 19:57 Abnormal lab results 09/18/17 09/18/17 09/18/17 Range/Units 19:49 19:57 19:57 RBC 3.17 L (3.65-5.03) M/mm3 Hgb 10.0 L (11.8-15.2) gm/dl Hct 28.8 L (35.5-45.6) % [place] % (Auto) 12.2 H (0.0-7.3) % Sodium 130 L (137-145) mmol/L Potassium 3.5 L (3.6-5.0) mmol/L Chloride 95.3 L (98-107) mmol/L Carbon Dioxide 21 L (22-30) mmol/L BUN 24 H (9-20) mg/dL Creatinine 3.1 H (0.8-1.5) mg/dL Glucose 404 H (75-100) mg/dL POC Glucose 370 H (70-105) 09/18/17 09/18/17 09/19/17 Range/Units 21:41 23:33 04:27 RBC (3.65-5.03) M/mm3 Hgb (11.8-15.2) gm/dl Hct (35.5-45.6) % [place] % (Auto) (0.0-7.3) % Sodium (137-145) mmol/L Potassium (3.6-5.0) mmol/L Chloride (98-107) mmol/L Carbon Dioxide (22-30) mmol/L BUN (9-20) mg/dL Creatinine (0.8-1.5) mg/dL Glucose (75-100) mg/dL POC Glucose 371 H 390 H 283 H (70-105) All other labs normal.
[2017-09-19] MEDS ORDERED: LANTUS SUB-Q SCH (22:00)
[2017-09-20] MEDS ORDERED: LOPRESSOR PO ONE (20:18)
[2017-09-20] MEDS ORDERED: NORVASC PO ONE (20:18)
[2017-09-20] MEDS ORDERED: APRESOLINE PO ONE (20:18)
[2017-09-20] MEDS: LANTUS SUB-Q SCH (23:14)
[2017-09-21] MEDS ORDERED: LOPRESSOR ONE (01:24)
[2017-09-21] MEDS ORDERED: NORVASC ONE (03:32)
[2017-09-21] MEDS ORDERED: LANTUS SUB-Q NR (07:56)
[2017-09-21] MEDS: APRESOLINE PO SCH ×2 (09:17→18:00)
[2017-09-21] MEDS: CATAPRES PO SCH ×2 (09:49→21:36)
[2017-09-21] MEDS: LOPRESSOR PO SCH ×2 (09:49→21:36)
--- NOTE | 2017-09-21 12:56 | Emergency Department Report ---
Blank Doc - Documentation Documentation: I reviewed case management inpatient notes. It appears that he has a very complicated situation. He did refuse SNF placement. I spoke with Joaquin today. She will arrange for SNF placement from the ER.
[2017-09-21] MEDS ORDERED: MORPHINE ONE (18:08)
[2017-09-21] MEDS ORDERED: NACL 0.9% 1000 ML 0 ML ONE (18:08)
[2017-09-21] MEDS ORDERED: ZOFRAN ONE (18:08)
[2017-09-21] MEDS ORDERED: NACL 0.9% 1,000 ML IR ONE (18:11)
[2017-09-21] MEDS ORDERED: XYLOCAINE 2%/EPI 1:100,000 INFILTRATI ONE (18:13)
[2017-09-21] MEDS: LANTUS SUB-Q SCH (22:04)
[2017-09-22] MEDS: APRESOLINE PO SCH ×3 (01:00→16:12)
[2017-09-22] MEDS: CATAPRES PO SCH ×2 (10:00→23:27)
[2017-09-22] MEDS: LOPRESSOR PO SCH ×2 (12:05→23:28)
[2017-09-22] MEDS: LANTUS SUB-Q SCH (23:27)
[2017-09-23] MEDS: APRESOLINE PO SCH ×4 (01:42→23:46)
[2017-09-23] MEDS ORDERED: DILAUDID ONE (07:06)
[2017-09-23] MEDS ORDERED: ZOFRAN ONE (07:06)
[2017-09-23] MEDS ORDERED: ATIVAN ONE (07:06)
[2017-09-23] MEDS ORDERED: TRIDIL DRIP 50MG/250ML 0 MG/0 ML BOTTLE ONE (07:08)
[2017-09-23] MEDS: LOPRESSOR PO SCH ×2 (10:14→22:54)
[2017-09-23] MEDS: CATAPRES PO SCH ×2 (10:14→22:54)
[2017-09-23] MEDS: LANTUS SUB-Q SCH (22:54)
[2017-09-24] MEDS: CATAPRES PO SCH ×2 (10:45→21:45)
[2017-09-24] MEDS: APRESOLINE PO SCH ×2 (10:45→18:03)
[2017-09-24] MEDS: LOPRESSOR PO SCH ×2 (11:12→22:39)
[2017-09-24] MEDS: LANTUS SUB-Q SCH (21:46)
[2017-09-25] MEDS: APRESOLINE PO SCH ×3 (00:59→16:35)
[2017-09-25] MEDS: LOPRESSOR PO SCH ×2 (10:50→22:36)
[2017-09-25] MEDS: CATAPRES PO SCH ×2 (12:30→22:34)
[2017-09-25] MEDS: LANTUS SUB-Q SCH (22:36)
[2017-09-26] MEDS: APRESOLINE PO SCH ×3 (01:00→17:33)
[2017-09-26] MEDS: LOPRESSOR PO SCH ×2 (09:45→22:25)
[2017-09-26] MEDS: CATAPRES PO SCH ×2 (09:45→22:23)
[2017-09-26] MEDS ORDERED: DUONEB *Not for PRN Use IH ONE (12:15)
[2017-09-26] MEDS ORDERED: S2 RACEPINEPHRINE 2.25% IH ONE (12:16)
[2017-09-26] MEDS ORDERED: D50W (25GM) Syringe IV PRN (21:59)
[2017-09-26] MEDS: HumuLIN R SUB-Q SCH (22:23)
[2017-09-26] MEDS: LANTUS SUB-Q SCH (22:24)
[2017-09-27] MEDS: APRESOLINE PO SCH ×3 (00:30→16:50)
[2017-09-27] MEDS: HumuLIN R SUB-Q SCH ×4 (08:17→23:51)
[2017-09-27] MEDS: LOPRESSOR PO SCH (10:21)
[2017-09-27] MEDS: CATAPRES PO SCH (10:22)
[2017-09-28] MEDS: CATAPRES PO SCH ×3 (00:27→22:16)
[2017-09-28] MEDS: LOPRESSOR PO SCH ×3 (00:28→23:36)
[2017-09-28] MEDS: APRESOLINE PO SCH ×3 (00:28→17:10)
[2017-09-28] MEDS: LANTUS SUB-Q SCH ×2 (01:25→22:37)
[2017-09-28] MEDS: HumuLIN R SUB-Q SCH ×4 (08:30→22:37)
[2017-09-29] MEDS: APRESOLINE PO SCH ×3 (00:48→18:34)
[2017-09-29] MEDS: HumuLIN R SUB-Q SCH ×4 (09:01→23:02)
[2017-09-29] MEDS: CATAPRES PO SCH ×2 (10:17→23:02)
[2017-09-29] MEDS: LOPRESSOR PO SCH ×2 (10:17→23:02)
--- NOTE | 2017-09-29 21:40 | Emergency Department Report ---
Blank Doc - Documentation Documentation: I went to reevaluate the patient due to his prolonged stay in the ER. Vital signs are stable. Patient has no medical complaints at this time. Cardiovascular exam shows regular rhythm/rate sinus axis. Lungs are clear to auscultation bilaterally. Abdomen is benign. Patient is hemodynamically stable.
[2017-09-29] MEDS ORDERED: LOPRESSOR ONE (22:53)
[2017-09-29] MEDS: LANTUS SUB-Q SCH (23:02)
[2017-09-30] MEDS: APRESOLINE PO SCH ×3 (02:08→16:42)
[2017-09-30] MEDS: HumuLIN R SUB-Q SCH ×2 (09:40→13:30)
[2017-09-30] MEDS: CATAPRES PO SCH (10:02)
[2017-09-30] MEDS: LOPRESSOR PO SCH (10:55)
[2017-09-30] MEDS ORDERED: BENADRYL PO ONE (13:45)
[2017-09-30 16:42] VITALS: BP 159/88
== END 2017-09-30 17:56 | disposition home health service (06) ==
LOC: EEVIPCON 19:34 → ED 19:34
DX: I16.0 Hypertensive urgency (principal); I12.9 Hypertensive chronic kidney disease with stage 1 through stage 4 chronic kidney disease, or unspecified chronic kidney disease; E11.22 Type 2 diabetes mellitus with diabetic chronic kidney disease; N18.4 Chronic kidney disease, stage 4 (severe); Z86.73 Personal history of transient ischemic attack (TIA), and cerebral infarction without residual deficits; Z79.4 Long term (current) use of insulin
CPT/HCPCS: 36415; 71045; 80048; 82962; 85025; 93005; 93010; 96372; 99284; 99285; J0153; J1170; J1815; J2060; J2270; J2405; J7030

== ENCOUNTER 2018-03-20 20:26 | Inpatient (IN) | payer MEDICAID ==
[2018-03-20 22:40] LABS: Basophils % (Auto) 0.5 % (0.0-1.8); Eosinophils # (Auto) 0.1 K/mm3 (0.0-0.4); Eosinophils % (Auto) 0.8 % (0.0-4.3); Hematocrit 34.1 % (35.5-45.6); Hemoglobin 11.3 gm/dl (11.8-15.2); Lymphocytes # (Auto) 0.9 K/mm3 (1.2-5.4); Lymphocytes % (Auto) 14.2 % (13.4-35.0); Mean Corpuscular HGB Conc 33 % (32-34); Mean Corpuscular Hemoglobin 30 pg (28-32); Mean Corpuscular Volume 92 fl (84-94); Monocytes # (Auto) 0.4 K/mm3 (0.0-0.8); Monocytes % (Auto) 6.8 % (0.0-7.3); Platelet Count 340 K/mm3 (140-440); Red Blood Count 3.73 M/mm3 (3.65-5.03); Red Cell Distribution Width 13.2 % (13.2-15.2)
--- NOTE | 2018-03-20 22:43 | Cat Scan Report ---
FINAL REPORT EXAM: CT HEAD/BRAIN WO CON HISTORY: confusion COMPARISON: January 2018. TECHNIQUE: Axial images obtained skull base through vertex. FINDINGS: No acute intracranial hemorrhage, midline shift or pathologic extra axial fluid collection. Age relat ed volume loss with compensatory dilatation of the ventricular system and chronic small vessel ischem ic disease. Otherwise, stallings-white differentiation preserved. Calvarium grossly intact. Small remote a ppearing bilateral lacunar infarcts of the basal ganglia and thalami. Stable small remote left cerebe llar infarct. Mild mucosal thickening the paranasal sinuses. Mastoid air cells are clear. IMPRESSION: No grossly acute intracranial abnormality. Moderate volume loss and chronic small vessel ischemic dis ease advanced for patient age. Small remote lacunar infarcts bilateral basal ganglia and bilateral th keysha and small remote left cerebellar infarct. If clinical concern for acute intracranial process re concetta, MRI would be suggested for further evaluation.
[2018-03-20 22:54] LABS: Albumin 4.1 g/dL (3.9-5); Calcium 9.1 mg/dL (8.4-10.2)
--- NOTE | 2018-03-20 23:38 | XRay Report ---
FINAL REPORT EXAM: XR CHEST ROUTINE 2V HISTORY: ams COMPARISON: March 14, 2018 FINDINGS:: Frontal and lateral views of the chest obtained. Heart borderline enlarged. Mild tortuosi ty of the thoracic aorta.. No focal consolidation or effusion. No pneumothorax. Visualized bony thora x is grossly intact. IMPRESSION:: No acute findings.
--- NOTE | 2018-03-21 00:02 | Emergency Department Report ---
ED General Adult HPI - General Chief complaint: Medical Clearance Stated complaint: CONFUSION Time Seen by Provider: 03/20/18 22:49 Source: patient Mode of arrival: Ambulatory Limitations: No Limitations - History of Present Illness Initial comments: 62-year-old male presents with history of CVA in the past, ESRD presents to ED stating that he is confused. Patient currently A&O 3. When I asked what exactly he has been confused about patient states he just feels confused. States confusion began today. The patient states he was transported to ED by EMS from home. He states his can no longer take care of him. Patient has history of ESRD, on dialysis. Should unsure of when he was last dialyzed. He states it may have been on yesterday, however he cannot remember. Does not know what dialysis schedule he is on. Triage nurse attempted to reach patient's at the number that is provided on the chart, however the number was disconne cted. Discharged from this hospital 2 days ago. Pt has no other complaints. Improves with: none Worsens with: none Associated Symptoms: denies other symptoms. denies: chest pain, headaches, nausea/vomiting, shortness of breath - Related Data Previous Rx's Medication Instructions Recorded Last Taken Type Acetaminophen [Acetaminophen TAB] 650 mg PO Q4H PRN #30 tablet 01/27/18 Unknown Rx AtorvaSTATin [Lipitor] 40 mg PO QHS #30 tablet 01/27/18 Unknown Rx Famotidine [Pepcid] 20 mg PO DAILY #30 tablet 01/27/18 Unknown Rx Losartan [Cozaar] 100 mg PO QDAY #30 tablet 01/27/18 Unknown Rx Metoprolol [Lopressor TAB] 100 mg PO BID #60 tablet 01/27/18 Unknown Rx amLODIPine [Norvasc] 10 mg PO QDAY #30 tablet 01/27/18 Unknown Rx hydrALAZINE [Apresoline TAB] 100 mg PO TID #90 tab 01/27/18 Unknown Rx oxyCODONE /ACETAMINOPHEN [Percocet 1 tab PO Q6H PRN #10 tablet 01/27/18 Unknown Rx 5/325 mg] Furosemide [Lasix TAB] 40 mg PO QDAY #30 tablet 02/02/18 Unknown Rx Minoxidil [Loniten] 5 mg PO BID #60 tablet 02/02/18 Unknown Rx Insulin NPH, Human [NovoLIN N] 8 unit SUB-Q BIDDIAB 30 Days units 03/18/18 Unknown Rx Lispro Insulin [Humalog] See Protocol SUB-Q QACHS #100 units 03/18/18 Unknown Rx glipiZIDE [Glucotrol] 5 mg PO QDDIAB #30 tablet 03/18/18 Unknown Rx Allergies Allergy/AdvReac Type Severity Reaction Status Date / Time No Known Allergies Allergy Verified 06/12/17 15:18 ED Review of Systems ROS: Stated complaint: CONFUSION Other details as noted in HPI Comment: All other systems reviewed and negative Respiratory: denies: shortness of breath Cardiovascular: denies: chest pain Gastrointestinal: denies: vomiting Neurological: confusion ED Past Medical Hx - Past Medical History Previous Medical History?: Yes Hx Hypertension: Yes Hx CVA: Yes (May 2017) Hx Congestive Heart Failure: No Hx Diabetes: Yes Hx Deep Vein Thrombosis: No Hx Sickle Cell Disease: No Hx Asthma: No Hx COPD: No Hx HIV: No Additional medical history: Stage IV chronic kidney disease. Recent hypertensive cerebral hemorrhage - Surgical History Past Surgical History?: Yes Hx Pacemaker: No Hx Internal Defibrillator: No Additional Surgical History: hernia repair l't AV shunt - Social History Smoking Status: Never Smoker Substance Use Type: None - Medications Home Medications: Home Medications Medication Instructions Recorded Confirmed Last Taken Type Acetaminophen [Acetaminophen TAB] 650 mg PO Q4H PRN #30 tablet 01/27/18 03/15/18 Unknown Rx AtorvaSTATin [Lipitor] 40 mg PO QHS #30 tablet 01/27/18 03/15/18 Unknown Rx Famotidine [Pepcid] 20 mg PO DAILY #30 tablet 01/27/18 03/15/18 Unknown Rx Losartan [Cozaar] 100 mg PO QDAY #30 tablet 01/27/18 03/15/18 Unknown Rx Metoprolol [Lopressor TAB] 100 mg PO BID #60 tablet 01/27/18 03/15/18 Unknown Rx amLODIPine [Norvasc] 10 mg PO QDAY #30 tablet 01/27/18 03/15/18 Unknown Rx hydrALAZINE [Apresoline TAB] 100 mg PO TID #90 tab 01/27/18 03/15/18 Unknown Rx oxyCODONE /ACETAMINOPHEN [Percocet 1 tab PO Q6H PRN #10 tablet 01/27/18 03/15/18 Unknown Rx 5/325 mg] Furosemide [Lasix TAB] 40 mg PO QDAY #30 tablet 02/02/18 03/15/18 Unknown Rx Minoxidil [Loniten] 5 mg PO BID #60 tablet 02/02/18 03/15/18 Unknown Rx Insulin NPH, Human [NovoLIN N] 8 unit SUB-Q BIDDIAB 30 Days units 03/18/18 Unknown Rx Lispro Insulin [Humalog] See Protocol SUB-Q QACHS #100 units 03/18/18 03/15/18 Unknown Rx glipiZIDE [Glucotrol] 5 mg PO QDDIAB #30 tablet 03/18/18 Unknown Rx ED Physical Exam - General Limitations: No Limitations General appearance: alert, in no apparent distress - Head Head exam: Present: atraumatic, normocephalic - Eye Eye exam: Present: normal appearance - ENT ENT exam: Present: mucous membranes moist - Neck Neck exam: Present: normal inspection - Respiratory Respiratory exam: Present: normal lung sounds bilaterally. Absent: respiratory distress - Cardiovascular Cardiovascular Exam: Present: regular rate, normal rhythm - GI/Abdominal GI/Abdominal exam: Present: soft. Absent: distended - Extremities Exam Extremities exam: Present: normal inspection - Neurological Exam Neurological exam: Present: alert, oriented X3, CN II-XII intact. Absent: motor sensory deficit - Psychiatric Psychiatric exam: Present: normal affect, normal mood - Skin Skin exam: Present: warm, dry, intact, normal color ED Course Vital Signs 03/20/18 03/21/18 20:38 00:39 Temperature 98.2 F 98.0 F Pulse Rate 87 80 Respiratory 18 18 Rate Blood Pressure 155/82 Blood Pressure 148/85 [Left] O2 Sat by Pulse 97 98 Oximetry ED Medical Decision Making - Lab Data Result diagrams: 03/20/18 22:25 03/20/18 22:25 - Radiology Data Radiology results: report reviewed, image reviewed - Medical Decision Making Workup unremarkable. Pt unable to answer some questions, such as when he was last dialyzed, and the name of his doctors, however is otherwise oriented. Note in computer from youth minister, spoke w/ pt's a few days ago. The number that was listed was called by me, however, the phone seems to be disconnected. Unable to get additional information from family as to whether or not this is pt's baseline, so will admit to hospitalist. Labs normal. Does not require emergent dialysis. - Differential Diagnosis UTI, CVA, dementia Critical care attestation.: If time is entered above; I have spent that time in minutes in the direct care of this critically ill patient, excluding procedure time. ED Disposition Clinical Impression: Altered mental status Disposition: [id number] OP ADMIT IP TO THIS HOSP Is pt being admited?: Yes Condition: Stable
[2018-03-21] MEDS ORDERED: D50W (25GM) Syringe IV PRN (00:41)
[2018-03-21] MEDS ORDERED: TYLENOL PO PRN (00:48)
[2018-03-21] MEDS ORDERED: ZOFRAN IV PRN (00:53)
[2018-03-21] MEDS ORDERED: PERCOCET 5/325 PO PRN (04:11)
[2018-03-21] MEDS: NACL 0.9% 1000 ML 1,000 ML IV SCH ×2 (04:45→17:06)
[2018-03-21] MEDS ORDERED: APRESOLINE IV PRN (05:59)
[2018-03-21] MEDS: LOPRESSOR PO SCH ×3 (06:21→17:06)
[2018-03-21] MEDS: HumuLIN R SUB-Q SCH ×4 (07:30→16:42)
--- NOTE | 2018-03-21 07:48 | History and Physical Report ---
CHIEF COMPLAINT: Change in mental status. HISTORY OF PRESENT ILLNESS: The patient is a 62-year-old male who presented to the Emergency Room saying that he has been feeling confused for some time. The patient does not know what he is confused about and said that he cannot remember the last time he had dialysis. The patient with end-stage renal disease. There is no history of chest pain. No history of shortness of breath, fever, nausea or vomiting. The patient states that his can no longer take care of him and was able to tell his address and denies history of dizziness, chest pain, or any form of pain. PAST MEDICAL HISTORY: Pertinent for end-stage renal disease, on dialysis. Also, the patient has past history of hypertension, cerebrovascular accident in May of 2017, diabetes mellitus. PAST SURGICAL HISTORY: Hernia repair and AV dialysis shunt. FAMILY HISTORY: Noncontributory. SOCIAL HISTORY: The patient lives at home with . Does not smoke, does not drink alcohol, and does not use illicit drug. MEDICATIONS: The patient is on Tylenol 650 mg by mouth every 4 hours for fever and headache, Lipitor 40 mg by mouth at bedtime, Pepcid 20 mg by mouth daily, Cozaar 100 mg by mouth daily, Lopressor 100 mg by mouth twice daily, amlodipine 10 mg by mouth daily, Apresoline 100 mg by mouth 3 times daily, Percocet 5/325 mg 1 by mouth every 6 hours as needed for pain, Lasix 40 mg by mouth daily, minoxidil 5 mg by mouth twice daily, insulin NPH 8 units subcu b.i.d., lispro insulin (Humalog), using a sliding scale, glipizide 5 mg by mouth ____. ALLERGIES: There are no known drug allergies. REVIEW OF SYSTEMS: CONSTITUTIONAL: There is no fever, no chills, no diaphoresis. HEENT: There is no headache or sore throat. CARDIOVASCULAR: There is no chest pain or orthopnea. RESPIRATORY SYSTEM: There is no shortness of breath or cough. GASTROINTESTINAL SYSTEM: There is no nausea, no vomiting; no abdominal pain, diarrhea or constipation. NEUROLOGICAL SYSTEM: Change in mental status noted. No numbness. MUSCULOSKELETAL SYSTEM: There is no joint pain or swelling. DERMATOLOGICAL SYSTEM: There is no skin rash or itching. GENITOURINARY SYSTEM: There is no dysuria, hematuria or flank pain. Rest of system review is normal. PHYSICAL EXAMINATION: GENERAL: At the time of exam, the patient was found to be alert, oriented to person and not in acute distress. VITAL SIGNS: Show temperature of 98.2 degree Fahrenheit, pulse of 87, respiration 18, blood pressure 155/82, O2 sat of 97% on room air. HEENT: Showed pupils to be equal, round, and reactive to light and accommodating. Extraocular muscles are intact. NECK: Supple with no JVD or carotid bruit. CARDIOVASCULAR SYSTEM: Show normal first and second heart sounds with no gallops or murmur. RESPIRATORY SYSTEM: Show good air entry on both sides of the lungs with no abnormal breath sounds. GASTROINTESTINAL SYSTEM: Show abdomen to be full, soft, nontender with no organomegaly or rigidity. NEUROLOGICAL SYSTEM: Show no focal deficit. MUSCULOSKELETAL SYSTEM: Show no joint swelling or tenderness. DERMATOLOGICAL SYSTEM: Show no skin rash. GENITOURINARY SYSTEM: Showing no costovertebral angle tenderness. PERTINENT IMAGING STUDIES: The patient had CT of the head without contrast done that shows no gross acute intracranial abnormality. There is finding of moderate volume loss and chronic small vessel ischemic disease, advanced for the patient's age. There is also finding of small remote lacunar infarct in the bilateral basal ganglia and bilateral thalami, and small remote left cerebellar infarct was also found. Radiology states if there is any concern for intracranial process that MRI should be done. The patient had chest x-ray done that shows no acute finding. LAB RESULTS: The patient has CBC done with normal white count, low hemoglobin of 11.3 and low hematocrit of 34.1 with CBC differential showing elevated segmented neutrophil of 77.7 and chemistry showed low sodium of 134, low chloride of 94.2, elevated BUN of 40 and elevated creatinine of 4.9 consistent with the patient's end-stage renal disease. The patient's blood glucose level was 328. Rest of chemistry was unremarkable. DIAGNOSES: 1. Change in mental status. 2. End-stage renal disease, on dialysis. 3. Diabetes mellitus. 4. Hypertension. PLAN OF ACTION: 1. The patient will be admitted to medical floor on remote telemetry. 2. The patient will have Nephrology consult with Dr. Velasquez for management of end-stage renal disease. 3. The patient will have MRI of the brain without contrast done this morning because of change in mental status with small lacunar infarct found in the basal ganglia and thalami. 4. The patient will be on Accu-Chek before meals and at bedtime followed by low-dose sliding scale using regular insulin coverage. 5. The patient's diet will be consistent carbohydrate and low sodium diet. 6. The patient will be on aspirin 325 mg by mouth daily and will be on Tylenol 650 mg by mouth every 4 hours for fever and headache and Zofran 4 mg IV every 8 hours for nausea and vomiting. 7. The patient's home medication will be reconciled and applied accordingly. JOB# [id number] OCN/JOO GALICIA
--- NOTE | 2018-03-21 08:27 | Consultation ---
History of Present Illness - Reason for Consult Consult date: 03/21/18 end stage renal disease - History of Present Illness The patient is a 62 YO male with history significant for DM-2, HTN, HLD, Anemia, CVA and ESRD who was recently started on hemodialysis who presented to [facility] ED with AMS. Patient is a very poor historian and no family members at the bedside. He was started on hemodialysis last week and discharged from [facility] on 03/18/18. He denies any complaint at the time. He is being followed by Dr.Bob Velasquez and gets hemodialysis at [facility]. Past History Past Medical History: diabetes, dialysis, ESRD, hypertension, hyperlipidemia, stroke Medications and Allergies Allergies Allergy/AdvReac Type Severity Reaction Status Date / Time No Known Allergies Allergy Verified 06/12/17 15:18 Home Medications Medication Instructions Recorded Confirmed Last Taken Type Acetaminophen [Acetaminophen TAB] 650 mg PO Q4H PRN #30 tablet 01/27/18 03/15/18 Unknown Rx AtorvaSTATin [Lipitor] 40 mg PO QHS #30 tablet 01/27/18 03/15/18 Unknown Rx Famotidine [Pepcid] 20 mg PO DAILY #30 tablet 01/27/18 03/15/18 Unknown Rx Losartan [Cozaar] 100 mg PO QDAY #30 tablet 01/27/18 03/15/18 Unknown Rx Metoprolol [Lopressor TAB] 100 mg PO BID #60 tablet 01/27/18 03/15/18 Unknown Rx amLODIPine [Norvasc] 10 mg PO QDAY #30 tablet 01/27/18 03/15/18 Unknown Rx hydrALAZINE [Apresoline TAB] 100 mg PO TID #90 tab 01/27/18 03/15/18 Unknown Rx oxyCODONE /ACETAMINOPHEN [Percocet 1 tab PO Q6H PRN #10 tablet 01/27/18 03/15/18 Unknown Rx 5/325 mg] Furosemide [Lasix TAB] 40 mg PO QDAY #30 tablet 02/02/18 03/15/18 Unknown Rx Minoxidil [Loniten] 5 mg PO BID #60 tablet 02/02/18 03/15/18 Unknown Rx Insulin NPH, Human [NovoLIN N] 8 unit SUB-Q BIDDIAB 30 Days units 03/18/18 Unknown Rx Lispro Insulin [Humalog] See Protocol SUB-Q QACHS #100 units 03/18/18 03/15/18 Unknown Rx glipiZIDE [Glucotrol] 5 mg PO QDDIAB #30 tablet 03/18/18 Unknown Rx Active Meds: Active Medications Acetaminophen (Tylenol) 650 mg PO Q4H PRN PRN Reason: Fever >101 Amlodipine Besylate (Norvasc) 10 mg PO QDAY [facility] Aspirin (Aspirin) 325 mg PO QDAY NARINDER Atorvastatin Calcium (Lipitor) 40 mg PO QHS [facility] Dextrose (D50w (25gm) Syringe) 50 ml IV PRN PRN PRN Reason: Hypoglycemia Famotidine (Pepcid) 20 mg PO DAILY [facility] Furosemide (Lasix) 40 mg PO QDAY NARINDER Hydralazine HCl (Apresoline) 100 mg PO TID NARINDER Hydralazine HCl (Apresoline) 10 mg IV Q4H PRN PRN Reason: Hypertension Last Admin: 03/21/18 06:26 Dose: 10 mg Documented by: Sodium Chloride (Nacl 0.9% 1000 Ml) 1,000 mls @ 75 mls/hr IV DIRECT NARINDER Last Admin: 03/21/18 04:45 Dose: 75 mls/hr Documented by: Insulin Human Regular (Humulin R) [address] units SUB-[address] [facility]; Protocol Last Admin: 03/21/18 07:30 Dose: Not Given Documented by: Insulin Human Regular ([facility] R) [facility]; Protocol Losartan Potassium (Cozaar) 100 mg PO QDAY@0800 [facility] Metoprolol Tartrate (Lopressor) 100 mg PO BID@0600,1800 [facility] Last Admin: 03/21/18 06:25 Dose: Not Given Documented by: Minoxidil (Loniten) 5 mg PO BID [facility] Ondansetron HCl (Zofran) 4 mg IV Q8H PRN PRN Reason: Nausea And Vomiting Oxycodone/Acetaminophen (Percocet 5/325) 1 tab PO Q6H PRN PRN Reason: Pain , Severe (7-10) Review of Systems Constitutional: no weight loss, no weight gain, no fever, no chills Cardiovascular: high blood pressure, no chest pain, no orthopnea, no shortness of breath, no leg edema Gastrointestinal: no abdominal pain, no nausea, no vomiting, no diarrhea, no melena Genitourinary Male: no hematuria Integumentary: no wounds Neurological: change in mentation, confusion, memory loss Exam - Vital Signs Vital signs: Vital Signs Temp Pulse Resp BP Pulse Ox 98.2 F 87 18 155/82 97 03/20/18 20:38 03/20/18 20:38 03/20/18 20:38 03/20/18 20:38 03/20/18 20:38 - General Appearance General appearance: well-developed, well-nourished, appears stated age, other (not in distress) EENT: ATNC, PERRL, hearing intact Neck: Present: neck supple, trachea midline Respiratory: Clear to Ascultation Heart: regular, S1S2, no murmurs Gastrointestinal: Present: normoactive bowel sounds. Absent: tenderness, distended Integumentary: no rash, warm and dry Neurologic: no focal deficit, no asterixis (oriented to self, location, month and year) Musculoskeletal: Present: other (left arm AVG, no edema) Results - Lab Results 03/20/18 22:25 03/20/18 22:25 Most recent lab results Calcium 9.1 mg/dL (8.4-10.2) 03/20/18 22:25 Assessment and Plan 1. ESRD: Patient was started on hemodialysis last week. Continue HD three times a week, MWF schedule. Outpatient HD at [facility]. 2. AMS. 3. DM-2. 4. HTN. 5. H/o CVA.
[2018-03-21] MEDS: APRESOLINE PO SCH ×3 (10:04→22:38)
[2018-03-21] MEDS: PEPCID PO SCH (10:04)
[2018-03-21] MEDS: NORVASC PO SCH (10:05)
[2018-03-21] MEDS: ASPIRIN PO SCH (10:05)
[2018-03-21] MEDS: LONITEN PO SCH ×2 (10:05→22:37)
[2018-03-21] MEDS: LASIX PO SCH (10:05)
[2018-03-21] MEDS: COZAAR PO SCH (10:08)
[2018-03-21] MEDS ORDERED: AFLURIA QUAD 2018-2019 SYRINGE IM ONE (12:00)
[2018-03-21 13:29] LABS: Bilirubin,Urine NEG (Negative); Blood,Urine NEG (Negative); Color,Urine Yellow (Yellow); RBC,Urine < 1.0 /HPF (0.0-6.0); Urobilinogen,Urine < 2.0 mg/dL (<2.0); WBC,Urine < 1.0 /HPF (0.0-6.0)
[2018-03-21 13:33] LABS: Protein,Urine >500 mg/dL (Negative)
--- NOTE | 2018-03-21 16:42 | Event Note ---
Date: 03/21/18 Patient reevaluated nephrology consult appreciated Patient not sure when he had the dialysis
[2018-03-21] MEDS ORDERED: HumuLIN R SUB-Q SCH (22:00)
[2018-03-22] MEDS: LOPRESSOR PO SCH (05:57)
[2018-03-22] MEDS: HumuLIN R SUB-Q SCH ×2 (07:30→11:48)
[2018-03-22] MEDS: APRESOLINE PO SCH ×2 (08:00→13:11)
[2018-03-22] MEDS: COZAAR PO SCH (08:00)
[2018-03-22] MEDS ORDERED: NACL 0.9% 100 ML IV PRN (09:19)
--- NOTE | 2018-03-22 09:20 | Progress Note ---
Assessment and Plan 1. ESRD: Continue HD three times a week, MWF schedule. Outpatient HD at [facility]. 2. AMS: Improved. 3. DM-2. 4. HTN. 5. H/o CVA. D/w CM about transportation to dialysis center. Subjective Date of service: 03/22/18 Interval history: Patient was seen and examined at the bedside. Objective - Vital Signs Vital signs: Vital Signs - 12hr 03/21/18 03/21/18 03/22/18 22:00 23:19 05:57 Temperature 98.5 F Pulse Rate 86 94 H Respiratory 16 18 Rate Blood Pressure 144/71 124/59 O2 Sat by Pulse 96 Oximetry 03/22/18 06:15 Temperature 97.8 F Pulse Rate 89 Respiratory 18 Rate Blood Pressure 137/54 O2 Sat by Pulse 97 Oximetry - General Appearance General appearance: well-developed, well-nourished, appears stated age, other (not in distress) EENT: ATNC, PERRL, mucous membranes moist, hearing intact, vision intact Neck: supple Respiratory: Present: Clear to Ascultation Cardiology: regular, S1S2, no murmurs Gastrointestinal: normoactive bowel sounds, no tenderness, no distended Integumentary: no rash, warm and dry Neurologic: no focal deficit, no asterixis Musculoskeletal: other (no edema, left arm AVG) - Lab 03/20/18 22:25 03/20/18 22:25 Most recent lab results Calcium 9.1 mg/dL (8.4-10.2) 03/20/18 22:25 Medications & Allergies - Medications Allergies/Adverse Reactions: Allergies No Known Allergies Allergy (Verified 06/12/17 15:18) Home Medications: Home Medications Medication Instructions Recorded Confirmed Last Taken Type Acetaminophen [Acetaminophen TAB] 650 mg PO Q4H PRN #30 tablet 01/27/18 03/15/18 Unknown Rx AtorvaSTATin [Lipitor] 40 mg PO QHS #30 tablet 01/27/18 03/15/18 Unknown Rx Famotidine [Pepcid] 20 mg PO DAILY #30 tablet 01/27/18 03/15/18 Unknown Rx Losartan [Cozaar] 100 mg PO QDAY #30 tablet 01/27/18 03/15/18 Unknown Rx Metoprolol [Lopressor TAB] 100 mg PO BID #60 tablet 01/27/18 03/15/18 Unknown Rx amLODIPine [Norvasc] 10 mg PO QDAY #30 tablet 01/27/18 03/15/18 Unknown Rx hydrALAZINE [Apresoline TAB] 100 mg PO TID #90 tab 01/27/18 03/15/18 Unknown Rx oxyCODONE /ACETAMINOPHEN [Percocet 1 tab PO Q6H PRN #10 tablet 01/27/18 03/15/18 Unknown Rx 5/325 mg] Furosemide [Lasix TAB] 40 mg PO QDAY #30 tablet 02/02/18 03/15/18 Unknown Rx Minoxidil [Loniten] 5 mg PO BID #60 tablet 02/02/18 03/15/18 Unknown Rx Insulin NPH, Human [NovoLIN N] 8 unit SUB-Q BIDDIAB 30 Days units 03/18/18 U nknown Rx Lispro Insulin [Humalog] See Protocol SUB-Q QACHS #100 units 03/18/18 03/15/18 Unknown Rx glipiZIDE [Glucotrol] 5 mg PO QDDIAB #30 tablet 03/18/18 Unknown Rx Active Medications: Generic Name Dose Route Start Last Admin Trade Name Freq PRN Reason Stop Dose Admin Acetaminophen 650 mg 03/21/18 00:48 Tylenol PO Q4H PRN Fever >101 Amlodipine Besylate 10 mg 03/21/18 10:00 03/21/18 10:05 Norvasc PO 10 mg QDAY NARINDER Administration Aspirin 325 mg 03/21/18 10:00 03/21/18 10:05 Aspirin PO 325 mg QDAY NARINDER Administration Atorvastatin Calcium 40 mg 03/21/18 22:00 03/21/18 22:38 Lipitor PO 40 mg QHS NARINDER Administration Dextrose 50 ml 03/21/18 00:41 D50w (25gm) Syringe IV PRN PRN Hypoglycemia Famotidine 20 mg 03/21/18 10:00 03/21/18 10:04 Pepcid PO 20 mg DAILY NARINDER Administration Furosemide 40 mg 03/21/18 10:00 03/21/18 10:05 Lasix PO 40 mg QDAY NARINDER Administration Hydralazine HCl 100 mg 03/21/18 08:00 03/21/18 22:38 Apresoline PO Not Given TID NARINDER Hydralazine HCl 10 mg 03/21/18 05:59 03/21/18 06:26 Apresoline IV 10 mg Q4H PRN Administration Hypertension Sodium Chloride 1,000 mls @ 75 mls/hr 03/21/18 01:00 03/21/18 17:06 Nacl 0.9% 1000 Ml IV 75 mls/hr DIRECT NARINDER Administration Insulin Human Regular 0 units 03/21/18 07:30 03/22/18 07:30 Humulin R SUB-Q Not Given AC NARINDER Protocol Insulin Human Regular 0 units 03/21/18 22:00 03/21/18 22:38 Humulin R SUB-Q 2 units QHS NARINDER Administration Protocol Losartan Potassium 100 mg 03/21/18 08:00 03/21/18 10:08 Cozaar PO 100 mg QDAY@0800 NARINDER Administration Metoprolol Tartrate 100 mg 03/21/18 06:00 03/22/18 05:57 Lopressor PO Not Given BID@0600,1800 NARINDER Minoxidil 5 mg 03/21/18 10:00 03/21/18 22:37 Loniten PO 5 mg BID NARINDER Administration Ondansetron HCl 4 mg 03/21/18 00:53 Zofran IV Q8H PRN Nausea And Vomiting Oxycodone/Acetaminophen 1 tab 03/21/18 04:11 Percocet 5/325 PO Q6H PRN Pain , Severe (7-10)
[2018-03-22] MEDS: NORVASC PO SCH (09:44)
[2018-03-22] MEDS: ASPIRIN PO SCH (09:44)
[2018-03-22] MEDS: LASIX PO SCH (09:45)
[2018-03-22] MEDS: PEPCID PO SCH (09:45)
[2018-03-22] MEDS: LONITEN PO SCH (10:00)
--- NOTE | 2018-03-22 14:09 | Discharge Summary ---
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 Hospitalization Condition: Stable Hospital course: More alert and oriented today 1 Metabolic Encephalopathy--Resolving Getting HD today 2 Htn Cont antihypertensives 3 ESRd Cont HD T2DM Cont Oral Hypoglycemics Disposition: DC-01 TO HOME OR SELFCARE Core Measure Documentation - Palliative Care Palliative Care/ Comfort Measures: Not Applicable - Core Measures Any of the following diagnoses?: none Exam - Constitutional Vitals: Temp Pulse Resp BP Pulse Ox 98.0 F 104 H 20 116/49 97 03/22/18 11:57 03/22/18 11:57 03/22/18 11:57 03/22/18 11:57 03/22/18 11:57 General appearance: Present: no acute distress, well-nourished - EENT Eyes: Present: PERRL ENT: hearing intact, clear oral mucosa - Neck Neck: Present: supple, normal ROM - Respiratory Respiratory effort: normal Respiratory: bilateral: CTA - Cardiovascular Heart rate: 78 Rhythm: regular Heart Sounds: Present: S1 & S2. Absent: rub, click - Extremities Extremities: no ischemia, pulses intact, pulses symmetrical, No edema Peripheral Pulses: within normal limits - Abdominal General gastrointestinal: Present: soft, non-tender, non-distended, normal bowel sounds Male genitourinary: Present: normal - Integumentary Integumentary: Present: clear, warm, dry - Musculoskeletal Musculoskeletal: gait normal, strength equal bilaterally - Psychiatric Psychiatric: appropriate mood/affect, intact judgment & insight - Neurologic Neurologic: CNII-XII intact, moves all extremities - Allied Health Allied health notes reviewed: nursing, case management Plan Activity: no restrictions Diet: renal Follow up with: JESSE SÁNCHEZ MD [Primary Care Provider] - 3-5 Days SENA VINSON MD [Staff Physician] - 7 Days
[2018-03-22 17:58] VITALS: BP 130/72
== END 2018-03-22 18:13 | disposition home or self-care (01) | DRG 70 ==
LOC: ED 20:26 → 3A 03-21 00:36 → UNDOADMIN 03-21 00:36
PROVIDERS: ADMIT Internal Medicine; ATTEND Internal Medicine
PROC: 5A1D70Z Performance of Urinary Filtration, Intermittent, Less than 6 Hours Per Day (ICD-10-PCS; principal; 2018-03-22)
DX: G93.41 Metabolic encephalopathy (principal); N18.6 End stage renal disease; I12.0 Hypertensive chronic kidney disease with stage 5 chronic kidney disease or end stage renal disease; E11.22 Type 2 diabetes mellitus with diabetic chronic kidney disease; Z86.73 Personal history of transient ischemic attack (TIA), and cerebral infarction without residual deficits; Z79.899 Other long term (current) drug therapy; Z79.4 Long term (current) use of insulin
CPT/HCPCS: 36415; 70450; 71046; 80053; 81001; 82962; 85025; 90686; G0378; A9270-GY; J0360; J1815; J7030

== ENCOUNTER 2018-04-21 17:43 | Emergency (ER) | payer MEDICAID, OTHER ==
--- NOTE | 2018-04-21 17:53 | Emergency Department Report ---
ED Dizziness HPI - General Stated Complaint: VOMITING/DIZZINESS Time Seen by Provider: 04/21/18 17:48 Source: EMS Mode of arrival: Stretcher Limitations: No Limitations - History of Present Illness Initial Comments: Patient is a 62-year-old male that presents emergency room with complaints of nausea and vomiting 2. Patient brought in by EMS. Patient denies abdominal pain and fever and chills. Patient denies chest pain shortness of breath. Patient denies headache. Patient denies any symptoms. Patient states he was dizzy prior to EMS picking him up but is not dizzy now. MD Complaint: dizziness, lightheadedness -: Sudden Timing: sudden onset Description: "room spinning", lightheadedness, nausea History of Same: No History of Trauma: No Severity: severe Improves With: remaining still, rest Worsens With: movement, position, exertion Associated Symptoms: denies: ataxia, chest pain, confusion, cough, diaphoresis, fever/chills, loss of appetite, malaise, rash, seizure, shortness of breath, syncope, weakness - Related Data Previous Rx's Medication Instructions Recorded Last Taken Type Acetaminophen [Acetaminophen TAB] 650 mg PO Q4H PRN #30 tablet 01/27/18 Unknown Rx AtorvaSTATin [Lipitor] 40 mg PO QHS #30 tablet 01/27/18 Unknown Rx Famotidine [Pepcid] 20 mg PO DAILY #30 tablet 01/27/18 Unknown Rx Losartan [Cozaar] 100 mg PO QDAY #30 tablet 01/27/18 Unknown Rx Metoprolol [Lopressor TAB] 100 mg PO BID #60 tablet 01/27/18 Unknown Rx amLODIPine [Norvasc] 10 mg PO QDAY #30 tablet 01/27/18 Unknown Rx hydrALAZINE [Apresoline TAB] 100 mg PO TID #90 tab 01/27/18 Unknown Rx oxyCODONE /ACETAMINOPHEN [Percocet 1 tab PO Q6H PRN #10 tablet 01/27/18 Unknown Rx 5/325 mg] Furosemide [Lasix TAB] 40 mg PO QDAY #30 tablet 02/02/18 Unknown Rx Minoxidil [Loniten] 5 mg PO BID #60 tablet 02/02/18 Unknown Rx Insulin NPH, Human [NovoLIN N] 8 unit SUB-Q BIDDIAB 30 Days units 03/18/18 Unknown Rx Lispro Insulin [Humalog] See Protocol SUB-Q QACHS #100 units 03/18/18 Unknown Rx glipiZIDE [Glucotrol] 5 mg PO QDDIAB #30 tablet 03/18/18 Unknown Rx Ondansetron [Zofran Odt] 4 mg PO Q6HR PRN #15 tab.rapdis 04/21/18 Unknown Rx Allergies Allergy/AdvReac Type Severity Reaction Status Date / Time No Known Allergies Allergy Verified 06/12/17 15:18 ED Review of Systems ROS: Stated complaint: VOMITING/DIZZINESS Other details as noted in HPI Constitutional: denies: chills, fever Eyes: denies: eye pain, eye discharge, vision change ENT: denies: ear pain, throat pain Respiratory: denies: cough, shortness of breath, wheezing Cardiovascular: denies: chest pain, palpitations Endocrine: no symptoms reported Gastrointestinal: nausea, vomiting. denies: abdominal pain, diarrhea Genitourinary: denies: urgency, dysuria Musculoskeletal: denies: back pain, joint swelling, arthralgia Skin: denies: rash, lesions Neurological: denies: headache, weakness, paresthesias Psychiatric: denies: anxiety, depression Hematological/Lymphatic: denies: easy bleeding, easy bruising ED Past Medical Hx - Past Medical History Previous Medical History?: Yes Hx Hypertension: Yes Hx CVA: Yes (May 2017) Hx Congestive Heart Failure: No Hx Diabetes: Yes Hx Deep Vein Thrombosis: No Hx Sickle Cell Disease: No Hx Asthma: No Hx COPD: No Hx HIV: No Additional medical history: Stage IV chronic kidney disease. Recent hypertensive cerebral hemorrhage - Surgical History Past Surgical History?: Yes Hx Pacemaker: No Hx Internal Defibrillator: No Additional Surgical History: hernia repair l't AV shunt - Family History Family history: no significant - Social History Smoking Status: Former Smoker Substance Use Type: None - Medications Home Medications: Home Medications Medication Instructions Recorded Confirmed Last Taken Type Acetaminophen [Acetaminophen TAB] 650 mg PO Q4H PRN #30 tablet 01/27/18 03/15/18 Unknown Rx AtorvaSTATin [Lipitor] 40 mg PO QHS #30 tablet 01/27/18 03/15/18 Unknown Rx Famotidine [Pepcid] 20 mg PO DAILY #30 tablet 01/27/18 03/15/18 Unknown Rx Losartan [Cozaar] 100 mg PO QDAY #30 tablet 01/27/18 03/15/18 Unknown Rx Metoprolol [Lopressor TAB] 100 mg PO BID #60 tablet 01/27/18 03/15/18 Unknown Rx amLODIPine [Norvasc] 10 mg PO QDAY #30 tablet 01/27/18 03/15/18 Unknown Rx hydrALAZINE [Apresoline TAB] 100 mg PO TID #90 tab 01/27/18 03/15/18 Unknown Rx oxyCODONE /ACETAMINOPHEN [Percocet 1 tab PO Q6H PRN #10 tablet 01/27/18 03/15/18 Unknown Rx 5/325 mg] Furosemide [Lasix TAB] 40 mg PO QDAY #30 tablet 02/02/18 03/15/18 Unknown Rx Minoxidil [Loniten] 5 mg PO BID #60 tablet 02/02/18 03/15/18 Unknown Rx Insulin NPH, Human [NovoLIN N] 8 unit SUB-Q BIDDIAB 30 Days units 03/18/18 Unknown Rx Lispro Insulin [Humalog] See Protocol SUB-Q QACHS #100 units 03/18/18 03/15/18 Unknown Rx glipiZIDE [Glucotrol] 5 mg PO QDDIAB #30 tablet 03/18/18 Unknown Rx Ondansetron [Zofran Odt] 4 mg PO Q6HR PRN #15 tab.rapdis 04/21/18 Unknown Rx ED Physical Exam - General Limitations: No Limitations General appearance: alert, in no apparent distress - Head Head exam: Present: atraumatic, normocephalic - Eye Eye exam: Present: normal appearance - ENT ENT exam: Present: mucous membranes moist - Neck Neck exam: Present: normal inspection - Respiratory Respiratory exam: Present: normal lung sounds bilaterally. Absent: respiratory distress - Cardiovascular Cardiovascular Exam: Present: regular rate, normal rhythm. Absent: systolic murmur, diastolic murmur, rubs, gallop - GI/Abdominal GI/Abdominal exam: Present: soft, normal bowel sounds - Rectal Rectal exam: Present: deferred - Extremities Exam Extremities exam: Present: normal inspection - Back Exam Back exam: Present: normal inspection - Neurological Exam Neurological exam: Present: alert, oriented X3 - Psychiatric Psychiatric exam: Present: normal affect, normal mood - Skin Skin exam: Present: warm, dry, intact, normal color. Absent: rash ED Course Vital Signs 04/21/18 04/21/18 18:06 18:08 Temperature 98.7 F Pulse Rate 100 H 88 Respiratory 21 17 Rate Blood Pressure 149/70 Blood Pressure 149/70 [Right] O2 Sat by Pulse 94 97 Oximetry - Reevaluation(s) Reevaluation #1: Patient denies abdominal pain. Patient denies throwing up since arriving to the ER. Patient will be given Zofran and a by mouth challenge. 04/21/18 19:04 Discussed all results with patient. Patient tolerated by mouth intake. Patient will be given Zofran prescription. Patient stable for discharge. Patient given discharge instructions. Patient voiced understanding of all instructions. 04/21/18 19:55 ED Medical Decision Making - Lab Data Result diagrams: 04/21/18 18:51 04/21/18 18:51 - Medical Decision Making Patient is 62-year-old mellitus emergency room with complaints of nausea and vomiting 2. Patient's findings consistent with viral gastroenteritis. Patient be discharged home with Zofran. Patient's labs are unremarkable. Patient instructed to follow up with his store promoter for his regularly scheduled dialysis. Patient instructed continue all medications. Patient instructed to eat a Keiry diet - Differential Diagnosis nausea vomiting. Gastroenteritis. Critical care attestation.: If time is entered above; I have spent that time in minutes in the direct care of this critically ill patient, excluding procedure time. ED Disposition Clinical Impression: Dizziness, Gastroenteritis Nausea & vomiting Qualifiers: Vomiting type: unspecified Vomiting Intractability: intractable Qualified Code(s): R11.2 - Nausea with vomiting, unspecified Disposition: OP ADMIT IP TO THIS HOSP Is pt being admited?: No Does the pt Need Aspirin: No Condition: Stable Instructions: Gastroenteritis (ED), Acute Nausea and Vomiting (ED) Additional Instructions: Patient to follow up with primary care in 2-3 days. Patient to follow-up with store promoter and continue his dialysis schedule. Patient to eat a Keiry diet patient take meds as directed. Increase water. Patient to rest Prescriptions: Ondansetron [Zofran Odt] 4 mg PO Q6HR PRN #15 tab.rapdis PRN Reason: Nausea And Vomiting Referrals: TAMMY DESAI MD [Primary Care Provider] - 2-3 Days Time of Disposition: 20:00
[2018-04-21 18:13] VITALS: BP 149/70
[2018-04-21] MEDS ORDERED: ZOFRAN IV ONE (19:04)
[2018-04-21] MEDS ORDERED: ZOFRAN ODT PO ONE (19:13)
[2018-04-21 19:19] LABS: Hematocrit 33.1 % (35.5-45.6); Hemoglobin 11.5 gm/dl (11.8-15.2); Mean Corpuscular HGB Conc 35 % (32-34); Mean Corpuscular Volume 91 fl (84-94); Platelet Count 270 K/mm3 (140-440); Red Blood Count 3.65 M/mm3 (3.65-5.03); Red Cell Distribution Width 13.3 % (13.2-15.2)
[2018-04-21 19:35] LABS: Albumin 4.1 g/dL (3.9-5); Basophils % (Auto) 0.8 % (0.0-1.8); Calcium 8.3 mg/dL (8.4-10.2); Eosinophils # (Auto) 0.1 K/mm3 (0.0-0.4); Eosinophils % (Auto) 1.3 % (0.0-4.3); Lymphocytes % (Auto) 16.7 % (13.4-35.0); Monocytes # (Auto) 0.4 K/mm3 (0.0-0.8); Monocytes % (Auto) 7.1 % (0.0-7.3)
== END 2018-04-21 20:13 | disposition admitted as inpatient to this hospital (09) ==
LOC: ED 17:43
DX: K52.9 Noninfective gastroenteritis and colitis, unspecified (principal); R11.2 Nausea with vomiting, unspecified; R42 Dizziness and giddiness; I12.9 Hypertensive chronic kidney disease with stage 1 through stage 4 chronic kidney disease, or unspecified chronic kidney disease; E11.22 Type 2 diabetes mellitus with diabetic chronic kidney disease; N18.4 Chronic kidney disease, stage 4 (severe); Z79.4 Long term (current) use of insulin; Z87.891 Personal history of nicotine dependence
CPT/HCPCS: 36415; 80053; 85025; 99284; Q0162

== ENCOUNTER 2018-08-17 11:41 | Inpatient (IN) | payer MEDICARE ==
--- NOTE | 2018-08-17 12:21 | Emergency Department Report ---
ED General Adult HPI - General Chief complaint: Altered Mental Status Stated complaint: SYNCOPE Time Seen by Provider: 08/17/18 12:12 Source: patient, RN notes reviewed Mode of arrival: Stretcher Limitations: Altered Mental Status - History of Present Illness Initial comments: Nephrology: Dr Phelan Past medical history: End-stage renal disease, on dialysis, insulin-dependent diabetes, hypertension, high cholesterol, stroke, question history subarachnoid hemorrhage This is a 62-year-old gentleman. The patient is brought to the hospital with family for evaluation. Apparently, there is a concern that the patient had a "spiritual event." Currently, the family is not available for additional information or collateral information. Apparently, the patient had a 30 seconds episode of unresponsiveness and "blanking out." Uncertain of trauma is involved. This is apparently now resolved. The patient cannot recall the event. The patient has no complaints at this time. He can't remember what happened." Stroke called overhead. Accu-Chek acceptable. CT scan of the brain negative for acute findings. Not a TPA candidate, given an exact last known well time, low NIH score, reported history of subarachnoid hemorrhage. Patient moving 4 extremities spontaneously, and without difficulty. There are no large cranial nerve deficits on his examination. Patient is seen in conjunction with stroke neurology, Dr. Steve Barone, who indicates patient is not a TPA candidate. Indicates no need for emergent acquisition of angiogram of the head and neck. I agree with him. Recommends admission for evaluation of TIA versus syncope. Atypical presentation of seizure also possibility -: Sudden Consistency: now resolved Improves with: none Worsens with: none Associated Symptoms: weakness - Related Data Previous Rx's Medication Instructions Recorded Last Taken Type Acetaminophen [Acetaminophen TAB] 650 mg PO Q4H PRN #30 tablet 01/27/18 Unknown Rx AtorvaSTATin [Lipitor] 40 mg PO QHS #30 tablet 01/27/18 Unknown Rx Famotidine [Pepcid] 20 mg PO DAILY #30 tablet 01/27/18 Unknown Rx Losartan [Cozaar] 100 mg PO QDAY #30 tablet 01/27/18 Unknown Rx Metoprolol [Lopressor TAB] 100 mg PO BID #60 tablet 01/27/18 Unknown Rx amLODIPine [Norvasc] 10 mg PO QDAY #30 tablet 01/27/18 Unknown Rx hydrALAZINE [Apresoline TAB] 100 mg PO TID #90 tab 01/27/18 Unknown Rx oxyCODONE /ACETAMINOPHEN [Percocet 1 tab PO Q6H PRN #10 tablet 01/27/18 Unknown Rx 5/325 mg] Furosemide [Lasix TAB] 40 mg PO QDAY #30 tablet 02/02/18 Unknown Rx Minoxidil [Loniten] 5 mg PO BID #60 tablet 02/02/18 Unknown Rx Insulin NPH, Human [NovoLIN N] 8 unit SUB-Q BIDDIAB 30 Days units 03/18/18 Unknown Rx Lispro Insulin [HumaLOG] See Protocol SUB-Q QACHS #100 units 03/18/18 Unknown Rx glipiZIDE [Glucotrol] 5 mg PO QDDIAB #30 tablet 03/18/18 Unknown Rx Ondansetron [Zofran Odt] 4 mg PO Q6HR PRN #15 tab.rapdis 04/21/18 Unknown Rx Allergies Allergy/AdvReac Type Severity Reaction Status Date / Time No Known Allergies Allergy Verified 06/12/17 15:18 ED Review of Systems ROS: Stated complaint: SYNCOPE Other details as noted in HPI Comment: Unobtainable due to pts medical conditions Cardiovascular: syncope. denies: chest pain Neurological: weakness, confusion ED Past Medical Hx - Past Medical History Hx Hypertension: Yes Hx CVA: Yes (May 2017) Hx Congestive Heart Failure: No Hx Diabetes: Yes Hx Deep Vein Thrombosis: No Hx Renal Disease: Yes (ESRD) Hx Sickle Cell Disease: No Hx Asthma: No Hx COPD: No Hx HIV: No Additional medical history: Stage IV chronic kidney disease. Recent hypertensive cerebral hemorrhage - Surgical History Hx Pacemaker: No Hx Internal Defibrillator: No Additional Surgical History: hernia repair l't AV shunt - Social History Smoking Status: Former Smoker Substance Use Type: None - Medications Home Medications: Home Medications Medication Instructions Recorded Confirmed Last Taken Type Acetaminophen [Acetaminophen TAB] 650 mg PO Q4H PRN #30 tablet 01/27/18 03/15/18 Unknown Rx AtorvaSTATin [Lipitor] 40 mg PO QHS #30 tablet 01/27/18 03/15/18 Unknown Rx Famotidine [Pepcid] 20 mg PO DAILY #30 tablet 01/27/18 03/15/18 Unknown Rx Losartan [Cozaar] 100 mg PO QDAY #30 tablet 01/27/18 03/15/18 Unknown Rx Metoprolol [Lopressor TAB] 100 mg PO BID #60 tablet 01/27/18 03/15/18 Unknown Rx amLODIPine [Norvasc] 10 mg PO QDAY #30 tablet 01/27/18 03/15/18 Unknown Rx hydrALAZINE [Apresoline TAB] 100 mg PO TID #90 tab 01/27/18 03/15/18 Unknown Rx oxyCODONE /ACETAMINOPHEN [Percocet 1 tab PO Q6H PRN #10 tablet 01/27/18 03/15/18 Unknown Rx 5/325 mg] Furosemide [Lasix TAB] 40 mg PO QDAY #30 tablet 02/02/18 03/15/18 Unknown Rx Minoxidil [Loniten] 5 mg PO BID #60 tablet 02/02/18 03/15/18 Unknown Rx Insulin NPH, Human [NovoLIN N] 8 unit SUB-Q BIDDIAB 30 Days units 03/18/18 Unknown Rx Lispro Insulin [HumaLOG] See Protocol SUB-Q QACHS #100 units 03/18/18 03/15/18 Unknown Rx glipiZIDE [Glucotrol] 5 mg PO QDDIAB #30 tablet 03/18/18 Unknown Rx Ondansetron [Zofran Odt] 4 mg PO Q6HR PRN #15 tab.rapdis 04/21/18 Unknown Rx ED Physical Exam - General Limitations: Other (the patient is awake. The patient does not report what happened. No family members or friends are available at this point time for collateral information) General appearance: alert, in no apparent distress - Head Head exam: Present: atraumatic, normocephalic - Eye Eye exam: Present: normal appearance, EOMI, other (visual acuity intact to finger counting, color perception, reading at a close distance). Absent: nystagmus - ENT ENT exam: Present: normal exam, normal orophraynx, mucous membranes moist, normal external ear exam - Neck Neck exam: Present: normal inspection, full ROM. Absent: tenderness, meningismu s - Respiratory Respiratory exam: Present: normal lung sounds bilaterally. Absent: respiratory distress - Cardiovascular Cardiovascular Exam: Present: regular rate, normal rhythm, normal heart sounds. Absent: bradycardia, tachycardia, irregular rhythm, systolic murmur, diastolic murmur, rubs, gallop - GI/Abdominal GI/Abdominal exam: Present: soft. Absent: distended, tenderness, guarding, rebound, rigid, pulsatile mass - Rectal Rectal exam: Present: deferred - Extremities Exam Extremities exam: Present: normal inspection (upper extremity graft noted, no redness, pus or streaking.), full ROM, other (2+ pulses noted in the bilateral upper, lower extremities. Compartments soft. No long bony tenderness. The pelvis is stable.). Absent: calf tenderness - Back Exam Back exam: Present: normal inspection, full ROM. Absent: tenderness, CVA tenderness (R), CVA tenderness (L), paraspinal tenderness, vertebral tenderness - Neurological Exam Neurological exam: Present: alert (patient is alert to name, month and location. Does not recall what happened.), other (Extraocular movements intact. Tongue midline. No facial droop. Facial sensation intact to light touch in the V1, V2, V3 distribution bilaterally. 5 and 5 strength in 4 extremities.. Sensation is intact to light touch in 4 extremities.). Absent: motor sensory deficit - Psychiatric Psychiatric exam: Present: normal affect, normal mood - Skin Skin exam: Present: warm, dry, intact, normal color. Absent: rash ED Course Vital Signs 08/17/18 08/17/18 12:38 12:51 Temperature 98 F Pulse Rate 73 Respiratory 16 16 Rate Blood Pressure 119/52 O2 Sat by Pulse 99 98 Oximetry - Reevaluation(s) Reevaluation #1: 08/17/18 13:33 Dr. Soto to admit to the medical service. - Consultations Consultation #1: 08/17/18 13:10 Dr Tapan will follow in consultation ED Medical Decision Making - Lab Data Result diagrams: 08/17/18 12:45 08/17/18 12:45 Vital Signs 08/17/18 12:38 Temperature 98 F Pulse Rate 73 Respiratory 16 Rate Blood Pressure 119/52 O2 Sat by Pulse 99 Oximetry Lab Results 08/17/18 08/17/18 08/17/18 Range/Units 12:19 12:45 12:45 WBC 6.6 (4.5-11.0) K/mm3 RBC 3.43 L (3.65-5.03) M/mm3 Hgb 11.2 L (11.8-15.2) gm/dl Hct 31.2 L (35.5-45.6) % MCV 91 (84-94) fl MCH 33 H (28-32) pg MCHC 36 H (32-34) % RDW 12.8 L (13.2-15.2) % Plt Count 312 (140-440) K/mm3 Lymph % (Auto) 18.8 (13.4-35.0) % [place] % (Auto) 6.7 (0.0-7.3) % Eos % (Auto) 2.7 (0.0-4.3) % Baso % (Auto) 1.1 (0.0-1.8) % Lymph # 1.2 (1.2-5.4) K/mm3 [place] # 0.4 (0.0-0.8) K/mm3 Eos # 0.2 (0.0-0.4) K/mm3 Baso # 0.1 (0.0-0.1) K/mm3 Seg Neutrophils % 70.7 H (40.0-70.0) % Seg Neutrophils # 4.6 (1.8-7.7) K/mm3 PT 14.6 (12.2-14.9) Sec. INR 1.07 (0.87-1.13) APTT 26.8 (24.2-36.6) Sec. Thrombin Time 17.0 (15.1-19.6) Sec. Sodium (137-145) mmol/L Potassium (3.6-5.0) mmol/L Chloride (98-107) mmol/L Carbon Dioxide (22-30) mmol/L Anion Gap mmol/L BUN (9-20) mg/dL Creatinine (0.8-1.5) mg/dL Estimated GFR ml/min BUN/Creatinine Ratio % Glucose (75-100) mg/dL POC Glucose 201 H (70-105) Calcium (8.4-10.2) mg/dL Ammonia (25-60) umol/L Troponin T (0.00-0.029) ng/mL Salicylates (2.8-20.0) mg/dL Acetaminophen (10.0-30.0) ug/mL Plasma/Serum Alcohol (0-0.07) % 08/17/18 08/17/18 08/17/18 Range/Units 12:45 12:45 12:45 WBC (4.5-11.0) K/mm3 RBC (3.65-5.03) M/mm3 Hgb (11.8-15.2) gm/dl Hct (35.5-45.6) % MCV (84-94) fl MCH (28-32) pg MCHC (32-34) % RDW (13.2-15.2) % Plt Count (140-440) K/mm3 Lymph % (Auto) (13.4-35.0) % [place] % (Auto) (0.0-7.3) % Eos % (Auto) (0.0-4.3) % Baso % (Auto) (0.0-1.8) % Lymph # (1.2-5.4) K/mm3 [place] # (0.0-0.8) K/mm3 Eos # (0.0-0.4) K/mm3 Baso # (0.0-0.1) K/mm3 Seg Neutrophils % (40.0-70.0) % Seg Neutrophils # (1.8-7.7) K/mm3 PT (12.2-14.9) Sec. INR (0.87-1.13) APTT (24.2-36.6) Sec. Thrombin Time (15.1-19.6) Sec. Sodium 130 L (137-145) mmol/L Potassium 3.6 (3.6-5.0) mmol/L Chloride 90.5 L (98-107) mmol/L Carbon Dioxide 25 (22-30) mmol/L Anion Gap 18 mmol/L BUN 28 H (9-20) mg/dL Creatinine 5.3 H (0.8-1.5) mg/dL Estimated GFR 13 ml/min BUN/Creatinine Ratio 5 % Glucose 285 H (75-100) mg/dL POC Glucose (70-105) Calcium 9.2 (8.4-10.2) mg/dL Ammonia 31.0 (25-60) umol/L Troponin T 0.017 (0.00-0.029) ng/mL Salicylates < 0.3 L (2.8-20.0) mg/dL Acetaminophen (10.0-30.0) ug/mL Plasma/Serum Alcohol (0-0.07) % 08/17/18 08/17/18 Range/Units 12:45 12:45 WBC (4.5-11.0) K/mm3 RBC (3.65-5.03) M/mm3 Hgb (11.8-15.2) gm/dl Hct (35.5-45.6) % MCV (84-94) fl MCH (28-32) pg MCHC (32-34) % RDW (13.2-15.2) % Plt Count (140-440) K/mm3 Lymph % (Auto) (13.4-35.0) % [place] % (Auto) (0.0-7.3) % Eos % (Auto) (0.0-4.3) % Baso % (Auto) (0.0-1.8) % Lymph # (1.2-5.4) K/mm3 [place] # (0.0-0.8) K/mm3 Eos # (0.0-0.4) K/mm3 Baso # (0.0-0.1) K/mm3 Seg Neutrophils % (40.0-70.0) % Seg Neutrophils # (1.8-7.7) K/mm3 PT (12.2-14.9) Sec. INR (0.87-1.13) APTT (24.2-36.6) Sec. Thrombin Time (15.1-19.6) Sec. Sodium (137-145) mmol/L Potassium (3.6-5.0) mmol/L Chloride (98-107) mmol/L Carbon Dioxide (22-30) mmol/L Anion Gap mmol/L BUN (9-20) mg/dL Creatinine (0.8-1.5) mg/dL Estimated GFR ml/min BUN/Creatinine Ratio % Glucose (75-100) mg/dL POC Glucose (70-105) Calcium (8.4-10.2) mg/dL Ammonia (25-60) umol/L Troponin T (0.00-0.029) ng/mL Salicylates (2.8-20.0) mg/dL Acetaminophen < 5.0 L (10.0-30.0) ug/mL Plasma/Serum Alcohol < 0.01 (0-0.07) % - EKG Data -: EKG Interpreted by Sd EKG shows normal: sinus rhythm Rate: normal - EKG Data 08/17/18 13:33 This is a sinus rhythm, 67 bpm, normal axis, QTC within normal limits, poor R- wave progression, prolonged AR interval, T wave inversion in V5 and V6, this is an abnormal EKG, there is no complaint of chest pain, this EKG is not consistent with ST elevation myocardial infarction. - Radiology Data Radiology results: report reviewed, image reviewed interpreted by me: X-ray the chest is negative for acute disease. Print Report Referring Physician: SHEYLA PRICE Patient Name: WHITNEY PRESLEY Date of : 1955 Sex: Male Report Date: 2018-08-17 Report Status: Finalized Findings [facility] [address] [place] [address] Cat Scan Report Signed Patient: WHITNEY PRESLEY MR#: [id number] : 1955 Acct:[id number] Age/Sex: 62 / M ADM Date: 08/17/18 Loc: ED Attending Dr: Ordering Physician: SHEYLA PRICE MD Date of Service: 08/17/18 Procedure(s): CT head/brain wo con Accession Number(s): [id number] cc: SHEYLA PRICE MD CT HEAD WITHOUT CONTRAST: HISTORY: Neurological deficit, stroke. TECHNIQUE: Sequential 2.5mm CT images. COMPARISON: 02/28/18. FINDINGS: Cerebral Parenchyma: Mild volume loss and moderate chronic white matter changes are stable. A chronic lacunar infarct in the right thalamus is noted. No large chronic infarct. Cerebellum: Within normal limits. Brainstem: Within normal limits. Ventricles: Normal. Sella: Normal. Extra-axial spaces: Normal. Basal Cisterns: Normal. Intracranial Hemorrhage: None. Midline Shift: None. Calvarium: Normal. Sinuses: Normal. Mastoid Air Cells: Normal. Visualized Orbits: Normal. IMPRESSION: No acute intracranial process. Volume loss. Chronic white matter changes. Chronic lacunar infarct in the right thalamus. These findings were discussed with Dr. Farrell in the emergency department at 1233 hrs. Transcribed By: TTR Dictated By: SEBAS BOWERS JR, MD Electronically Authenticated By: SEBAS GAVIN JR, MD Signed Date/Time: 08/17/18 1234 - Medical Decision Making Differential diagnosis, including but not limited to: Orthostasis, vagal event, structural cardiac disease, arrhythmia, hyperkalemia, uremia, azotemia, absence seizure, TIA, urinary tract infection, pneumonia Assessment and plan: 62-year-old gentleman with unexplained nonspecific a lteration in consciousness. The patient is not a TPA Candidate for reasons that have already been outlined and described. He is not tachycardic or hypoxic. He is awake, alert and oriented, and has no recollection of the event. 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 Critical care attestation.: If time is entered above; I have spent that time in minutes in the direct care of this critically ill patient, excluding procedure time. ED Disposition Clinical Impression: Syncope and collapse, ESRD (end stage renal disease), Altered mental status Disposition: OP ADMIT IP TO THIS HOSP Is pt being admited?: Yes Does the pt Need Aspirin: Yes Condition: Good Instructions: Syncope (ED) Referrals: PRIMARY CARE, [Primary Care Provider] - 3-5 Days - Assessment Assessment Interval: Baseline - Level of Consciousness 1a. Level of Consciousness: alert/keenly responsive - LOC Questions 1b. LOC Questions: answers both correctly - LOC Command 1c. LOC Commands: performs tasks correctly - Best Gaze 2. Best Gaze: normal - Visual 3. Visual: no visual loss - Facial Palsy 4. Facial Palsy: normal symmetrical movement - Motor Arm 5a. Motor Arm Left: no drift 5b. Motor Arm Right: no drift - Motor Leg 6a. Motor Leg Left: no drift 6b. Motor Leg Right: no drift - Limb Ataxia 7. Limb Ataxia: absent - Sensory 8. Sensory: normal - Best Language 9. Best Language: no aphasia - Dysarthria 10. Dysarthria: normal - Extinction and Inattention 11. Extinction/Inattention: no abnormality - Scoring Total Score: 0 Stroke Severity: No Stroke Symptoms
--- NOTE | 2018-08-17 12:40 | Cat Scan Report ---
CT HEAD WITHOUT CONTRAST: HISTORY: Neurological deficit, stroke. TECHNIQUE: Sequential 2.5mm CT images. COMPARISON: 02/28/18. FINDINGS: Cerebral Parenchyma: Mild volume loss and moderate chronic white matter changes are stable. A chronic lacunar infarct in the right thalamus is noted. No large chronic infarct. Cerebellum: Within normal limits. Brainstem: Within normal limits. Ventricles: Normal. Sella: Normal. Extra-axial spaces: Normal. Basal Cisterns: Normal. Intracranial Hemorrhage: None. Midline Shift: None. Calvarium: Normal. Sinuses: Normal. Mastoid Air Cells: Normal. Visualized Orbits: Normal. IMPRESSION: No acute intracranial process. Volume loss. Chronic white matter changes. Chronic lacunar infarct in the right thalamus. These findings were discussed with Dr. Farrell in the emergency department at 1233 hrs.
--- NOTE | 2018-08-17 12:45 | Emergency Department Report ---
HPI - General Chief Complaint: Syncope Time Seen by Provider: 08/17/18 12:12 - HPI HPI: [facility] Asked to see this patient in telemedicine consultation. Consultation was performed with assistance of ancillary/medical staff at bedside. Comments: Last Known normal 1145 Door Time: 1208 [employer] Contacted: 1211 [employer] first log in: 1218 NIHSS assessment time: 1232 Call back time:1235 Needle Time: no iv tpa HPI: 62 yom with hx of htn, hld, ckd on HD, strokes and previous SAH, presents with episode of blanking out for 30 seconds. Family states he had a spiritual event where he was not responding for 30 seconds. Patient is now alert and coherent possibly at his baseline. He can't recall the event that happened late this morning. He underwent ct scan head which was negative per my review. ED Past Medical Hx - Past Medical History Hx Hypertension: Yes Hx CVA: Yes (May 2017) Hx Congestive Heart Failure: No Hx Diabetes: Yes Hx Deep Vein Thrombosis: No Hx Renal Disease: Yes (ESRD) Hx Sickle Cell Disease: No Hx Asthma: No Hx COPD: No Hx HIV: No Additional medical history: Stage IV chronic kidney disease. Recent hypertensive cerebral hemorrhage - Surgical History Hx Pacemaker: No Hx Internal Defibrillator: No Additional Surgical History: hernia repair l't AV shunt - Social History Smoking Status: Former Smoker Substance Use Type: None - Medications Home Medications: Home Medications Medication Instructions Recorded Confirmed Last Taken Type Acetaminophen [Acetaminophen TAB] 650 mg PO Q4H PRN #30 tablet 01/27/18 03/15/18 Unknown Rx AtorvaSTATin [Lipitor] 40 mg PO QHS #30 tablet 01/27/18 03/15/18 Unknown Rx Famotidine [Pepcid] 20 mg PO DAILY #30 tablet 01/27/18 03/15/18 Unknown Rx Losartan [Cozaar] 100 mg PO QDAY #30 tablet 01/27/18 03/15/18 Unknown Rx Metoprolol [Lopressor TAB] 100 mg PO BID #60 tablet 01/27/18 03/15/18 Unknown Rx amLODIPine [Norvasc] 10 mg PO QDAY #30 tablet 01/27/18 03/15/18 Unknown Rx hydrALAZINE [Apresoline TAB] 100 mg PO TID #90 tab 01/27/18 03/15/18 Unknown Rx oxyCODONE /ACETAMINOPHEN [Percocet 1 tab PO Q6H PRN #10 tablet 01/27/18 03/15/18 Unknown Rx 5/325 mg] Furosemide [Lasix TAB] 40 mg PO QDAY #30 tablet 02/02/18 03/15/18 Unknown Rx Minoxidil [Loniten] 5 mg PO BID #60 tablet 02/02/18 03/15/18 Unknown Rx Insulin NPH, Human [NovoLIN N] 8 unit SUB-Q BIDDIAB 30 Days units 03/18/18 Unknown Rx Lispro Insulin [HumaLOG] See Protocol SUB-Q QACHS #100 units 03/18/18 03/15/18 Unknown Rx glipiZIDE [Glucotrol] 5 mg PO QDDIAB #30 tablet 03/18/18 Unknown Rx Ondansetron [Zofran Odt] 4 mg PO Q6HR PRN #15 tab.rapdis 04/21/18 Unknown Rx ED Review of Systems ROS: Stated complaint: SYNCOPE Other details as noted in HPI Physical Exam - Physical Exam General: VSS Gen Wn/Wd in Nad TeleStroke Assessment: LOC: 0 LOC questions: 1 LOC Commands : 0 Gaze : 0 Visual garg : 0 Facial movements : 0 Upper limb Motor 0 Lower limb Motor 0 Limb Coordination - 0 Sensory - - 0 Language - 0 Speech - 0 Neglect / extinction - 0 NIHSS Score: 1 ED Medical Decision Making - Medical Decision Making IMPRESSION Syncope, less likely TIA/VBI hx of Stroke hypertension Medical Decision Making: Patient is not candidate for alteplase due to non focal / localizing exam Not an IR candidate as low clinical suspicion for LVO by neurologic assessment. Recommendations: - Daily antithrombotics to initiate now if no contraindication. - Further work up with Stroke labs, MRI brain, ECHO, NIVS Carotid will be deferred to inpt neurology service - Needs Inpatient Neurology consultation and follow up - Thank you for allowing us to participate in the care of your patient, if there are any questions please don't hesitate to contact us Discussed plan of care with patient/hospital staff Physician: Didier Barone, DO [employer] Critical care attestation.: If time is entered above; I have spent that time in minutes in the direct care of this critically ill patient, excluding procedure time. ED Disposition Clinical Impression: Syncope and collapse Disposition: - OP ADMIT IP TO THIS HOSP Is pt being admited?: Yes Condition: Stable Instructions: Syncope (ED) Referrals: PRIMARY CARE, [Primary Care Provider] - 3-5 Days
[2018-08-17] MEDS ORDERED: BABY ASPIRIN PO ONE (12:50)
[2018-08-17 12:54] LABS: Basophils # (Auto) 0.1 K/mm3 (0.0-0.1); Basophils % (Auto) 1.1 % (0.0-1.8); Eosinophils # (Auto) 0.2 K/mm3 (0.0-0.4); Eosinophils % (Auto) 2.7 % (0.0-4.3); Hematocrit 31.2 % (35.5-45.6); Hemoglobin 11.2 gm/dl (11.8-15.2); Lymphocytes # (Auto) 1.2 K/mm3 (1.2-5.4); Lymphocytes % (Auto) 18.8 % (13.4-35.0); Mean Corpuscular HGB Conc 36 % (32-34); Mean Corpuscular Volume 91 fl (84-94); Monocytes # (Auto) 0.4 K/mm3 (0.0-0.8); Monocytes % (Auto) 6.7 % (0.0-7.3); Platelet Count 312 K/mm3 (140-440); Red Blood Count 3.43 M/mm3 (3.65-5.03); Red Cell Distribution Width 12.8 % (13.2-15.2)
[2018-08-17 13:06] LABS: INR 1.07 (0.87-1.13)
[2018-08-17 13:07] LABS: Partial Thromboplastin Time 26.8 Sec. (24.2-36.6)
[2018-08-17 13:16] LABS: Calcium 9.2 mg/dL (8.4-10.2)
--- NOTE | 2018-08-17 13:18 | XRay Report ---
AP CHEST: HISTORY: altered mental status AP view of the chest demonstrates a normal mediastinal and cardiac contour with clear lungs and normal bony and soft tissue structures. IMPRESSION: Unremarkable AP chest.
--- NOTE | 2018-08-17 13:37 | History and Physical Report ---
History of Present Illness Chief complaint: He just blacked out History of present illness: 62 YO Male with HTN, CVA, ESRD on HD (M,W,F), DM, HLD presents to ED for evaluation. Pt is confused and unable to provide detailed history. Pt history taken from medical record, ED staff, and patient family. As per family, the patient was in his usual state of health upon waking from sleep this morning around 0830hrs. As per family, the patient subsequently experienced an acute episode of slurred speech followed by unresponsiveness. EMS notified and uopn arrival the patient was found to have a neurologic deficit. A code stroke was called and the patient transported to [facility]. Pt seen and evaluated in ED and found to have symptoms consistent with CVA as well as dysarthria, ESRD and Hyponatremia. Teleneurology consulted in ED and the patient was deemed not to be a candidate for TPA. Pt admitted to telemetry and initiated on CVA protocol. Neurolgy consulted in ED. Nephrology consulted in ED. Prior admission on 03/21/18 reviewed. All listed medication reconciled at time of admission. No reports of fever, chills, CP, Palpitations, NVD, Trauma, BRBPR, unintentional weight loss, night sweats, or recent ill contacts. Past History Past Medical History: diabetes, ESRD, hypertension, hyperlipidemia, stroke Past Surgical History: hernia repair, Other (LUE AVF) Social history: . denies: smoking, alcohol abuse, prescription drug abuse Family history: diabetes, hypertension Medications and Allergies Allergies Allergy/AdvReac Type Severity Reaction Status Date / Time No Known Allergies Allergy Verified 06/12/17 15:18 Home Medications Medication Instructions Recorded Confirmed Last Taken Type Acetaminophen [Acetaminophen TAB] 650 mg PO Q4H PRN #30 tablet 01/27/18 08/17/18 Unknown Rx AtorvaSTATin [Lipitor] 40 mg PO QHS #30 tablet 01/27/18 08/17/18 Unknown Rx Famotidine [Pepcid] 20 mg PO DAILY #30 tablet 01/27/18 08/17/18 Unknown Rx Losartan [Cozaar] 100 mg PO QDAY #30 tablet 01/27/18 08/17/18 Unknown Rx Metoprolol [Lopressor TAB] 100 mg PO BID #60 tablet 01/27/18 08/17/18 Unknown Rx amLODIPine [Norvasc] 10 mg PO QDAY #30 tablet 01/27/18 08/17/18 Unknown Rx hydrALAZINE [Apresoline TAB] 100 mg PO TID #90 tab 01/27/18 08/17/18 Unknown Rx Furosemide [Lasix TAB] 40 mg PO QDAY #30 tablet 02/02/18 08/17/18 Unknown Rx Minoxidil [Loniten] 5 mg PO BID #60 tablet 02/02/18 08/17/18 Unknown Rx glipiZIDE [Glucotrol] 5 mg PO QDDIAB #30 tablet 03/18/18 08/17/18 Unknown Rx Lispro Insulin [HumaLOG] 7 units SUB-Q TIDAC 08/17/18 08/17/18 Unknown History Review of Systems ROS unobtainable: due to mental status Exam - Constitutional Vitals: Temp Pulse Resp BP Pulse Ox 98 F 73 16 119/52 98 08/17/18 12:38 08/17/18 12:38 08/17/18 12:51 08/17/18 12:38 08/17/18 12:51 General appearance: Present: mild distress - EENT Eyes: Present: PERRL ENT: hearing intact, clear oral mucosa - Neck Neck: Present: supple, normal ROM - Respiratory Respiratory effort: normal Respiratory: bilateral: CTA - Cardiovascular Heart Sounds: Present: S1 & S2. Absent: rub, click - Extremities Extremities: pulses symmetrical, No edema Peripheral Pulses: within normal limits - Abdominal General gastrointestinal: Present: soft, non-tender, non-distended, normal bowel sounds Male genitourinary: Present: normal - Integumentary Integumentary: Present: clear, warm, dry - Musculoskeletal Musculoskeletal: generalized weakness - Psychiatric Psychiatric: no appropriate mood/affect, no intact judgment & insight, no memory intact - Neurologic Neurologic: CNII-XII intact, moves all extremities, no gait normal Results - Labs CBC & Chem 7: 08/17/18 12:45 08/17/18 12:45 Labs: Abnormal lab results 08/17/18 08/17/18 08/17/18 Range/Units 12: 12:45 12:45 RBC 3.43 L (3.65-5.03) M/mm3 Hgb 11.2 L (11.8-15.2) gm/dl Hct 31.2 L (35.5-45.6) % MCH 33 H (28-32) pg MCHC 36 H (32-34) % RDW 12.8 L (13.2-15.2) % Seg Neutrophils % 70.7 H (40.0-70.0) % Sodium 130 L (137-145) mmol/L Chloride 90.5 L (98-107) mmol/L BUN 28 H (9-20) mg/dL Creatinine 5.3 H (0.8-1.5) mg/dL Glucose 285 H (75-100) mg/dL POC Glucose 201 H (70-105) Salicylates (2.8-20.0) mg/dL Acetaminophen (10.0-30.0) ug/mL 08/17/18 08/17/18 Range/Units 12:45 12:45 RBC (3.65-5.03) M/mm3 Hgb (11.8-15.2) gm/dl Hct (35.5-45.6) % MCH (28-32) pg MCHC (32-34) % RDW (13.2-15.2) % Seg Neutrophils % (40.0-70.0) % Sodium (137-145) mmol/L Chloride (98-107) mmol/L BUN (9-20) mg/dL Creatinine (0.8-1.5) mg/dL Glucose (75-100) mg/dL POC Glucose (70-105) Salicylates < 0.3 L (2.8-20.0) mg/dL Acetaminophen < 5.0 L (10.0-30.0) ug/mL Assessment and Plan - Patient Problems (1) CVA (cerebral vascular accident) Current Visit: Yes Status: Acute Qualifiers: Laterality of affected vessel: unspecified Plan to address problem: CVA Protocol: Admit to telemetry, CT Brain, MRI Brain, MRA Brain, Echo, Carotid Doppler, PT/OT, Speech therapy, antiplatelet therapy, lipid panel, statin therapy, Neurology consulted in ED (2) ESRD (end stage renal disease) Current Visit: Yes Status: Chronic Plan to address problem: Nephrology consulted in ED, dialysis as per renal team, avoid nephrotoxic agents, (3) Hyponatremia syndrome Current Visit: Yes Status: Acute Plan to address problem: supportive care, repeat bmp, IVF resuscitation as tolerated (4) Diabetes Current Visit: Yes Status: Acute Plan to address problem: ADA diet, insulin, accu check, hypoglycemia protocol (5) HLD (hyperlipidemia) Current Visit: Yes Status: Acute Qualifiers: Hyperlipidemia type: mixed hyperlipidemia Qualified Code(s): E78.2 - Mixed hyperlipidemia Plan to address problem: statin therapy, lipid panel, low cholesterol diet (6) HTN (hypertension) Current Visit: Yes Status: Acute Qualifiers: Hypertension type: essential hypertension Qualified Code(s): I10 - Essential (primary) hypertension Plan to address problem: monitor BP q shift, permissive hypertension overnight, (7) DVT prophylaxis Current Visit: Yes Status: Acute Plan to address problem: SCD to BLE while in bed, prophylactic heparin
[2018-08-17] MEDS ORDERED: PHENERGAN PR PRN (13:39)
[2018-08-17] MEDS ORDERED: ZOFRAN IV PRN (13:39)
[2018-08-17] MEDS ORDERED: TYLENOL PO PRN ×2 (13:39→13:41)
[2018-08-17] MEDS ORDERED: SODIUM CHLORIDE FLUSH SYRINGE 10 ML IV PRN (13:39)
[2018-08-17] MEDS ORDERED: MILK OF MAGNESIA PO PRN (13:39)
[2018-08-17] MEDS ORDERED: DULCOLAX PR PRN (13:39)
[2018-08-17] MEDS ORDERED: REGLAN PO PRN (13:39)
[2018-08-17] MEDS ORDERED: ZOFRAN ODT PO PRN (13:41)
[2018-08-17] MEDS ORDERED: PERCOCET 5/325 PO PRN (13:41)
[2018-08-17] MEDS ORDERED: D50W (25GM) Syringe IV PRN (13:43)
[2018-08-17] MEDS ORDERED: APRESOLINE IV PRN (13:44)
--- NOTE | 2018-08-17 13:47 | Consultation ---
History of Present Illness - Reason for Consult Consult date: 08/17/18 end stage renal disease - History of Present Illness The patient is a 62 YO male who si known to our service with history significant for DM-2, HTN, HLD, Anemia, CVA and ESRD on hemodialysis (MWF) who presented to [facility] ED with suspected seizure activity. Patient is a very poor historian and information was obtained from her aeronautical research engineer. Apparently, the patient had a 30 seconds episode of unresponsiveness, that has now resolved. The patient cannot recall the event and he has no complaints at this time. In the ER Code Stroke was called. CT scan of the brain negative for acute findings. He is being followed by Dr.Bob Velasquez and gets hemodialysis at [facility]. Nephrology was consulted for ESRD management. Past History Past Medical History: dialysis, ESRD, hypertension, hyperlipidemia, stroke Medications and Allergies Allergies Allergy/AdvReac Type Severity Reaction Status Date / Time No Known Allergies Allergy Verified 06/12/17 15:18 Home Medications Medication Instructions Recorded Confirmed Last Taken Type Acetaminophen [Acetaminophen TAB] 650 mg PO Q4H PRN #30 tablet 01/27/18 08/17/18 Unknown Rx AtorvaSTATin [Lipitor] 40 mg PO QHS #30 tablet 01/27/18 08/17/18 Unknown Rx Famotidine [Pepcid] 20 mg PO DAILY #30 tablet 01/27/18 08/17/18 Unknown Rx Losartan [Cozaar] 100 mg PO QDAY #30 tablet 01/27/18 08/17/18 Unknown Rx Metoprolol [Lopressor TAB] 100 mg PO BID #60 tablet 01/27/18 08/17/18 Unknown Rx amLODIPine [Norvasc] 10 mg PO QDAY #30 tablet 01/27/18 08/17/18 Unknown Rx hydrALAZINE [Apresoline TAB] 100 mg PO TID #90 tab 01/27/18 08/17/18 Unknown Rx Furosemide [Lasix TAB] 40 mg PO QDAY #30 tablet 02/02/18 08/17/18 Unknown Rx Minoxidil [Loniten] 5 mg PO BID #60 tablet 02/02/18 08/17/18 Unknown Rx Aspirin EC 81 mg PO QDAY #30 tablet. 08/19/18 Unknown Rx Insulin NPH, Human [NovoLIN N] 8 unit SUB-Q BIDDIAB units 08/19/18 Unknown Rx Active Meds: Active Medications Acetaminophen (Tylenol) 650 mg PO Q4H PRN PRN Reason: Pain, Mild (1-3) Acetaminophen (Tylenol) 650 mg PO Q4H PRN PRN Reason: Pain MILD(1-3)/Fever >100.5/GOMEZ Aspirin (Aspirin) 325 mg PO QDAY NARINDER Atorvastatin Calcium (Lipitor) 40 mg PO QHS NARINDER Bisacodyl (Dulcolax) 10 mg [place] QDAY PRN PRN Reason: Constipation Dextrose (D50w (25gm) Syringe) 50 ml IV PRN PRN PRN Reason: Hypoglycemia Famotidine (Pepcid) 20 mg PO DAILY NARINDER Furosemide (Lasix) 20 mg IV QDAY NARINDER Hydralazine HCl (Apresoline) 10 mg IV Q6HR PRN PRN Reason: Hypertension Insulin Human NPH (Humulin N) 8 unit SUB-Q BIDDIAB NARINDER Insulin Human Regular (Humulin R) 0 units SUB-Q ACHS NARINDER; Protocol Magnesium Hydroxide (Milk Of Magnesia) 30 ml PO Q4H PRN PRN Reason: Constipation Metoclopramide HCl (Reglan) 10 mg PO Q6H PRN PRN Reason: Nausea And Vomiting Minoxidil (Loniten) 5 mg PO BID NARINDER Ondansetron HCl (Zofran) 4 mg IV Q8H PRN PRN Reason: Nausea And Vomiting Ondansetron HCl (Zofran Odt) 4 mg PO Q6HR PRN PRN Reason: Nausea And Vomiting Oxycodone/Acetaminophen (Percocet 5/325) 1 tab PO Q6H PRN PRN Reason: Pain , Severe (7-10) Promethazine HCl (Phenergan) 25 mg [place] Q6H PRN PRN Reason: Nausea And Vomiting Sodium Chloride (Sodium Chloride Flush Syringe 10 Ml) 10 ml IV PRN PRN PRN Reason: LINE FLUSH Review of Systems ROS unobtainable: due to mental status Exam - Vital Signs Vital signs: Vital Signs Resp Pulse Ox 15 99 08/17/18 12:37 08/17/18 12:37 - General Appearance General appearance: well-developed, well-nourished, appears stated age, other (not in distress) EENT: ATNC, PERRL, mucous membranes moist, hearing intact, vision intact Neck: Present: trachea midline Respiratory: Clear to Ascultation Heart: regular, S1S2, no murmurs Gastrointestinal: Present: normoactive bowel sounds. Absent: tenderness, distended Integumentary: no rash, warm and dry Neurologic: no focal deficit, no asterixis, confused, disoriented Musculoskeletal: Present: other (no edema, L arm AVF) Results - Lab Results 08/17/18 12:45 08/17/18 12:45 Most recent lab results Calcium 9.2 mg/dL (8.4-10.2) 08/17/18 12:45 Assessment and Plan 1. ESRD: Patient is currentlyon maintenance hemodialysis three times a week, MWF schedule. HD tomorrow. 2. Suspected seizure activity: Neuro consulted. 3. Anemia: Monitor. 4. DM-2. 5. HTN. 6. H/o CVA.
--- NOTE | 2018-08-17 15:43 | Consultation ---
Medications and Allergies Allergies Allergy/AdvReac Type Severity Reaction Status Date / Time No Known Allergies Allergy Verified 06/12/17 15:18 Home Medications Medication Instructions Recorded Confirmed Last Taken Type Acetaminophen [Acetaminophen TAB] 650 mg PO Q4H PRN #30 tablet 01/27/18 08/17/18 Unknown Rx AtorvaSTATin [Lipitor] 40 mg PO QHS #30 tablet 01/27/18 08/17/18 Unknown Rx Famotidine [Pepcid] 20 mg PO DAILY #30 tablet 01/27/18 08/17/18 Unknown Rx Losartan [Cozaar] 100 mg PO QDAY #30 tablet 01/27/18 08/17/18 Unknown Rx Metoprolol [Lopressor TAB] 100 mg PO BID #60 tablet 01/27/18 08/17/18 Unknown Rx amLODIPine [Norvasc] 10 mg PO QDAY #30 tablet 01/27/18 08/17/18 Unknown Rx hydrALAZINE [Apresoline TAB] 100 mg PO TID #90 tab 01/27/18 08/17/18 Unknown Rx Furosemide [Lasix TAB] 40 mg PO QDAY #30 tablet 02/02/18 08/17/18 Unknown Rx Minoxidil [Loniten] 5 mg PO BID #60 tablet 02/02/18 08/17/18 Unknown Rx glipiZIDE [Glucotrol] 5 mg PO QDDIAB #30 tablet 03/18/18 08/17/18 Unknown Rx Lispro Insulin [HumaLOG] 7 units SUB-Q TIDAC 08/17/18 08/17/18 Unknown History Active Meds: Active Medications Acetaminophen (Tylenol) 650 mg PO Q4H PRN PRN Reason: Pain, Mild (1-3) Acetaminophen (Tylenol) 650 mg PO Q4H PRN PRN Reason: Pain MILD(1-3)/Fever >100.5/GOMEZ Aspirin (Aspirin) 325 mg PO QDAY NARINDER Atorvastatin Calcium (Lipitor) 40 mg PO QHS NARINDER Bisacodyl (Dulcolax) 10 mg [place] QDAY PRN PRN Reason: Constipation Dextrose (D50w (25gm) Syringe) 50 ml IV PRN PRN PRN Reason: Hypoglycemia Famotidine (Pepcid) 20 mg PO DAILY NARINDER Furosemide (Lasix) 20 mg IV QDAY NARINDER Hydralazine HCl (Apresoline) 10 mg IV Q6HR PRN PRN Reason: Hypertension Insulin Human NPH (Humulin N) 8 unit SUB-Q BIDDIAB NARINDER Insulin Human Regular (Humulin R) 0 units SUB-Q ACHS NARINDER; Protocol Magnesium Hydroxide (Milk Of Magnesia) 30 ml PO Q4H PRN PRN Reason: Constipation Metoclopramide HCl (Reglan) 10 mg PO Q6H PRN PRN Reason: Nausea And Vomiting Minoxidil (Loniten) 5 mg PO BID NARINDER Ondansetron HCl (Zofran) 4 mg IV Q8H PRN PRN Reason: Nausea And Vomiting Ondansetron HCl (Zofran Odt) 4 mg PO Q6HR PRN PRN Reason: Nausea And Vomiting Oxycodone/Acetaminophen (Percocet 5/325) 1 tab PO Q6H PRN PRN Reason: Pain , Severe (7-10) Promethazine HCl (Phenergan) 25 mg DC Q6H PRN PRN Reason: Nausea And Vomiting Sodium Chloride (Sodium Chloride Flush Syringe 10 Ml) 10 ml IV PRN PRN PRN Reason: LINE FLUSH Physical Examination - Vital Signs Vital Signs: Vital Signs Resp Pulse Ox 15 99 08/17/18 12:37 08/17/18 12:37 Results - Laboratory Findings CBC and BMP: 08/17/18 12:45 08/17/18 12:45 Abnormal Lab Findings: Abnormal Labs 08/17/18 08/17/18 08/17/18 12:19 12:45 12:45 RBC 3.43 L Hgb 11.2 L Hct 31.2 L MCH 33 H MCHC 36 H RDW 12.8 L Seg Neutrophils % 70.7 H Sodium 130 L Chloride 90.5 L BUN 28 H Creatinine 5.3 H Glucose 285 H POC Glucose 201 H Salicylates Acetaminophen 08/17/18 08/17/18 12:45 12:45 RBC Hgb Hct MCH MCHC RDW Seg Neutrophils % Sodium Chloride BUN Creatinine Glucose POC Glucose Salicylates < 0.3 L Acetaminophen < 5.0 L Assessment and Plan is 62-year-old gentleman with history of end-stage renal disease, 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 Patient states that he ate his breakfast and also had taken his insulin but when he developed an episode of suddenly becoming weak and slumping over he did not fall. Caregiver thought that he was hypoglycemic and without checking the blood sugar gave him some sugar water after which he became more responsive and gradually became to his normal status. Patient denies any post ictal headache, confusion or drowsiness. Patient was brought to the emergency where he had a CT scan done. CT scan of the brain showed old lacunar infarct in the right thalamus other than that CT scan was normal. His electrolytes at the ER does not show any abnormality except for mildly low sodium of 130 and elevated BUN and creatinine from his end-stage renal disease. Patient is on dialysis 3 times a week. Other electrolytes are within normal limits. Physical examination. Patient is alert and appropriate.Has insight into his problems and answers questions appropriately. He is oriented time,place and person,and he knows about his family demographics and also the current situation and past events. He was able to continue a meaningful conversation covering different topics. Heart: Normal rate and rhythm Carotid:Both palpable. Cranial Nerves:. Patient has no facial asymmetry, pupils react to light and accommodation, extra ocular movement is intact, tongue in the midline and other cranial nerves are within normal limits Motor: Normal strength in all 4 extremities and there was no asymmetry of strength between the upper and lower extremities on both sides Coordination: [id number] within normal limit. Reflexes: Patient did not have any asymmetry of reflexes. There was generalized hyporeflexia with both ankle reflexes being absent.Plantar response was down going. Impression : Patient seemed to have a brief hypoglycemia related unresponsiveness and weakness. Does not seem to be seizures as he did not have any post ictal lethargy or drowsiness, headache or somnolence. At the time of my evaluation patient's mental status was completely normal. Recommendation : Nothing additional to offer from a neurological standpoint at this time. If any further problem developes, please call us back.
[2018-08-17] MEDS: HumuLIN R SUB-Q SCH ×2 (18:33→22:26)
--- NOTE | 2018-08-17 19:27 | Vascular Lab Report ---
PROCEDURE: VL CAROTID DUPLEX BILAT TECHNIQUE: HISTORY: stroke FINDINGS: Real-time ultrasound of the cervical arterial vasculature was performed. Peak systolic velocity in the right common carotid artery was 106 cm/s. In the internal carotid it wa s 60 cm/s and in the external carotid 98 cm/s. Flow in the vertebral artery was antegrade. The ratio of flow of the internal carotid to the common carotid was 0.56. On the left, peak systolic velocity in the common carotid artery was 72 cm/s. In the internal carotid it was 62 cm/s and in the external carotid 80 cm/s. Flow in the vertebral artery was antegrade. The ratio of flow of the internal carotid to the common carotid was 0.86 IMPRESSION: No stenosis of greater than 50% is seen in the cervical arterial vasculature This document is electronically signed by Mio Sexton MD., Aug 17 2018 07:25:29 PM ET
[2018-08-17] MEDS: LONITEN PO SCH (21:58)
[2018-08-17] MEDS: HEPARIN SUB-Q SCH (21:58)
--- NOTE | 2018-08-18 08:53 | Progress Note ---
Assessment and Plan 1. ESRD: Patient is on maintenance hemodialysis three times a week, MWF schedule. HD today. 2. Suspected seizure activity. 3. Anemia: Monitor. 4. DM-2. 5. HTN. 6. H/o CVA. Subjective Date of service: 08/18/18 Interval history: Patient was seen and examined at the bedside. Objective - Vital Signs Vital signs: Vital Signs - 12hr 08/18/18 08/18/18 08/18/18 00:02 05:00 06:54 Temperature 98.2 F 98.3 F Pulse Rate 67 77 77 Respiratory 20 20 Rate Blood Pressure 139/78 133/68 O2 Sat by Pulse 96 99 Oximetry 08/18/18 08:05 Temperature 98.3 F Pulse Rate 76 Respiratory 16 Rate Blood Pressure 133/69 O2 Sat by Pulse 98 Oximetry - General Appearance General appearance: well-developed, well-nourished, appears stated age, other (not in distress) EENT: ATNC, PERRL, mucous membranes moist, hearing intact, vision intact Respiratory: Present: Clear to Ascultation Cardiology: regular, S1S2, no murmurs Gastrointestinal: normoactive bowel sounds, no tenderness, no distended Integumentary: no rash, warm and dry Neurologic: no focal deficit, no asterixis, confused, disoriented Musculoskeletal: other (no edema, L arm AVF) - Lab 08/17/18 12:45 08/17/18 12:45 Most recent lab results Calcium 9.2 mg/dL (8.4-10.2) 08/17/18 12:45 Medications & Allergies - Medications Allergies/Adverse Reactions: Allergies No Known Allergies Allergy (Verified 06/12/17 15:18) Home Medications: Home Medications Medication Instructions Recorded Confirmed Last Taken Type Acetaminophen [Acetaminophen TAB] 650 mg PO Q4H PRN #30 tablet 01/27/18 08/17/18 Unknown Rx AtorvaSTATin [Lipitor] 40 mg PO QHS #30 tablet 01/27/18 08/17/18 Unknown Rx Famotidine [Pepcid] 20 mg PO DAILY #30 tablet 01/27/18 08/17/18 Unknown Rx Losartan [Cozaar] 100 mg PO QDAY #30 tablet 01/27/18 08/17/18 Unknown Rx Metoprolol [Lopressor TAB] 100 mg PO BID #60 tablet 01/27/18 08/17/18 Unknown Rx amLODIPine [Norvasc] 10 mg PO QDAY #30 tablet 01/27/18 08/17/18 Unknown Rx hydrALAZINE [Apresoline TAB] 100 mg PO TID #90 tab 01/27/18 08/17/18 Unknown Rx Furosemide [Lasix TAB] 40 mg PO QDAY #30 tablet 02/02/18 08/17/18 Unknown Rx Minoxidil [Loniten] 5 mg PO BID #60 tablet 02/02/18 08/17/18 Unknown Rx Aspirin EC 81 mg PO QDAY #30 tablet. 08/19/18 Unknown Rx Insulin NPH, Human [NovoLIN N] 8 unit SUB-Q BIDDIAB units 08/19/18 Unknown Rx Active Medications: Generic Name Dose Route Start Last Admin Trade Name Freq PRN Reason Stop Dose Admin Acetaminophen 650 mg 08/17/18 13:39 Tylenol PO Q4H PRN Pain, Mild (1-3) Acetaminophen 650 mg 08/17/18 13:41 Tylenol PO Q4H PRN Pain MILD(1-3)/Fever >100.5/GOMEZ Aspirin 325 mg 08/18/18 10:00 Aspirin PO QDAY NARINDER Atorvastatin Calcium 40 mg 08/17/18 22:00 08/17/18 21:58 Lipitor PO 40 mg QHS NARINDER Administration Bisacodyl 10 mg 08/17/18 13:39 Dulcolax [place] QDAY PRN Constipation Dextrose 50 ml 08/17/18 13:43 D50w (25gm) Syringe IV PRN PRN Hypoglycemia Famotidine 20 mg 08/18/18 10:00 Pepcid PO DAILY NARINDER Furosemide 20 mg 08/18/18 10:00 Lasix IV QDAY NARINDER Heparin Sodium (Porcine) 5,000 unit 08/17/18 22:00 08/17/18 21:58 Heparin SUB-Q 5,000 unit Q12HR NARINDER Administration Hydralazine HCl 10 mg 08/17/18 13:44 Apresoline IV Q6HR PRN Hypertension Insulin Human NPH 8 unit 08/17/18 17:00 08/17/18 18:33 Humulin N SUB-Q Not Given BIDDIAB NARINDER Insulin Human Regular 0 units 08/17/18 16:30 08/17/18 22:26 Humulin R SUB-Q Not Given ACHS [facility] Protocol Magnesium Hydroxide 30 ml 08/17/18 13:39 Milk Of Magnesia PO Q4H PRN Constipation Metoclopramide HCl 10 mg 08/17/18 13:39 Reglan PO Q6H PRN Nausea And Vomiting Minoxidil 5 mg 08/17/18 22:00 08/17/18 21:58 Loniten PO 5 mg BID NARINDER Administration Ondansetron HCl 4 mg 08/17/18 13:39 Zofran IV Q8H PRN Nausea And Vomiting Ondansetron HCl 4 mg 08/17/18 13:41 Zofran Odt PO Q6HR PRN Nausea And Vomiting Oxycodone/Acetaminophen 1 tab 08/17/18 13:41 Percocet 5/325 PO Q6H PRN Pain , Severe (7-10) Promethazine HCl 25 mg 08/17/18 13:39 Phenergan [place] Q6H PRN Nausea And Vomiting Sodium Chloride 10 ml 08/17/18 13:39 Sodium Chloride Flush Syringe 10 Ml IV PRN PRN LINE FLUSH
[2018-08-18] MEDS ORDERED: NACL 0.9% 100 ML IV PRN (09:30)
[2018-08-18] MEDS ORDERED: HEPARIN 10,000 UNITS/10 ML IV PRN ×2 (09:30)
[2018-08-18] MEDS ORDERED: LASIX IV SCH (10:00)
[2018-08-18] MEDS: LONITEN PO SCH ×2 (10:07→22:12)
[2018-08-18] MEDS: ASPIRIN PO SCH (10:07)
[2018-08-18] MEDS: PEPCID PO SCH (10:08)
[2018-08-18] MEDS: HumuLIN R SUB-Q SCH ×4 (10:08→22:06)
[2018-08-18] MEDS: HEPARIN SUB-Q SCH ×2 (10:08→22:07)
--- NOTE | 2018-08-18 11:11 | Magnetic Resonance Report ---
MRA HEAD WITHOUT CONTRAST HISTORY: Stroke. [id number] imaging with MIP reformations of the [place] is submitted. The images are somewhat limited by patient motion. No large vessel occlusion, dissection, high-grade stenosis or aneurysm is identified throughout the anterior circulation. There is suggestion of decreased intravascular signal in the proximal basilar artery which appears to be secondary to phase artifact. origin of the left [employer] is noted. The vertebral arteries are codominant IMPRESSION: Slightly limited exam by motion. No large vessel occlusion is identified.
--- NOTE | 2018-08-18 15:52 | Progress Note ---
Assessment and Plan /Syncope, ruled out CVA likely from hypoglycemia, monitor clinically CT head, MRA unremarkable / ESRD (end stage renal disease) Nephrology consulted in ED, dialysis as per renal team, avoid nephrotoxic agents, / Hyponatremia syndrome supportive care, repeat bmp, / Diabetes type 2 ADA diet, insulin, accu check, hypoglycemia protocol / HLD (hyperlipidemia) statin therapy, lipid panel, low cholesterol diet / HTN (hypertension) monitor BP q shift, resume home meds / DVT prophylaxis SCD to BLE while in bed, prophylactic heparin Disposition: likely tomorrow, if clinically stable Brief History: 62 yom with hx of htn, hld, ckd on HD, strokes and previous SAH, presents with episode of blanking out for 30 seconds. He is admitted for acute stroke protocol. Subjective Date of service: 08/18/18 Interval history: patient seen and examined denies chest pain or any focal deficit getting HD Objective - Constitutional Vitals: Vital Signs - 12hr 08/18/18 08/18/18 08/18/18 05:00 06:54 08:05 Temperature 98.3 F 98.3 F Pulse Rate 77 77 76 Respiratory 20 16 Rate Blood Pressure 133/68 133/69 O2 Sat by Pulse 99 98 Oximetry General appearance: Present: no acute distress, well-nourished - EENT Eyes: PERRL, EOM intact ENT: hearing intact, clear oral mucosa Ears: bilateral: normal - Neck Neck: supple, normal ROM - Respiratory Respiratory effort: normal Respiratory: bilateral: CTA - Cardiovascular Rhythm: regular Heart Sounds: Present: S1 & S2. Absent: gallop, rub Extremities: pulses intact, No edema, normal color, Full ROM - Gastrointestinal General gastrointestinal: Present: soft, non-tender, non-distended, normal bowel sounds - Integumentary Integumentary: clear, warm, dry - Musculoskeletal Musculoskeletal: 1, strength equal bilaterally - Neurologic Neurologic: moves all extremities - Psychiatric Psychiatric: memory intact, appropriate mood/affect, intact judgment & insight - Labs CBC & Chem 7: 08/17/18 12:45 08/17/18 12:45 Labs: Abnormal lab results 08/18/18 Range/Units 08:09 POC Glucose 193 H (70-105) - Imaging and cardiology CT Scan - head: report reviewed
[2018-08-18] MEDS: HumaLOG SUB-Q SCH (16:30)
[2018-08-18] MEDS: NORVASC PO SCH (17:00)
[2018-08-18] MEDS: APRESOLINE PO SCH (22:12)
[2018-08-18] MEDS: LOPRESSOR PO SCH (22:13)
[2018-08-19] MEDS ORDERED: ATIVAN IV PRN (09:00)
[2018-08-19] MEDS: LOPRESSOR PO SCH (09:12)
[2018-08-19] MEDS: PEPCID PO SCH (09:12)
[2018-08-19] MEDS: ASPIRIN PO SCH (09:12)
[2018-08-19] MEDS: HumaLOG SUB-Q SCH ×2 (09:13→13:20)
[2018-08-19] MEDS: HEPARIN SUB-Q SCH (09:13)
[2018-08-19] MEDS: APRESOLINE PO SCH ×2 (09:15→13:16)
[2018-08-19] MEDS: LONITEN PO SCH (09:16)
[2018-08-19] MEDS: NORVASC PO SCH (09:16)
[2018-08-19] MEDS: HumuLIN R SUB-Q SCH ×2 (09:19→13:20)
[2018-08-19] MEDS ORDERED: COZAAR PO SCH (10:00)
[2018-08-19] MEDS ORDERED: LASIX PO SCH (10:00)
--- NOTE | 2018-08-19 10:13 | Progress Note ---
Assessment and Plan 1. ESRD: Patient is on maintenance hemodialysis three times a week, MWF schedule. Last dialyzed yesterday. 2. Suspected seizure activity. 3. Anemia: Monitor. 4. DM-2. 5. HTN. 6. H/o CVA. Subjective Date of service: 08/19/18 Interval history: Patient was seen and examined at the bedside. Doing ok. Caregiver at the bedside. Objective - Vital Signs Vital signs: Vital Signs - 12hr 08/18/18 08/19/18 08/19/18 23:20 04:34 06:00 Temperature 98.0 F 98.0 F Pulse Rate 94 H 96 H 92 H Respiratory 18 18 Rate Blood Pressure 111/51 99/57 O2 Sat by Pulse 98 97 Oximetry 08/19/18 08/19/18 08/19/18 08:01 09:12 09:15 Temperature 98.3 F Pulse Rate 100 H 100 H 100 H Respiratory 14 Rate Blood Pressure 119/60 119/60 119/60 O2 Sat by Pulse 97 Oximetry - General Appearance General appearance: well-developed, well-nourished, appears stated age, other (not in distress) EENT: ATNC, PERRL, hearing intact Neck: other (Trachea midline) Respiratory: Present: Clear to Ascultation Cardiology: regular, S1S2, no murmurs Gastrointestinal: normoactive bowel sounds, no tenderness, no distended Integumentary: no rash, warm and dry Neurologic: no focal deficit, no asterixis Musculoskeletal: other (no edema, L arm AVF) - Lab 08/17/18 12:45 08/17/18 12:45 Most recent lab results Calcium 9.2 mg/dL (8.4-10.2) 08/17/18 12:45 Medications & Allergies - Medications Allergies/Adverse Reactions: Allergies No Known Allergies Allergy (Verified 06/12/17 15:18) Home Medications: Home Medications Medication Instructions Recorded Confirmed Last Taken Type Acetaminophen [Acetaminophen TAB] 650 mg PO Q4H PRN #30 tablet 01/27/18 08/17/18 Unknown Rx AtorvaSTATin [Lipitor] 40 mg PO QHS #30 tablet 01/27/18 08/17/18 Unknown Rx Famotidine [Pepcid] 20 mg PO DAILY #30 tablet 01/27/18 08/17/18 Unknown Rx Losartan [Cozaar] 100 mg PO QDAY #30 tablet 01/27/18 08/17/18 Unknown Rx Metoprolol [Lopressor TAB] 100 mg PO BID #60 tablet 01/27/18 08/17/18 Unknown Rx amLODIPine [Norvasc] 10 mg PO QDAY #30 tablet 01/27/18 08/17/18 Unknown Rx hydrALAZINE [Apresoline TAB] 100 mg PO TID #90 tab 01/27/18 08/17/18 Unknown Rx Furosemide [Lasix TAB] 40 mg PO QDAY #30 tablet 02/02/18 08/17/18 Unknown Rx Minoxidil [Loniten] 5 mg PO BID #60 tablet 02/02/18 08/17/18 Unknown Rx Aspirin EC 81 mg PO QDAY #30 tablet. 08/19/18 Unknown Rx Insulin NPH, Human [NovoLIN N] 8 unit SUB-Q BIDDIAB units 08/19/18 Unknown Rx Active Medications: Generic Name Dose Route Start Last Admin Trade Name Freq PRN Reason Stop Dose Admin Acetaminophen 650 mg 08/17/18 13:41 Tylenol PO Q4H PRN Pain MILD(1-3)/Fever >100.5/GOMEZ Amlodipine Besylate 10 mg 08/18/18 16:00 08/19/18 09:16 Norvasc PO Not Given QDAY NARINDER Aspirin 325 mg 08/18/18 10:00 08/19/18 09:12 Aspirin PO 325 mg QDAY NARINDER Administration Atorvastatin Calcium 40 mg 08/17/18 22:00 08/18/18 22:07 Lipitor PO 40 mg QHS NARINDER Administration Bisacodyl 10 mg 08/17/18 13:39 Dulcolax [place] QDAY PRN Constipation Dextrose 50 ml 08/17/18 13:43 D50w (25gm) Syringe IV PRN PRN Hypoglycemia Famotidine 20 mg 08/18/18 10:00 08/19/18 09:12 Pepcid PO 20 mg DAILY NARINDER Administration Furosemide 40 mg 08/19/18 10:00 08/19/18 09:12 Lasix PO 40 mg QDAY NARINDER Administration Heparin Sodium (Porcine) 5,000 unit 08/17/18 22:00 08/19/18 09:13 Heparin SUB-Q 5,000 unit Q12HR NARINDER Administration Heparin Sodium (Porcine) 1,000 unit 08/18/18 09:30 Heparin 10,000 Units/10 Ml IV CLARISA PRN hemodialysis Hydralazine HCl 10 mg 08/17/18 13:44 Apresoline IV Q6HR PRN Hypertension Hydralazine HCl 100 mg 08/18/18 20:00 08/19/18 09:15 Apresoline PO Not Given TID [facility] Sodium Chloride 100 mls @ 999 mls/hr 08/18/18 09:30 Nacl 0.9% IV CLARISA PRN Hypotension Insulin Human Lispro 7 unit 08/18/18 16:30 08/19/18 09:13 Humalog SUB-Q 7 unit TIDAC NARINDER Administration Insulin Human NPH 8 unit 08/17/18 17:00 08/19/18 09:13 Humulin N SUB-Q 8 unit BIDDIAB [facility] Administration Insulin Human Regular 0 units 08/17/18 16:30 08/19/18 09:19 Humulin R SUB-Q Not Given ACHS [facility] Protocol Lorazepam 2 mg 08/19/18 09:00 Ativan IV Q4H PRN Agitation Losartan Potassium 100 mg 08/19/18 10:00 08/19/18 09:15 Cozaar PO Not Given QDAY [facility] Magnesium Hydroxide 30 ml 08/17/18 13:39 Milk Of Magnesia PO Q4H PRN Constipation Metoclopramide HCl 10 mg 08/17/18 13:39 Reglan PO Q6H PRN Nausea And Vomiting Metoprolol Tartrate 100 mg 08/18/18 22:00 08/19/18 09:12 Lopressor PO 100 mg BID [facility] Administration Minoxidil 5 mg 08/17/18 22:00 08/19/18 09:16 Loniten PO Not Given BID [facility] Ondansetron HCl 4 mg 08/17/18 13:41 Zofran Odt PO Q6HR PRN Nausea And Vomiting Oxycodone/Acetaminophen 1 tab 08/17/18 13:41 Percocet 5/325 PO Q6H PRN Pain , Severe (7-10) Promethazine HCl 25 mg 08/17/18 13:39 Phenergan [place] Q6H PRN Nausea And Vomiting
--- NOTE | 2018-08-19 10:50 | Discharge Summary ---
Providers - Providers Date of Admission: 08/17/18 13:39 Date of discharge: 08/19/18 Attending physician: FATIMAH CORONADO 08/17/18 12:43 Consult to Physician [CONS] Urgent Comment: Consulting Provider: CRISTAL ALCALA Physician Instructions: Reason For Exam: esrd ams 08/17/18 13:39 Occupational Therapy Evaluate and Treat [CONS] Routine Comment: Reason For Exam: Neuro deficits Physical Therapy Evaluation and Treat [CONS] Routine Comment: Reason For Exam: Neuro deficits 08/17/18 13:44 Consult to Physician [CONS] Routine Comment: Consulting Provider: KATHLEEN ELLIOTT Physician Instructions: Reason For Exam: cva 08/18/18 15:43 Speech Therapy Evaluation and Treat [CONS] Routine Reason For Exam: Cognitive deficits/speech Primary care physician: SPRING TACKER Hospitalization Condition: Good Pertinent studies: Head CT CXR Brain MRI/MRA Carotid doppler Hospital course: Brief History: 62 yom with hx of htn, hld, ckd on HD, strokes and previous SAH, presents with episode of blanking out for 30 seconds. He is admitted for acute stroke protocol. he was evaluated by teleneurology and neurology and his symptom was concluded due to syncope and collapse from hypoglycemia. he was monitored o/n, medications adjusted, stroke workup was negative, he was then discharge Discharge diagnosis and management: /Syncope and collapse, ruled out CVA likely from hypoglycemia, monitored clinically CT head no acute CVA, MRA unremarkable MRI showed old/subacute lacunar stroke and chronic volume loss /Altered mental status ? metabolic encephalopathy ? - patient was confused as documented by Dr Soto in h/p - but per ER doc and per teleneurology patient was AAOx3 on presentation - patient was unresponsive or less responsive for 30 sec per caregiver before presentation - if any encephalopathy was present on admission could be from hypoglycemia - I followed the patient from next day and he was asymptomatic and at his baseline on my exam / ESRD (end stage renal disease) Nephrology consulted in ED, dialysis as per renal team, avoid nephrotoxic agents, / Hyponatremia syndrome, resolved managed with iv fluid, supportive care, / Diabetes type 2 managed with ADA diet, insulin, accu check, hypoglycemia protocol / HLD (hyperlipidemia) cont statin therapy, low cholesterol diet / HTN (hypertension) monitored BP q shift, resumed home meds / DVT prophylaxis SCD to BLE while in bed, prophylactic heparin Disposition: home Disposition: [id number] HOME UNDER HOME HL Time spent for discharge: 34 minutes Core Measure Documentation - Palliative Care Palliative Care/ Comfort Measures: Not Applicable - Core Measures Any of the following diagnoses?: history only Exam - Physical Exam Narrative exam: General appearance: well-developed, well-nourished, appears stated age, other (not in distress) EENT: ATNC, PERRL, mucous membranes moist, hearing intact, vision intact Respiratory: Present: Clear to Ascultation Cardiology: regular, S1S2, no murmurs Gastrointestinal: normoactive bowel sounds, no tenderness, no distended Integumentary: no rash, warm and dry Neurologic: no focal deficit, no asterixis, Musculoskeletal: other (no edema, L arm AVF) - Constitutional Vitals: Temp Pulse Resp BP Pulse Ox 98.3 F 100 H 14 119/60 97 08/19/18 08:01 08/19/18 09:15 08/19/18 08:01 08/19/18 09:15 08/19/18 08:01 Plan Activity: fall precautions Weight Bearing Status: Non-Weight Bearing Diet: renal Special Instructions: record daily weights, record daily BP diary, record blood sugar diary Follow up with: PRIMARY CARE, [Primary Care Provider] - 3-5 Days Prescriptions: Aspirin EC 81 mg PO QDAY #30 tablet.
--- NOTE | 2018-08-19 11:52 | Magnetic Resonance Report ---
MRI OF THE BRAIN WITHOUT CONTRAST: HISTORY: Stroke PROCEDURE: Multiplanar, multisequence MR imaging of the brain without IV contrast was performed. FINDINGS: There is a subtle 2 cm linear area of diffusion restriction in the anterior left wang radiata which is best demonstrated on diffusion images 16-19. There is decreased signal in this area on the ADC map. This is consistent with subacute ischemia. There is no evidence for hemorrhage. Advanced volume loss and advanced chronic micro-ischemic changes in the white matter are identified. Chronic focal infarcts are identified in the left subinsular region, right thalamus and left cerebellum. Small chronic cortical infarcts are identified in both posterior temporal lobes and medial right occipital lobe. No large chronic infarct. No evidence for hemorrhage, mass or mass effect. No extra-axial fluid collection. The midline structures are central. The basal cisterns are patent. Normal ventricular size. The orbital cavities and sella turcica demonstrate no abnormality. The visualized paranasal sinuses and mastoid air cells are well aerated. IMPRESSION: Advanced volume loss and chronic white matter changes. Small linear area of subacute ischemia in the left wang radiata anteriorly. Multiple chronic focal infarcts as described.
[2018-08-19 13:16] VITALS: BP 112/59
== END 2018-08-19 17:15 | disposition home health service (06) | DRG 638 ==
LOC: ED 11:41 → 4A 13:39
PROVIDERS: ADMIT Internal Medicine; ATTEND Internal Medicine
PROC: 5A1D70Z Performance of Urinary Filtration, Intermittent, Less than 6 Hours Per Day (ICD-10-PCS; principal; 2018-08-18)
DX: E11.649 Type 2 diabetes mellitus with hypoglycemia without coma (principal); I12.0 Hypertensive chronic kidney disease with stage 5 chronic kidney disease or end stage renal disease; E87.1 Hypo-osmolality and hyponatremia; N18.6 End stage renal disease; E78.2 Mixed hyperlipidemia; D64.9 Anemia, unspecified; Z86.73 Personal history of transient ischemic attack (TIA), and cerebral infarction without residual deficits; Z82.49 Family history of ischemic heart disease and other diseases of the circulatory system; Z83.3 Family history of diabetes mellitus
CPT/HCPCS: 36415; 70450; 70544; 70551; 71045; 80048; 80320; 82140; 82962; 84484; 85025; 85610; 85670; 85730; 93005; 93010; 93306; 93880; G0378; A9270-GY; G0480; J1644; J1815; J1940; J2060